=== PATIENT | male | born 1945 | race American Indian/Alaskan Native ===

== ENCOUNTER 2020-04-12 04:10 | Inpatient (IN) | payer MEDICARE ==
--- NOTE | 2020-04-12 04:17 | Emergency Department Report ---
<GENOVEVA AGUILERA - Last Filed: 04/12/20 05:37> ED Shortness of Breath HPI - General Stated Complaint: NICKIE Time Seen by Provider: 04/12/20 04:13 Source: patient, EMS Mode of arrival: Stretcher Limitations: Physical Limitation - History of Present Illness Initial Comments: Chief complaint: Trouble breathing HPI: This is an elderly 75-year-old male with history of hypertension diabetes who presents with shortness of breath. called EMS due to severe work of breathing. First responders discovered severe hypoxia 76% on room air. No previous history of lung disease or tobacco use. Patient has productive cough. Patient gives limited history due to work of breathing. MD Complaint: shortness of breath, cough -: Gradual, days(s) (Several days worse today) Severity: severe Consistency: constant Improves With: nothing Context: recent URI, other (Productive cough) - Related Data Allergies Allergy/AdvReac Type Severity Reaction Status Date / Time No Known Allergies Allergy Verified 04/12/20 04:28 ED Review of Systems Comment: Unobtainable due to pts medical conditions (Limited to severe respiratory distress) ED Past Medical Hx - Past Medical History Previous Medical History?: Yes Hx Hypertension: Yes Hx Diabetes: Yes - Social History Smoking Status: Never Smoker ED Physical Exam - General General appearance: lethargic, other (Severe work of breathing, respiratory rate 45 bpm) - Head Head exam: Present: atraumatic, normocephalic - Eye Eye exam: Present: normal appearance - ENT ENT exam: Present: mucous membranes moist - Neck Neck exam: Present: normal inspection - Respiratory Respiratory exam: Present: respiratory distress, decreased breath sounds. Absent: wheezes, rales, rhonchi, stridor - Cardiovascular Cardiovascular Exam: Present: regular rate, normal rhythm, normal heart sounds. Absent: systolic murmur, diastolic murmur, rubs, gallop - GI/Abdominal GI/Abdominal exam: Present: soft, normal bowel sounds. Absent: distended, tenderness, guarding, rebound - Rectal Rectal exam: Present: deferred - Extremities Exam Extremities exam: Present: pedal edema - Back Exam Back exam: Present: normal inspection - Neurological Exam Neurological exam: Present: oriented X3, other (Lethargic) - Psychiatric Psychiatric exam: Present: flat affect - Skin Skin exam: Present: warm, dry, intact, normal color. Absent: rash ED Medical Decision Making - Radiology Data Radiology results: report reviewed CHEST 1 VIEW INDICATION / CLINICAL INFORMATION: hypoxia cough respiratory distress. COMPARISON: None available. FINDINGS: SUPPORT DEVICES: None. HEART / MEDIASTINUM: No significant abnormality. LUNGS / PLEURA: Diffuse bilateral nodular interstitial disease is noted. Additionally there is focal area of consolidation in the mid lung regions bilaterally. This has more of a masslike appearance in the right midlung. Very small right pleural effusion. No pneumothorax. ADDITIONAL FINDINGS: No significant additional findings. IMPRESSION: 1. Abnormal chest radiograph. 2. Nodular interstitial disease is noted bilaterally. This could possibly be miliary in appearance raising concern for the possibility of tuberculosis. 3. Masslike areas of consolidation bilaterally. I would favor pneumonia, however, underlying lung neoplasm is not excluded, especially on the right. Close radiographic follow-up is recommended - Medical Decision Making Acute respiratory failure hypoxia: Patient presents with fever cough severe work of breathing requiring noninvasive positive pressure ventilation. I reviewed chest radiograph. Patient does have findings of multifocal pneumonia. Radiologist suggested possible neoplasm. Postobstructive pneumonia is a consideration. However considering current pandemic must consider community-acquired pneumonia as well as COVID-19 infection. Patient received IV antibiotics in the emergency department Critical Care Time: Yes Critical care time in (mins) excluding proc time.: 40 Critical care attestation.: 40 minutes of critical care time excluding procedures were used in the care of the patient. I came immediately to the bedside upon patient's arrival. I obtained history from EMS at the bedside. I discussed treatment plan with the nursing team members and respiratory therapist. I reviewed electronic record. I was concerned for imminent airway compromise. Patient required multiple interventions and reassessments. ED Disposition Clinical Impression: Acute respiratory failure with hypoxia, Community acquired pneumonia, Suspected COVID-19 virus infection, Renal insufficiency Disposition: OP ADMIT IP TO THIS HOSP Condition: Stable Instructions: Bacterial Pneumonia (ED) <CHARLETTE JONES - Last Filed: 04/12/20 07:27> ED Review of Systems ROS: Stated complaint: NICKIE Other details as noted in HPI ED Course Vital Signs 04/12/20 04/12/20 04:17 04:21 Temperature 100.1 F H Pulse Rate 113 H 110 H Respiratory 42 H 48 H Rate Blood Pressure 135/74 Blood Pressure 155/78 [Left] O2 Sat by Pulse 100 95 Oximetry ED Medical Decision Making - Lab Data Result diagrams: 04/12/20 04:51 04/12/20 04:51 Lab Results 04/12/20 04/12/20 04/12/20 Range/Units 04:21 04:51 04:51 WBC 5.1 (4.5-11.0) K/mm3 RBC 4.24 (3.65-5.03) M/mm3 Hgb 13.1 (11.8-15.2) gm/dl Hct 39.3 (35.5-45.6) % MCV 93 (84-94) fl MCH 31 (28-32) pg MCHC 33 (32-34) % RDW 14.1 (13.2-15.2) % Plt Count 110 L (140-440) K/mm3 Add Manual Diff Complete Total Counted 100 Seg Neutrophils % Litigation Manager Seg Neuts % (Manual) 93.0 H (40.0-70.0) % Band Neutrophils % 1.0 % Lymphocytes % (Manual) 3.0 L (13.4-35.0) % Reactive Lymphs % (Man) 0 % Monocytes % (Manual) 1.0 (0.0-7.3) % Eosinophils % (Manual) 2.0 (0.0-4.3) % Basophils % (Manual) 0 (0.0-1.8) % Metamyelocytes % 0 % Myelocytes % 0 % Promyelocytes % 0 % Blast Cells % 0 % Nucleated RBC % Not Reportable Seg Neutrophils # Man 4.7 (1.8-7.7) K/mm3 Band Neutrophils # 0.1 K/mm3 Lymphocytes # (Manual) 0.2 L (1.2-5.4) K/mm3 Abs React Lymphs (Man) 0.0 K/mm3 Monocytes # (Manual) 0.1 (0.0-0.8) K/mm3 Eosinophils # (Manual) 0.1 (0.0-0.4) K/mm3 Basophils # (Manual) 0.0 (0.0-0.1) K/mm3 Metamyelocytes # 0.0 K/mm3 Myelocytes # 0.0 K/mm3 Promyelocytes # 0.0 K/mm3 Blast Cells # 0.0 K/mm3 WBC Morphology Not Reportable Hypersegmented Neuts Not Reportable Hyposegmented Neuts Not Reportable Hypogranular Neuts Not Reportable Smudge Cells Not Reportable Toxic Granulation Not Reportable Toxic Vacuolation Not Reportable Dohle Bodies Not Reportable Pelger-Huet Anomaly Not Reportable Matthew Rods Not Reportable Platelet Estimate Consistent w auto Clumped Platelets Not Reportable Plt Clumps, EDTA Not Reportable Large Platelets Not Reportable Giant Platelets Not Reportable Platelet Satelliting Not Reportable Plt Morphology Comment Not Reportable RBC Morphology Not Reportable Dimorphic RBCs Not Reportable Polychromasia Not Reportable Hypochromasia Not Reportable Poikilocytosis Not Reportable Anisocytosis 1+ Microcytosis Not Reportable Macrocytosis Not Reportable Spherocytes Not Reportable Pappenheimer Bodies Not Reportable Sickle Cells Not Reportable Target Cells Not Reportable Tear Drop Cells Not Reportable Ovalocytes Not Reportable Helmet Cells Not Reportable [place] Bodies Not Reportable [place] Rings Not Reportable [place] Cells Not Reportable Bite Cells Not Reportable Crenated Cell Not Reportable Elliptocytes Not Reportable Acanthocytes (Spur) Not Reportable Rouleaux Not Reportable Hemoglobin C Crystals Not Reportable Schistocytes Not Reportable Malaria parasites Not Reportable Dandre Bodies Not Reportable Hem Pathologist Commnt No D-Dimer (0-234) ng/mlDDU ABG pH 7.441 (7.350-7.450) pH Units ABG pCO2 26.2 mm Hg ABG pO2 135.7 H (80.0-90.0) mm Hg ABG HCO3 15.4 L (20.0-26.0) mmol/L ABG O2 Saturation 98.7 (95.0-99.0) % ABG Base Excess -5.1 L (-2.0-3.0) mmol/L ABG Hemoglobin 13.3 L (14.0-18.0) gm/dl ABG Carboxyhemoglobin 1.2 (0.0-5.0) % ABG Methemoglobin 0.6 (0.0-1.5) % Oxyhemoglobin 96.9 (95.0-99.0) % FiO2 30.0 % Sodium 139 (137-145) mmol/L Potassium 4.1 (3.6-5.0) mmol/L Chloride 104.0 (98-107) mmol/L Carbon Dioxide 22 (22-30) mmol/L Anion Gap 17 mmol/L BUN 48 H (9-20) mg/dL Creatinine 3.2 H (0.8-1.3) mg/dL Estimated GFR 23 ml/min BUN/Creatinine Ratio 15 % Glucose 139 H (75-100) mg/dL Lactic Acid (0.7-2.0) mmol/L Calcium 9.5 (8.4-10.2) mg/dL Ferritin (30.0-300.0) ng/mL Total Bilirubin 0.60 (0.1-1.2) mg/dL AST 69 H (5-40) units/L ALT 51 (7-56) units/L Alkaline Phosphatase 155 H (35-129) units/L Lactate Dehydrogenase (91-180) units/L Troponin T (0.00-0.029) ng/mL C-Reactive Protein (0.00-1.30) mg/dL NT-Pro-B Natriuret Pep (0-900) pg/mL Total Protein 7.1 (6.3-8.2) g/dL Albumin 3.7 L (3.9-5) g/dL Albumin/Globulin Ratio 1.1 % 04/12/20 04/12/20 04/12/20 Range/Units 04:51 04:51 04:51 WBC (4.5-11.0) K/mm3 RBC (3.65-5.03) M/mm3 Hgb (11.8-15.2) gm/dl Hct (35.5-45.6) % MCV (84-94) fl MCH (28-32) pg MCHC (32-34) % RDW (13.2-15.2) % Plt Count (140-440) K/mm3 Add Manual Diff Total Counted Seg Neutrophils % Seg Neuts % (Manual) (40.0-70.0) % Band Neutrophils % % Lymphocytes % (Manual) (13.4-35.0) % Reactive Lymphs % (Man) % Monocytes % (Manual) (0.0-7.3) % Eosinophils % (Manual) (0.0-4.3) % Basophils % (Manual) (0.0-1.8) % Metamyelocytes % % Myelocytes % % Promyelocytes % % Blast Cells % % Nucleated RBC % Seg Neutrophils # Man (1.8-7.7) K/mm3 Band Neutrophils # K/mm3 Lymphocytes # (Manual) (1.2-5.4) K/mm3 Abs React Lymphs (Man) K/mm3 Monocytes # (Manual) (0.0-0.8) K/mm3 Eosinophils # (Manual) (0.0-0.4) K/mm3 Basophils # (Manual) (0.0-0.1) K/mm3 Metamyelocytes # K/mm3 Myelocytes # K/mm3 Promyelocytes # K/mm3 Blast Cells # K/mm3 WBC Morphology Hypersegmented Neuts Hyposegmented Neuts Hypogranular Neuts Smudge Cells Toxic Granulation Toxic Vacuolation Dohle Bodies Pelger-Huet Anomaly Matthew Rods Platelet Estimate Clumped Platelets Plt Clumps, EDTA Large Platelets Giant Platelets Platelet Satelliting Plt Morphology Comment RBC Morphology Dimorphic RBCs Polychromasia Hypochromasia Poikilocytosis Anisocytosis Microcytosis Macrocytosis Spherocytes Pappenheimer Bodies Sickle Cells Target Cells Tear Drop Cells Ovalocytes Helmet Cells [place] Bodies [place] Rings [place] Cells Bite Cells Crenated Cell Elliptocytes Acanthocytes (Spur) Rouleaux Hemoglobin C Crystals Schistocytes Malaria parasites Dandre Bodies Hem Pathologist Commnt D-Dimer > 63600 H (0-234) ng/mlDDU ABG pH (7.350-7.450) pH Units ABG pCO2 mm Hg ABG pO2 (80.0-90.0) mm Hg ABG HCO3 (20.0-26.0) mmol/L ABG O2 Saturation (95.0-99.0) % ABG Base Excess (-2.0-3.0) mmol/L ABG Hemoglobin (14.0-18.0) gm/dl ABG Carboxyhemoglobin (0.0-5.0) % ABG Methemoglobin (0.0-1.5) % Oxyhemoglobin (95.0-99.0) % FiO2 % Sodium (137-145) mmol/L Potassium (3.6-5.0) mmol/L Chloride (98-107) mmol/L Carbon Dioxide (22-30) mmol/L Anion Gap mmol/L BUN (9-20) mg/dL Creatinine (0.8-1.3) mg/dL Estimated GFR ml/min BUN/Creatinine Ratio % Glucose 137 H (75-100) mg/dL Lactic Acid 3.80 H* (0.7-2.0) mmol/L Calcium (8.4-10.2) mg/dL Ferritin (30.0-300.0) ng/mL Total Bilirubin (0.1-1.2) mg/dL AST (5-40) units/L ALT (7-56) units/L Alkaline Phosphatase (35-129) units/L Lactate Dehydrogenase 398 H (91-180) units/L Troponin T 0.012 (0.00-0.029) ng/mL C-Reactive Protein 6.30 H (0.00-1.30) mg/dL NT-Pro-B Natriuret Pep 2170 H (0-900) pg/mL Total Protein (6.3-8.2) g/dL Albumin (3.9-5) g/dL Albumin/Globulin Ratio % 04/12/20 Range/Units 04:51 WBC (4.5-11.0) K/mm3 RBC (3.65-5.03) M/mm3 Hgb (11.8-15.2) gm/dl Hct (35.5-45.6) % MCV (84-94) fl MCH (28-32) pg MCHC (32-34) % RDW (13.2-15.2) % Plt Count (140-440) K/mm3 Add Manual Diff Total Counted Seg Neutrophils % Seg Neuts % (Manual) (40.0-70.0) % Band Neutrophils % % Lymphocytes % (Manual) (13.4-35.0) % Reactive Lymphs % (Man) % Monocytes % (Manual) (0.0-7.3) % Eosinophils % (Manual) (0.0-4.3) % Basophils % (Manual) (0.0-1.8) % Metamyelocytes % % Myelocytes % % Promyelocytes % % Blast Cells % % Nucleated RBC % Seg Neutrophils # Man (1.8-7.7) K/mm3 Band Neutrophils # K/mm3 Lymphocytes # (Manual) (1.2-5.4) K/mm3 Abs React Lymphs (Man) K/mm3 Monocytes # (Manual) (0.0-0.8) K/mm3 Eosinophils # (Manual) (0.0-0.4) K/mm3 Basophils # (Manual) (0.0-0.1) K/mm3 Metamyelocytes # K/mm3 Myelocytes # K/mm3 Promyelocytes # K/mm3 Blast Cells # K/mm3 WBC Morphology Hypersegmented Neuts Hyposegmented Neuts Hypogranular Neuts Smudge Cells Toxic Granulation Toxic Vacuolation Dohle Bodies Pelger-Huet Anomaly Matthew Rods Platelet Estimate Clumped Platelets Plt Clumps, EDTA Large Platelets Giant Platelets Platelet Satelliting Plt Morphology Comment RBC Morphology Dimorphic RBCs Polychromasia Hypochromasia Poikilocytosis Anisocytosis Microcytosis Macrocytosis Spherocytes Pappenheimer Bodies Sickle Cells Target Cells Tear Drop Cells Ovalocytes Helmet Cells Lilly-[place] Bodies [place] Rings [place] Cells Bite Cells Crenated Cell Elliptocytes Acanthocytes (Spur) Rouleaux Hemoglobin C Crystals Schistocytes Malaria parasites Dandre Bodies Hem Pathologist Commnt D-Dimer (0-234) ng/mlDDU ABG pH (7.350-7.450) pH Units ABG pCO2 mm Hg ABG pO2 (80.0-90.0) mm Hg ABG HCO3 (20.0-26.0) mmol/L ABG O2 Saturation (95.0-99.0) % ABG Base Excess (-2.0-3.0) mmol/L ABG Hemoglobin (14.0-18.0) gm/dl ABG Carboxyhemoglobin (0.0-5.0) % ABG Methemoglobin (0.0-1.5) % Oxyhemoglobin (95.0-99.0) % FiO2 % Sodium (137-145) mmol/L Potassium (3.6-5.0) mmol/L Chloride (98-107) mmol/L Carbon Dioxide (22-30) mmol/L Anion Gap mmol/L BUN (9-20) mg/dL Creatinine (0.8-1.3) mg/dL Estimated GFR ml/min BUN/Creatinine Ratio % Glucose (75-100) mg/dL Lactic Acid (0.7-2.0) mmol/L Calcium (8.4-10.2) mg/dL Ferritin 1523.0 H (30.0-300.0) ng/mL Total Bilirubin (0.1-1.2) mg/dL AST (5-40) units/L ALT (7-56) units/L Alkaline Phosphatase (35-129) units/L Lactate Dehydrogenase (91-180) units/L Troponin T (0.00-0.029) ng/mL C-Reactive Protein (0.00-1.30) mg/dL NT-Pro-B Natriuret Pep (0-900) pg/mL Total Protein (6.3-8.2) g/dL Albumin (3.9-5) g/dL Albumin/Globulin Ratio % - Medical Decision Making Case discussed with hospitalist for admission. Critical care attestation.: If time is entered above; I have spent that time in minutes in the direct care of this critically ill patient, excluding procedure time. ED Disposition Is pt being admited?: Yes Time of Disposition: 07:27 (Dr. Sidhu/hospitalist)
[2020-04-12] MEDS: cefTRIAXone/NS 2 GM/100 ML 2 GM/100 ML BAG IV SCH ×2 (04:28→11:40)
--- NOTE | 2020-04-12 04:54 | XRay Report ---
CHEST 1 VIEW INDICATION / CLINICAL INFORMATION: hypoxia cough respiratory distress. COMPARISON: None available. FINDINGS: SUPPORT DEVICES: None. HEART / MEDIASTINUM: No significant abnormality. LUNGS / PLEURA: Diffuse bilateral nodular interstitial disease is noted. Additionally there is focal area of consolidation in the mid lung regions bilaterally. This has more of a masslike appearance in the right midlung. Very small right pleural effusion. No pneumothorax. ADDITIONAL FINDINGS: No significant additional findings. IMPRESSION: 1. Abnormal chest radiograph. 2. Nodular interstitial disease is noted bilaterally. This could possibly be miliary in appearance ra ising concern for the possibility of tuberculosis. 3. Masslike areas of consolidation bilaterally. I would favor pneumonia, however, underlying lung kiana plasm is not excluded, especially on the right. Close radiographic follow-up is recommended.. Signer Name: Kathryn Talavera MD Signed: 04/12/2020 4:50 AM Workstation Name: [id number]
[2020-04-12 05:20] LABS: ABG PCO2 26.2 mm Hg; ABG PH 7.441 pH Units (7.350-7.450)
[2020-04-12 05:21] LABS: ABG Base Excess -5.1 mmol/L (-2.0-3.0); ABG Oxygen Saturation 98.7 % (95.0-99.0); ABG PO2 135.7 mm Hg (80.0-90.0)
[2020-04-12 05:22] LABS: ABG HCO3 15.4 mmol/L (20.0-26.0)
[2020-04-12 05:23] LABS: ABG Methemoglobin 0.6 % (0.0-1.5)
[2020-04-12] MEDS ORDERED: SUCCINYLCHOLINE CHLORIDE 200 MG/10 ML INJ MDV ONE (05:45)
[2020-04-12] MEDS ORDERED: ETOMIDATE 20 MG/10 ML INJ IV ONE (05:45)
[2020-04-12 06:00] LABS: Hematocrit 39.3 % (35.5-45.6); Hemoglobin 13.1 gm/dl (11.8-15.2); Mean Corpuscular HGB Conc 33 % (32-34); Mean Corpuscular Volume 93 fl (84-94); Red Blood Count 4.24 M/mm3 (3.65-5.03); Red Cell Distribution Width 14.1 % (13.2-15.2)
[2020-04-12 06:03] LABS: Platelet Count 110 K/mm3 (140-440)
[2020-04-12 06:04] LABS: C-Reactive Protein 6.3 mg/dL (0.00-1.30)
[2020-04-12 06:05] LABS: Albumin 3.7 g/dL (3.9-5); Calcium 9.5 mg/dL (8.4-10.2)
[2020-04-12] MEDS: AZITHROMYCIN 500 MG in SODIUM CHLORIDE 0.9% 250ML 250 ML IV SCH (06:28)
[2020-04-12 07:20] LABS: Anisocytosis 1+; Band Neutrophils # (Manual) 0.1 K/mm3; Basophils % (Manual) 0 % (0.0-1.8); Platelet Estimate Consistent w Auto; Total Cells Counted 100
--- NOTE | 2020-04-12 08:00 | History and Physical Report ---
History of Present Illness Date of examination: 04/12/20 Date of admission: April 12, 2020 Chief complaint: sob History of present illness: Patient 75-year-old with a history of hypertension diabetes presents with an acute episode of shortness of breath. Patient called EMT was found to be hypoxic on presentation and was transferred to the ED. Upon ER admission patient was found to be hypoxic as well was placed on BiPAP. Patient stabilized on BiPAP. Work-up in the ED found diffuse bilateral nodular densities. Focal areas of consolidation in the mid lung very difficult to get much history secondary to increased work of breathing. Past History Past Medical History: diabetes, hypertension. denies: acute [place], atrial fib, arrhythmia, anemia, arthritis, CAD, cancer, COPD, dialysis, DVT, ESRD, GERD, heart failure, hepatitis, HIV/AIDS, hyperthyroidism, hyperlipidemia, hypothyroidism, liver disease, PVD, renal failure, stroke, sarcoidosis Past Surgical History: No surgical history Social history: , lives with family, full code. denies: smoking, alcohol abuse, prescription drug abuse, IV drug use Family history: no significant family history Medications and Allergies Allergies Allergy/AdvReac Type Severity Reaction Status Date / Time No Known Allergies Allergy Verified 04/12/20 04:28 Home Medications Medication Instructions Recorded Confirmed Last Taken Type AtorvaSTATin [Lipitor] 20 mg PO QHS 04/12/20 04/12/[address] [Voltjessy Dr] 75 mg PO BID 04/12/20 04/12/20 Unknown History Insulin Aspart Prot/Aspart(Nf) 10 units SUB-Q BID 04/12/20 04/12/20 Unknown History [NovoLOG Mix 70/30 VIAL] Losartan/Hydrochlorothiazide 100 mg PO QDAY 04/12/20 04/12/20 Unknown History [Losartan-Hctz 100-25 mg Tab] Metoprolol [Lopressor] 25 mg PO BID 04/12/20 04/12/20 Unknown History Pioglitazone [Actos] 15 mg PO QDAY 04/12/20 04/12/20 Unknown History amLODIPine [Norvasc] 5 mg PO DAILY 04/12/20 04/12/20 Unknown History Active Meds: Active Medications Alprazolam (Xanax) 0.125 mg PO Q8H PRN PRN Reason: Anxiety Famotidine (Pepcid) 20 mg PO BID JOSIANE Ceftriaxone Sodium (Rocephin/Ns 2 Gm/100 Ml) 2 gm in 100 mls @ 200 mls/hr IV Q24HR JOSIANE; Protocol Last Admin: 04/12/20 04:28 Dose: 200 mls/hr Documented by: Azithromycin 500 mg/ Sodium (Chloride) 250 mls @ 250 mls/hr IV Q24HR JOSIANE; Protocol Last Admin: 04/12/20 06:28 Dose: 250 mls/hr Documented by: Review of Systems Constitutional: fever, chills, sweats, fatigue, weakness, no weight loss, no weight gain, no night sweats, no anorexia, no malaise, no lethargy, no chronic headaches, no poor appetite, no daytime sleepiness, no chronic pain Ears, nose, mouth and throat: no nasal congestion, no nasal discharge, no bleeding gums, no dental pain, no dysphagia, no hoarseness, no sore throat, no post-nasal drip, no headache, no pain front of neck Cardiovascular: shortness of breath, dyspnea on exertion, no chest pain, no orthopnea, no palpitations, no rapid/irregular heart beat, no edema, no syncope, no lightheadedness, no paroxysmal nocturnal dyspnea, no claudication, no phlebitis, no high blood pressure Respiratory: cough, cough with sputum, shortness of breath, dyspnea on exertion, congestion, no excessive sputum, no hemoptysis, no wheezing, no pleurisy, no pain, no pain on inspiration, no sleep apnea, no home oxygen Gastrointestinal: no abdominal pain, no vomiting, no diarrhea, no constipation, no melena, no hematochezia, no early satiety Musculoskeletal: no neck pain, no shooting arm pain, no low back pain, no morning stiffness, no muscle weakness, no myalgias, no atrophy, no fractures, no loss of height, no prior amputations, no arthritis Neurological: no transient paralysis, no paralysis, no parathesias, no numbness, no tingling, no migraines, no aphasia, no change in mentation, no memory loss, no double vision, no hearing difficulties, no paralysis Endocrine: no cold intolerance, no flushing, no proptosis, no high blood sugars, no low blood sugars Hematologic/Lymphatic: no easy bruising Exam - Constitutional Vitals: Temp Pulse Resp BP Pulse Ox 100.1 F H 86 29 H 93/47 100 04/12/20 04:21 04/12/20 07:46 04/12/20 07:46 04/12/20 07:46 04/12/20 07:46 General appearance: Present: no acute distress, well-nourished - EENT Eyes: Present: PERRL ENT: hearing intact, clear oral mucosa - Neck Neck: Present: supple, normal ROM - Respiratory Respiratory effort: normal Respiratory: bilateral: diminished - Cardiovascular Heart Sounds: Present: S1 & S2. Absent: rub, click - Extremities Extremities: pulses symmetrical, No edema Peripheral Pulses: within normal limits - Abdominal General gastrointestinal: Present: soft, non-tender, non-distended, normal bowel sounds Male genitourinary: Present: normal - Integumentary Integumentary: Present: clear, warm, dry - Musculoskeletal Musculoskeletal: gait normal, strength equal bilaterally - Psychiatric Psychiatric: appropriate mood/affect, intact judgment & insight - Neurologic Neurologic: CNII-XII intact, moves all extremities HEART Score - HEART Score Troponin: Troponin T 0.012 ng/mL (0.00-0.029) 04/12/20 04:51 Results - Labs CBC & Chem 7: 04/12/20 04:51 04/13/20 13:51 Labs: Laboratory Last Values WBC 5.1 K/mm3 (4.5-11.0) 04/12/20 04:51 RBC 4.24 M/mm3 (3.65-5.03) 04/12/20 04:51 Hgb 13.1 gm/dl (11.8-15.2) 04/12/20 04:51 Hct 39.3 % (35.5-45.6) 04/12/20 04:51 MCV 93 fl (84-94) 04/12/20 04:51 MCH 31 pg (28-32) 04/12/20 04:51 MCHC 33 % (32-34) 04/12/20 04:51 RDW 14.1 % (13.2-15.2) 04/12/20 04:51 Plt Count 110 K/mm3 (140-440) L 04/12/20 04:51 Add Manual Diff Complete 04/12/20 04:51 Total Counted 100 04/12/20 04:51 Seg Neutrophils % Patient Financial Services Coordinator 04/12/20 04:51 Seg Neuts % (Manual) 93.0 % (40.0-70.0) H 04/12/20 04:51 Band Neutrophils % 1.0 % 04/12/20 04:51 Lymphocytes % (Manual) 3.0 % (13.4-35.0) L 04/12/20 04:51 Reactive Lymphs % (Man) 0 % 04/12/20 04:51 Monocytes % (Manual) 1.0 % (0.0-7.3) 04/12/20 04:51 Eosinophils % (Manual) 2.0 % (0.0-4.3) 04/12/20 04:51 Basophils % (Manual) 0 % (0.0-1.8) 04/12/20 04:51 Metamyelocytes % 0 % 04/12/20 04:51 Myelocytes % 0 % 04/12/20 04:51 Promyelocytes % 0 % 04/12/20 04:51 Blast Cells % 0 % 04/12/20 04:51 Nucleated RBC % Not Reportable 04/12/20 04:51 Seg Neutrophils # Man 4.7 K/mm3 (1.8-7.7) 04/12/20 04:51 Band Neutrophils # 0.1 K/mm3 04/12/20 04:51 Lymphocytes # (Manual) 0.2 K/mm3 (1.2-5.4) L 04/12/20 04:51 Abs React Lymphs (Man) 0.0 K/mm3 04/12/20 04:51 Monocytes # (Manual) 0.1 K/mm3 (0.0-0.8) 04/12/20 04:51 Eosinophils # (Manual) 0.1 K/mm3 (0.0-0.4) 04/12/20 04:51 Basophils # (Manual) 0.0 K/mm3 (0.0-0.1) 04/12/20 04:51 Metamyelocytes # 0.0 K/mm3 04/12/20 04:51 Myelocytes # 0.0 K/mm3 04/12/20 04:51 Promyelocytes # 0.0 K/mm3 04/12/20 04:51 Blast Cells # 0.0 K/mm3 04/12/20 04:51 WBC Morphology Not Reportable 04/12/20 04:51 Hypersegmented Neuts Not Reportable 04/12/20 04:51 Hyposegmented Neuts Not Reportable 04/12/20 04:51 Hypogranular Neuts Not Reportable 04/12/20 04:51 Smudge Cells Not Reportable 04/12/20 04:51 Toxic Granulation Not Reportable 04/12/20 04:51 Toxic Vacuolation Not Reportable 04/12/20 04:51 Dohle Bodies Not Reportable 04/12/20 04:51 Pelger-Huet Anomaly Not Reportable 04/12/20 04:51 Matthew Rods Not Reportable 04/12/20 04:51 Platelet Estimate Consistent w auto 04/12/20 04:51 Clumped Platelets Not Reportable 04/12/20 04:51 Plt Clumps, EDTA Not Reportable 04/12/20 04:51 Large Platelets Not Reportable 04/12/20 04:51 Giant Platelets Not Reportable 04/12/20 04:51 Platelet Satelliting Not Reportable 04/12/20 04:51 Plt Morphology Comment Not Reportable 04/12/20 04:51 RBC Morphology Not Reportable 04/12/20 04:51 Dimorphic RBCs Not Reportable 04/12/20 04:51 Polychromasia Not Reportable 04/12/20 04:51 Hypochromasia Not Reportable 04/12/20 04:51 Poikilocytosis Not Reportable 04/12/20 04:51 Anisocytosis 1+ 04/12/20 04:51 Microcytosis Not Reportable 04/12/20 04:51 Macrocytosis Not Reportable 04/12/20 04:51 Spherocytes Not Reportable 04/12/20 04:51 Pappenheimer Bodies Not Reportable 04/12/20 04:51 Sickle Cells Not Reportable 04/12/20 04:51 Target Cells Not Reportable 04/12/20 04:51 Tear Drop Cells Not Reportable 04/12/20 04:51 Ovalocytes Not Reportable 04/12/20 04:51 Helmet Cells Not Reportable 04/12/20 04:51 Lilly-Hasty Bodies Not Reportable 04/12/20 04:51 Sweet Briar Rings Not Reportable 04/12/20 04:51 Shelton Cells Not Reportable 04/12/20 04:51 Bite Cells Not Reportable 04/12/20 04:51 Crenated Cell Not Reportable 04/12/20 04:51 Elliptocytes Not Reportable 04/12/20 04:51 Acanthocytes (Spur) Not Reportable 04/12/20 04:51 Rouleaux Not Reportable 04/12/20 04:51 Hemoglobin C Crystals Not Reportable 04/12/20 04:51 Schistocytes Not Reportable 04/12/20 04:51 Malaria parasites Not Reportable 04/12/20 04:51 Dandre Bodies Not Reportable 04/12/20 04:51 Hem Pathologist Commnt No 04/12/20 04:51 D-Dimer > 55117 ng/mlDDU (0-234) H 04/12/20 04:51 ABG pH 7.441 pH Units (7.350-7.450) 04/12/20 04:21 ABG pCO2 26.2 mm Hg 04/12/20 04:21 ABG pO2 135.7 mm Hg (80.0-90.0) H 04/12/20 04:21 ABG HCO3 15.4 mmol/L (20.0-26.0) L 04/12/20 04:21 ABG O2 Saturation 98.7 % (95.0-99.0) 04/12/20 04:21 ABG Base Excess -5.1 mmol/L (-2.0-3.0) L 04/12/20 04:21 ABG Hemoglobin 13.3 gm/dl (14.0-18.0) L 04/12/20 04:21 ABG Carboxyhemoglobin 1.2 % (0.0-5.0) 04/12/20 04:21 ABG Methemoglobin 0.6 % (0.0-1.5) 04/12/20 04:21 Oxyhemoglobin 96.9 % (95.0-99.0) 04/12/20 04:21 FiO2 30.0 % 04/12/20 04:21 Sodium 139 mmol/L (137-145) 04/12/20 04:51 Potassium 4.1 mmol/L (3.6-5.0) 04/12/20 04:51 Chloride 104.0 mmol/L (98-107) 04/12/20 04:51 Carbon Dioxide 22 mmol/L (22-30) 04/12/20 04:51 Anion Gap 17 mmol/L 04/12/20 04:51 BUN 48 mg/dL (9-20) H 04/12/20 04:51 Creatinine 3.2 mg/dL (0.8-1.3) H 04/12/20 04:51 Estimated GFR 23 ml/min 04/12/20 04:51 BUN/Creatinine Ratio 15 % 04/12/20 04:51 Glucose 137 mg/dL (75-100) H 04/12/20 04:51 Glucose 139 mg/dL (75-100) H 04/12/20 04:51 Lactic Acid 3.80 mmol/L (0.7-2.0) H* 04/12/20 04:51 Calcium 9.5 mg/dL (8.4-10.2) 04/12/20 04:51 Ferritin 1523.0 ng/mL (30.0-300.0) H 04/12/20 04:51 Total Bilirubin 0.60 mg/dL (0.1-1.2) 04/12/20 04:51 AST 69 units/L (5-40) H 04/12/20 04:51 ALT 51 units/L (7-56) 04/12/20 04:51 Alkaline Phosphatase 155 units/L (35-129) H 04/12/20 04:51 Lactate Dehydrogenase 398 units/L (91-180) H 04/12/20 04:51 Troponin T 0.012 ng/mL (0.00-0.029) 04/12/20 04:51 C-Reactive Protein 6.30 mg/dL (0.00-1.30) H 04/12/20 04:51 NT-Pro-B Natriuret Pep 2170 pg/mL (0-900) H 04/12/20 04:51 Total Protein 7.1 g/dL (6.3-8.2) 04/12/20 04:51 Albumin 3.7 g/dL (3.9-5) L 04/12/20 04:51 Albumin/Globulin Ratio 1.1 % 04/12/20 04:51 Microbiology: Microbiology 04/12/20 05:28 Peripheral/Venous Blood Culture - Preliminary Culture in Progress 04/12/20 04:51 Peripheral/Venous Blood Culture - Preliminary Culture in Progress - Imaging and Cardiology Chest x-ray: report reviewed, image reviewed Haas/IV: IV Catheter Type [Right Hand] Peripheral IV Assessment and Plan Advance Directives: Yes VTE prophylaxis?: Chemical Plan of care discussed with patient/family: Yes - Patient Problems (1) Acute respiratory failure with hypoxia Current Visit: Yes Status: Acute Plan to address problem: Patient with acute respiratory failure. Given increased inflammatory markers as well as the acuity of presentation patient is highly suspicious of COVID-19 pneumonia. Admit respiratory precautions. Continue BiPAP. Pulmonology evaluation secondary to lung mass. Exact etiology of lung mass unknown. Patient unable to answer any further questions about this right now. Will need to assess further from family. (2) Community acquired pneumonia Current Visit: Yes Status: Acute Plan to address problem: Community-acquired pneumonia versus COVID-19 pneumonia. Will treat empirically with Rocephin and azithromycin. (3) Renal insufficiency Current Visit: Yes Status: Acute Plan to address problem: Patient with what appears to be chronic renal insufficiency. He cannot tell me at this time we will follow-up with family. (4) Suspected COVID-19 virus infection Current Visit: Yes Status: Acute Plan to address problem: If patient is positive we will start dexamethasone. Unlikely able to get remdesivir secondary to renal function.
[2020-04-12] MEDS ORDERED: FAMOTIDINE 20 MG TAB PO SCH (10:00)
--- NOTE | 2020-04-12 11:07 | Consultation ---
History of Present Illness - Reason for Consult Consult date: 04/12/20 pneumonia, ?TB, ?COVID Requesting physician: CHARLETTE JONES - History of Present Illness The patient is a 75-year-old male with diabetes, hypertension who presented to the emergency room with complaints of shortness of breath. Patient's called EMS, patient was noted to be hypoxic. Upon evaluation in the ER, noted to have low-grade fever of 100.1. Labs showed normal CBC except mild thrombocy topenia, D-dimer significantly elevated at >10K, creatinine 3.2, lactic acid 3.8, AST 69, LDH 398, CRP 6.3, procalcitonin 82.3, proBNP 2170, ferritin 1523. Patient is on BiPAP. Covid test is pending. Review of Systems: reviewed in the chart, unable to obtain directly due to PPE preservation and minimize risk of transmission Past History Past Medical History: diabetes, hypertension. denies: acute [place], atrial fib, arrhythmia, anemia, arthritis, CAD, cancer, COPD, dialysis, DVT, ESRD, GERD, heart failure, hepatitis, HIV/AIDS, hyperthyroidism, hyperlipidemia, hypothyroidism, liver disease, PVD, renal failure, stroke, sarcoidosis Past Surgical History: No surgical history Social history: , lives with family, full code. denies: smoking, alcohol abuse, prescription drug abuse, IV drug use Family history: no significant family history Medications and Allergies Allergies Allergy/AdvReac Type Severity Reaction Status Date / Time No Known Allergies Allergy Verified 04/12/20 04:28 Active Meds: Active Medications Alprazolam (Xanax) 0.125 mg PO Q8H PRN PRN Reason: Anxiety Famotidine (Pepcid) 20 mg PO DAILY JOSIANE Ceftriaxone Sodium (Rocephin/Ns 2 Gm/100 Ml) 2 gm in 100 mls @ 200 mls/hr IV Q24HR JOSIANE; Protocol Last Admin: 04/12/20 04:28 Dose: 200 mls/hr Documented by: Azithromycin 500 mg/ Sodium (Chloride) 250 mls @ 250 mls/hr IV Q24HR JOSIANE; Protocol Last Admin: 04/12/20 06:28 Dose: 250 mls/hr Documented by: Physical Examination - Physical Exam Narrative exam: Physical Exam (reviewed in chart due to PPE conservation and minimize risk of transmission) Constitutional: limited due to PPE conservation strategy Head, Ears, Nose: limited due to PPE conservation strategy Eyes: limited due to PPE conservation strategy Neck: limited due to PPE conservation strategy Oral: limited due to PPE conservation strategy Cardiovascular: limited due to PPE conservation strategy Respiratory: limited due to PPE conservation strategy GI: limited due to PPE conservation strategy Musculoskeletal: limited due to PPE conservation strategy Skin: limited due to PPE conservation strategy Hem/Lymphatic: limited due to PPE conservation strategy Psych: limited due to PPE conservation strategy Neurological: limited due to PPE conservation strategy - Constitutional Vitals: Vital Signs Temp Pulse Resp BP Pulse Ox 100.1 F H 86 29 H 93/47 100 04/12/20 04:21 04/12/20 07:46 04/12/20 07:46 04/12/20 07:46 04/12/20 07:46 Temperature -Last 24 Hours Temperature 100.1 F Results - Labs CBC & Chem 7: 04/12/20 04:51 04/12/20 04:51 Labs: Abnormal lab results 04/12/20 04/12/20 04/12/20 Range/Units 04:21 04:51 04:51 Plt Count 110 L (140-440) K/mm3 Seg Neuts % (Manual) 93.0 H (40.0-70.0) % Lymphocytes % (Manual) 3.0 L (13.4-35.0) % Lymphocytes # (Manual) 0.2 L (1.2-5.4) K/mm3 D-Dimer (0-234) ng/mlDDU ABG pO2 135.7 H (80.0-90.0) mm Hg ABG HCO3 15.4 L (20.0-26.0) mmol/L ABG Base Excess -5.1 L (-2.0-3.0) mmol/L ABG Hemoglobin 13.3 L (14.0-18.0) gm/dl BUN 48 H (9-20) mg/dL Creatinine 3.2 H (0.8-1.3) mg/dL Glucose 139 H (75-100) mg/dL Lactic Acid (0.7-2.0) mmol/L Ferritin (30.0-300.0) ng/mL AST 69 H (5-40) units/L Alkaline Phosphatase 155 H (35-129) units/L Lactate Dehydrogenase (91-180) units/L C-Reactive Protein (0.00-1.30) mg/dL NT-Pro-B Natriuret Pep (0-900) pg/mL Albumin 3.7 L (3.9-5) g/dL 04/12/20 04/12/20 04/12/20 Range/Units 04:51 04:51 04:51 Plt Count (140-440) K/mm3 Seg Neuts % (Manual) (40.0-70.0) % Lymphocytes % (Manual) (13.4-35.0) % Lymphocytes # (Manual) (1.2-5.4) K/mm3 D-Dimer > 38487 H (0-234) ng/mlDDU ABG pO2 (80.0-90.0) mm Hg ABG HCO3 (20.0-26.0) mmol/L ABG Base Excess (-2.0-3.0) mmol/L ABG Hemoglobin (14.0-18.0) gm/dl BUN (9-20) mg/dL Creatinine (0.8-1.3) mg/dL Glucose 137 H (75-100) mg/dL Lactic Acid 3.80 H* (0.7-2.0) mmol/L Ferritin (30.0-300.0) ng/mL AST (5-40) units/L Alkaline Phosphatase (35-129) units/L Lactate Dehydrogenase 398 H (91-180) units/L C-Reactive Protein 6.30 H (0.00-1.30) mg/dL NT-Pro-B Natriuret Pep 2170 H (0-900) pg/mL Albumin (3.9-5) g/dL 04/12/20 04/12/20 Range/Units 04:51 10:20 Plt Count (140-440) K/mm3 Seg Neuts % (Manual) (40.0-70.0) % Lymphocytes % (Manual) (13.4-35.0) % Lymphocytes # (Manual) (1.2-5.4) K/mm3 D-Dimer (0-234) ng/mlDDU ABG pO2 (80.0-90.0) mm Hg ABG HCO3 (20.0-26.0) mmol/L ABG Base Excess (-2.0-3.0) mmol/L ABG Hemoglobin (14.0-18.0) gm/dl BUN (9-20) mg/dL Creatinine (0.8-1.3) mg/dL Glucose (75-100) mg/dL Lactic Acid 3.50 H* (0.7-2.0) mmol/L Ferritin 1523.0 H (30.0-300.0) ng/mL AST (5-40) units/L Alkaline Phosphatase (35-129) units/L Lactate Dehydrogenase (91-180) units/L C-Reactive Protein (0.00-1.30) mg/dL NT-Pro-B Natriuret Pep (0-900) pg/mL Albumin (3.9-5) g/dL - Imaging and Cardiology Chest x-ray: report reviewed, image reviewed (Chest x-ray showed diffuse bilateral nodular interstitial disease along with a masslike consolidation in the right midlung.) Assessment and Plan Cultures: Coronavirus PCR: Pending 04/12/2020 blood culture: In process A/P: 75-year-old male with diabetes, hypertension admitted with: #Sepsis, secondary to bilateral pneumonia: Follow-up COVID-19 PCR. Procalcitonin is high. Cover for bacterial pneumonia. Labs showed normal CBC except mild thrombocytopenia, D-dimer significantly elevated at >10K, creatinine 3.2, lactic acid 3.8, AST 69, LDH 398, CRP 6.3, procalcitonin 82.3, proBNP 2170, ferritin 1523. #Acute hypoxic respiratory failure: On BiPAP #Acute renal failure: Renally dose antibiotics. 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 Recs: -Follow-up COVID-19 PCR, if positive, start IV/PO Dexamethasone 6 mg daily x 10 days -D-dimer is extremely high, consider VQ scan when feasible -Continue empiric ceftriaxone and azithromycin -Consider CT chest to evaluate R lung mass like lesion -Chart doesn't list the phone number of his , will need to get additional history from her regarding TB epidemiologic risk and duration of symptoms. Continue on isolation for now Chong Stack MD, FACP [facility] ([facility] O: [phone] F: [phone]
[2020-04-12] MEDS ORDERED: cefTRIAXone/NS 2 GM/100 ML 2 GM/100 ML BAG IV ONE (11:13)
[2020-04-12] MEDS ORDERED: FAMOTIDINE 20 MG TAB ONE (11:13)
[2020-04-12] MEDS: FAMOTIDINE 20 MG TAB PO SCH (11:39)
[2020-04-13] MEDS: ALPRAZolam 0.25 MG TAB PO PRN ×2 (04:15→21:58)
--- NOTE | 2020-04-13 09:56 | Consultation ---
History of Present Illness Consult date: 04/13/20 Requesting physician: ESTEE ANTONIO Reason for consult: dyspnea, hypoxemia History of present illness: 75 y/o male, never admitted here before presents with several days of shortness of breath. Found to have a room air sat of 76%. Placed on oxygen and numbers improved, however was started on bipap, presumptively because of increased work of breathing. Brought in via EMS as called secondary to increase work of breathing. Per chart, patient could not provide any history. Past History Past Medical History: diabetes, hypertension. denies: acute LA, atrial fib, arrhythmia, anemia, arthritis, CAD, cancer, COPD, dialysis, DVT, ESRD, GERD, heart failure, hepatitis, HIV/AIDS, hyperthyroidism, hyperlipidemia, hypothyroidism, liver disease, PVD, renal failure, stroke, sarcoidosis Past Surgical History: No surgical history Social history: , lives with family, full code. denies: smoking, alcohol abuse, prescription drug abuse, IV drug use Family history: no significant family history Medications and Allergies Allergies Allergy/AdvReac Type Severity Reaction Status Date / Time No Known Allergies Allergy Verified 04/12/20 04:28 Home Medications Medication Instructions Recorded Confirmed Last Taken Type AtorvaSTATin [Lipitor] 20 mg PO QHS 04/12/20 04/12/[address] [Aki Hernández] 75 mg PO BID 04/12/20 04/12/20 Unknown History Insulin Aspart Prot/Aspart(Nf) 10 units SUB-Q BID 04/12/20 04/12/20 Unknown History [NovoLOG Mix 70/30 VIAL] Losartan/Hydrochlorothiazide 100 mg PO QDAY 04/12/20 04/12/20 Unknown History [Losartan-Hctz 100-25 mg Tab] Metoprolol [Lopressor] 25 mg PO BID 04/12/20 04/12/20 Unknown History Pioglitazone [Actos] 15 mg PO QDAY 04/12/20 04/12/20 Unknown History amLODIPine [Norvasc] 5 mg PO DAILY 04/12/20 04/12/20 Unknown History Active Meds: Active Medications Alprazolam (Xanax) 0.125 mg PO Q8H PRN PRN Reason: Anxiety Last Admin: 04/13/20 04:15 Dose: 0.125 mg Documented by: Dexamethasone (Decadron) 6 mg IV Q24H JOSIANE Famotidine (Pepcid) 20 mg PO DAILY [facility] Last Admin: 04/12/20 11:39 Dose: 20 mg Documented by: Ceftriaxone Sodium (Rocephin/Ns 2 Gm/100 Ml) 2 gm in 100 mls @ 200 mls/hr IV Q24HR JOSIANE; Protocol Last Admin: 04/12/20 11:40 Dose: 200 mls/hr Documented by: Azithromycin 500 mg/ Sodium (Chloride) 250 mls @ 250 mls/hr IV Q24HR JOSIANE; Protocol Last Admin: 04/12/20 06:28 Dose: 250 mls/hr Documented by: Physical Examination Vital signs: Vital Signs Pulse Resp Pulse Ox 116 H 45 H 95 04/12/20 04:02 04/12/20 04:02 04/12/20 04:02 Patient not examined in person to preserve PPE during the global pandemic of CO VID 19 Results - Laboratory Findings CBC and BMP: 04/12/20 04:51 04/12/20 04:51 ABG ABG pH 7.441 pH Units (7.350-7.450) 04/12/20 04:21 ABG pCO2 26.2 mm Hg 04/12/20 04:21 ABG pO2 135.7 mm Hg (80.0-90.0) H 04/12/20 04:21 ABG O2 Saturation 98.7 % (95.0-99.0) 04/12/20 04:21 PT/INR, D-dimer D-Dimer > 00694 ng/mlDDU (0-234) H 04/12/20 04:51 Abnormal lab findings: Abnormal Labs 04/12/20 04/12/20 04/12/20 04:21 04:51 04:51 Plt Count 110 L Seg Neuts % (Manual) 93.0 H Lymphocytes % (Manual) 3.0 L Lymphocytes # (Manual) 0.2 L D-Dimer ABG pO2 135.7 H ABG HCO3 15.4 L ABG Base Excess -5.1 L ABG Hemoglobin 13.3 L BUN 48 H Creatinine 3.2 H Glucose 139 H Lactic Acid Ferritin AST 69 H Alkaline Phosphatase 155 H Lactate Dehydrogenase C-Reactive Protein NT-Pro-B Natriuret Pep Albumin 3.7 L Coronavirus (PCR) 04/12/20 04/12/20 04/12/20 04:51 04:51 04:51 Plt Count Seg Neuts % (Manual) Lymphocytes % (Manual) Lymphocytes # (Manual) D-Dimer > 96201 H ABG pO2 ABG HCO3 ABG Base Excess ABG Hemoglobin BUN Creatinine Glucose 137 H Lactic Acid 3.80 H* Ferritin AST Alkaline Phosphatase Lactate Dehydrogenase 398 H C-Reactive Protein 6.30 H NT-Pro-B Natriuret Pep 2170 H Albumin Coronavirus (PCR) 04/12/20 04/12/20 04/12/20 04:51 10:20 Unknown Plt Count Seg Neuts % (Manual) Lymphocytes % (Manual) Lymphocytes # (Manual) D-Dimer ABG pO2 ABG HCO3 ABG Base Excess ABG Hemoglobin BUN Creatinine Glucose Lactic Acid 3.50 H* Ferritin 1523.0 H AST Alkaline Phosphatase Lactate Dehydrogenase C-Reactive Protein NT-Pro-B Natriuret Pep Albumin Coronavirus (PCR) Positive A - Diagnostic Findings Chest x-ray: image reviewed (bilateral alveolar airspace disease with right sided area of mass likely lesion vs consolidation) Assessment and Plan 75 y/o male with acute respiratory failure, renal failure with lactic acidosis found to be COVID positive. 1. Started dexamethasone 6mg IV 2. asked RT to try patient on ventimask and he is tolerating this well. Will continue to wean. ABG was adequate on 30% FiO2 but I presume that was done on bipap 3. Doubt he is a candidate for Remdesivir given renal failure. ID is following 4. Really needs echo but likely will not get given COVID 19 status 5. NO objection to CT of chest, if able to calm down and tolerate lower level of oxygen, will order 6. No next of kin information, need to talk to to find out about renal function and other medical history 7. Suggest urine lytes, and renal ultrasound 8. Will discuss with ID and primary, but likely needs anticoagulation, full dose. Would consider eliquis BID 9. Needs inflammatory markers every 48 hours Guarded, guarded prognosis with renal failure and COVID.
[2020-04-13] MEDS: cefTRIAXone/NS 2 GM/100 ML 2 GM/100 ML BAG IV SCH (10:03)
[2020-04-13] MEDS: FAMOTIDINE 20 MG TAB PO SCH (10:03)
[2020-04-13] MEDS: AZITHROMYCIN 500 MG in SODIUM CHLORIDE 0.9% 250ML 250 ML IV SCH (10:03)
[2020-04-13] MEDS ORDERED: DEXTROSE 50% IN WATER (25GM) 50 ML SYRINGE IV PRN (10:05)
[2020-04-13] MEDS: dexAMETHasone 4 MG/ML VIAL IV SCH (10:08)
[2020-04-13] MEDS: APIXABAN 5 MG TAB PO SCH ×2 (10:17→21:58)
[2020-04-13] MEDS ORDERED: HALOPERIDOL LACTATE 5 MG/1 ML INJ IV PRN (10:42)
[2020-04-13] MEDS: INSULIN LISPRO 100 UNIT/ML VIAL 3 mL SUB-Q SCH ×3 (11:35→22:05)
[2020-04-13] MEDS ORDERED: NORepinephrine/NS 4 MG-250 ML 0 MG/0 ML BAG IV ONE (13:42)
--- NOTE | 2020-04-13 15:40 | Progress Note ---
Assessment and Plan - Patient Problems (1) Acute respiratory failure with hypoxia Current Visit: Yes Status: Acute Plan to address problem: Patient with acute respiratory failure. Most likely secondary to COVID-19 pneumonia. Patient came back Covid positive. Patient also has underlying lung mass. Somewhat suspicious for TB. Obtain pulmonology consult ID consult. Patient start steroids. Not a candidate for remdesivir secondary to renal failure. (2) Community acquired pneumonia Current Visit: Yes Status: Acute Plan to address problem: Community-acquired pneumonia versus COVID-19 pneumonia. Will treat empirically with Rocephin and azithromycin. (3) Renal insufficiency Current Visit: Yes Status: Acute (4) Suspected COVID-19 virus infection Current Visit: Yes Status: Acute Plan to address problem: Severe sepsis from COVID-19 pneumonia. Patient requiring requiring nonrebreath er for oxygenation. Prognosis poor. (5) Acute kidney injury Current Visit: Yes Status: Acute (6) Acute kidney injury (ROZ) with acute tubular necrosis (ATN) Current Visit: Yes Status: Acute Plan to address problem: Acute kidney injury possibly secondary to COVID-19 versus acute on chronic kidney disease and vasomotor nephropathy. Will obtain renal consult. Called for further history on previous renal function. Subjective Date of service: 04/13/20 Principal diagnosis: Sepsis present on admission Interval history: 75-year-old presented with acute respiratory failure. Patient was found to have severe sepsis secondary to Covid pneumonia. Patient hospital course also complicated by acute respiratory failure and underlying mass of unknown etiology. Patient continues to have increased work of breathing requiring BiPAP. Patient able to speak much better today. Objective - Constitutional Vitals: Vital Signs - 12hr 04/13/20 04/13/20 04/13/20 04:00 04:30 05:00 Temperature 96.9 F L Pulse Rate 94 H Pulse Rate [ From Monitor] Respiratory 26 H 24 Rate Blood Pressure 126/68 102/61 O2 Sat by Pulse 98 100 98 Oximetry 04/13/20 04/13/20 04/13/20 06:00 07:00 08:00 Temperature Pulse Rate 95 H 92 H 103 H Pulse Rate [ 100 H From Monitor] Respiratory 12 33 H 30 H Rate Blood Pressure 102/61 114/55 106/59 O2 Sat by Pulse 100 98 Oximetry 04/13/20 04/13/20 04/13/20 09:00 09:42 09:45 Temperature Pulse Rate 101 H 90 Pulse Rate [ From Monitor] Respiratory 21 25 H Rate Blood Pressure 118/73 118/73 O2 Sat by Pulse 99 99 98 Oximetry 04/13/20 04/13/20 04/13/20 10:00 11:00 12:00 Temperature Pulse Rate 99 H 99 H 96 H Pulse Rate [ 99 H From Monitor] Respiratory 14 15 11 L Rate Blood Pressure 126/75 126/75 122/75 O2 Sat by Pulse 99 100 99 Oximetry 04/13/20 04/13/20 04/13/20 13:00 14:00 15:00 Temperature Pulse Rate 107 H 100 H 98 H Pulse Rate [ From Monitor] Respiratory 21 29 H 19 Rate Blood Pressure 122/75 122/75 122/75 O2 Sat by Pulse 79 L 94 Oximetry General appearance: Present: no acute distress, well-nourished - EENT Eyes: PERRL, EOM intact ENT: hearing intact, clear oral mucosa Ears: bilateral: normal - Neck Neck: supple, normal ROM - Respiratory Respiratory effort: other (Somewhat labored secondary to BiPAP. Patient especially becomes labored when he attempts to talk otherwise improved since yesterday) Respiratory: bilateral: CTA, diminished (Decreased breath sounds.) - Breasts Breasts: normal - Cardiovascular Rhythm: regular Heart Sounds: Present: S1 & S2. Absent: gallop, rub Extremities: pulses intact, No edema, normal color, Full ROM - Gastrointestinal General gastrointestinal: Present: soft, non-tender, non-distended, normal bowel sounds - Genitourinary Male genitourinary: normal - Integumentary Integumentary: clear, warm, dry - Musculoskeletal Musculoskeletal: 1, strength equal bilaterally - Neurologic Neurologic: moves all extremities - Psychiatric Psychiatric: memory intact, appropriate mood/affect, intact judgment & insight - Labs CBC & Chem 7: 04/12/20 04:51 04/13/20 13:51 Labs: Abnormal lab results 04/13/20 Range/Units 13:51 Sodium 135 L (137-145) mmol/L Potassium 5.6 H D (3.6-5.0) mmol/L Carbon Dioxide 17 L (22-30) mmol/L BUN 76 H (9-20) mg/dL Creatinine 6.1 H D (0.8-1.3) mg/dL Glucose 150 H (75-100) mg/dL Phosphorus 5.90 H (2.5-4.5) mg/dL HEART Score - HEART Score Troponin: Troponin T 0.012 ng/mL (0.00-0.029) 04/12/20 04:51
[2020-04-13] MEDS ORDERED: INSULIN REGULAR, HUMAN 100 UNIT/ML 3ML VIAL IV ONE (18:17)
[2020-04-13] MEDS ORDERED: SODIUM POLYSTYRENE 15 GM/60 ML ORAL LIQD PO ONE (18:17)
[2020-04-13] MEDS ORDERED: DEXTROSE 50% IN WATER (25GM) 50 ML SYRINGE IV ONE (18:17)
[2020-04-14] MEDS: INSULIN LISPRO 100 UNIT/ML VIAL 3 mL SUB-Q SCH ×4 (07:54→21:55)
[2020-04-14] MEDS ORDERED: SODIUM CHLORIDE 0.9% 500 ML 500 ML IV SCH (08:46)
[2020-04-14] MEDS ORDERED: SODIUM CHLORIDE 0.9% 1000 ML 1,000 ML IV SCH (08:50)
--- NOTE | 2020-04-14 08:56 | Progress Note ---
Assessment and Plan - Patient Problems (1) Acute respiratory failure with hypoxia Current Visit: Yes Status: Acute Plan to address problem: Patient with acute respiratory failure. Most likely secondary to COVID-19 pneumonia. Patient came back Covid positive. Patient also has underlying lung mass. Somewhat suspicious for TB. Obtain pulmonology consult ID consult. Patient start steroids. Not a candidate for remdesivir secondary to renal failure. Patient renal function continues to progress. Still requiring high dose O2. (2) Community acquired pneumonia Current Visit: Yes Status: Acute Plan to address problem: Covid pneumonia. (3) Renal insufficiency Current Visit: Yes Status: Acute Plan to address problem: Patient now has acute renal failure. Has continued to progress over the last day or so. We will see if responds to IV fluids. Could be secondary to Covid 19 as well as acute on chronic kidney disease. Renal consult is been obtained. Will correct potassium. Bilateral renal ultrasound urine electrolytes. (4) Suspected COVID-19 virus infection Current Visit: Yes Status: Acute Plan to address problem: Severe sepsis from COVID-19 pneumonia. Patient requiring requiring nonrebreather for oxygenation. Prognosis poor. D-dimer greater than 10,000. Patient has been placed on empiric Eliquis. (5) Acute kidney injury Current Visit: Yes Status: Acute (6) Acute kidney injury (ROZ) with acute tubular necrosis (ATN) Current Visit: Yes Status: Acute Plan to address problem: Acute kidney injury possibly secondary to COVID-19 infection underlying acute on chronic kidney disease. May require hemodialysis now. Await any further recommendations from nephrology. Rule out obstructive uropathy. I did speak with she denied any history of renal failure or prostate issues at this time. Subjective Date of service: 04/14/20 Principal diagnosis: Sepsis present on admission Interval history: 75-year-old presented with acute respiratory failure. Patient was found to have severe sepsis secondary to Covid pneumonia. Patient hospital course also complicated by acute respiratory failure and underlying mass of unknown etiology. Patient continues to have increased work of breathing requiring BiPAP. Hospital course complicated this morning by worsening renal function. 03/14/2020 This morning patient developed worsening renal function. Has progressed since admission. May require ultrafiltration. Started on aggressive IV volume hydration today. Will order bilateral renal ultrasound. Also hyperkalemia treated with Kayexalate. Objective - Constitutional Vitals: Vital Signs - 12hr 04/13/20 04/13/20 04/13/20 20:54 20:57 21:00 Temperature Pulse Rate 91 H 70 77 Pulse Rate [ From Monitor] Respiratory 27 H 21 20 Rate Blood Pressure 130/76 130/76 130/76 O2 Sat by Pulse 100 99 99 Oximetry 04/13/20 04/13/20 04/14/20 22:00 23:00 00:00 Temperature 96.6 F L Pulse Rate 92 H 78 93 H Pulse Rate [ From Monitor] Respiratory 27 H 22 24 Rate Blood Pressure 120/71 117/69 128/76 O2 Sat by Pulse 100 100 100 Oximetry 04/14/20 04/14/20 04/14/20 00:43 01:00 02:00 Temperature Pulse Rate 89 80 69 Pulse Rate [ From Monitor] Respiratory 23 23 Rate Blood Pressure 108/68 101/63 O2 Sat by Pulse 100 99 Oximetry 04/14/20 04/14/20 04/14/20 03:00 04:00 05:00 Temperature 96.9 F L Pulse Rate 73 72 75 Pulse Rate [ 74 From Monitor] Respiratory 25 H 24 22 Rate Blood Pressure 121/67 106/63 107/64 O2 Sat by Pulse 100 100 100 Oximetry 04/14/20 04/14/20 04/14/20 05:37 06:00 08:14 Temperature Pulse Rate 74 77 Pulse Rate [ From Monitor] Respiratory 25 H Rate Blood Pressure 113/69 O2 Sat by Pulse 100 99 Oximetry General appearance: Present: no acute distress, well-nourished - EENT Eyes: PERRL, EOM intact ENT: hearing intact, clear oral mucosa Ears: bilateral: normal - Neck Neck: supple, normal ROM - Respiratory Respiratory effort: normal Respiratory: bilateral: diminished - Breasts Breasts: normal - Cardiovascular Rhythm: regular Heart Sounds: Present: S1 & S2. Absent: gallop, rub Extremities: pulses intact, No edema, normal color, Full ROM - Gastrointestinal General gastrointestinal: Present: soft, non-tender, non-distended, normal bowel sounds - Genitourinary Male genitourinary: normal - Integumentary Integumentary: clear, warm, dry - Musculoskeletal Musculoskeletal: 1, strength equal bilaterally - Neurologic Neurologic: moves all extremities - Psychiatric Psychiatric: memory intact, appropriate mood/affect, intact judgment & insight - Labs CBC & Chem 7: 04/12/20 04:51 04/14/20 07:44 Labs: Abnormal lab results 04/13/20 04/13/20 04/13/20 Range/Units 07:38 11:35 13:51 Sodium 135 L (137-145) mmol/L Potassium 5.6 H D (3.6-5.0) mmol/L Carbon Dioxide 17 L (22-30) mmol/L BUN 76 H (9-20) mg/dL Creatinine 6.1 H D (0.8-1.3) mg/dL Glucose 150 H (75-100) mg/dL POC Glucose 160 H 133 H (70-105) mg/dL Phosphorus 5.90 H (2.5-4.5) mg/dL 04/13/20 04/13/20 04/14/20 Range/Units 16:57 22:13 07:44 Sodium 134 L (137-145) mmol/L Potassium 5.7 H (3.6-5.0) mmol/L Carbon Dioxide 18 L (22-30) mmol/L BUN 93 H (9-20) mg/dL Creatinine 7.5 H (0.8-1.3) mg/dL Glucose 116 H (75-100) mg/dL POC Glucose 142 H 165 H (70-105) mg/dL Phosphorus (2.5-4.5) mg/dL 04/14/20 Range/Units 08:08 Sodium (137-145) mmol/L Potassium (3.6-5.0) mmol/L Carbon Dioxide (22-30) mmol/L BUN (9-20) mg/dL Creatinine (0.8-1.3) mg/dL Glucose (75-100) mg/dL POC Glucose 123 H (70-105) mg/dL Phosphorus (2.5-4.5) mg/dL HEART Score - HEART Score Troponin: Troponin T 0.012 ng/mL (0.00-0.029) 04/12/20 04:51
--- NOTE | 2020-04-14 09:20 | Consultation ---
History of Present Illness - Reason for Consult Consult date: 04/14/20 acute renal failure, hyperkalemia - History of Present Illness The patient 75 YO male with history significant for Hypertension and DM type 2 who presented to [facility] ED 04/13 with an acute episode of shortness of breath. Patient is a very poor historian. His called EMT was found to be hypoxic on presentation and was transferred to the ED. Upon arrival to ED patient was found to be hypoxic and placed on BiPAP. Patient was subsequently transitioned to NC O2. CXR showed diffuse bilateral nodular densities, Focal areas of consolidation in the mid lung. He tested positive for COVID. Patient was admitted with COVID pneumonia, hypoxic resp failure and ROZ. Labs significant for Creat 7.5, BUN 93, K 5.7 and Sodium 134. Nephrology was consulted for further evaluation. Past History Past Medical History: diabetes, hypertension. denies: acute VT, atrial fib, arrhythmia, anemia, arthritis, CAD, cancer, COPD, dialysis, DVT, ESRD, GERD, heart failure, hepatitis, HIV/AIDS, hyperthyroidism, hyperlipidemia, hypothyroidism, liver disease, PVD, renal failure, stroke, sarcoidosis Past Surgical History: No surgical history Social history: , lives with family, full code. denies: smoking, alcohol abuse, prescription drug abuse, IV drug use Family history: no significant family history Medications and Allergies Allergies Allergy/AdvReac Type Severity Reaction Status Date / Time No Known Allergies Allergy Verified 04/12/20 04:28 Home Medications Medication Instructions Recorded Confirmed Last Taken Type AtorvaSTATin [Lipitor] 20 mg PO QHS 04/12/20 04/12/20 Unknown History Diclofenac [Aki Hernández] 75 mg PO BID 04/12/20 04/12/20 Unknown History Insulin Aspart Prot/Aspart(Nf) 10 units SUB-Q BID 04/12/20 04/12/20 Unknown History [NovoLOG Mix 70/30 VIAL] Losartan/Hydrochlorothiazide 100 mg PO QDAY 04/12/20 04/12/20 Unknown History [Losartan-Hctz 100-25 mg Tab] Metoprolol [Lopressor] 25 mg PO BID 04/12/20 04/12/20 Unknown History Pioglitazone [Actos] 15 mg PO QDAY 04/12/20 04/12/20 Unknown History amLODIPine [Norvasc] 5 mg PO DAILY 04/12/20 04/12/20 Unknown History Cholecalciferol (Vitamin D3) 5,000 unit PO QDAY 04/13/20 04/13/20 Unknown History [Vitamin D3 5,000 UNIT] Metoprolol [Lopressor] 25 mg PO BID 04/13/20 04/13/20 Unknown History glipiZIDE [Glucotrol] 10 mg PO QDAY 04/13/20 04/13/20 Unknown History traMADoL [Ultram] 50 mg PO Q6HR PRN 04/13/20 04/13/20 Unknown History Active Meds: Active Medications Alprazolam (Xanax) 0.125 mg PO Q8H PRN PRN Reason: Anxiety Last Admin: 04/13/20 21:58 Dose: 0.125 mg Documented by: Apixaban (Eliquis) 5 mg PO Q12HR JOSIANE; Protocol Last Admin: 04/13/20 21:58 Dose: 5 mg Documented by: Dexamethasone (Decadron) 6 mg IV Q24H JOSINAE Stop: 04/22/20 10:01 Last Admin: 04/13/20 10:08 Dose: 6 mg Documented by: Dextrose (D50w (25gm) Syringe) 50 ml IV Q30MIN PRN; Protocol PRN Reason: Hypoglycemia Famotidine (Pepcid) 20 mg PO DAILY JOSIANE Last Admin: 04/13/20 10:03 Dose: 20 mg Documented by: Haloperidol Lactate (Haldol) 5 mg IV Q6H PRN PRN Reason: Agitation Ceftriaxone Sodium (Rocephin/Ns 2 Gm/100 Ml) 2 gm in 100 mls @ 200 mls/hr IV Q24HR JOSIANE; Protocol Last Admin: 04/13/20 10:03 Dose: 200 mls/hr Documented by: Azithromycin 500 mg/ Sodium (Chloride) 250 mls @ 250 mls/hr IV Q24HR JOSIANE; Protocol Last Admin: 04/13/20 10:03 Dose: 250 mls/hr Documented by: Sodium Chloride (Nacl 0.9% 1000 Ml) 1,000 mls @ 999 mls/hr IV BOLUS JOSIANE Stop: 04/14/20 11:00 Sodium Chloride (Nacl 0.9% 1000 Ml) 1,000 mls @ 100 mls/hr IV DIRECT JOSIANE Insulin Human Lispro (Humalog) 0 unit SUB-Q ACHS JOSIANE; Protocol Last Admin: 04/14/20 07:54 Dose: Not Given Documented by: Sodium Polystyrene Sulfonate (Kionex) 30 gm PO ONCE ONE Stop: 04/14/20 10:01 Review of Systems Constitutional: no weight loss, no weight gain, no fever, no chills, no anorexia, no weakness Cardiovascular: lightheadedness, shortness of breath, dyspnea on exertion, high blood pressure, no chest pain, no palpitations, no rapid/irregular heart beat, no edema, no syncope Respiratory: shortness of breath, dyspnea on exertion, no cough, no hemoptysis Gastrointestinal: no abdominal pain, no nausea, no vomiting, no diarrhea Integumentary: no rash Exam - Vital Signs Vital signs: Vital Signs Pulse Resp Pulse Ox 116 H 45 H 95 04/12/20 04:02 04/12/20 04:02 04/12/20 04:02 Results - Lab Results 04/12/20 04:51 04/14/20 07:44 Most recent lab results ABG pH 7.441 pH Units (7.350-7.450) 04/12/20 04:21 ABG pCO2 26.2 mm Hg 04/12/20 04:21 ABG pO2 135.7 mm Hg (80.0-90.0) H 04/12/20 04:21 ABG HCO3 15.4 mmol/L (20.0-26.0) L 04/12/20 04:21 ABG O2 Saturation 98.7 % (95.0-99.0) 04/12/20 04:21 Calcium 9.0 mg/dL (8.4-10.2) 04/14/20 07:44 Phosphorus 5.90 mg/dL (2.5-4.5) H 04/13/20 13:51 Magnesium 1.90 mg/dL (1.7-2.3) 04/13/20 13:51 Assessment and Plan 1. Acute kidney injury: Acute kidney injury in the setting of COVID infection and vasomotor insult. Urine studies and Renal US ordered. Has cruz catheter. Monitor renal function and UOP. Renal prognosis is guarded. Avoid nephrotoxic agents. Meds dosage based on GFR. 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 Patient require hemodialysis due to worsening renal function and associated hyperkalemia and metabolic acidosis. D/w patient and his daughter (04/14) about the indications, benefits, risks and alternatives involved in hemodialysis. Both voiced understanding and gave verbal consent. Unabel to reach his . Vascular consulted for dialysis catheter placement. Hemodialysis: 04/14. 2. FEN: Hyperkalemia, meds ordered, HD today, monitor. Metabolic acidosis, HD today, monitor. Monitor lytes. 3. Acute hypoxic resp failure: Likely secondary to COVID-19 infection. Currently NC O2. Followed by Pulmonary. 4. Severe COVID-19 pneumonia. Followed by ID. 5. DM type 2: Accuchecks. 6. H/o hypertension: Monitor BP. 7. Acute metabolic encephalopathy. Subjective: Patient was seen and examined at the bedside. General Appearance: General appearance: well-developed, appears stated age, no distress, obese, on NC O2 HEENT: ATNC Neck: Trachea midline Respiratory: ctab Cardiology: S1S2, regular, no murmur Gastrointestinal: normoactive bowel sounds, no tenderness, not distended Integumentary: no obvious rash Neurologic: alert, non-focalslight confusion Ext: no edema noted : Cruz catheter
[2020-04-14] MEDS: dexAMETHasone 4 MG/ML VIAL IV SCH (09:33)
[2020-04-14] MEDS: cefTRIAXone/NS 2 GM/100 ML 2 GM/100 ML BAG IV SCH (09:34)
[2020-04-14] MEDS: APIXABAN 5 MG TAB PO SCH ×2 (09:34→21:55)
[2020-04-14] MEDS: AZITHROMYCIN 500 MG in SODIUM CHLORIDE 0.9% 250ML 250 ML IV SCH (09:34)
[2020-04-14] MEDS ORDERED: INSULIN REGULAR, HUMAN 100 UNIT/ML 3ML VIAL IV SCH (10:00)
[2020-04-14] MEDS ORDERED: DEXTROSE 50% IN WATER (25GM) 50 ML SYRINGE IV SCH (10:00)
[2020-04-14] MEDS ORDERED: SODIUM POLYSTYRENE 15 GM/60 ML ORAL LIQD PO ONE (10:00)
[2020-04-14] MEDS: SODIUM CHLORIDE 0.9% 1000 ML 1,000 ML IV SCH ×2 (10:15→20:00)
[2020-04-14] MEDS ORDERED: SODIUM CHLORIDE 0.9% 100 ML IV PRN (10:38)
[2020-04-14] MEDS: FAMOTIDINE 20 MG TAB PO SCH (10:47)
--- NOTE | 2020-04-14 12:38 | Progress Note ---
Assessment and Plan 75 y/o male with acute respiratory failure, renal failure with lactic acidosis found to be COVID positive. 1. Started dexamethasone 6mg IV, continue for a total of 10 days. 2. Wean FiO2 for sats >88% 3. Doubt he is a candidate for Remdesivir given renal failure. ID is following 4. Really needs echo but likely will not get given COVID 19 status 5. NO objection to CT of chest, if able to calm down and tolerate lower level of oxygen, will order. This can be done now that he is more stable. 6. No next of kin information, need to talk to to find out about renal function and other medical history 7. Follow up any new renal recs other than HD. 8. Agree with anticoagulation 9. Needs inflammatory markers every 48 hours Guarded, guarded prognosis with renal failure and COVID. Subjective Date of service: 04/14/20 Principal diagnosis: Sepsis present on admission Interval history: Currently on HFNC. Good sats. No distress. Renal consulted and planning for HD now. Vascular placing line. Objective Vital Signs - 12hr 04/14/20 04/14/20 04/14/20 00:43 01:00 02:00 Temperature Pulse Rate 89 80 69 Pulse Rate [ From Monitor] Respiratory 23 23 Rate Blood Pressure 108/68 101/63 O2 Sat by Pulse 100 99 Oximetry 04/14/20 04/14/20 04/14/20 03:00 04:00 05:00 Temperature 96.9 F L Pulse Rate 73 72 75 Pulse Rate [ 74 From Monitor] Respiratory 25 H 24 22 Rate Blood Pressure 121/67 106/63 107/64 O2 Sat by Pulse 100 100 100 Oximetry 04/14/20 04/14/20 04/14/20 05:37 06:00 07:00 Temperature Pulse Rate 74 77 71 Pulse Rate [ From Monitor] Respiratory 25 H 21 Rate Blood Pressure 113/69 118/68 O2 Sat by Pulse 100 100 Oximetry 04/14/20 04/14/20 04/14/20 08:00 08:14 09:01 Temperature 98.9 F Pulse Rate 83 88 Pulse Rate [ 83 From Monitor] Respiratory 22 19 Rate Blood Pressure 114/66 113/64 O2 Sat by Pulse 100 99 100 Oximetry 04/14/20 04/14/20 04/14/20 10:00 11:00 12:00 Temperature Pulse Rate 87 88 84 Pulse Rate [ 76 From Monitor] Respiratory 25 H 23 18 Rate Blood Pressure 116/71 127/71 121/73 O2 Sat by Pulse 100 96 100 Oximetry CBC and BMP: 04/12/20 04:51 04/14/20 07:44 ABG, PT/INR, D-dimer: ABG ABG pH 7.441 pH Units (7.350-7.450) 04/12/20 04:21 ABG pCO2 26.2 mm Hg 04/12/20 04:21 ABG pO2 135.7 mm Hg (80.0-90.0) H 04/12/20 04:21 ABG O2 Saturation 98.7 % (95.0-99.0) 04/12/20 04:21 PT/INR, D-dimer D-Dimer > 77560 ng/mlDDU (0-234) H 04/12/20 04:51 Abnormal lab findings: Abnormal Labs 04/12/20 04/12/20 04/12/20 04:21 04:51 04:51 Plt Count 110 L Seg Neuts % (Manual) 93.0 H Lymphocytes % (Manual) 3.0 L Lymphocytes # (Manual) 0.2 L D-Dimer ABG pO2 135.7 H ABG HCO3 15.4 L ABG Base Excess -5.1 L ABG Hemoglobin 13.3 L Sodium Potassium Carbon Dioxide BUN 48 H Creatinine 3.2 H Glucose 139 H POC Glucose Lactic Acid Phosphorus Ferritin AST 69 H Alkaline Phosphatase 155 H Lactate Dehydrogenase C-Reactive Protein NT-Pro-B Natriuret Pep Albumin 3.7 L Coronavirus (PCR) 04/12/20 04/12/20 04/12/20 04:51 04:51 04:51 Plt Count Seg Neuts % (Manual) Lymphocytes % (Manual) Lymphocytes # (Manual) D-Dimer > 11809 H ABG pO2 ABG HCO3 ABG Base Excess ABG Hemoglobin Sodium Potassium Carbon Dioxide BUN Creatinine Glucose 137 H POC Glucose Lactic Acid 3.80 H* Phosphorus Ferritin AST Alkaline Phosphatase Lactate Dehydrogenase 398 H C-Reactive Protein 6.30 H NT-Pro-B Natriuret Pep 2170 H Albumin Coronavirus (PCR) 04/12/20 04/12/20 04/12/20 04:51 10:20 Unknown Plt Count Seg Neuts % (Manual) Lymphocytes % (Manual) Lymphocytes # (Manual) D-Dimer ABG pO2 ABG HCO3 ABG Base Excess ABG Hemoglobin Sodium Potassium Carbon Dioxide BUN Creatinine Glucose POC Glucose Lactic Acid 3.50 H* Phosphorus Ferritin 1523.0 H AST Alkaline Phosphatase Lactate Dehydrogenase C-Reactive Protein NT-Pro-B Natriuret Pep Albumin Coronavirus (PCR) Positive A 04/13/20 04/13/20 04/13/20 07:38 11:35 13:51 Plt Count Seg Neuts % (Manual) Lymphocytes % (Manual) Lymphocytes # (Manual) D-Dimer ABG pO2 ABG HCO3 ABG Base Excess ABG Hemoglobin Sodium 135 L Potassium 5.6 H D Carbon Dioxide 17 L BUN 76 H Creatinine 6.1 H D Glucose 150 H POC Glucose 160 H 133 H Lactic Acid Phosphorus 5.90 H Ferritin AST Alkaline Phosphatase Lactate Dehydrogenase C-Reactive Protein NT-Pro-B Natriuret Pep Albumin Coronavirus (PCR) 04/13/20 04/13/20 04/14/20 16:57 22:13 07:44 Plt Count Seg Neuts % (Manual) Lymphocytes % (Manual) Lymphocytes # (Manual) D-Dimer ABG pO2 ABG HCO3 ABG Base Excess ABG Hemoglobin Sodium 134 L Potassium 5.7 H Carbon Dioxide 18 L BUN 93 H Creatinine 7.5 H Glucose 116 H POC Glucose 142 H 165 H Lactic Acid Phosphorus Ferritin AST Alkaline Phosphatase Lactate Dehydrogenase C-Reactive Protein NT-Pro-B Natriuret Pep Albumin Coronavirus (PCR) 04/14/20 08:08 Plt Count Seg Neuts % (Manual) Lymphocytes % (Manual) Lymphocytes # (Manual) D-Dimer ABG pO2 ABG HCO3 ABG Base Excess ABG Hemoglobin Sodium Potassium Carbon Dioxide BUN Creatinine Glucose POC Glucose 123 H Lactic Acid Phosphorus Ferritin AST Alkaline Phosphatase Lactate Dehydrogenase C-Reactive Protein NT-Pro-B Natriuret Pep Albumin Coronavirus (PCR)
--- NOTE | 2020-04-14 13:21 | Operative Report ---
Operative Report Operative Report: EXAM: 1. Ultrasound-guided puncture of the right internal jugular vein 2. Placement of a right internal jugular vein nontunneled noncuffed hemodialysis catheter. DATE: 04/14/2020 INDICATION: Acute renal failure requiring hemodialysis access. MEDICATIONS: Local anesthetic (1% lidocaine). DEVICES: Triple lumen nontunneled noncuffed hemodialysis catheter, 15 cm LIBRARY CONSULTANT: MEG CASTAÑEDA MD CONTRAST: None PROCEDURE: The risks, benefits, and alternatives were discussed and informed consent was obtained. The patient's right internal jugular vein was assessed with ultrasound at bedside and determined to be patent prior to procedure. The patient was prepped and draped in a sterile fashion. The puncture site was anesthetized. Under sonographic guidance, the right internal jugular vein was punctured with a 18-gauge micropuncture needle and a 0.035 inch wire was advanced through the needle. Over the 0.035 inch wire, dilatation was performed. The catheter was advanced over the wire. 2-0 silk suture was used to secure the catheter. The central lumen of the catheter was charged with saline. The peripheral lumens of the catheter were charged with heparin 1000 units/mL of space. Biopatch and tegaderm were applied. Sterile dressing applied. Chest x ray was ordered and the patient tolerated the procedure without immediate post procedual complication. FINDINGS: 1. Ultrasound documented patency of the right internal jugular vein. The vessel was accessed under direct ultrasound guidance. 2. On the post procedural chest x ray, the catheter tip is appropriately placed in the cavoatrial junction. No pneumothorax. IMPRESSION: 1. Successful ultrasound guided bedside placement of a right internal jugular vein nontunneled noncuffed triple lumen hemodialysis catheter.
--- NOTE | 2020-04-14 13:21 | Post Operative Note ---
Date of procedure: 04/14/20 Pre-op diagnosis: ARF Post-op diagnosis: same Findings: Patient was soiled with stool, but coherent, alert and cooperative. Was able to place a jugular line due to his improved respiratory status and ability to cooperate. Procedure: R IJ trialysis placement Anesthesia: local Surgeon: MEG CASTAÑEDA Estimated blood loss: minimal Condition: stable Disposition: no change
--- NOTE | 2020-04-14 14:28 | Progress Note ---
Assessment and Plan Cultures: Coronavirus PCR: Positive 04/12/2020 blood culture: Enterobacter 2 out of 4 bottles A/P: 75-year-old male with diabetes, hypertension admitted with: #Sepsis, secondary to bilateral pneumonia: Likely secondary to COVID-19 infection and Enterobacter bacteremia. #Enterobacter bacteremia: Unclear source. Urinalysis not available. #COVID-19 infection. D-dimer significantly elevated at >10K, ferritin elevated. #Acute hypoxic respiratory failure: Was on BiPAP, now on 2 L nasal cannula #Acute renal failure: Renally dose antibiotics. Worsening. 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 r Recs: -Obtain urinalysis and urine culture -Stop ceftriaxone and azithromycin -Start cefepime IV renally adjusted to cover Enterobacter bacteremia- tipically AmpC inducer. -Continue IV/PO Dexamethasone 6 mg daily x 10 days -D-dimer is extremely high, consider VQ scan when feasible -Consider CT chest to evaluate R lung mass like lesion -Obtain QuantiFERON TB Gold Radha Alejandre MD [facility] ([facility]) Office [phone] Subjective Date of service: 04/14/20 Principal diagnosis: Sepsis present on admission Interval history: Patient remains afebrile, currently on 2 L nasal cannula Objective - Exam Narrative Exam: Physical Exam: reviewed ED and hospitalist notes, limited due to conservation of PPE and decrease risk of transmission. General appearance: limited due to conservation of PPE Eyes: limited due to conservation of PPE HENT: Atraumatic; limited due to conservation of PPE Lungs: limited due to conservation of PPE CV: limited due to conservation of PPE Abdomen: limited due to conservation of PPE Extremities: limited due to conservation of PPE Skin: limited due to conservation of PPE Psych: limited due to conservation of PPE Neuro: limited due to conservation of PPE - Constitutional Vitals: Vital Signs Temp Pulse Resp BP Pulse Ox 98.9 F 76 19 121/73 100 04/14/20 08:00 04/14/20 12:00 04/14/20 12:00 04/14/20 12:00 04/14/20 12:00 Temperature -Last 24 Hours Temperature 98.9 F Temperature 96.9 F Temperature 96.6 F Temperature 96.6 F - Labs CBC & Chem 7: 04/12/20 04:51 04/14/20 07:44 Labs: Abnormal lab results 04/13/20 04/13/20 04/13/20 Range/Units 07:38 11:35 13:51 Sodium 135 L (137-145) mmol/L Potassium 5.6 H D (3.6-5.0) mmol/L Carbon Dioxide 17 L (22-30) mmol/L BUN 76 H (9-20) mg/dL Creatinine 6.1 H D (0.8-1.3) mg/dL Glucose 150 H (75-100) mg/dL POC Glucose 160 H 133 H (70-105) mg/dL Phosphorus 5.90 H (2.5-4.5) mg/dL 04/13/20 04/13/20 04/14/20 Range/Units 16:57 22:13 07:44 Sodium 134 L (137-145) mmol/L Potassium 5.7 H (3.6-5.0) mmol/L Carbon Dioxide 18 L (22-30) mmol/L BUN 93 H (9-20) mg/dL Creatinine 7.5 H (0.8-1.3) mg/dL Glucose 116 H (75-100) mg/dL POC Glucose 142 H 165 H (70-105) mg/dL Phosphorus (2.5-4.5) mg/dL 04/14/20 04/14/20 Range/Units 08:08 13:51 Sodium (137-145) mmol/L Potassium (3.6-5.0) mmol/L Carbon Dioxide (22-30) mmol/L BUN (9-20) mg/dL Creatinine (0.8-1.3) mg/dL Glucose (75-100) mg/dL POC Glucose 123 H 174 H (70-105) mg/dL Phosphorus (2.5-4.5) mg/dL
--- NOTE | 2020-04-14 14:52 | XRay Report ---
CHEST 1 VIEW 04/14/2020 2:11 PM INDICATION / CLINICAL INFORMATION: line placement. COMPARISON: 04/12/2020. FINDINGS: SUPPORT DEVICES: Right IJ dialysis catheter has its tip over the distal superior vena cava. No pneumo thorax. HEART / MEDIASTINUM: Stable cardiomegaly. LUNGS / PLEURA: Persistent opacity greatest right mid zone with overall mild improvement. No signific ant pleural fluid. ADDITIONAL FINDINGS: No significant additional findings. IMPRESSION: 1. Satisfactory dialysis catheter placement. 2. Mild improvement in the appearance of the chest. Signer Name: Cirilo Mancini MD Signed: 04/14/2020 2:47 PM Workstation Name: [id number]
[2020-04-14] MEDS: dilTIAZem 60 MG TAB PO SCH (17:32)
[2020-04-14 17:35] LABS: Hepatitis B Surface Antigen Non-Reactive (Negative); Hepatitis C Virus Antibody Non-Reactive (NonReactive)
[2020-04-14] MEDS: CEFEPIME/NS 1 GM/100 ML 1 GM/100 ML BAG IV SCH (18:47)
[2020-04-14] MEDS ORDERED: WATER IV SCH (19:00)
[2020-04-14] MEDS ORDERED: DEXTROSE 5% IV SCH (19:00)
[2020-04-14] MEDS ORDERED: DILTIAZEM IV SCH (19:00)
--- NOTE | 2020-04-14 19:04 | Event Note ---
Date: 04/14/20 The high probability of a clinically significant, sudden or life threatening deterioration of the [] system(s) required my full and direct attention, intervention and personal management. The aggregate critical care time was [] minutes. This time is in addition to time spent performing reported procedures but includes the following: [x] Data Review and interpretation [x] Patient assessment and monitoring of vital signs [x]x Documentation [x] Medication orders and management Attempts to set patient up for hemodialysis failed secondary to tachycardia with heart rate 140s and 150s. Will start patient on Cardizem bolus and then Cardizem drip to see if we can get the heart rate down so patient can tolerate dialysis. Will attempt to start at low dose so patient will not become hypotensive during dialysis. Hopefully his blood pressure tolerates. Overall prognosis remains poor.
[2020-04-14] MEDS ORDERED: dilTIAZem 25 MG/5 ML INJ IV ONE (20:00)
[2020-04-14 21:27] LABS: Bacteria,Urine 2+ /HPF (Negative); Bilirubin,Urine NEG (Negative); Blood,Urine LG (Negative); Color,Urine Red (Yellow); Mucus,Urine FEW /HPF; Urobilinogen,Urine < 2.0 mg/dL (<2.0)
[2020-04-14 21:28] LABS: Protein,Urine >500 mg/dL (Negative); RBC,Urine > 182.0 /HPF (0.0-6.0); WBC,Urine > 182.0 /HPF (0.0-6.0)
[2020-04-15] MEDS: SODIUM CHLORIDE 0.9% 1000 ML 1,000 ML IV SCH ×2 (05:11→17:42)
[2020-04-15] MEDS: dilTIAZem 60 MG TAB PO SCH ×3 (05:14→22:02)
[2020-04-15 05:58] LABS: Calcium 7.9 mg/dL (8.4-10.2)
[2020-04-15] MEDS: INSULIN LISPRO 100 UNIT/ML VIAL 3 mL SUB-Q SCH ×4 (08:51→22:05)
--- NOTE | 2020-04-15 09:31 | Progress Note ---
Assessment and Plan 1. Acute kidney injury: Acute kidney injury in the setting of COVID infection and vasomotor insult. Urine studies and Renal US ordered. Has cruz catheter. Monitor renal function. Low UOP. Renal prognosis is guarded. Avoid nephrotoxic agents. Meds dosage based on GFR. 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 Patient required hemodialysis due to worsening renal function and associated hyperkalemia and metabolic acidosis. D/w patient and his daughter (04/14) about the indications, benefits, risks and alternatives involved in hemodialysis. Both voiced understanding and gave verbal consent. Hemodialysis: 04/14. 2. FEN: Hyperkalemia, improved with HD, monitor. Metabolic acidosis, monitor. Monitor lytes. 3. Acute hypoxic resp failure: Likely secondary to COVID-19 infection. Currently NC O2. Followed by Pulmonary. 4. Severe COVID-19 pneumonia. Followed by ID. 5. DM type 2: Accuchecks. 6. H/o hypertension: Monitor BP. 7. Acute metabolic encephalopathy. Subjective: Patient was seen and examined at the bedside. General Appearance: General appearance: well-developed, appears stated age, no distress, obese, on NC O2 HEENT: ATNC Neck: Trachea midline Respiratory: ctab Cardiology: S1S2, regular, no murmur Gastrointestinal: normoactive bowel sounds, no tenderness, not distended Integumentary: no obvious rash Neurologic: alert, non-focal, slight confusion Ext: no edema noted : Cruz catheter Hemodialysis access: R IJ temp catheter Subjective Date of service: 04/15/20 Principal diagnosis: Sepsis present on admission Objective - Vital Signs Vital signs: Vital Signs - 12hr 04/14/20 04/14/20 04/14/20 21:32 22:00 23:00 Temperature Pulse Rate 85 77 Pulse Rate [ From Monitor] Respiratory 15 19 Rate Blood Pressure 121/84 112/68 O2 Sat by Pulse 100 100 98 Oximetry 04/15/20 04/15/20 04/15/20 00:00 00:01 00:07 Temperature 98.3 F Pulse Rate 82 72 73 Pulse Rate [ 82 From Monitor] Respiratory 18 16 18 Rate Blood Pressure 115/76 115/76 O2 Sat by Pulse 100 100 100 Oximetry 04/15/20 04/15/20 04/15/20 01:01 02:00 03:00 Temperature Pulse Rate 81 75 68 Pulse Rate [ From Monitor] Respiratory 18 18 18 Rate Blood Pressure 123/74 121/69 112/63 O2 Sat by Pulse 100 100 99 Oximetry 04/15/20 04/15/20 04/15/20 04:00 05:01 05:14 Temperature 98.3 F Pulse Rate 67 82 66 Pulse Rate [ 66 From Monitor] Respiratory 19 21 Rate Blood Pressure 105/66 154/126 126/66 O2 Sat by Pulse 100 100 Oximetry 04/15/20 04/15/20 04/15/20 05:46 06:01 09:11 Temperature Pulse Rate 96 H 72 Pulse Rate [ From Monitor] Respiratory 21 Rate Blood Pressure 127/88 105/70 O2 Sat by Pulse 100 98 Oximetry - Lab 04/12/20 04:51 04/15/20 05:04 Most recent lab results ABG pH 7.441 pH Units (7.350-7.450) 04/12/20 04:21 ABG pCO2 26.2 mm Hg 04/12/20 04:21 ABG pO2 135.7 mm Hg (80.0-90.0) H 04/12/20 04:21 ABG HCO3 15.4 mmol/L (20.0-26.0) L 04/12/20 04:21 ABG O2 Saturation 98.7 % (95.0-99.0) 04/12/20 04:21 Calcium 7.9 mg/dL (8.4-10.2) L 04/15/20 05:04 Phosphorus 5.90 mg/dL (2.5-4.5) H 04/13/20 13:51 Magnesium 1.90 mg/dL (1.7-2.3) 04/13/20 13:51 Medications & Allergies - Medications Allergies/Adverse Reactions: Allergies No Known Allergies Allergy (Verified 04/12/20 04:28) Home Medications: Home Medications Medication Instructions Recorded Confirmed Last Taken Type AtorvaSTATin [Lipitor] 20 mg PO QHS 04/12/20 04/12/20 Unknown History Diclofenac [Aki Hernández] 75 mg PO BID 04/12/20 04/12/20 Unknown History Insulin Aspart Prot/Aspart(Nf) 10 units SUB-Q BID 04/12/20 04/12/20 Unknown History [NovoLOG Mix 70/30 VIAL] Losartan/Hydrochlorothiazide 100 mg PO QDAY 04/12/20 04/12/20 Unknown History [Losartan-Hctz 100-25 mg Tab] Metoprolol [Lopressor] 25 mg PO BID 04/12/20 04/12/20 Unknown History Pioglitazone [Actos] 15 mg PO QDAY 04/12/20 04/12/20 Unknown History amLODIPine [Norvasc] 5 mg PO DAILY 04/12/20 04/12/20 Unknown History Cholecalciferol (Vitamin D3) 5,000 unit PO QDAY 04/13/20 04/13/20 Unknown History [Vitamin D3 5,000 UNIT] Metoprolol [Lopressor] 25 mg PO BID 04/13/20 04/13/20 Unknown History glipiZIDE [Glucotrol] 10 mg PO QDAY 04/13/20 04/13/20 Unknown History traMADoL [Ultram] 50 mg PO Q6HR PRN 04/13/20 04/13/20 Unknown History Active Medications: Generic Name Dose Route Start Last Admin Trade Name Freq PRN Reason Stop Dose Admin Alprazolam 0.125 mg 04/12/20 07:53 04/13/20 21:58 Xanax PO 0.125 mg Q8H PRN Administration Anxiety Apixaban 5 mg 04/13/20 11:00 04/14/20 21:55 Eliquis PO 5 mg Q12HR JOSIANE Administration Protocol Dexamethasone 6 mg 04/13/20 10:00 04/14/20 09:33 Decadron IV 04/22/20 10:01 6 mg Q24H JOSIANE Administration Dextrose 50 ml 04/13/20 10:05 D50w (25gm) Syringe IV Q30MIN PRN Hypoglycemia Protocol Diltiazem HCl 120 mg 04/14/20 18:00 04/15/20 05:14 Cardizem PO Not Given Q8HR JOSIANE Famotidine 20 mg 04/12/20 10:00 04/14/20 10:47 Pepcid PO 20 mg DAILY JOSIANE Administration Haloperidol Lactate 5 mg 04/13/20 10:42 Haldol IV Q6H PRN Agitation Sodium Chloride 1,000 mls @ 100 mls/hr 04/14/20 09:00 04/15/20 05:11 Nacl 0.9% 1000 Ml IV 100 mls/hr DIRECT JOSIANE Administration Sodium Chloride 100 mls @ 999 mls/hr 04/14/20 10:38 Nacl 0.9% IV SILVIA PRN Hypotension Cefepime HCl 1 gm in 100 mls @ 200 mls/hr 04/14/20 18:00 04/14/20 18:47 Cefepime/Ns 1 Gm/100 Ml IV 200 mls/hr Q24H JOSIANE Administration Protocol Insulin Human Lispro 0 unit 04/13/20 11:30 04/15/20 08:51 Humalog SUB-Q Not Given ACHS JOSIANE Protocol
[2020-04-15] MEDS: dexAMETHasone 4 MG/ML VIAL IV SCH (10:00)
[2020-04-15] MEDS: FAMOTIDINE 20 MG TAB PO SCH (10:00)
[2020-04-15] MEDS: APIXABAN 5 MG TAB PO SCH ×2 (10:00→22:01)
--- NOTE | 2020-04-15 11:20 | Progress Note ---
Assessment and Plan - Patient Problems (1) Acute respiratory failure with hypoxia Current Visit: Yes Status: Acute Plan to address problem: Patient with acute respiratory failure. Most likely secondary to COVID-19 pneumonia. Patient came back Covid positive. Patient also has underlying lung mass. Somewhat suspicious for TB. Obtain pulmonology consult ID consult. Patient start steroids. Not a candidate for remdesivir secondary to renal failure. Patient doing much better today. Satting at 100% on 3 L oxygen nasal cannula. Continue present management. Given the acuity of patient's decompensation from yesterday will observe in the ICU for 1 more day. (2) Community acquired pneumonia Current Visit: Yes Status: Acute Plan to address problem: Patient with masslike areas of consolidation. Currently need to consider lung mass as potential etiology however now we are treating for community-acquired pneumonia. Patient also was Covid positive. Continue cefepime for now. Follow blood culture data and additional microbiology. Blood cultures positive for Enterobacter Aerogenes. Infectious disease has already been consulted patient being ruled out for tuberculosis as well. (3) Renal insufficiency Current Visit: Yes Status: Acute Plan to address problem: Acute kidney disease most likely secondary to COVID-19 infection. Patient did make some urine today. Potassium is normal however patient renal function still remains elevated. Renal prognosis guarded. Follow recommendations per nephrology. Hopefully kidneys can return to functional level. (4) Suspected COVID-19 virus infection Current Visit: Yes Status: Acute Plan to address problem: Severe sepsis from COVID-19 pneumonia. Patient requiring requiring nonrebreather for oxygenation. Prognosis poor. D-dimer greater than 10,000. Patient has been placed on empiric Eliquis. (5) Acute kidney injury Current Visit: Yes Status: Acute (6) Acute kidney injury (ROZ) with acute tubular necrosis (ATN) Current Visit: Yes Status: Acute Plan to address problem: Acute kidney injury possibly secondary to COVID-19 infection underlying acute on chronic kidney disease. May require hemodialysis now. Await any further recomm endations from nephrology. Rule out obstructive uropathy. I did speak with she denied any history of renal failure or prostate issues at this time. (7) UTI (urinary tract infection) Current Visit: Yes Status: Acute Plan to address problem: Continue cefepime for now. (8) Diabetes 1.5, managed as type 1 Current Visit: Yes Status: Acute Plan to address problem: ssi only now Subjective Date of service: 04/15/20 Principal diagnosis: Sepsis present on admission Interval history: 75-year-old presented with acute respiratory failure. Patient was found to have severe sepsis secondary to Covid pneumonia. Patient hospital course also complicated by acute respiratory failure and underlying mass of unknown obed ology. Patient continues to have increased work of breathing requiring BiPAP. Hospital course complicated this morning by worsening renal function. 03/14/2020 This morning patient developed worsening renal function. Has progressed since admission. May require ultrafiltration. Started on aggressive IV volume hydration today. Will order bilateral renal ultrasound. Also hyperkalemia treated with Kayexalate. Patient also had tachycardia with heart rate going as high as 147. Gave Cardizem bolus yesterday. March 15, 2020. Patient doing much better this morning. Heart rate is come down from 147 now into the 80s. Unsure of exact etiology could have been uremia with electrolyte abnormality versus dehydration and hypoxemia. Patient now nasal cannula and is off Ventimask. Patient is satting at 100% on 2 L of O2. Started patient on Cardizem 90 mg 1 tab p.o. 3 times daily heart rate well controlled in the 80s. Clinically patient feels much better as well. Patient did urinate a little bit today as well. Objective - Constitutional Vitals: Vital Signs - 12hr 04/15/20 04/15/20 04/15/20 00:00 00:01 00:07 Temperature 98.3 F Pulse Rate 82 72 73 Pulse Rate [ 82 From Monitor] Respiratory 18 16 18 Rate Blood Pressure 115/76 115/76 O2 Sat by Pulse 100 100 100 Oximetry 04/15/20 04/15/20 04/15/20 01:01 02:00 03:00 Temperature Pulse Rate 81 75 68 Pulse Rate [ From Monitor] Respiratory 18 18 18 Rate Blood Pressure 123/74 121/69 112/63 O2 Sat by Pulse 100 100 99 Oximetry 04/15/20 04/15/20 04/15/20 04:00 05:01 05:14 Temperature 98.3 F Pulse Rate 67 82 66 Pulse Rate [ 66 From Monitor] Respiratory 19 21 Rate Blood Pressure 105/66 154/126 126/66 O2 Sat by Pulse 100 100 Oximetry 04/15/20 04/15/20 04/15/20 05:46 06:01 07:00 Temperature Pulse Rate 96 H 72 68 Pulse Rate [ From Monitor] Respiratory 21 21 Rate Blood Pressure 127/88 105/70 122/72 O2 Sat by Pulse 100 100 Oximetry 04/15/20 04/15/20 04/15/20 08:00 08:01 09:00 Temperature 98.0 F Pulse Rate 74 79 Pulse Rate [ From Monitor] Respiratory 14 21 Rate Blood Pressure 117/72 120/75 O2 Sat by Pulse 100 100 Oximetry 04/15/20 04/15/20 09:11 10:00 Temperature Pulse Rate 75 Pulse Rate [ From Monitor] Respiratory 21 Rate Blood Pressure 123/71 O2 Sat by Pulse 98 92 Oximetry General appearance: Present: no acute distress, well-nourished - EENT Eyes: PERRL, EOM intact ENT: hearing intact, clear oral mucosa Ears: bilateral: normal - Neck Neck: supple, normal ROM - Respiratory Respiratory effort: normal Respiratory: bilateral: CTA - Breasts Breasts: normal - Cardiovascular Rhythm: regular Heart Sounds: Present: S1 & S2. Absent: gallop, rub Extremities: pulses intact, No edema, normal color, Full ROM - Gastrointestinal General gastrointestinal: Present: soft, non-tender, non-distended, normal bowel sounds - Genitourinary Male genitourinary: normal - Integumentary Integumentary: clear, warm, dry - Musculoskeletal Musculoskeletal: 1, strength equal bilaterally - Neurologic Neurologic: moves all extremities - Psychiatric Psychiatric: memory intact, appropriate mood/affect, intact judgment & insight - Labs CBC & Chem 7: 04/12/20 04:51 04/15/20 05:04 Labs: Abnormal lab results 04/14/20 04/14/20 04/14/20 Range/Units 13:51 17:20 21:00 Carbon Dioxide (22-30) mmol/L BUN (9-20) mg/dL Creatinine (0.8-1.3) mg/dL Glucose (75-100) mg/dL POC Glucose 174 H 169 H (70-105) mg/dL Calcium (8.4-10.2) mg/dL Urine WBC (Auto) > 182.0 H (0.0-6.0) /HPF 04/14/20 04/15/20 04/15/20 Range/Units 22:00 05:04 08:30 Carbon Dioxide 20 L (22-30) mmol/L BUN 77 H (9-20) mg/dL Creatinine 6.9 H (0.8-1.3) mg/dL Glucose 161 H (75-100) mg/dL POC Glucose 182 H 149 H (70-105) mg/dL Calcium 7.9 L (8.4-10.2) mg/dL Urine WBC (Auto) (0.0-6.0) /HPF HEART Score - HEART Score Troponin: Troponin T 0.012 ng/mL (0.00-0.029) 04/12/20 04:51
--- NOTE | 2020-04-15 12:19 | Progress Note ---
Assessment and Plan 75 y/o male with acute respiratory failure, renal failure with lactic acidosis found to be COVID positive. 1. Started dexamethasone 6mg IV, continue for a total of 10 days. 2. Wean FiO2 for sats >88% 3. Doubt he is a candidate for Remdesivir given renal failure. ID is following 4. Really needs echo but likely will not get given COVID 19 status 5. Now that he is requiring HD and had this episode of tachycardia with desats, suggest checking CTA to rule out pulmonary embolism. 6. No next of kin information, need to talk to to find out about renal function and other medical history, still not available 7. Follow up any new renal recs other than HD. 8. Agree with anticoagulation 9. Needs inflammatory markers every 48 hours Guarded, guarded prognosis with renal failure and COVID. Subjective Date of service: 04/15/20 Principal diagnosis: Sepsis present on admission Interval history: No acute events. Per IMS note, did not get HD, per renal did. Per nursing notes, HD stopped at about 30min in secondary to elevated HR. Started on Cardizem and was placed on bipap. Has since been weaned off bipap back to HFNC. Good sats. Rate is controlled and BP is good. Objective Vital Signs - 12hr 04/15/20 04/15/20 04/15/20 01:01 02:00 03:00 Temperature Pulse Rate 81 75 68 Pulse Rate [ From Monitor] Respiratory 18 18 18 Rate Blood Pressure 123/74 121/69 112/63 O2 Sat by Pulse 100 100 99 Oximetry 04/15/20 04/15/20 04/15/20 04:00 05:01 05:14 Temperature 98.3 F Pulse Rate 67 82 66 Pulse Rate [ 66 From Monitor] Respiratory 19 21 Rate Blood Pressure 105/66 154/126 126/66 O2 Sat by Pulse 100 100 Oximetry 04/15/20 04/15/20 04/15/20 05:46 06:01 07:00 Temperature Pulse Rate 96 H 72 68 Pulse Rate [ From Monitor] Respiratory 21 21 Rate Blood Pressure 127/88 105/70 122/72 O2 Sat by Pulse 100 100 Oximetry 04/15/20 04/15/20 04/15/20 08:00 08:01 09:00 Temperature 98.0 F Pulse Rate 74 79 Pulse Rate [ From Monitor] Respiratory 14 21 Rate Blood Pressure 117/72 120/75 O2 Sat by Pulse 100 100 Oximetry 04/15/20 04/15/20 04/15/20 09:11 10:00 11:01 Temperature Pulse Rate 75 87 Pulse Rate [ From Monitor] Respiratory 21 19 Rate Blood Pressure 123/71 139/95 O2 Sat by Pulse 98 92 100 Oximetry CBC and BMP: 04/12/20 04:51 04/15/20 05:04 ABG, PT/INR, D-dimer: ABG ABG pH 7.441 pH Units (7.350-7.450) 04/12/20 04:21 ABG pCO2 26.2 mm Hg 04/12/20 04:21 ABG pO2 135.7 mm Hg (80.0-90.0) H 04/12/20 04:21 ABG O2 Saturation 98.7 % (95.0-99.0) 04/12/20 04:21 PT/INR, D-dimer D-Dimer > 01116 ng/mlDDU (0-234) H 04/12/20 04:51 Abnormal lab findings: Abnormal Labs 04/12/20 04/12/20 04/12/20 04:21 04:51 04:51 Plt Count 110 L Seg Neuts % (Manual) 93.0 H Lymphocytes % (Manual) 3.0 L Lymphocytes # (Manual) 0.2 L D-Dimer ABG pO2 135.7 H ABG HCO3 15.4 L ABG Base Excess -5.1 L ABG Hemoglobin 13.3 L Sodium Potassium Carbon Dioxide BUN 48 H Creatinine 3.2 H Glucose 139 H POC Glucose Lactic Acid Calcium Phosphorus Ferritin AST 69 H Alkaline Phosphatase 155 H Lactate Dehydrogenase C-Reactive Protein NT-Pro-B Natriuret Pep Albumin 3.7 L Urine WBC (Auto) Coronavirus (PCR) 04/12/20 04/12/20 04/12/20 04:51 04:51 04:51 Plt Count Seg Neuts % (Manual) Lymphocytes % (Manual) Lymphocytes # (Manual) D-Dimer > 92176 H ABG pO2 ABG HCO3 ABG Base Excess ABG Hemoglobin Sodium Potassium Carbon Dioxide BUN Creatinine Glucose 137 H POC Glucose Lactic Acid 3.80 H* Calcium Phosphorus Ferritin AST Alkaline Phosphatase Lactate Dehydrogenase 398 H C-Reactive Protein 6.30 H NT-Pro-B Natriuret Pep 2170 H Albumin Urine WBC (Auto) Coronavirus (PCR) 04/12/20 04/12/20 04/12/20 04:51 10:20 Unknown Plt Count Seg Neuts % (Manual) Lymphocytes % (Manual) Lymphocytes # (Manual) D-Dimer ABG pO2 ABG HCO3 ABG Base Excess ABG Hemoglobin Sodium Potassium Carbon Dioxide BUN Creatinine Glucose POC Glucose Lactic Acid 3.50 H* Calcium Phosphorus Ferritin 1523.0 H AST Alkaline Phosphatase Lactate Dehydrogenase C-Reactive Protein NT-Pro-B Natriuret Pep Albumin Urine WBC (Auto) Coronavirus (PCR) Positive A 04/13/20 04/13/20 04/13/20 07:38 11:35 13:51 Plt Count Seg Neuts % (Manual) Lymphocytes % (Manual) Lymphocytes # (Manual) D-Dimer ABG pO2 ABG HCO3 ABG Base Excess ABG Hemoglobin Sodium 135 L Potassium 5.6 H D Carbon Dioxide 17 L BUN 76 H Creatinine 6.1 H D Glucose 150 H POC Glucose 160 H 133 H Lactic Acid Calcium Phosphorus 5.90 H Ferritin AST Alkaline Phosphatase Lactate Dehydrogenase C-Reactive Protein NT-Pro-B Natriuret Pep Albumin Urine WBC (Auto) Coronavirus (PCR) 04/13/20 04/13/20 04/14/20 16:57 22:13 07:44 Plt Count Seg Neuts % (Manual) Lymphocytes % (Manual) Lymphocytes # (Manual) D-Dimer ABG pO2 ABG HCO3 ABG Base Excess ABG Hemoglobin Sodium 134 L Potassium 5.7 H Carbon Dioxide 18 L BUN 93 H Creatinine 7.5 H Glucose 116 H POC Glucose 142 H 165 H Lactic Acid Calcium Phosphorus Ferritin AST Alkaline Phosphatase Lactate Dehydrogenase C-Reactive Protein NT-Pro-B Natriuret Pep Albumin Urine WBC (Auto) Coronavirus (PCR) 04/14/20 04/14/20 04/14/20 08:08 13:51 17:20 Plt Count Seg Neuts % (Manual) Lymphocytes % (Manual) Lymphocytes # (Manual) D-Dimer ABG pO2 ABG HCO3 ABG Base Excess ABG Hemoglobin Sodium Potassium Carbon Dioxide BUN Creatinine Glucose POC Glucose 123 H 174 H 169 H Lactic Acid Calcium Phosphorus Ferritin AST Alkaline Phosphatase Lactate Dehydrogenase C-Reactive Protein NT-Pro-B Natriuret Pep Albumin Urine WBC (Auto) Coronavirus (PCR) 04/14/20 04/14/20 04/15/20 21:00 22:00 05:04 Plt Count Seg Neuts % (Manual) Lymphocytes % (Manual) Lymphocytes # (Manual) D-Dimer ABG pO2 ABG HCO3 ABG Base Excess ABG Hemoglobin Sodium Potassium Carbon Dioxide 20 L BUN 77 H Creatinine 6.9 H Glucose 161 H POC Glucose 182 H Lactic Acid Calcium 7.9 L Phosphorus Ferritin AST Alkaline Phosphatase Lactate Dehydrogenase C-Reactive Protein NT-Pro-B Natriuret Pep Albumin Urine WBC (Auto) > 182.0 H Coronavirus (PCR) 04/15/20 04/15/20 08:30 12:12 Plt Count Seg Neuts % (Manual) Lymphocytes % (Manual) Lymphocytes # (Manual) D-Dimer ABG pO2 ABG HCO3 ABG Base Excess ABG Hemoglobin Sodium Potassium Carbon Dioxide BUN Creatinine Glucose POC Glucose 149 H 257 H Lactic Acid Calcium Phosphorus Ferritin AST Alkaline Phosphatase Lactate Dehydrogenase C-Reactive Protein NT-Pro-B Natriuret Pep Albumin Urine WBC (Auto) Coronavirus (PCR)
--- NOTE | 2020-04-15 14:44 | Progress Note ---
Assessment and Plan Cultures: Coronavirus PCR: Positive 04/12/2020 blood culture: Enterobacter 2 out of 4 bottles A/P: 75-year-old male with diabetes, hypertension admitted with: #Sepsis, secondary to bilateral pneumonia: Likely secondary to COVID-19 infection and Enterobacter bacteremia. #Enterobacter bacteremia: Unclear source ?UTI. Urinalysis consistent with UTI. #COVID-19 infection. D-dimer significantly elevated at >10K, ferritin elevated. #Acute hypoxic respiratory failure: Was on BiPAP, now on 2 L nasal cannula #Acute renal failure: Renally dose antibiotics. Worsening. 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 r Recs: -D-dimer is extremely high, consider VQ scan/chest CTA -Follow-up urine culture -Continue cefepime IV renally adjusted to cover Enterobacter bacteremia- typically AmpC inducer. -Continue IV/PO Dexamethasone 6 mg daily x 10 days -Obtain QuantiFERON TB Gold Radha Alejandre MD [facility] ([facility]) Office [phone] Subjective Date of service: 04/15/20 Principal diagnosis: Sepsis present on admission Interval history: Patient feels better, no fever, alert, on nasal cannula oxygen Objective - Exam Narrative Exam: Physical Exam: reviewed ED and hospitalist notes, limited due to conservation of PPE and decrease risk of transmission. General appearance: limited due to conservation of PPE Eyes: limited due to conservation of PPE HENT: Atraumatic; limited due to conservation of PPE Lungs: limited due to conservation of PPE CV: limited due to conservation of PPE Abdomen: limited due to conservation of PPE Extremities: limited due to conservation of PPE Skin: limited due to conservation of PPE Psych: limited due to conservation of PPE Neuro: limited due to conservation of PPE - Constitutional Vitals: Vital Signs Temp Pulse Resp BP Pulse Ox 98.2 F 87 19 139/95 100 04/15/20 12:00 04/15/20 11:01 04/15/20 11:01 04/15/20 11:01 04/15/20 11:01 Temperature -Last 24 Hours Temperature 98.2 F Temperature 98.0 F Temperature 98.3 F Temperature 98.3 F Temperature 98 F Temperature 97.7 F Temperature 97.9 F Temperature 97.9 F - Labs CBC & Chem 7: 04/12/20 04:51 04/15/20 05:04 Labs: Abnormal lab results 04/12/20 04/14/20 04/14/20 Range/Units 04:51 17:20 21:00 Plt Count 110 L (140-440) K/mm3 Seg Neuts % (Manual) 93.0 H (40.0-70.0) % Lymphocytes % (Manual) 3.0 L (13.4-35.0) % Lymphocytes # (Manual) 0.2 L (1.2-5.4) K/mm3 Carbon Dioxide (22-30) mmol/L BUN (9-20) mg/dL Creatinine (0.8-1.3) mg/dL Glucose (75-100) mg/dL POC Glucose 169 H (70-105) mg/dL Calcium (8.4-10.2) mg/dL Urine WBC (Auto) > 182.0 H (0.0-6.0) /HPF 04/14/20 04/15/20 04/15/20 Range/Units 22:00 05:04 08:30 Plt Count (140-440) K/mm3 Seg Neuts % (Manual) (40.0-70.0) % Lymphocytes % (Manual) (13.4-35.0) % Lymphocytes # (Manual) (1.2-5.4) K/mm3 Carbon Dioxide 20 L (22-30) mmol/L BUN 77 H (9-20) mg/dL Creatinine 6.9 H (0.8-1.3) mg/dL Glucose 161 H (75-100) mg/dL POC Glucose 182 H 149 H (70-105) mg/dL Calcium 7.9 L (8.4-10.2) mg/dL Urine WBC (Auto) (0.0-6.0) /HPF 04/15/20 Range/Units 12:12 Plt Count (140-440) K/mm3 Seg Neuts % (Manual) (40.0-70.0) % Lymphocytes % (Manual) (13.4-35.0) % Lymphocytes # (Manual) (1.2-5.4) K/mm3 Carbon Dioxide (22-30) mmol/L BUN (9-20) mg/dL Creatinine (0.8-1.3) mg/dL Glucose (75-100) mg/dL POC Glucose 257 H (70-105) mg/dL Calcium (8.4-10.2) mg/dL Urine WBC (Auto) (0.0-6.0) /HPF
[2020-04-15] MEDS: CEFEPIME/NS 1 GM/100 ML 1 GM/100 ML BAG IV SCH (17:13)
[2020-04-16 02:13] LABS: Creatinine,Urine 103.8 mg/dL (0.1-20.0)
[2020-04-16 02:24] LABS: Protein/Creatinine Ratio,Urine 2.01
[2020-04-16] MEDS: SODIUM CHLORIDE 0.9% 1000 ML 1,000 ML IV SCH ×2 (04:03→22:04)
[2020-04-16] MEDS: dilTIAZem 60 MG TAB PO SCH ×3 (07:07→21:58)
--- NOTE | 2020-04-16 08:13 | Progress Note ---
Assessment and Plan 75 y/o male with acute respiratory failure, renal failure with lactic acidosis found to be COVID positive. 1. Started dexamethasone 6mg IV, continue for a total of 10 days. 2. Wean FiO2 for sats >88%. 3. Doubt he is a candidate for Remdesivir given renal failure. ID is following 4. Really needs echo but likely will not get given COVID 19 status 5. Now that he is requiring HD and had this episode of tachycardia with desats, suggest checking CTA to rule out pulmonary embolism. ID agrees with me as well. Will need to time it so that he can have HD afterwards. Given that his CXR is already abnormal, would not obtain V/Q scan 6. No next of kin information, need to talk to to find out about renal function and other medical history, still not available 7. Follow up any new renal recs other than HD. 8. Agree with anticoagulation 9. Needs inflammatory markers every 48 hours Guarded, guarded prognosis with renal failure and COVID. Subjective Date of service: 04/16/20 Principal diagnosis: Sepsis present on admission Interval history: No acute events. Reviewed notes from yesterday. Objective Vital Signs - 12hr 04/15/20 04/15/20 04/15/20 21:00 21:08 22:01 Temperature Pulse Rate 64 63 Pulse Rate [ From Monitor] Respiratory 16 12 Rate Blood Pressure 124/73 127/69 O2 Sat by Pulse 100 100 100 Oximetry 04/15/20 04/15/20 04/15/20 22:02 23:01 23:43 Temperature Pulse Rate 65 64 63 Pulse Rate [ From Monitor] Respiratory 18 18 Rate Blood Pressure 127/69 117/66 111/70 O2 Sat by Pulse 100 100 Oximetry 04/15/20 04/16/20 04/16/20 23:57 00:00 00:01 Temperature 98.3 F Pulse Rate 63 66 Pulse Rate [ 67 From Monitor] Respiratory 14 9 L Rate Blood Pressure 118/67 O2 Sat by Pulse 100 100 Oximetry 04/16/20 04/16/20 04/16/20 01:00 02:00 03:00 Temperature Pulse Rate 61 60 58 L Pulse Rate [ From Monitor] Respiratory 16 13 19 Rate Blood Pressure 101/54 93/47 102/48 O2 Sat by Pulse 100 100 100 Oximetry 04/16/20 04/16/20 04/16/20 04:00 05:00 06:00 Temperature 98.7 F Pulse Rate 57 L 54 L 55 L Pulse Rate [ 57 L From Monitor] Respiratory 17 17 18 Rate Blood Pressure 111/60 109/52 93/40 O2 Sat by Pulse 100 100 100 Oximetry CBC and BMP: 04/12/20 04:51 04/15/20 05:04 ABG, PT/INR, D-dimer: ABG ABG pH 7.441 pH Units (7.350-7.450) 04/12/20 04:21 ABG pCO2 26.2 mm Hg 04/12/20 04:21 ABG pO2 135.7 mm Hg (80.0-90.0) H 04/12/20 04:21 ABG O2 Saturation 98.7 % (95.0-99.0) 04/12/20 04:21 PT/INR, D-dimer D-Dimer > 15879 ng/mlDDU (0-234) H 04/12/20 04:51 Abnormal lab findings: Abnormal Labs 04/12/20 04/12/20 04/12/20 04:21 04:51 04:51 Plt Count 110 L Seg Neuts % (Manual) 93.0 H Lymphocytes % (Manual) 3.0 L Lymphocytes # (Manual) 0.2 L D-Dimer ABG pO2 135.7 H ABG HCO3 15.4 L ABG Base Excess -5.1 L ABG Hemoglobin 13.3 L Sodium Potassium Carbon Dioxide BUN 48 H Creatinine 3.2 H Glucose 139 H POC Glucose Lactic Acid Calcium Phosphorus Ferritin AST 69 H Alkaline Phosphatase 155 H Lactate Dehydrogenase C-Reactive Protein NT-Pro-B Natriuret Pep Albumin 3.7 L Urine WBC (Auto) Urine Creatinine Urine Total Protein Coronavirus (PCR) 04/12/20 04/12/20 04/12/20 04:51 04:51 04:51 Plt Count Seg Neuts % (Manual) Lymphocytes % (Manual) Lymphocytes # (Manual) D-Dimer > 41950 H ABG pO2 ABG HCO3 ABG Base Excess ABG Hemoglobin Sodium Potassium Carbon Dioxide BUN Creatinine Glucose 137 H POC Glucose Lactic Acid 3.80 H* Calcium Phosphorus Ferritin AST Alkaline Phosphatase Lactate Dehydrogenase 398 H C-Reactive Protein 6.30 H NT-Pro-B Natriuret Pep 2170 H Albumin Urine WBC (Auto) Urine Creatinine Urine Total Protein Coronavirus (PCR) 11/12/2304/12/20 04/12/20 04:51 10:20 Unknown Plt Count Seg Neuts % (Manual) Lymphocytes % (Manual) Lymphocytes # (Manual) D-Dimer ABG pO2 ABG HCO3 ABG Base Excess ABG Hemoglobin Sodium Potassium Carbon Dioxide BUN Creatinine Glucose POC Glucose Lactic Acid 3.50 H* Calcium Phosphorus Ferritin 1523.0 H AST Alkaline Phosphatase Lactate Dehydrogenase C-Reactive Protein NT-Pro-B Natriuret Pep Albumin Urine WBC (Auto) Urine Creatinine Urine Total Protein Coronavirus (PCR) Positive A 04/13/20 04/13/20 04/13/20 07:38 11:35 13:51 Plt Count Seg Neuts % (Manual) Lymphocytes % (Manual) Lymphocytes # (Manual) D-Dimer ABG pO2 ABG HCO3 ABG Base Excess ABG Hemoglobin Sodium 135 L Potassium 5.6 H D Carbon Dioxide 17 L BUN 76 H Creatinine 6.1 H D Glucose 150 H POC Glucose 160 H 133 H Lactic Acid Calcium Phosphorus 5.90 H Ferritin AST Alkaline Phosphatase Lactate Dehydrogenase C-Reactive Protein NT-Pro-B Natriuret Pep Albumin Urine WBC (Auto) Urine Creatinine Urine Total Protein Coronavirus (PCR) 04/13/20 04/13/20 04/14/20 16:57 22:13 07:44 Plt Count Seg Neuts % (Manual) Lymphocytes % (Manual) Lymphocytes # (Manual) D-Dimer ABG pO2 ABG HCO3 ABG Base Excess ABG Hemoglobin Sodium 134 L Potassium 5.7 H Carbon Dioxide 18 L BUN 93 H Creatinine 7.5 H Glucose 116 H POC Glucose 142 H 165 H Lactic Acid Calcium Phosphorus Ferritin AST Alkaline Phosphatase Lactate Dehydrogenase C-Reactive Protein NT-Pro-B Natriuret Pep Albumin Urine WBC (Auto) Urine Creatinine Urine Total Protein Coronavirus (PCR) 04/14/20 04/14/20 04/14/20 08:08 13:51 17:20 Plt Count Seg Neuts % (Manual) Lymphocytes % (Manual) Lymphocytes # (Manual) D-Dimer ABG pO2 ABG HCO3 ABG Base Excess ABG Hemoglobin Sodium Potassium Carbon Dioxide BUN Creatinine Glucose POC Glucose 123 H 174 H 169 H Lactic Acid Calcium Phosphorus Ferritin AST Alkaline Phosphatase Lactate Dehydrogenase C-Reactive Protein NT-Pro-B Natriuret Pep Albumin Urine WBC (Auto) Urine Creatinine Urine Total Protein Coronavirus (PCR) 04/14/20 04/14/20 04/15/20 21:00 22:00 05:04 Plt Count Seg Neuts % (Manual) Lymphocytes % (Manual) Lymphocytes # (Manual) D-Dimer ABG pO2 ABG HCO3 ABG Base Excess ABG Hemoglobin Sodium Potassium Carbon Dioxide 20 L BUN 77 H Creatinine 6.9 H Glucose 161 H POC Glucose 182 H Lactic Acid Calcium 7.9 L Phosphorus Ferritin AST Alkaline Phosphatase Lactate Dehydrogenase C-Reactive Protein NT-Pro-B Natriuret Pep Albumin Urine WBC (Auto) > 182.0 H Urine Creatinine Urine Total Protein Coronavirus (PCR) 04/15/20 04/15/20 04/15/20 08:30 12:12 15:28 Plt Count Seg Neuts % (Manual) Lymphocytes % (Manual) Lymphocytes # (Manual) D-Dimer ABG pO2 ABG HCO3 ABG Base Excess ABG Hemoglobin Sodium Potassium Carbon Dioxide BUN Creatinine Glucose POC Glucose 149 H 257 H 353 H Lactic Acid Calcium Phosphorus Ferritin AST Alkaline Phosphatase Lactate Dehydrogenase C-Reactive Protein NT-Pro-B Natriuret Pep Albumin Urine WBC (Auto) Urine Creatinine Urine Total Protein Coronavirus (PCR) 04/15/20 04/16/20 22:00 01:35 Plt Count Seg Neuts % (Manual) Lymphocytes % (Manual) Lymphocytes # (Manual) D-Dimer ABG pO2 ABG HCO3 ABG Base Excess ABG Hemoglobin Sodium Potassium Carbon Dioxide BUN Creatinine Glucose POC Glucose 157 H Lactic Acid Calcium Phosphorus Ferritin AST Alkaline Phosphatase Lactate Dehydrogenase C-Reactive Protein NT-Pro-B Natriuret Pep Albumin Urine WBC (Auto) Urine Creatinine 103.8 H Urine Total Protein 209 H Coronavirus (PCR)
[2020-04-16] MEDS: INSULIN LISPRO 100 UNIT/ML VIAL 3 mL SUB-Q SCH ×4 (09:06→21:59)
--- NOTE | 2020-04-16 09:11 | Progress Note ---
Assessment and Plan Cultures: Coronavirus PCR: Positive 04/12/2020 blood culture: Enterobacter 2 out of 4 bottles A/P: 75-year-old male with diabetes, hypertension admitted with: #Sepsis, secondary to bilateral pneumonia: Likely secondary to COVID-19 infection and Enterobacter bacteremia. #Enterobacter bacteremia: Unclear source ?UTI. Urinalysis consistent with UTI. #COVID-19 infection. D-dimer significantly elevated at >10K, ferritin elevated. #Acute hypoxic respiratory failure: Was on BiPAP, now on 2 L nasal cannula #Acute renal failure: Renally dose antibiotics. Worsening. Started on hemodialysis. 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 r Recs: -D-dimer is extremely high, consider VQ scan/chest CTA -Follow-up urine culture -Continue cefepime IV renally adjusted to cover Enterobacter bacteremia- typically AmpC inducer. -Continue IV/PO Dexamethasone 6 mg daily x 10 days -No candidate for remdesivir due to renal failure -Obtain markers today and SARS-CoV-2 IgG -Repeat blood cultures -Obtain QuantiFERON TB Gold Radha Alejandre MD [facility] ([facility]) Office [phone] Subjective Date of service: 04/16/20 Principal diagnosis: Sepsis present on admission Interval history: Remains on high flow nasal cannula, feels better, no complaints Objective - Exam Narrative Exam: Physical Exam: reviewed ED and hospitalist notes, limited due to conservation of PPE and decrease risk of transmission. General appearance: limited due to conservation of PPE Eyes: limited due to conservation of PPE HENT: Atraumatic; limited due to conservation of PPE Lungs: limited due to conservation of PPE CV: limited due to conservation of PPE Abdomen: limited due to conservation of PPE Extremities: limited due to conservation of PPE Skin: limited due to conservation of PPE Psych: limited due to conservation of PPE Neuro: limited due to conservation of PPE - Constitutional Vitals: Vital Signs Temp Pulse Resp BP Pulse Ox 98.2 F 62 17 134/72 100 04/16/20 08:00 04/16/20 09:01 04/16/20 09:01 04/16/20 09:01 04/16/20 09:01 Temperature -Last 24 Hours Temperature 98.2 F Temperature 98.7 F Temperature 98.3 F Temperature 98.8 F Temperature 98.3 F Temperature 98.2 F - Labs CBC & Chem 7: 04/12/20 04:51 04/15/20 05:04 Labs: Abnormal lab results 04/12/20 04/15/20 04/15/20 Range/Units 04:51 12:12 15:28 Plt Count 110 L (140-440) K/mm3 Seg Neuts % (Manual) 93.0 H (40.0-70.0) % Lymphocytes % (Manual) 3.0 L (13.4-35.0) % Lymphocytes # (Manual) 0.2 L (1.2-5.4) K/mm3 POC Glucose 257 H 353 H (70-105) mg/dL Urine Creatinine (0.1-20.0) mg/dL Urine Total Protein (5-11.8) mg/dL 04/15/20 04/16/20 04/16/20 Range/Units 22:00 01:35 08:47 Plt Count (140-440) K/mm3 Seg Neuts % (Manual) (40.0-70.0) % Lymphocytes % (Manual) (13.4-35.0) % Lymphocytes # (Manual) (1.2-5.4) K/mm3 POC Glucose 157 H 111 H (70-105) mg/dL Urine Creatinine 103.8 H (0.1-20.0) mg/dL Urine Total Protein 209 H (5-11.8) mg/dL
[2020-04-16] MEDS: APIXABAN 5 MG TAB PO SCH ×2 (09:38→21:58)
[2020-04-16] MEDS: FAMOTIDINE 20 MG TAB PO SCH (09:38)
[2020-04-16] MEDS: dexAMETHasone 4 MG/ML VIAL IV SCH (09:39)
--- NOTE | 2020-04-16 12:23 | Progress Note ---
Assessment and Plan 1. Acute kidney injury: Acute kidney injury in the setting of COVID infection and vasomotor insult. Renal US ordered. JENY, ANCA, GMB Ab, Complements and SPEP ordered. Has cruz catheter. Monitor renal function. Low UOP. Renal prognosis is guarded. Avoid nephrotoxic agents. Meds dosage based on GFR. Monitor for [employer] needs. Patient required hemodialysis due to worsening renal function and associated hyperkalemia and metabolic acidosis. D/w patient and his daughter (04/14) about the indications, benefits, risks and alternatives involved in hemodialysis. Both voiced understanding and gave verbal consent. Hemodialysis: 04/14, 04/16. 2. FEN: Hyperkalemia, improved with HD, monitor. Metabolic acidosis, monitor. Monitor lytes. 3. Acute hypoxic resp failure: Likely secondary to COVID-19 infection. Currently NC O2. Followed by Pulmonary. 4. Severe COVID-19 pneumonia. Followed by ID. 5. DM type 2: Accuchecks. 6. H/o hypertension: Monitor BP. 7. Acute metabolic encephalopathy. Subjective: Patient was seen and examined at the bedside. Doing ok. General Appearance: General appearance: well-developed, appears stated age, no distress, obese, on NC O2 HEENT: ATNC Neck: Trachea midline Respiratory: ctab Cardiology: S1S2, regular, no murmur Gastrointestinal: normoactive bowel sounds, no tenderness, not distended Integumentary: no obvious rash Neurologic: alert, non-focal, slight confusion Ext: no edema noted : Cruz catheter Hemodialysis access: R IJ temp catheter Subjective Date of service: 04/16/20 Principal diagnosis: Sepsis present on admission Objective - Vital Signs Vital signs: Vital Signs - 12hr 04/16/20 04/16/20 04/16/20 01:00 02:00 03:00 Temperature Pulse Rate 61 60 58 L Pulse Rate [ From Monitor] Respiratory 16 13 19 Rate Blood Pressure 101/54 93/47 102/48 O2 Sat by Pulse 100 100 100 Oximetry O2 Sat by Pulse Oximetry [ Anterior Bilateral Throughout] 04/16/20 04/16/20 04/16/20 04:00 05:00 06:00 Temperature 98.7 F Pulse Rate 57 L 54 L 55 L Pulse Rate [ 57 L From Monitor] Respiratory 17 17 18 Rate Blood Pressure 111/60 109/52 93/40 O2 Sat by Pulse 100 100 100 Oximetry O2 Sat by Pulse Oximetry [ Anterior Bilateral Throughout] 04/16/20 04/16/20 04/16/20 07:00 08:00 08:01 Temperature 98.2 F Pulse Rate 55 L 76 66 Pulse Rate [ 76 From Monitor] Respiratory 17 16 17 Rate Blood Pressure 109/62 125/65 O2 Sat by Pulse 100 100 99 Oximetry O2 Sat by Pulse Oximetry [ Anterior Bilateral Throughout] 04/16/20 04/16/20 04/16/20 09:01 10:00 11:01 Temperature Pulse Rate 62 61 66 Pulse Rate [ From Monitor] Respiratory 17 23 20 Rate Blood Pressure 134/72 129/71 125/73 O2 Sat by Pulse 100 100 Oximetry O2 Sat by Pulse Oximetry [ Anterior Bilateral Throughout] 04/16/20 04/16/20 04/16/20 11:45 12:00 12:15 Temperature 98.1 F Pulse Rate 58 L 58 L 59 L Pulse Rate [ From Monitor] Respiratory 17 Rate Blood Pressure 124/78 124/78 133/72 O2 Sat by Pulse Oximetry O2 Sat by Pulse 100 Oximetry [ Anterior Bilateral Throughout] - Lab 04/12/20 04:51 04/16/20 14:57 Most recent lab results ABG pH 7.441 pH Units (7.350-7.450) 04/12/20 04:21 ABG pCO2 26.2 mm Hg 04/12/20 04:21 ABG pO2 135.7 mm Hg (80.0-90.0) H 04/12/20 04:21 ABG HCO3 15.4 mmol/L (20.0-26.0) L 04/12/20 04:21 ABG O2 Saturation 98.7 % (95.0-99.0) 04/12/20 04:21 Calcium 7.9 mg/dL (8.4-10.2) L 04/15/20 05:04 Phosphorus 5.90 mg/dL (2.5-4.5) H 04/13/20 13:51 Magnesium 1.90 mg/dL (1.7-2.3) 04/13/20 13:51 Urine Creatinine 103.8 mg/dL (0.1-20.0) H 04/16/20 01:35 Urine Sodium 66 mmol/L 04/16/20 01:35 Urine Total Protein 209 mg/dL (5-11.8) H 04/16/20 01:35 Medications & Allergies - Medications Allergies/Adverse Reactions: Allergies No Known Allergies Allergy (Verified 04/12/20 04:28) Home Medications: Home Medications Medication Instructions Recorded Confirmed Last Taken Type AtorvaSTATin [Lipitor] 20 mg PO QHS 04/12/20 04/12/[address] [Aki Hernández] 75 mg PO BID 04/12/20 04/12/20 Unknown History Insulin Aspart Prot/Aspart(Nf) 10 units SUB-Q BID 04/12/20 04/12/20 Unknown History [NovoLOG Mix 70/30 VIAL] Losartan/Hydrochlorothiazide 100 mg PO QDAY 04/12/20 04/12/20 Unknown History [Losartan-Hctz 100-25 mg Tab] Metoprolol [Lopressor] 25 mg PO BID 04/12/20 04/12/20 Unknown History Pioglitazone [Actos] 15 mg PO QDAY 04/12/20 04/12/20 Unknown History amLODIPine [Norvasc] 5 mg PO DAILY 04/12/20 04/12/20 Unknown History Cholecalciferol (Vitamin D3) 5,000 unit PO QDAY 04/13/20 04/13/20 Unknown History [Vitamin D3 5,000 UNIT] Metoprolol [Lopressor] 25 mg PO BID 04/13/20 04/13/20 Unknown History glipiZIDE [Glucotrol] 10 mg PO QDAY 04/13/20 04/13/20 Unknown History traMADoL [Ultram] 50 mg PO Q6HR PRN 04/13/20 04/13/20 Unknown History Active Medications: Generic Name Dose Route Start Last Admin Trade Name Freq PRN Reason Stop Dose Admin Alprazolam 0.125 mg 04/12/20 07:53 04/13/20 21:58 Xanax PO 0.125 mg Q8H PRN Administration Anxiety Apixaban 5 mg 04/13/20 11:00 04/16/20 09:38 Eliquis PO 5 mg Q12HR JOSIANE Administration Protocol Dexamethasone 6 mg 04/13/20 10:00 04/16/20 09:39 Decadron IV 04/22/20 10:01 6 mg Q24H JOSIANE Administration Dextrose 50 ml 04/13/20 10:05 D50w (25gm) Syringe IV Q30MIN PRN Hypoglycemia Protocol Diltiazem HCl 120 mg 04/14/20 18:00 04/16/20 07:07 Cardizem PO Not Given Q8HR JOSIANE Famotidine 20 mg 04/12/20 10:00 04/16/20 09:38 Pepcid PO 20 mg DAILY JOSIANE Administration Haloperidol Lactate 5 mg 04/13/20 10:42 Haldol IV Q6H PRN Agitation Sodium Chloride 1,000 mls @ 100 mls/hr 04/14/20 09:00 04/16/20 04:03 Nacl 0.9% 1000 Ml IV 100 mls/hr DIRECT JOSIANE Administration Sodium Chloride 100 mls @ 999 mls/hr 04/14/20 10:38 Nacl 0.9% IV SILVIA PRN Hypotension Cefepime HCl 1 gm in 100 mls @ 200 mls/hr 04/14/20 18:00 04/15/20 17:13 Cefepime/Ns 1 Gm/100 Ml IV 200 mls/hr Q24H JOSIANE Administration Protocol Insulin Human Lispro 0 unit 04/13/20 11:30 04/16/20 09:06 Humalog SUB-Q Not Given ACHS JOSIANE Protocol
[2020-04-16 15:37] LABS: Calcium 7.7 mg/dL (8.4-10.2)
[2020-04-16 15:38] LABS: C-Reactive Protein 6.6 mg/dL (0.00-1.30)
--- NOTE | 2020-04-16 15:55 | Progress Note ---
Assessment and Plan (1) Acute respiratory failure with hypoxia Current Visit: Yes Status: Acute Plan to address problem: Patient with acute respiratory failure. Most likely secondary to COVID-19 pneumonia. Patient came back Covid positive. Patient also has underlying lung mass. Somewhat suspicious for TB. Obtain pulmonology consult ID consult. Patient start steroids. Not a candidate for remdesivir secondary to renal failure. Patient doing much better today. Satting at 100% on 3 L oxygen nasal cannula. Continue present management. Given the acuity of patient's decompensation from yesterday will observe in the ICU for 1 more day. (2) Community acquired pneumonia Current Visit: Yes Status: Acute Plan to address problem: Patient with masslike areas of consolidation. Currently need to consider lung mass as potential etiology however now we are treating for community-acquired pneumonia. Patient also was Covid positive. Continue cefepime for now. Follow blood culture data and additional microbiology. Blood cultures positive for Enterobacter Aerogenes. Infectious disease has already been consulted patient being ruled out for tuberculosis as well. (3) Renal insufficiency Current Visit: Yes Status: Acute Plan to address problem: Acute kidney disease most likely secondary to COVID-19 infection. Patient did make some urine today. Potassium is normal however patient renal function still remains elevated. Renal prognosis guarded. Follow recommendations per nephrology. Hopefully kidneys can return to functional level. (4) Suspected COVID-19 virus infection Current Visit: Yes Status: Acute Plan to address problem: Severe sepsis from COVID-19 pneumonia. Patient requiring requiring nonrebreather for oxygenation. Prognosis poor. D-dimer greater than 10,000. Patient has been placed on empiric Eliquis. (5) Acute kidney injury Current Visit: Yes Status: Acute (6) Acute kidney injury (ROZ) with acute tubular necrosis (ATN) Current Visit: Yes Status: Acute Plan to address problem: Acute kidney injury possibly secondary to COVID-19 infection underlying acute on chronic kidney disease. May require hemodialysis now. Await any further recommendations from nephrology. Rule out obstructive uropathy. I did speak with she denied any history of renal failure or prostate issues at this time. (7) UTI (urinary tract infection) Current Visit: Yes Status: Acute Plan to address problem: Continue cefepime for now. Subjective Date of service: 04/16/20 Principal diagnosis: Sepsis present on admission Interval history: 75-year-old presented with acute respiratory failure. Patient was found to have severe sepsis secondary to Covid pneumonia. Patient hospital course also complicated by acute respiratory failure and underlying mass of unknown etiology. Patient continues to have increased work of breathing requiring BiPAP. Hospital course complicated this morning by worsening renal function. 04/14/20 This morning patient developed worsening renal function. Has progressed since admission. May require ultrafiltration. Started on aggressive IV volume hydration today. Will order bilateral renal ultrasound. Also hyperkalemia treated with Kayexalate. Patient also had tachycardia with heart rate going as high as 147. Gave Cardizem bolus yesterday. 2019. Patient doing much better this morning. Heart rate is come down from 147 now into the 80s. Unsure of exact etiology could have been uremia with electrolyte abnormality versus dehydration and hypoxemia. Patient now nasal cannula and is off Ventimask. Patient is satting at 100% on 2 L of O2. Started patient on Cardizem 90 mg 1 tab p.o. 3 times daily heart rate well controlled in the 80s. Clinically patient feels much better as well. Patient did urinate a little bit today as well. 04/16/20 Objective - Constitutional Vitals: Vital Signs - 12hr 04/16/20 04/16/20 04/16/20 04:00 05:00 06:00 Temperature 98.7 F Pulse Rate 57 L 54 L 55 L Pulse Rate [ 57 L From Monitor] Respiratory 17 17 18 Rate Blood Pressure 111/60 109/52 93/40 O2 Sat by Pulse 100 100 100 Oximetry O2 Sat by Pulse Oximetry [ Anterior Bilateral Throughout] 04/16/20 04/16/20 04/16/20 07:00 08:00 08:01 Temperature 98.2 F Pulse Rate 55 L 76 66 Pulse Rate [ 76 From Monitor] Respiratory 17 16 17 Rate Blood Pressure 109/62 125/65 O2 Sat by Pulse 100 100 99 Oximetry O2 Sat by Pulse Oximetry [ Anterior Bilateral Throughout] 04/16/20 04/16/20 04/16/20 09:01 10:00 11:01 Temperature Pulse Rate 62 61 66 Pulse Rate [ From Monitor] Respiratory 17 23 20 Rate Blood Pressure 134/72 129/71 125/73 O2 Sat by Pulse 100 100 Oximetry O2 Sat by Pulse Oximetry [ Anterior Bilateral Throughout] 04/16/20 04/16/20 04/16/20 11:45 12:00 12:15 Temperature 98.1 F 98.4 F Pulse Rate 58 L 58 L 59 L Pulse Rate [ From Monitor] Respiratory 17 Rate Blood Pressure 124/78 124/78 133/72 O2 Sat by Pulse Oximetry O2 Sat by Pulse 100 Oximetry [ Anterior Bilateral Throughout] 04/16/20 04/16/20 04/16/20 12:30 12:45 13:00 Temperature Pulse Rate 65 63 53 L Pulse Rate [ From Monitor] Respiratory Rate Blood Pressure 132/73 140/72 133/81 O2 Sat by Pulse Oximetry O2 Sat by Pulse Oximetry [ Anterior Bilateral Throughout] 04/16/20 04/16/20 04/16/20 13:15 13:30 13:45 Temperature Pulse Rate 53 L 53 L 57 L Pulse Rate [ From Monitor] Respiratory Rate Blood Pressure 125/77 125/74 142/76 O2 Sat by Pulse Oximetry O2 Sat by Pulse Oximetry [ Anterior Bilateral Throughout] 04/16/20 04/16/20 04/16/20 14:00 14:15 14:30 Temperature Pulse Rate 57 L 55 L 58 L Pulse Rate [ From Monitor] Respiratory Rate Blood Pressure 143/67 129/72 120/77 O2 Sat by Pulse Oximetry O2 Sat by Pulse Oximetry [ Anterior Bilateral Throughout] 04/16/20 04/16/20 04/16/20 14:41 14:45 15:00 Temperature Pulse Rate 55 L 60 53 L Pulse Rate [ From Monitor] Respiratory Rate Blood Pressure 143/77 138/77 O2 Sat by Pulse Oximetry O2 Sat by Pulse Oximetry [ Anterior Bilateral Throughout] 04/16/20 15:11 Temperature 98.1 F Pulse Rate 58 L Pulse Rate [ From Monitor] Respiratory 19 Rate Blood Pressure 138/77 O2 Sat by Pulse Oximetry O2 Sat by Pulse 100 Oximetry [ Anterior Bilateral Throughout] General appearance: Present: no acute distress, well-nourished - EENT Eyes: PERRL, EOM intact ENT: hearing intact, clear oral mucosa Ears: bilateral: normal - Neck Neck: supple, normal ROM - Respiratory Respiratory effort: normal Respiratory: bilateral: CTA - Breasts Breasts: normal - Cardiovascular Rhythm: regular Heart Sounds: Present: S1 & S2. Absent: gallop, rub Extremities: pulses intact, No edema, normal color, Full ROM - Gastrointestinal General gastrointestinal: Present: soft, non-tender, non-distended, normal bowel sounds - Genitourinary Male genitourinary: normal - Integumentary Integumentary: clear, warm, dry - Musculoskeletal Musculoskeletal: 1, strength equal bilaterally - Neurologic Neurologic: moves all extremities - Psychiatric Psychiatric: memory intact, appropriate mood/affect, intact judgment & insight - Labs CBC & Chem 7: 04/12/20 04:51 04/16/20 14:57 Labs: Abnormal lab results 04/15/20 04/16/20 04/16/20 Range/Units 22:00 01:35 08:47 D-Dimer (0-234) ng/mlDDU Potassium (3.6-5.0) mmol/L BUN (9-20) mg/dL Creatinine (0.8-1.3) mg/dL Glucose (75-100) mg/dL POC Glucose 157 H 111 H (70-105) mg/dL Calcium (8.4-10.2) mg/dL Lactate Dehydrogenase (91-180) units/L C-Reactive Protein (0.00-1.30) mg/dL Urine Creatinine 103.8 H (0.1-20.0) mg/dL Urine Total Protein 209 H (5-11.8) mg/dL 04/16/20 04/16/20 04/16/20 Range/Units 11:43 14:57 14:57 D-Dimer 1573.49 H (0-234) ng/mlDDU Potassium 3.1 L D (3.6-5.0) mmol/L BUN 47 H (9-20) mg/dL Creatinine 4.2 H (0.8-1.3) mg/dL Glucose 167 H (75-100) mg/dL POC Glucose 170 H (70-105) mg/dL Calcium 7.7 L (8.4-10.2) mg/dL Lactate Dehydrogenase (91-180) units/L C-Reactive Protein (0.00-1.30) mg/dL Urine Creatinine (0.1-20.0) mg/dL Urine Total Protein (5-11.8) mg/dL 04/16/20 Range/Units 14:57 D-Dimer (0-234) ng/mlDDU Potassium (3.6-5.0) mmol/L BUN (9-20) mg/dL Creatinine (0.8-1.3) mg/dL Glucose (75-100) mg/dL POC Glucose (70-105) mg/dL Calcium (8.4-10.2) mg/dL Lactate Dehydrogenase 328 H (91-180) units/L C-Reactive Protein 6.60 H (0.00-1.30) mg/dL Urine Creatinine (0.1-20.0) mg/dL Urine Total Protein (5-11.8) mg/dL HEART Score - HEART Score Troponin: Troponin T 0.012 ng/mL (0.00-0.029) 04/12/20 04:51
[2020-04-16] MEDS: CEFEPIME/NS 1 GM/100 ML 1 GM/100 ML BAG IV SCH (17:40)
[2020-04-16] MEDS: ALPRAZolam 0.25 MG TAB PO PRN (22:02)
[2020-04-17] MEDS: dilTIAZem 60 MG TAB PO SCH (05:23)
--- NOTE | 2020-04-17 06:55 | Progress Note ---
Assessment and Plan Cultures: Coronavirus PCR: Positive 04/12/2020 blood culture: Enterobacter 2 out of 4 bottles 04/14/2020 urine culture no growth A/P: 75-year-old male with diabetes, hypertension admitted with: #Sepsis, secondary to bilateral pneumonia: Likely secondary to COVID-19 infection and Enterobacter bacteremia. #Enterobacter bacteremia: Unclear source ?UTI. Urinalysis consistent with UTI. Urine culture no growth, obtained 2 days after antibiotics. #COVID-19 infection. D-dimer significantly elevated at >10K, ferritin elevated. Repeat D-dimer and ferritin improving. #Acute hypoxic respiratory failure: Remains on high flow nasal cannula today. #Acute renal failure: Renally dose antibiotics. Worsening. Started on hemodialysis. 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 Recs: -Continue cefepime IV renally adjusted to cover Enterobacter bacteremia- typically AmpC inducer. day 4 of 10 -Continue IV/PO Dexamethasone 6 mg daily x 10 days -No candidate for remdesivir due to renal failure -Obtain markers today and SARS-CoV-2 IgG -Follow-up repeat blood cultures -Obtain QuantiFERON TB Gold Radha Alejandre MD [facility] ([facility]) Office [phone] Subjective Date of service: 04/17/20 Principal diagnosis: Sepsis present on admission Interval history: Remains on high flow nasal cannula, no fever. Objective - Exam Narrative Exam: Physical Exam: reviewed ED and hospitalist notes, limited due to conservation of PPE and decrease risk of transmission. General appearance: limited due to conservation of PPE Eyes: limited due to conservation of PPE HENT: Atraumatic; limited due to conservation of PPE Lungs: limited due to conservation of PPE CV: limited due to conservation of PPE Abdomen: limited due to conservation of PPE Extremities: limited due to conservation of PPE Skin: limited due to conservation of PPE Psych: limited due to conservation of PPE Neuro: limited due to conservation of PPE - Constitutional Vitals: Vital Signs Temp Pulse Resp BP Pulse Ox 98.0 F 49 L 15 107/62 100 04/17/20 04:00 04/17/20 06:01 04/17/20 06:01 04/17/20 06:01 04/17/20 06:01 Temperature -Last 24 Hours Temperature 98.0 F Temperature 97.9 F Temperature 97.7 F Temperature 97.9 F Temperature 98.1 F Temperature 98.4 F Temperature 98.1 F Temperature 98.2 F - Labs CBC & Chem 7: 04/12/20 04:51 04/16/20 14:57 Labs: Abnormal lab results 04/16/20 04/16/20 04/16/20 Range/Units 08:47 11:43 14:57 D-Dimer (0-234) ng/mlDDU Potassium 3.1 L D (3.6-5.0) mmol/L BUN 47 H (9-20) mg/dL Creatinine 4.2 H (0.8-1.3) mg/dL Glucose 167 H (75-100) mg/dL POC Glucose 111 H 170 H (70-105) mg/dL Calcium 7.7 L (8.4-10.2) mg/dL Ferritin (30.0-300.0) ng/mL Lactate Dehydrogenase (91-180) units/L C-Reactive Protein (0.00-1.30) mg/dL 04/16/20 04/16/20 04/16/20 Range/Units 14:57 14:57 14:57 D-Dimer 1573.49 H (0-234) ng/mlDDU Potassium (3.6-5.0) mmol/L BUN (9-20) mg/dL Creatinine (0.8-1.3) mg/dL Glucose (75-100) mg/dL POC Glucose (70-105) mg/dL Calcium (8.4-10.2) mg/dL Ferritin 1137.0 H (30.0-300.0) ng/mL Lactate Dehydrogenase 328 H (91-180) units/L C-Reactive Protein 6.60 H (0.00-1.30) mg/dL 04/16/20 04/16/20 Range/Units 17:21 22:04 D-Dimer (0-234) ng/mlDDU Potassium (3.6-5.0) mmol/L BUN (9-20) mg/dL Creatinine (0.8-1.3) mg/dL Glucose (75-100) mg/dL POC Glucose 172 H 232 H (70-105) mg/dL Calcium (8.4-10.2) mg/dL Ferritin (30.0-300.0) ng/mL Lactate Dehydrogenase (91-180) units/L C-Reactive Protein (0.00-1.30) mg/dL
[2020-04-17] MEDS: INSULIN LISPRO 100 UNIT/ML VIAL 3 mL SUB-Q SCH ×4 (08:11→22:58)
[2020-04-17] MEDS: SODIUM CHLORIDE 0.9% 1000 ML 1,000 ML IV SCH (08:13)
[2020-04-17 08:42] LABS: Hematocrit 31.6 % (35.5-45.6); Hemoglobin 10.3 gm/dl (11.8-15.2); Mean Corpuscular HGB Conc 33 % (32-34); Mean Corpuscular Volume 92 fl (84-94); Red Blood Count 3.44 M/mm3 (3.65-5.03); Red Cell Distribution Width 14.4 % (13.2-15.2)
[2020-04-17 08:45] LABS: Platelet Count 59 K/mm3 (140-440)
[2020-04-17] MEDS: dexAMETHasone 4 MG/ML VIAL IV SCH (09:10)
[2020-04-17] MEDS: FAMOTIDINE 20 MG TAB PO SCH (09:11)
[2020-04-17] MEDS: APIXABAN 5 MG TAB PO SCH ×2 (09:11→21:22)
--- NOTE | 2020-04-17 09:39 | Progress Note ---
Assessment and Plan Assessment and plan: Sepsis. Etiology secondary to bilateral pneumonia: Likely secondary to COVID-19 infection and Enterobacter bacteremia. Continue cefepime per ID recommendation. Follow-up repeat blood cultures. Enterobacter bacteremia: Unclear source ?UTI. Urinalysis consistent with UTI. Urine culture no growth, obtained 2 days after antibiotics. COVID-19 infection. D-dimer significantly elevated at >10K, ferritin elevated. Repeat D-dimer and ferritin improving. Continue IV/p.o. dexamethasone 6 mg daily for total of 10 days. Patient not a candidate for remdesivir due to renal failure. Acute hypoxic respiratory failure: Remains on high flow nasal cannula today (high flow nasal cannula 6 L). Acute renal failure: Renally dose antibiotics. Worsening. Started on hemodialysis per nephrology. Elevated LFTs: Continue to monitor. 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 History Interval history: No new issues overnight Hospitalist Physical - Constitutional Vitals: Temp Pulse Resp BP Pulse Ox 98.4 F 49 L 15 107/62 100 04/17/20 08:00 04/17/20 06:01 04/17/20 06:01 04/17/20 06:01 04/17/20 06:01 General appearance: Present: no acute distress, well-nourished - EENT Eyes: Present: PERRL, EOM intact ENT: hearing intact, clear oral mucosa, dentition normal - Neck Neck: Present: supple, normal ROM - Respiratory Respiratory effort: normal Respiratory: bilateral: CTA - Cardiovascular Rhythm: regular Heart Sounds: Present: S1 & S2. Absent: gallop, rub - Extremities Extremities: no ischemia, No edema, Full ROM - Abdominal General gastrointestinal: soft, non-tender, non-distended, normal bowel sounds - Integumentary Integumentary: Present: clear, warm, dry - Neurologic Neurologic: CNII-XII intact, moves all extremities HEART Score - HEART Score Troponin: Troponin T 0.012 ng/mL (0.00-0.029) 04/12/20 04:51 Results - Labs CBC & Chem 7: 04/17/20 08:14 04/17/20 08:14 Labs: Laboratory Last Values WBC 24.1 K/mm3 (4.5-11.0) H 04/17/20 08:14 RBC 3.44 M/mm3 (3.65-5.03) L 04/17/20 08:14 Hgb 10.3 gm/dl (11.8-15.2) L 04/17/20 08:14 Hct 31.6 % (35.5-45.6) L 04/17/20 08:14 MCV 92 fl (84-94) 04/17/20 08:14 MCH 30 pg (28-32) 04/17/20 08:14 MCHC 33 % (32-34) 04/17/20 08:14 RDW 14.4 % (13.2-15.2) 04/17/20 08:14 Plt Count 59 K/mm3 (140-440) L 04/17/20 08:14 Add Manual Diff Complete 04/12/20 04:51 Total Counted 100 04/12/20 04:51 Seg Neutrophils % [employer] 04/17/20 08:14 Seg Neuts % (Manual) 93.0 % (40.0-70.0) H 04/12/20 04:51 Band Neutrophils % 1.0 % 04/12/20 04:51 Lymphocytes % (Manual) 3.0 % (13.4-35.0) L 04/12/20 04:51 Reactive Lymphs % (Man) 0 % 04/12/20 04:51 Monocytes % (Manual) 1.0 % (0.0-7.3) 04/12/20 04:51 Eosinophils % (Manual) 2.0 % (0.0-4.3) 04/12/20 04:51 Basophils % (Manual) 0 % (0.0-1.8) 04/12/20 04:51 Metamyelocytes % 0 % 04/12/20 04:51 Myelocytes % 0 % 04/12/20 04:51 Promyelocytes % 0 % 04/12/20 04:51 Blast Cells % 0 % 04/12/20 04:51 Nucleated RBC % Not Reportable 04/12/20 04:51 Seg Neutrophils # Man 4.7 K/mm3 (1.8-7.7) 04/12/20 04:51 Band Neutrophils # 0.1 K/mm3 04/12/20 04:51 Lymphocytes # (Manual) 0.2 K/mm3 (1.2-5.4) L 04/12/20 04:51 Abs React Lymphs (Man) 0.0 K/mm3 04/12/20 04:51 Monocytes # (Manual) 0.1 K/mm3 (0.0-0.8) 04/12/20 04:51 Eosinophils # (Manual) 0.1 K/mm3 (0.0-0.4) 04/12/20 04:51 Basophils # (Manual) 0.0 K/mm3 (0.0-0.1) 04/12/20 04:51 Metamyelocytes # 0.0 K/mm3 04/12/20 04:51 Myelocytes # 0.0 K/mm3 04/12/20 04:51 Promyelocytes # 0.0 K/mm3 04/12/20 04:51 Blast Cells # 0.0 K/mm3 04/12/20 04:51 WBC Morphology Not Reportable 04/12/20 04:51 Hypersegmented Neuts Not Reportable 04/12/20 04:51 Hyposegmented Neuts Not Reportable 04/12/20 04:51 Hypogranular Neuts Not Reportable 04/12/20 04:51 Smudge Cells Not Reportable 04/12/20 04:51 Toxic Granulation Not Reportable 04/12/20 04:51 Toxic Vacuolation Not Reportable 04/12/20 04:51 Dohle Bodies Not Reportable 04/12/20 04:51 Pelger-Huet Anomaly Not Reportable 04/12/20 04:51 Matthew Rods Not Reportable 04/12/20 04:51 Platelet Estimate Consistent w auto 04/12/20 04:51 Clumped Platelets Not Reportable 04/12/20 04:51 Plt Clumps, EDTA Not Reportable 04/12/20 04:51 Large Platelets Not Reportable 04/12/20 04:51 Giant Platelets Not Reportable 04/12/20 04:51 Platelet Satelliting Not Reportable 04/12/20 04:51 Plt Morphology Comment Not Reportable 04/12/20 04:51 RBC Morphology Not Reportable 04/12/20 04:51 Dimorphic RBCs Not Reportable 04/12/20 04:51 Polychromasia Not Reportable 04/12/20 04:51 Hypochromasia Not Reportable 04/12/20 04:51 Poikilocytosis Not Reportable 04/12/20 04:51 Anisocytosis 1+ 04/12/20 04:51 Microcytosis Not Reportable 04/12/20 04:51 Macrocytosis Not Reportable 04/12/20 04:51 Spherocytes Not Reportable 04/12/20 04:51 Pappenheimer Bodies Not Reportable 04/12/20 04:51 Sickle Cells Not Reportable 04/12/20 04:51 Target Cells Not Reportable 04/12/20 04:51 Tear Drop Cells Not Reportable 04/12/20 04:51 Ovalocytes Not Reportable 04/12/20 04:51 Helmet Cells Not Reportable 04/12/20 04:51 [place] Bodies Not Reportable 04/12/20 04:51 [place] Rings Not Reportable 04/12/20 04:51 [place] Cells Not Reportable 04/12/20 04:51 Bite Cells Not Reportable 04/12/20 04:51 Crenated Cell Not Reportable 04/12/20 04:51 Elliptocytes Not Reportable 04/12/20 04:51 Acanthocytes (Spur) Not Reportable 04/12/20 04:51 Rouleaux Not Reportable 04/12/20 04:51 Hemoglobin C Crystals Not Reportable 04/12/20 04:51 Schistocytes Not Reportable 04/12/20 04:51 Malaria parasites Not Reportable 04/12/20 04:51 Dandre Bodies Not Reportable 04/12/20 04:51 Hem Pathologist Commnt No 04/12/20 04:51 D-Dimer 1573.49 ng/mlDDU (0-234) H 04/16/20 14:57 ABG pH 7.441 pH Units (7.350-7.450) 04/12/20 04:21 ABG pCO2 26.2 mm Hg 04/12/20 04:21 ABG pO2 135.7 mm Hg (80.0-90.0) H 04/12/20 04:21 ABG HCO3 15.4 mmol/L (20.0-26.0) L 04/12/20 04:21 ABG O2 Saturation 98.7 % (95.0-99.0) 04/12/20 04:21 ABG Base Excess -5.1 mmol/L (-2.0-3.0) L 04/12/20 04:21 ABG Hemoglobin 13.3 gm/dl (14.0-18.0) L 04/12/20 04:21 ABG Carboxyhemoglobin 1.2 % (0.0-5.0) 04/12/20 04:21 ABG Methemoglobin 0.6 % (0.0-1.5) 04/12/20 04:21 Oxyhemoglobin 96.9 % (95.0-99.0) 04/12/20 04:21 FiO2 30.0 % 04/12/20 04:21 Sodium 138 mmol/L (137-145) 04/17/20 08:14 Potassium 3.7 mmol/L (3.6-5.0) 04/17/20 08:14 Chloride 101.1 mmol/L (98-107) 04/17/20 08:14 Carbon Dioxide 20 mmol/L (22-30) L 04/17/20 08:14 Anion Gap 21 mmol/L 04/17/20 08:14 BUN 69 mg/dL (9-20) H 04/17/20 08:14 Creatinine 6.7 mg/dL (0.8-1.3) H D 04/17/20 08:14 Estimated GFR 10 ml/min 04/17/20 08:14 BUN/Creatinine Ratio 10 % 04/17/20 08:14 Glucose 157 mg/dL (75-100) H 04/17/20 08:14 POC Glucose 232 mg/dL (70-105) H 04/16/20 22:04 Lactic Acid 3.50 mmol/L (0.7-2.0) H* 04/12/20 10:20 Calcium 7.0 mg/dL (8.4-10.2) L 04/17/20 08:14 Phosphorus 3.00 mg/dL (2.5-4.5) 04/16/20 14:57 Magnesium 1.90 mg/dL (1.7-2.3) 04/13/20 13:51 Ferritin 1137.0 ng/mL (30.0-300.0) H 04/16/20 14:57 Total Bilirubin 0.60 mg/dL (0.1-1.2) 04/12/20 04:51 AST 69 units/L (5-40) H 04/12/20 04:51 ALT 51 units/L (7-56) 04/12/20 04:51 Alkaline Phosphatase 155 units/L (35-129) H 04/12/20 04:51 Lactate Dehydrogenase 328 units/L (91-180) H 04/16/20 14:57 Troponin T 0.012 ng/mL (0.00-0.029) 04/12/20 04:51 C-Reactive Protein 6.60 mg/dL (0.00-1.30) H 04/16/20 14:57 NT-Pro-B Natriuret Pep 2170 pg/mL (0-900) H 04/12/20 04:51 Total Protein 7.1 g/dL (6.3-8.2) 04/12/20 04:51 Albumin 3.7 g/dL (3.9-5) L 04/12/20 04:51 Albumin/Globulin Ratio 1.1 % 04/12/20 04:51 Procalcitonin 82.32 ng/mL (<0.15) 04/12/20 04:51 Urine Color Red (Yellow) 04/14/20 21:00 Urine Turbidity Turbid (Clear) 04/14/20 21:00 Urine pH 6.0 (5.0-7.0) 04/14/20 21:00 Ur Specific [place] 1.013 (1.003-1.030) 04/14/20 21:00 Urine Protein >500 mg/dL (Negative) 04/14/20 21:00 Urine Glucose (UA) 50 mg/dL (Negative) 04/14/20 21:00 Urine Ketones Neg mg/dL (Negative) 04/14/20 21:00 Urine Blood Lg (Negative) 04/14/20 21:00 Urine Nitrite Neg (Negative) 04/14/20 21:00 Urine Bilirubin Neg (Negative) 04/14/20 21:00 Urine Urobilinogen < 2.0 mg/dL (<2.0) 04/14/20 21:00 Ur Leukocyte Esterase Lg (Negative) 04/14/20 21:00 Urine WBC (Auto) > 182.0 /HPF (0.0-6.0) H 04/14/20 21:00 Urine RBC (Auto) > 182.0 /HPF (0.0-6.0) 04/14/20 21:00 U Epithel Cells (Auto) 3.0 /HPF (0-13.0) 04/14/20 21:00 Urine Bacteria (Auto) 2+ /HPF (Negative) 04/14/20 21:00 Urine WBC Clumps 3+ /HPF 04/14/20 21:00 Urine Mucus Few /HPF 04/14/20 21:00 Urine Yeast (Budding) 2+ /HPF 04/14/20 21:00 Urine Eosinophils None seen (None Seen) 04/15/20 01:35 Urine Creatinine 103.8 mg/dL (0.1-20.0) H 04/16/20 01:35 Protein/Creatinin Ratio 2.01 04/16/20 01:35 Urine Sodium 66 mmol/L 04/16/20 01:35 Urine Total Protein 209 mg/dL (5-11.8) H 04/16/20 01:35 Coronavirus (PCR) Positive (Negative) A 04/12/20 Unknown Hepatitis A IgM Ab Non-reactive (NonReactive) 04/14/20 16:50 Hep Bs Antigen Non-reactive (Negative) 04/14/20 16:50 Hep B Core IgM Ab Non-reactive (NonReactive) 04/14/20 16:50 Hepatitis C Antibody Non-reactive (NonReactive) 04/14/20 16:50 SARS-CoV-2 IgG Ab Nonreactive (NonReactive) 04/16/20 14:57 Microbiology: Microbiology 04/16/20 14:57 Peripheral/Venous Blood Culture - Preliminary Culture in Progress 04/16/20 14:57 Peripheral/Venous Blood Culture - Preliminary Culture in Progress 04/12/20 04:51 Peripheral/Venous Blood Culture - Final Enterobacter Aerogenes Enterobacter Aerogenes#2 04/14/20 21:00 Urine,Clean Catch Urine Culture - Preliminary NO GROWTH AFTER 24 HOURS Haas/IV: Voiding Method Urinal IV Catheter Type [Right VAS Cath Subclavian] IV Catheter Type [Right Peripheral IV Forearm] IV Catheter Type [Right Hand] Peripheral IV Active Medications - Current Medications Current Medications: Generic Name Dose Route Start Last Admin Trade Name Freq PRN Reason Stop Dose Admin Alprazolam 0.125 mg 04/12/20 07:53 04/16/20 22:02 Xanax PO 0.125 mg Q8H PRN Administration Anxiety Apixaban 5 mg 04/13/20 11:00 04/17/20 09:11 Eliquis PO 5 mg Q12HR JOSIANE Administration Protocol Dexamethasone 6 mg 04/13/20 10:00 04/17/20 09:10 Decadron IV 04/22/20 10:01 6 mg Q24H JOSIANE Administration Dextrose 50 ml 04/13/20 10:05 D50w (25gm) Syringe IV Q30MIN PRN Hypoglycemia Protocol Diltiazem HCl 120 mg 04/14/20 18:00 04/17/20 05:23 Cardizem PO Not Given Q8HR JOSIANE Famotidine 20 mg 04/12/20 10:00 04/17/20 09:11 Pepcid PO 20 mg DAILY JOSIANE Administration Haloperidol Lactate 5 mg 04/13/20 10:42 Haldol IV Q6H PRN Agitation Sodium Chloride 1,000 mls @ 100 mls/hr 04/14/20 09:00 04/17/20 08:13 Nacl 0.9% 1000 Ml IV 100 mls/hr DIRECT JOSIANE Administration Sodium Chloride 100 mls @ 999 mls/hr 04/14/20 10:38 Nacl 0.9% IV SILVIA PRN Hypotension Cefepime HCl 1 gm in 100 mls @ 200 mls/hr 04/14/20 18:00 04/16/20 17:40 Cefepime/Ns 1 Gm/100 Ml IV 04/23/20 18:29 200 mls/hr Q24H JOSIANE Administration Protocol Insulin Human Lispro 0 unit 04/13/20 11:30 04/17/20 08:11 Humalog SUB-Q 1 unit ACHS JOSIANE Administration Protocol
--- NOTE | 2020-04-17 10:41 | Progress Note ---
Assessment and Plan 75 y/o male with acute respiratory failure, renal failure with lactic acidosis found to be COVID positive. 1. Started dexamethasone 6mg IV, continue for a total of 10 days. 2. Wean FiO2 for sats >88%. 3. Continue to follow ID recs. 4. Really needs echo but likely will not get given COVID 19 status 5. No further episodes of tachycardia with HD that has been documented. HR is actually very low. Will half current dose of Cardizem and change frequency to q6 6. No next of kin information, need to talk to to find out about renal function and other medical history, still not available 7. Follow up any new renal recs other than HD. 8. Agree with anticoagulation 9. Needs inflammatory markers every 48 hours 10. Heme-thrombocytopenia and leukocytosis. No fever. could be leukomoid reaction from steroids. Will need to monitor daily. Guarded, guarded prognosis with renal failure and COVID. Subjective Date of service: 04/17/20 Principal diagnosis: Sepsis present on admission Interval history: No acute events. Now on 6 liter salter. Objective Vital Signs - 12hr 04/16/20 04/17/20 04/17/20 23:01 00:00 00:01 Temperature 97.9 F Pulse Rate 57 L 55 L Pulse Rate [ Apical] Pulse Rate [ From Monitor] Respiratory 19 18 Rate Blood Pressure 116/63 126/61 O2 Sat by Pulse 100 100 Oximetry 04/17/20 04/17/20 04/17/20 00:06 01:01 02:01 Temperature Pulse Rate 60 64 56 L Pulse Rate [ Apical] Pulse Rate [ From Monitor] Respiratory 16 16 Rate Blood Pressure 129/69 104/59 O2 Sat by Pulse 100 100 Oximetry 04/17/20 04/17/20 04/17/20 03:01 04:00 04:37 Temperature 98.0 F Pulse Rate 50 L 47 L 48 L Pulse Rate [ 48 L Apical] Pulse Rate [ From Monitor] Respiratory 17 17 Rate Blood Pressure 125/68 114/65 O2 Sat by Pulse 100 100 Oximetry 04/17/20 04/17/20 04/17/20 05:01 05:23 06:01 Temperature Pulse Rate 51 L 48 L 49 L Pulse Rate [ Apical] Pulse Rate [ From Monitor] Respiratory 16 15 Rate Blood Pressure 107/52 123/63 107/62 O2 Sat by Pulse 100 100 Oximetry 04/17/20 04/17/20 04/17/20 07:00 08:00 08:01 Temperature 98.4 F Pulse Rate 48 L 55 L 47 L Pulse Rate [ Apical] Pulse Rate [ 55 L From Monitor] Respiratory 7 L 15 17 Rate Blood Pressure 127/64 122/61 O2 Sat by Pulse 100 100 80 L Oximetry 04/17/20 04/17/20 09:01 10:01 Temperature Pulse Rate 60 Pulse Rate [ Apical] Pulse Rate [ From Monitor] Respiratory 13 Rate Blood Pressure 122/61 152/74 O2 Sat by Pulse 99 100 Oximetry CBC and BMP: 04/17/20 08:14 04/17/20 08:14 ABG, PT/INR, D-dimer: ABG ABG pH 7.441 pH Units (7.350-7.450) 04/12/20 04:21 ABG pCO2 26.2 mm Hg 04/12/20 04:21 ABG pO2 135.7 mm Hg (80.0-90.0) H 04/12/20 04:21 ABG O2 Saturation 98.7 % (95.0-99.0) 04/12/20 04:21 PT/INR, D-dimer D-Dimer 1573.49 ng/mlDDU (0-234) H 04/16/20 14:57 Abnormal lab findings: Abnormal Labs 04/12/20 04/12/20 04/12/20 04:21 04:51 04:51 WBC RBC Hgb Hct Plt Count 110 L Seg Neuts % (Manual) 93.0 H Lymphocytes % (Manual) 3.0 L Lymphocytes # (Manual) 0.2 L D-Dimer ABG pO2 135.7 H ABG HCO3 15.4 L ABG Base Excess -5.1 L ABG Hemoglobin 13.3 L Sodium Potassium Carbon Dioxide BUN 48 H Creatinine 3.2 H Glucose 139 H POC Glucose Lactic Acid Calcium Phosphorus Ferritin AST 69 H Alkaline Phosphatase 155 H Lactate Dehydrogenase C-Reactive Protein NT-Pro-B Natriuret Pep Albumin 3.7 L Urine WBC (Auto) Urine Creatinine Urine Total Protein Coronavirus (PCR) 04/12/20 04/12/20 04/12/20 04:51 04:51 04:51 WBC RBC Hgb Hct Plt Count Seg Neuts % (Manual) Lymphocytes % (Manual) Lymphocytes # (Manual) D-Dimer > 30281 H ABG pO2 ABG HCO3 ABG Base Excess ABG Hemoglobin Sodium Potassium Carbon Dioxide BUN Creatinine Glucose 137 H POC Glucose Lactic Acid 3.80 H* Calcium Phosphorus Ferritin AST Alkaline Phosphatase Lactate Dehydrogenase 398 H C-Reactive Protein 6.30 H NT-Pro-B Natriuret Pep 2170 H Albumin Urine WBC (Auto) Urine Creatinine Urine Total Protein Coronavirus (PCR) 04/12/20 04/12/20 04/12/20 04:51 10:20 Unknown WBC RBC Hgb Hct Plt Count Seg Neuts % (Manual) Lymphocytes % (Manual) Lymphocytes # (Manual) D-Dimer ABG pO2 ABG HCO3 ABG Base Excess ABG Hemoglobin Sodium Potassium Carbon Dioxide BUN Creatinine Glucose POC Glucose Lactic Acid 3.50 H* Calcium Phosphorus Ferritin 1523.0 H AST Alkaline Phosphatase Lactate Dehydrogenase C-Reactive Protein NT-Pro-B Natriuret Pep Albumin Urine WBC (Auto) Urine Creatinine Urine Total Protein Coronavirus (PCR) Positive A 04/13/20 04/13/20 04/13/20 07:38 11:35 13:51 WBC RBC Hgb Hct Plt Count Seg Neuts % (Manual) Lymphocytes % (Manual) Lymphocytes # (Manual) D-Dimer ABG pO2 ABG HCO3 ABG Base Excess ABG Hemoglobin Sodium 135 L Potassium 5.6 H D Carbon Dioxide 17 L BUN 76 H Creatinine 6.1 H D Glucose 150 H POC Glucose 160 H 133 H Lactic Acid Calcium Phosphorus 5.90 H Ferritin AST Alkaline Phosphatase Lactate Dehydrogenase C-Reactive Protein NT-Pro-B Natriuret Pep Albumin Urine WBC (Auto) Urine Creatinine Urine Total Protein Coronavirus (PCR) 04/13/20 04/13/20 04/14/20 16:57 22:13 07:44 WBC RBC Hgb Hct Plt Count Seg Neuts % (Manual) Lymphocytes % (Manual) Lymphocytes # (Manual) D-Dimer ABG pO2 ABG HCO3 ABG Base Excess ABG Hemoglobin Sodium 134 L Potassium 5.7 H Carbon Dioxide 18 L BUN 93 H Creatinine 7.5 H Glucose 116 H POC Glucose 142 H 165 H Lactic Acid Calcium Phosphorus Ferritin AST Alkaline Phosphatase Lactate Dehydrogenase C-Reactive Protein NT-Pro-B Natriuret Pep Albumin Urine WBC (Auto) Urine Creatinine Urine Total Protein Coronavirus (PCR) 04/14/20 04/14/20 04/14/20 08:08 13:51 17:20 WBC RBC Hgb Hct Plt Count Seg Neuts % (Manual) Lymphocytes % (Manual) Lymphocytes # (Manual) D-Dimer ABG pO2 ABG HCO3 ABG Base Excess ABG Hemoglobin Sodium Potassium Carbon Dioxide BUN Creatinine Glucose POC Glucose 123 H 174 H 169 H Lactic Acid Calcium Phosphorus Ferritin AST Alkaline Phosphatase Lactate Dehydrogenase C-Reactive Protein NT-Pro-B Natriuret Pep Albumin Urine WBC (Auto) Urine Creatinine Urine Total Protein Coronavirus (PCR) 04/14/20 04/14/20 04/15/20 21:00 22:00 05:04 WBC RBC Hgb Hct Plt Count Seg Neuts % (Manual) Lymphocytes % (Manual) Lymphocytes # (Manual) D-Dimer ABG pO2 ABG HCO3 ABG Base Excess ABG Hemoglobin Sodium Potassium Carbon Dioxide 20 L BUN 77 H Creatinine 6.9 H Glucose 161 H POC Glucose 182 H Lactic Acid Calcium 7.9 L Phosphorus Ferritin AST Alkaline Phosphatase Lactate Dehydrogenase C-Reactive Protein NT-Pro-B Natriuret Pep Albumin Urine WBC (Auto) > 182.0 H Urine Creatinine Urine Total Protein Coronavirus (PCR) 04/15/20 04/15/20 04/15/20 08:30 12:12 15:28 WBC RBC Hgb Hct Plt Count Seg Neuts % (Manual) Lymphocytes % (Manual) Lymphocytes # (Manual) D-Dimer ABG pO2 ABG HCO3 ABG Base Excess ABG Hemoglobin Sodium Potassium Carbon Dioxide BUN Creatinine Glucose POC Glucose 149 H 257 H 353 H Lactic Acid Calcium Phosphorus Ferritin AST Alkaline Phosphatase Lactate Dehydrogenase C-Reactive Protein NT-Pro-B Natriuret Pep Albumin Urine WBC (Auto) Urine Creatinine Urine Total Protein Coronavirus (PCR) 04/15/20 04/16/20 04/16/20 22:00 01:35 08:47 WBC RBC Hgb Hct Plt Count Seg Neuts % (Manual) Lymphocytes % (Manual) Lymphocytes # (Manual) D-Dimer ABG pO2 ABG HCO3 ABG Base Excess ABG Hemoglobin Sodium Potassium Carbon Dioxide BUN Creatinine Glucose POC Glucose 157 H 111 H Lactic Acid Calcium Phosphorus Ferritin AST Alkaline Phosphatase Lactate Dehydrogenase C-Reactive Protein NT-Pro-B Natriuret Pep Albumin Urine WBC (Auto) Urine Creatinine 103.8 H Urine Total Protein 209 H Coronavirus (PCR) 04/16/20 04/16/20 04/16/20 11:43 14:57 14:57 WBC RBC Hgb Hct Plt Count Seg Neuts % (Manual) Lymphocytes % (Manual) Lymphocytes # (Manual) D-Dimer 1573.49 H ABG pO2 ABG HCO3 ABG Base Excess ABG Hemoglobin Sodium Potassium 3.1 L D Carbon Dioxide BUN 47 H Creatinine 4.2 H Glucose 167 H POC Glucose 170 H Lactic Acid Calcium 7.7 L Phosphorus Ferritin AST Alkaline Phosphatase Lactate Dehydrogenase C-Reactive Protein NT-Pro-B Natriuret Pep Albumin Urine WBC (Auto) Urine Creatinine Urine Total Protein Coronavirus (PCR) 04/16/20 04/16/20 04/16/20 14:57 14:57 17:21 WBC RBC Hgb Hct Plt Count Seg Neuts % (Manual) Lymphocytes % (Manual) Lymphocytes # (Manual) D-Dimer ABG pO2 ABG HCO3 ABG Base Excess ABG Hemoglobin Sodium Potassium Carbon Dioxide BUN Creatinine Glucose POC Glucose 172 H Lactic Acid Calcium Phosphorus Ferritin 1137.0 H AST Alkaline Phosphatase Lactate Dehydrogenase 328 H C-Reactive Protein 6.60 H NT-Pro-B Natriuret Pep Albumin Urine WBC (Auto) Urine Creatinine Urine Total Protein Coronavirus (PCR) 04/16/20 04/17/20 04/17/20 22:04 08:14 08:14 WBC 24.1 H RBC 3.44 L Hgb 10.3 L Hct 31.6 L Plt Count 59 L Seg Neuts % (Manual) Lymphocytes % (Manual) Lymphocytes # (Manual) D-Dimer ABG pO2 ABG HCO3 ABG Base Excess ABG Hemoglobin Sodium Potassium Carbon Dioxide 20 L BUN 69 H Creatinine 6.7 H D Glucose 157 H POC Glucose 232 H Lactic Acid Calcium 7.0 L Phosphorus Ferritin AST Alkaline Phosphatase Lactate Dehydrogenase C-Reactive Protein NT-Pro-B Natriuret Pep Albumin Urine WBC (Auto) Urine Creatinine Urine Total Protein Coronavirus (PCR)
[2020-04-17 10:54] LABS: Basophils % (Manual) 0 % (0.0-1.8); Eosinophils % (Manual) 0 % (0.0-4.3); Platelet Estimate Consistent w Auto; RBC Morphology Normal; Total Cells Counted 100
[2020-04-17] MEDS ORDERED: dilTIAZem 30 MG TAB PO SCH (12:00)
--- NOTE | 2020-04-17 14:23 | Progress Note ---
Assessment and Plan 1. Acute kidney injury: Acute kidney injury in the setting of COVID infection and vasomotor insult. Renal US ordered, called the critical systems technician to do the US. JENY, ANCA, GMB Ab, Complements and SPEP pending. Has rcuz catheter. Monitor renal function. UOP is low. Renal prognosis is guarded. Avoid nephrotoxic agents. Meds dosage based on GFR. Monitor for [employer] needs. Patient required hemodialysis due to worsening renal function and associated hyperkalemia and metabolic acidosis. D/w patient and his daughter (04/14) about the indications, benefits, risks and alternatives involved in hemodialysis. Both voiced understanding and gave verbal consent. Hemodialysis: 04/14, 04/16. 2. FEN: Hyperkalemia, improved with HD, monitor. Metabolic acidosis, monitor. Monitor lytes. 3. Acute hypoxic resp failure: Likely secondary to COVID-19 infection. Currently NC O2. Followed by Pulmonary. 4. Severe COVID-19 pneumonia. Followed by ID. 5. DM type 2: Accuchecks. 6. H/o hypertension: Monitor BP. 7. Acute metabolic encephalopathy. Subjective: Patient was seen and examined at the bedside. Doing ok. General Appearance: General appearance: well-developed, appears stated age, no distress, obese, on NC O2 HEENT: ATNC Neck: Trachea midline Respiratory: ctab Cardiology: S1S2, regular, no murmur Gastrointestinal: normoactive bowel sounds, no tenderness, not distended Integumentary: no obvious rash Neurologic: alert, non-focal, slight confusion Ext: no edema noted : Cruz catheter Hemodialysis access: R IJ temp catheter Subjective Date of service: 04/17/20 Principal diagnosis: Sepsis present on admission Objective - Vital Signs Vital signs: Vital Signs - 12hr 04/17/20 04/17/20 04/17/20 03:01 04:00 04:37 Temperature 98.0 F Pulse Rate 50 L 47 L 48 L Pulse Rate [ 48 L Apical] Pulse Rate [ From Monitor] Respiratory 17 17 Rate Blood Pressure 125/68 114/65 O2 Sat by Pulse 100 100 Oximetry 04/17/20 04/17/20 04/17/20 05:01 05:23 06:01 Temperature Pulse Rate 51 L 48 L 49 L Pulse Rate [ Apical] Pulse Rate [ From Monitor] Respiratory 16 15 Rate Blood Pressure 107/52 123/63 107/62 O2 Sat by Pulse 100 100 Oximetry 04/17/20 04/17/20 04/17/20 07:00 08:00 08:01 Temperature 98.4 F Pulse Rate 48 L 55 L 47 L Pulse Rate [ Apical] Pulse Rate [ 55 L From Monitor] Respiratory 7 L 15 17 Rate Blood Pressure 127/64 122/61 O2 Sat by Pulse 100 100 80 L Oximetry 04/17/20 04/17/20 04/17/20 09:01 10:01 11:01 Temperature Pulse Rate 60 49 L Pulse Rate [ Apical] Pulse Rate [ From Monitor] Respiratory 13 23 Rate Blood Pressure 122/61 152/74 117/76 O2 Sat by Pulse 99 100 100 Oximetry 04/17/20 04/17/20 04/17/20 12:00 12:21 13:01 Temperature 97.3 F L Pulse Rate 49 L 50 L 47 L Pulse Rate [ Apical] Pulse Rate [ 49 L From Monitor] Respiratory 17 21 Rate Blood Pressure 161/75 171/79 O2 Sat by Pulse 91 100 Oximetry 04/17/20 14:01 Temperature Pulse Rate 47 L Pulse Rate [ Apical] Pulse Rate [ From Monitor] Respiratory 19 Rate Blood Pressure O2 Sat by Pulse 100 Oximetry - Lab 04/17/20 08:14 04/17/20 08:14 Most recent lab results ABG pH 7.441 pH Units (7.350-7.450) 04/12/20 04:21 ABG pCO2 26.2 mm Hg 04/12/20 04:21 ABG pO2 135.7 mm Hg (80.0-90.0) H 04/12/20 04:21 ABG HCO3 15.4 mmol/L (20.0-26.0) L 04/12/20 04:21 ABG O2 Saturation 98.7 % (95.0-99.0) 04/12/20 04:21 Calcium 7.0 mg/dL (8.4-10.2) L 04/17/20 08:14 Phosphorus 3.00 mg/dL (2.5-4.5) 04/16/20 14:57 Magnesium 1.90 mg/dL (1.7-2.3) 04/13/20 13:51 Urine Creatinine 103.8 mg/dL (0.1-20.0) H 04/16/20 01:35 Urine Sodium 66 mmol/L 04/16/20 01:35 Urine Total Protein 209 mg/dL (5-11.8) H 04/16/20 01:35 Medications & Allergies - Medications Allergies/Adverse Reactions: Allergies No Known Allergies Allergy (Verified 04/12/20 04:28) Home Medications: Home Medications Medication Instructions Recorded Confirmed Last Taken Type AtorvaSTATin [Lipitor] 20 mg PO QHS 04/12/20 04/12/[address] [Aki Hernández] 75 mg PO BID 04/12/20 04/12/20 Unknown History Insulin Aspart Prot/Aspart(Nf) 10 units SUB-Q BID 04/12/20 04/12/20 Unknown History [NovoLOG Mix 70/30 VIAL] Losartan/Hydrochlorothiazide 100 mg PO QDAY 04/12/20 04/12/20 Unknown History [Losartan-Hctz 100-25 mg Tab] Metoprolol [Lopressor] 25 mg PO BID 04/12/20 04/12/20 Unknown History Pioglitazone [Actos] 15 mg PO QDAY 04/12/20 04/12/20 Unknown History amLODIPine [Norvasc] 5 mg PO DAILY 04/12/20 04/12/20 Unknown History Cholecalciferol (Vitamin D3) 5,000 unit PO QDAY 04/13/20 04/13/20 Unknown History [Vitamin D3 5,000 UNIT] Metoprolol [Lopressor] 25 mg PO BID 04/13/20 04/13/20 Unknown History glipiZIDE [Glucotrol] 10 mg PO QDAY 04/13/20 04/13/20 Unknown History traMADoL [Ultram] 50 mg PO Q6HR PRN 04/13/20 04/13/20 Unknown History Active Medications: Generic Name Dose Route Start Last Admin Trade Name Freq PRN Reason Stop Dose Admin Alprazolam 0.125 mg 04/12/20 07:53 04/16/20 22:02 Xanax PO 0.125 mg Q8H PRN Administration Anxiety Apixaban 5 mg 04/13/20 11:00 04/17/20 09:11 Eliquis PO 5 mg Q12HR JOSIANE Administration Protocol Dexamethasone 6 mg 04/13/20 10:00 04/17/20 09:10 Decadron IV 04/22/20 10:01 6 mg Q24H JOSIANE Administration Dextrose 50 ml 04/13/20 10:05 D50w (25gm) Syringe IV Q30MIN PRN Hypoglycemia Protocol Diltiazem HCl 30 mg 04/17/20 12:00 04/17/20 12:21 Cardizem PO Not Given Q6HR JOSIANE Famotidine 20 mg 04/12/20 10:00 04/17/20 09:11 Pepcid PO 20 mg DAILY JOSIANE Administration Haloperidol Lactate 5 mg 04/13/20 10:42 Haldol IV Q6H PRN Agitation Sodium Chloride 100 mls @ 999 mls/hr 04/14/20 10:38 Nacl 0.9% IV SILVIA PRN Hypotension Cefepime HCl 1 gm in 100 mls @ 200 mls/hr 04/14/20 18:00 04/16/20 17:40 Cefepime/Ns 1 Gm/100 Ml IV 04/23/20 18:29 200 mls/hr Q24H JOSIANE Administration Protocol Insulin Human Lispro 0 unit 04/13/20 11:30 04/17/20 12:20 Humalog SUB-Q 1 unit ACHS JOSIANE Administration Protocol
[2020-04-17] MEDS: amLODIPine 10 MG TAB PO SCH (16:20)
[2020-04-17] MEDS: CEFEPIME/NS 1 GM/100 ML 1 GM/100 ML BAG IV SCH (18:43)
[2020-04-17 19:09] LABS: Hemoglobin 11.9 gm/dl (11.8-15.2); Mean Corpuscular HGB Conc 33 % (32-34); Mean Corpuscular Volume 93 fl (84-94); Red Blood Count 3.88 M/mm3 (3.65-5.03); Red Cell Distribution Width 14.5 % (13.2-15.2)
[2020-04-17 19:30] LABS: Platelet Count 74 K/mm3 (140-440)
[2020-04-18 06:25] LABS: Hematocrit 34.2 % (35.5-45.6); Hemoglobin 11.5 gm/dl (11.8-15.2); Mean Corpuscular HGB Conc 34 % (32-34); Mean Corpuscular Volume 90 fl (84-94); Red Blood Count 3.79 M/mm3 (3.65-5.03); Red Cell Distribution Width 14.3 % (13.2-15.2)
[2020-04-18 06:27] LABS: Platelet Count 83 K/mm3 (140-440)
[2020-04-18 06:40] LABS: Calcium 7.6 mg/dL (8.4-10.2)
[2020-04-18 07:12] LABS: Basophils % (Manual) 0 % (0.0-1.8); Eosinophils % (Manual) 0 % (0.0-4.3); Platelet Estimate Consistent w Auto; Total Cells Counted 100
[2020-04-18] MEDS: INSULIN LISPRO 100 UNIT/ML VIAL 3 mL SUB-Q SCH ×4 (07:30→22:00)
[2020-04-18] MEDS ORDERED: SODIUM CHLORIDE 0.9% 100 ML IV PRN (08:00)
[2020-04-18] MEDS: dexAMETHasone 4 MG/ML VIAL IV SCH (09:02)
[2020-04-18] MEDS: FAMOTIDINE 20 MG TAB PO SCH (09:02)
[2020-04-18] MEDS: amLODIPine 10 MG TAB PO SCH (09:02)
[2020-04-18] MEDS: APIXABAN 5 MG TAB PO SCH ×2 (09:02→21:13)
--- NOTE | 2020-04-18 09:28 | Progress Note ---
Assessment and Plan Assessment and plan: Sepsis. Etiology secondary to bilateral pneumonia: Likely secondary to COVID-19 infection and Enterobacter bacteremia. Continue cefepime per ID recommendation. Follow-up repeat blood cultures. Enterobacter bacteremia: Unclear source ?UTI. Urinalysis consistent with UTI. Urine culture no growth, obtained 2 days after antibiotics. COVID-19 infection. D-dimer significantly elevated at >10K, ferritin elevated. Repeat D-dimer and ferritin improving. Continue IV/p.o. dexamethasone 6 mg daily for total of 10 days. Patient not a candidate for remdesivir due to renal failure. Acute hypoxic respiratory failure: Remains on high flow nasal cannula today (high flow nasal cannula 6 L). Acute renal failure: Renally dose antibiotics. Worsening. Started on hemodialysis per nephrology. Elevated LFTs: Continue to monitor. 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 04/18/2020. Follow-up renal ultrasound which has been ordered. JENY, ANCA, GMB Ab, Complements and SPEP pending. Hemodialysis initiated for acute kidney injury on 04/14/2020. Continue anticoagulation and follow-up inflammatory markers. Leukocytosis likely secondary to steroids. Patient's prognosis remains guarded given the renal failure and COVID-19 infection History Interval history: No new issues overnight Hospitalist Physical - Constitutional Vitals: Temp Pulse Resp BP Pulse Ox 98.5 F 61 20 115/55 98 04/18/20 04:59 04/18/20 04:59 04/18/20 06:15 04/18/20 04:59 04/18/20 06:15 General appearance: Present: no acute distress, well-nourished - EENT Eyes: Present: PERRL, EOM intact ENT: hearing intact, clear oral mucosa, dentition normal - Neck Neck: Present: supple, normal ROM - Respiratory Respiratory effort: normal Respiratory: bilateral: CTA - Cardiovascular Rhythm: regular Heart Sounds: Present: S1 & S2. Absent: gallop, rub - Extremities Extremities: no ischemia, No edema, Full ROM - Abdominal General gastrointestinal: soft, non-tender, non-distended, normal bowel sounds - Integumentary Integumentary: Present: clear, warm, dry - Neurologic Neurologic: CNII-XII intact, moves all extremities HEART Score - HEART Score Troponin: Troponin T 0.012 ng/mL (0.00-0.029) 04/12/20 04:51 Results - Labs CBC & Chem 7: 04/18/20 05:56 04/18/20 05:56 Labs: Laboratory Last Values WBC 18.5 K/mm3 (4.5-11.0) H 04/18/20 05:56 RBC 3.79 M/mm3 (3.65-5.03) 04/18/20 05:56 Hgb 11.5 gm/dl (11.8-15.2) L 04/18/20 05:56 Hct 34.2 % (35.5-45.6) L 04/18/20 05:56 MCV 90 fl (84-94) 04/18/20 05:56 MCH 30 pg (28-32) 04/18/20 05:56 MCHC 34 % (32-34) 04/18/20 05:56 RDW 14.3 % (13.2-15.2) 04/18/20 05:56 Plt Count 83 K/mm3 (140-440) L 04/18/20 05:56 Add Manual Diff Complete 04/18/20 05:56 Total Counted 100 04/18/20 05:56 Seg Neutrophils % [employer] 04/18/20 05:56 Seg Neuts % (Manual) 93.0 % (40.0-70.0) H 04/18/20 05:56 Band Neutrophils % 0 % 04/18/20 05:56 Lymphocytes % (Manual) 4.0 % (13.4-35.0) L 04/18/20 05:56 Reactive Lymphs % (Man) 0 % 04/18/20 05:56 Monocytes % (Manual) 3.0 % (0.0-7.3) 04/18/20 05:56 Eosinophils % (Manual) 0 % (0.0-4.3) 04/18/20 05:56 Basophils % (Manual) 0 % (0.0-1.8) 04/18/20 05:56 Metamyelocytes % 0 % 04/18/20 05:56 Myelocytes % 0 % 04/18/20 05:56 Promyelocytes % 0 % 04/18/20 05:56 Blast Cells % 0 % 04/18/20 05:56 Nucleated RBC % Not Reportable 04/18/20 05:56 Seg Neutrophils # Man 17.2 K/mm3 (1.8-7.7) H 04/18/20 05:56 Band Neutrophils # 0.0 K/mm3 04/18/20 05:56 Lymphocytes # (Manual) 0.7 K/mm3 (1.2-5.4) L 04/18/20 05:56 Abs React Lymphs (Man) 0.0 K/mm3 04/18/20 05:56 Monocytes # (Manual) 0.6 K/mm3 (0.0-0.8) 04/18/20 05:56 Eosinophils # (Manual) 0.0 K/mm3 (0.0-0.4) 04/18/20 05:56 Basophils # (Manual) 0.0 K/mm3 (0.0-0.1) 04/18/20 05:56 Metamyelocytes # 0.0 K/mm3 04/18/20 05:56 Myelocytes # 0.0 K/mm3 04/18/20 05:56 Promyelocytes # 0.0 K/mm3 04/18/20 05:56 Blast Cells # 0.0 K/mm3 04/18/20 05:56 WBC Morphology Not Reportable 04/18/20 05:56 Hypersegmented Neuts Not Reportable 04/18/20 05:56 Hyposegmented Neuts Not Reportable 04/18/20 05:56 Hypogranular Neuts Not Reportable 04/18/20 05:56 Smudge Cells Not Reportable 04/18/20 05:56 Toxic Granulation Not Reportable 04/18/20 05:56 Toxic Vacuolation Not Reportable 04/18/20 05:56 Dohle Bodies Not Reportable 04/18/20 05:56 Pelger-Huet Anomaly Not Reportable 04/18/20 05:56 Matthew Rods Not Reportable 04/18/20 05:56 Platelet Estimate Consistent w auto 04/18/20 05:56 Clumped Platelets Not Reportable 04/18/20 05:56 Plt Clumps, EDTA Not Reportable 04/18/20 05:56 Large Platelets Not Reportable 04/18/20 05:56 Giant Platelets Not Reportable 04/18/20 05:56 Platelet Satelliting Not Reportable 04/18/20 05:56 Plt Morphology Comment Not Reportable 04/18/20 05:56 RBC Morphology Not Reportable 04/18/20 05:56 Dimorphic RBCs Not Reportable 04/18/20 05:56 Polychromasia Not Reportable 04/18/20 05:56 Hypochromasia Not Reportable 04/18/20 05:56 Poikilocytosis Not Reportable 04/18/20 05:56 Anisocytosis Not Reportable 04/18/20 05:56 Microcytosis Not Reportable 04/18/20 05:56 Macrocytosis Not Reportable 04/18/20 05:56 Spherocytes Not Reportable 04/18/20 05:56 Pappenheimer Bodies Not Reportable 04/18/20 05:56 Sickle Cells Not Reportable 04/18/20 05:56 Target Cells Not Reportable 04/18/20 05:56 Tear Drop Cells Not Reportable 04/18/20 05:56 Ovalocytes Not Reportable 04/18/20 05:56 Helmet Cells Not Reportable 04/18/20 05:56 Lilly-[place] Bodies Not Reportable 04/18/20 05:56 [place] Rings Not Reportable 04/18/20 05:56 [place] Cells Not Reportable 04/18/20 05:56 Bite Cells Not Reportable 04/18/20 05:56 Crenated Cell Not Reportable 04/18/20 05:56 Elliptocytes Not Reportable 04/18/20 05:56 Acanthocytes (Spur) Not Reportable 04/18/20 05:56 Rouleaux Not Reportable 04/18/20 05:56 Hemoglobin C Crystals Not Reportable 04/18/20 05:56 Schistocytes Not Reportable 04/18/20 05:56 Malaria parasites Not Reportable 04/18/20 05:56 Dandre Bodies Not Reportable 04/18/20 05:56 Hem Pathologist Commnt No 04/18/20 05:56 D-Dimer 1573.49 ng/mlDDU (0-234) H 04/16/20 14:57 ABG pH 7.441 pH Units (7.350-7.450) 04/12/20 04:21 ABG pCO2 26.2 mm Hg 04/12/20 04:21 ABG pO2 135.7 mm Hg (80.0-90.0) H 04/12/20 04:21 ABG HCO3 15.4 mmol/L (20.0-26.0) L 04/12/20 04:21 ABG O2 Saturation 98.7 % (95.0-99.0) 04/12/20 04:21 ABG Base Excess -5.1 mmol/L (-2.0-3.0) L 04/12/20 04:21 ABG Hemoglobin 13.3 gm/dl (14.0-18.0) L 04/12/20 04:21 ABG Carboxyhemoglobin 1.2 % (0.0-5.0) 04/12/20 04:21 ABG Methemoglobin 0.6 % (0.0-1.5) 04/12/20 04:21 Oxyhemoglobin 96.9 % (95.0-99.0) 04/12/20 04:21 FiO2 30.0 % 04/12/20 04:21 Sodium 137 mmol/L (137-145) 04/18/20 05:56 Potassium 3.8 mmol/L (3.6-5.0) 04/18/20 05:56 Chloride 99.1 mmol/L (98-107) 04/18/20 05:56 Carbon Dioxide 20 mmol/L (22-30) L 04/18/20 05:56 Anion Gap 22 mmol/L 04/18/20 05:56 BUN 102 mg/dL (9-20) H 04/18/20 05:56 Creatinine 8.2 mg/dL (0.8-1.3) H 04/18/20 05:56 Estimated GFR 8 ml/min 04/18/20 05:56 BUN/Creatinine Ratio 12 % 04/18/20 05:56 Glucose 177 mg/dL (75-100) H 04/18/20 05:56 POC Glucose 153 mg/dL (70-105) H 04/18/20 08:19 Lactic Acid 3.50 mmol/L (0.7-2.0) H* 04/12/20 10:20 Calcium 7.6 mg/dL (8.4-10.2) L 04/18/20 05:56 Phosphorus 3.00 mg/dL (2.5-4.5) 04/16/20 14:57 Magnesium 1.90 mg/dL (1.7-2.3) 04/13/20 13:51 Ferritin 1137.0 ng/mL (30.0-300.0) H 04/16/20 14:57 Total Bilirubin 0.60 mg/dL (0.1-1.2) 04/12/20 04:51 AST 69 units/L (5-40) H 04/12/20 04:51 ALT 51 units/L (7-56) 04/12/20 04:51 Alkaline Phosphatase 155 units/L (35-129) H 04/12/20 04:51 Lactate Dehydrogenase 328 units/L (91-180) H 04/16/20 14:57 Troponin T 0.012 ng/mL (0.00-0.029) 04/12/20 04:51 C-Reactive Protein 6.60 mg/dL (0.00-1.30) H 04/16/20 14:57 NT-Pro-B Natriuret Pep 2170 pg/mL (0-900) H 04/12/20 04:51 Total Protein 7.1 g/dL (6.3-8.2) 04/12/20 04:51 Albumin 3.7 g/dL (3.9-5) L 04/12/20 04:51 Albumin/Globulin Ratio 1.1 % 04/12/20 04:51 Procalcitonin 82.32 ng/mL (<0.15) 04/12/20 04:51 Urine Color Red (Yellow) 04/14/20 21:00 Urine Turbidity Turbid (Clear) 04/14/20 21:00 Urine pH 6.0 (5.0-7.0) 04/14/20 21:00 Ur Specific [place] 1.013 (1.003-1.030) 04/14/20 21:00 Urine Protein >500 mg/dL (Negative) 04/14/20 21:00 Urine Glucose (UA) 50 mg/dL (Negative) 04/14/20 21:00 Urine Ketones Neg mg/dL (Negative) 04/14/20 21:00 Urine Blood Lg (Negative) 04/14/20 21:00 Urine Nitrite Neg (Negative) 04/14/20 21:00 Urine Bilirubin Neg (Negative) 04/14/20 21:00 Urine Urobilinogen < 2.0 mg/dL (<2.0) 04/14/20 21:00 Ur Leukocyte Esterase Lg (Negative) 04/14/20 21:00 Urine WBC (Auto) > 182.0 /HPF (0.0-6.0) H 04/14/20 21:00 Urine RBC (Auto) > 182.0 /HPF (0.0-6.0) 04/14/20 21:00 U Epithel Cells (Auto) 3.0 /HPF (0-13.0) 04/14/20 21:00 Urine Bacteria (Auto) 2+ /HPF (Negative) 04/14/20 21:00 Urine WBC Clumps 3+ /HPF 04/14/20 21:00 Urine Mucus Few /HPF 04/14/20 21:00 Urine Yeast (Budding) 2+ /HPF 04/14/20 21:00 Urine Eosinophils None seen (None Seen) 04/15/20 01:35 Urine Creatinine 103.8 mg/dL (0.1-20.0) H 04/16/20 01:35 Protein/Creatinin Ratio 2.01 04/16/20 01:35 Urine Sodium 66 mmol/L 04/16/20 01:35 Urine Total Protein 209 mg/dL (5-11.8) H 04/16/20 01:35 Coronavirus (PCR) Positive (Negative) A 04/12/20 Unknown Hepatitis A IgM Ab Non-reactive (NonReactive) 04/14/20 16:50 Hep Bs Antigen Non-reactive (Negative) 04/14/20 16:50 Hep B Core IgM Ab Non-reactive (NonReactive) 04/14/20 16:50 Hepatitis C Antibody Non-reactive (NonReactive) 04/14/20 16:50 SARS-CoV-2 IgG Ab Nonreactive (NonReactive) 04/16/20 14:57 Microbiology: Microbiology 04/16/20 14:57 Peripheral/Venous Blood Culture - Preliminary NO GROWTH AFTER 24 HOURS 04/16/20 14:57 Peripheral/Venous Blood Culture - Preliminary NO GROWTH AFTER 24 HOURS Haas/IV: Voiding Method Indwelling Catheter IV Catheter Type [Right VAS Cath Subclavian] IV Catheter Type [Right Peripheral IV Forearm] IV Catheter Type [Right Hand] Peripheral IV Active Medications - Current Medications Current Medications: Generic Name Dose Route Start Last Admin Trade Name Freq PRN Reason Stop Dose Admin Alprazolam 0.125 mg 04/12/20 07:53 04/16/20 22:02 Xanax PO 0.125 mg Q8H PRN Administration Anxiety Amlodipine Besylate 10 mg 04/17/20 15:00 04/18/20 09:02 Amlodipine PO 10 mg QDAY JOSIANE Administration Apixaban 5 mg 04/13/20 11:00 04/18/20 09:02 Eliquis PO 5 mg Q12HR JOSIANE Administration Protocol Dexamethasone 6 mg 04/13/20 10:00 04/18/20 09:02 Decadron IV 04/22/20 10:01 6 mg Q24H JOSIANE Administration Dextrose 50 ml 04/13/20 10:05 D50w (25gm) Syringe IV Q30MIN PRN Hypoglycemia Protocol Famotidine 20 mg 04/12/20 10:00 04/18/20 09:02 Pepcid PO 20 mg DAILY JOSIANE Administration Haloperidol Lactate 5 mg 04/13/20 10:42 Haldol IV Q6H PRN Agitation Cefepime HCl 1 gm in 100 mls @ 200 mls/hr 04/14/20 18:00 04/17/20 18:43 Cefepime/Ns 1 Gm/100 Ml IV 04/23/20 18:29 200 mls/hr Q24H JOSIANE Administration Protocol Sodium Chloride 100 mls @ 999 mls/hr 04/18/20 08:00 Nacl 0.9% IV SILVIA PRN Hypotension Insulin Human Lispro 0 unit 04/13/20 11:30 04/18/20 07:30 Humalog SUB-Q Not Given ACHS JOSIANE Protocol
--- NOTE | 2020-04-18 11:15 | Progress Note ---
Assessment and Plan Cultures: Coronavirus PCR: Positive 04/12/2020 blood culture: Enterobacter 2 out of 4 bottles 04/14/2020 urine culture no growth 04/16/2020 blood culture no growth A/P: 75-year-old male with diabetes, hypertension admitted with: #Sepsis, secondary to bilateral pneumonia: Likely secondary to COVID-19 infection and Enterobacter bacteremia. #Enterobacter bacteremia: Unclear source ?UTI. Urinalysis consistent with UTI. Urine culture no growth, obtained 2 days after antibiotics. #COVID-19 infection. D-dimer significantly elevated at >10K, ferritin elevated. Repeat D-dimer and ferritin improving. #Acute hypoxic respiratory failure: Improving now on 2 L nasal cannula. #Acute renal failure: Renally dose antibiotics. Worsening. Started on hemodia lysis. 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 Recs: -Continue cefepime IV renally adjusted to cover Enterobacter bacteremia- typically AmpC inducer. day 5 of 10 -Continue IV/PO Dexamethasone 6 mg daily x 10 days -No candidate for remdesivir due to renal failure -SARS-CoV-2 IgG negative, patient may benefit from COVID-19 convalescent plasma however no clinically indicated at this time -Follow-up QuantiFERON TB Gold -Okay to discharge home if exercise pulse oximeter - O2 sats after 6 minutes walk test inside room, are normal -Anticipate to discharge home on Levaquin 500 g p.o. q. other day total 10 days until 04/23/2020 will follow Radha Alejandre MD [facility] ([facility]) Office [phone] Subjective Date of service: 04/18/20 Principal diagnosis: Sepsis present on admission Interval history: Patient is now on 2 L nasal cannula, no fever no acute events overnight Objective - Exam Narrative Exam: Physical Exam: reviewed ED and hospitalist notes, limited due to conservation of PPE and decrease risk of transmission. General appearance: limited due to conservation of PPE Eyes: limited due to conservation of PPE HENT: Atraumatic; limited due to conservation of PPE Lungs: limited due to conservation of PPE CV: limited due to conservation of PPE Abdomen: limited due to conservation of PPE Extremities: limited due to conservation of PPE Skin: limited due to conservation of PPE Psych: limited due to conservation of PPE Neuro: limited due to conservation of PPE - Constitutional Vitals: Vital Signs Temp Pulse Resp BP Pulse Ox 98.3 F 62 20 131/61 98 04/18/20 10:56 04/18/20 10:56 04/18/20 10:56 04/18/20 10:56 04/18/20 10:56 Temperature -Last 24 Hours Temperature 98.3 F Temperature 98.5 F Temperature 98.6 F Temperature 97.5 F Temperature 98.9 F Temperature 97.3 F - Labs CBC & Chem 7: 04/18/20 05:56 04/18/20 05:56 Labs: Abnormal lab results 04/17/20 04/17/20 04/17/20 Range/Units 07:53 12:31 17:59 WBC 22.1 H (4.5-11.0) K/mm3 Hgb (11.8-15.2) gm/dl Hct (35.5-45.6) % Plt Count 74 L (140-440) K/mm3 Seg Neuts % (Manual) (40.0-70.0) % Lymphocytes % (Manual) (13.4-35.0) % Seg Neutrophils # Man (1.8-7.7) K/mm3 Lymphocytes # (Manual) (1.2-5.4) K/mm3 Carbon Dioxide (22-30) mmol/L BUN (9-20) mg/dL Creatinine (0.8-1.3) mg/dL Glucose (75-100) mg/dL POC Glucose 169 H 183 H (70-105) mg/dL Calcium (8.4-10.2) mg/dL 04/17/20 04/17/20 04/18/20 Range/Units 18:23 22:37 05:56 WBC 18.5 H (4.5-11.0) K/mm3 Hgb 11.5 L (11.8-15.2) gm/dl Hct 34.2 L (35.5-45.6) % Plt Count 83 L (140-440) K/mm3 Seg Neuts % (Manual) 93.0 H (40.0-70.0) % Lymphocytes % (Manual) 4.0 L (13.4-35.0) % Seg Neutrophils # Man 17.2 H (1.8-7.7) K/mm3 Lymphocytes # (Manual) 0.7 L (1.2-5.4) K/mm3 Carbon Dioxide (22-30) mmol/L BUN (9-20) mg/dL Creatinine (0.8-1.3) mg/dL Glucose (75-100) mg/dL POC Glucose 145 H 185 H (70-105) mg/dL Calcium (8.4-10.2) mg/dL 04/18/20 04/18/20 Range/Units 05:56 08:19 WBC (4.5-11.0) K/mm3 Hgb (11.8-15.2) gm/dl Hct (35.5-45.6) % Plt Count (140-440) K/mm3 Seg Neuts % (Manual) (40.0-70.0) % Lymphocytes % (Manual) (13.4-35.0) % Seg Neutrophils # Man (1.8-7.7) K/mm3 Lymphocytes # (Manual) (1.2-5.4) K/mm3 Carbon Dioxide 20 L (22-30) mmol/L BUN 102 H (9-20) mg/dL Creatinine 8.2 H (0.8-1.3) mg/dL Glucose 177 H (75-100) mg/dL POC Glucose 153 H (70-105) mg/dL Calcium 7.6 L (8.4-10.2) mg/dL
--- NOTE | 2020-04-18 11:31 | Progress Note ---
Assessment and Plan 1. Acute kidney injury: Acute kidney injury in the setting of COVID infection and vasomotor insult. Renal US ordered, I called the geological technical officer 04/17 to do the US. JENY, ANCA, GBM Ab, Complements and SPEP pending. Has cruz catheter. Monitor renal function. UOP is low. Renal prognosis is guarded. Avoid nephrotoxic agents. Meds dosage based on GFR. 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 Patient required hemodialysis due to worsening renal function and associated hyperkalemia and metabolic acidosis. D/w patient and his daughter (04/14) about the indications, benefits, risks and alternatives involved in hemodialysis. Both voiced understanding and gave verbal consent. Hemodialysis: 04/14, 04/16, 04/18. 2. FEN: Hyperkalemia, improved with HD, monitor. Metabolic acidosis, monitor. Monitor lytes. 3. Acute hypoxic resp failure: Likely secondary to COVID-19 infection. Supplemental O2. Followed by Pulmonary. 4. Severe COVID-19 pneumonia. Followed by ID. 5. Sepsis: Likely secondary to COVID-19 infection and Enterobacter bacteremia. 6. Enterobacter bacteremia: Unclear source ?UTI. Urinalysis consistent with UTI. Followed by ID. 7. DM type 2: Accuchecks. 8. H/o hypertension: Monitor BP. 9. Acute metabolic encephalopathy. Subjective: Patient was seen and examined at the bedside. Doing ok. General Appearance: General appearance: well-developed, appears stated age, no distress, obese, on NC O2 HEENT: ATNC Neck: Trachea midline Respiratory: ctab Cardiology: S1S2, regular, no murmur Gastrointestinal: normoactive bowel sounds, no tenderness, not distended Integumentary: no obvious rash Neurologic: alert, non-focal, slight confusion Ext: no edema noted : Cruz catheter Hemodialysis access: R IJ temp catheter Subjective Date of service: 04/18/20 Principal diagnosis: Sepsis present on admission Objective - Vital Signs Vital signs: Vital Signs - 12hr 04/18/20 04/18/20 04/18/20 04:59 06:15 10:56 Temperature 98.5 F 98.3 F Pulse Rate 61 62 Respiratory 18 20 20 Rate Blood Pressure 115/55 131/61 O2 Sat by Pulse 91 98 98 Oximetry - Lab 04/18/20 05:56 04/18/20 05:56 Most recent lab results ABG pH 7.441 pH Units (7.350-7.450) 04/12/20 04:21 ABG pCO2 26.2 mm Hg 04/12/20 04:21 ABG pO2 135.7 mm Hg (80.0-90.0) H 04/12/20 04:21 ABG HCO3 15.4 mmol/L (20.0-26.0) L 04/12/20 04:21 ABG O2 Saturation 98.7 % (95.0-99.0) 04/12/20 04:21 Calcium 7.6 mg/dL (8.4-10.2) L 04/18/20 05:56 Phosphorus 3.00 mg/dL (2.5-4.5) 04/16/20 14:57 Magnesium 1.90 mg/dL (1.7-2.3) 04/13/20 13:51 Urine Creatinine 103.8 mg/dL (0.1-20.0) H 04/16/20 01:35 Urine Sodium 66 mmol/L 04/16/20 01:35 Urine Total Protein 209 mg/dL (5-11.8) H 04/16/20 01:35 Medications & Allergies - Medications Allergies/Adverse Reactions: Allergies No Known Allergies Allergy (Verified 04/12/20 04:28) Home Medications: Home Medications Medication Instructions Recorded Confirmed Last Taken Type AtorvaSTATin [Lipitor] 20 mg PO QHS 04/12/20 04/12/20 Unknown History Diclofenac [Aki Hernández] 75 mg PO BID 04/12/20 04/12/20 Unknown History Insulin Aspart Prot/Aspart(Nf) 10 units SUB-Q BID 04/12/20 04/12/20 Unknown History [NovoLOG Mix 70/30 VIAL] Losartan/Hydrochlorothiazide 100 mg PO QDAY 04/12/20 04/12/20 Unknown History [Losartan-Hctz 100-25 mg Tab] Metoprolol [Lopressor] 25 mg PO BID 04/12/20 04/12/20 Unknown History Pioglitazone [Actos] 15 mg PO QDAY 04/12/20 04/12/20 Unknown History amLODIPine [Norvasc] 5 mg PO DAILY 04/12/20 04/12/20 Unknown History Cholecalciferol (Vitamin D3) 5,000 unit PO QDAY 04/13/20 04/13/20 Unknown History [Vitamin D3 5,000 UNIT] Metoprolol [Lopressor] 25 mg PO BID 04/13/20 04/13/20 Unknown History glipiZIDE [Glucotrol] 10 mg PO QDAY 04/13/20 04/13/20 Unknown History traMADoL [Ultram] 50 mg PO Q6HR PRN 04/13/20 04/13/20 Unknown History Active Medications: Generic Name Dose Route Start Last Admin Trade Name Freq PRN Reason Stop Dose Admin Alprazolam 0.125 mg 04/12/20 07:53 04/16/20 22:02 Xanax PO 0.125 mg Q8H PRN Administration Anxiety Amlodipine Besylate 10 mg 04/17/20 15:00 04/18/20 09:02 Amlodipine PO 10 mg QDAY JOSIANE Administration Apixaban 5 mg 04/13/20 11:00 04/18/20 09:02 Eliquis PO 5 mg Q12HR JOSIANE Administration Protocol Dexamethasone 6 mg 04/13/20 10:00 04/18/20 09:02 Decadron IV 04/22/20 10:01 6 mg Q24H JOSIANE Administration Dextrose 50 ml 04/13/20 10:05 D50w (25gm) Syringe IV Q30MIN PRN Hypoglycemia Protocol Famotidine 20 mg 04/12/20 10:00 04/18/20 09:02 Pepcid PO 20 mg DAILY JOSIANE Administration Haloperidol Lactate 5 mg 04/13/20 10:42 Haldol IV Q6H PRN Agitation Cefepime HCl 1 gm in 100 mls @ 200 mls/hr 04/14/20 18:00 04/17/20 18:43 Cefepime/Ns 1 Gm/100 Ml IV 04/23/20 18:29 200 mls/hr Q24H JOSIANE Administration Protocol Sodium Chloride 100 mls @ 999 mls/hr 04/18/20 08:00 Nacl 0.9% IV SILVIA PRN Hypotension Insulin Human Lispro 0 unit 04/13/20 11:30 04/18/20 07:30 Humalog SUB-Q Not Given ACHS JOSIANE Protocol
--- NOTE | 2020-04-18 13:37 | Progress Note ---
Assessment and Plan 75 y/o male with acute respiratory failure, renal failure with lactic acidosis found to be COVID positive. 1. Started dexamethasone 6mg IV, continue for a total of 10 days. 2. Wean FiO2 for sats >88%. Now down to 2 liters. 3. Continue to follow ID recs. 4. Really needs echo but likely will not get given COVID 19 status 5. Dilt has now been discontinued. 6. No next of kin information, need to talk to to find out about renal function and other medical history, still not available 7. Follow up any new renal recs other than HD. 8. Agree with anticoagulation 9. Needs inflammatory markers every 48 hours 10. Heme-thrombocytopenia and leukocytosis. No fever. could be leukomoid reaction from steroids. Will need to monitor daily. Repeat labs on yesterday were better. Suggest checking over the weekend. Guarded, guarded prognosis with renal failure and COVID. Subjective Date of service: 04/18/20 Principal diagnosis: Sepsis present on admission Interval history: No acute events. Successful transfer out of unit. Now down to 2 liters nC Objective Vital Signs - 12hr 04/18/20 04/18/20 04/18/20 04:59 06:15 10:56 Temperature 98.5 F 98.3 F Pulse Rate 61 62 Respiratory 18 20 20 Rate Blood Pressure 115/55 131/61 O2 Sat by Pulse 91 98 98 Oximetry CBC and BMP: 04/18/20 05:56 04/18/20 05:56 ABG, PT/INR, D-dimer: ABG ABG pH 7.441 pH Units (7.350-7.450) 04/12/20 04:21 ABG pCO2 26.2 mm Hg 04/12/20 04:21 ABG pO2 135.7 mm Hg (80.0-90.0) H 04/12/20 04:21 ABG O2 Saturation 98.7 % (95.0-99.0) 04/12/20 04:21 PT/INR, D-dimer D-Dimer 1573.49 ng/mlDDU (0-234) H 04/16/20 14:57 Abnormal lab findings: Abnormal Labs 04/12/20 04/12/20 04/12/20 04:21 04:51 04:51 WBC RBC Hgb Hct Plt Count 110 L Seg Neuts % (Manual) 93.0 H Lymphocytes % (Manual) 3.0 L Seg Neutrophils # Man Lymphocytes # (Manual) 0.2 L D-Dimer ABG pO2 135.7 H ABG HCO3 15.4 L ABG Base Excess -5.1 L ABG Hemoglobin 13.3 L Sodium Potassium Carbon Dioxide BUN 48 H Creatinine 3.2 H Glucose 139 H POC Glucose Lactic Acid Calcium Phosphorus Ferritin AST 69 H Alkaline Phosphatase 155 H Lactate Dehydrogenase C-Reactive Protein NT-Pro-B Natriuret Pep Albumin 3.7 L Urine WBC (Auto) Urine Creatinine Urine Total Protein Coronavirus (PCR) 04/12/20 04/12/20 04/12/20 04:51 04:51 04:51 WBC RBC Hgb Hct Plt Count Seg Neuts % (Manual) Lymphocytes % (Manual) Seg Neutrophils # Man Lymphocytes # (Manual) D-Dimer > 18423 H ABG pO2 ABG HCO3 ABG Base Excess ABG Hemoglobin Sodium Potassium Carbon Dioxide BUN Creatinine Glucose 137 H POC Glucose Lactic Acid 3.80 H* Calcium Phosphorus Ferritin AST Alkaline Phosphatase Lactate Dehydrogenase 398 H C-Reactive Protein 6.30 H NT-Pro-B Natriuret Pep 2170 H Albumin Urine WBC (Auto) Urine Creatinine Urine Total Protein Coronavirus (PCR) 04/12/20 04/12/20 04/12/20 04:51 10:20 Unknown WBC RBC Hgb Hct Plt Count Seg Neuts % (Manual) Lymphocytes % (Manual) Seg Neutrophils # Man Lymphocytes # (Manual) D-Dimer ABG pO2 ABG HCO3 ABG Base Excess ABG Hemoglobin Sodium Potassium Carbon Dioxide BUN Creatinine Glucose POC Glucose Lactic Acid 3.50 H* Calcium Phosphorus Ferritin 1523.0 H AST Alkaline Phosphatase Lactate Dehydrogenase C-Reactive Protein NT-Pro-B Natriuret Pep Albumin Urine WBC (Auto) Urine Creatinine Urine Total Protein Coronavirus (PCR) Positive A 04/13/20 04/13/20 04/13/20 07:38 11:35 13:51 WBC RBC Hgb Hct Plt Count Seg Neuts % (Manual) Lymphocytes % (Manual) Seg Neutrophils # Man Lymphocytes # (Manual) D-Dimer ABG pO2 ABG HCO3 ABG Base Excess ABG Hemoglobin Sodium 135 L Potassium 5.6 H D Carbon Dioxide 17 L BUN 76 H Creatinine 6.1 H D Glucose 150 H POC Glucose 160 H 133 H Lactic Acid Calcium Phosphorus 5.90 H Ferritin AST Alkaline Phosphatase Lactate Dehydrogenase C-Reactive Protein NT-Pro-B Natriuret Pep Albumin Urine WBC (Auto) Urine Creatinine Urine Total Protein Coronavirus (PCR) 04/13/20 04/13/20 04/14/20 16:57 22:13 07:44 WBC RBC Hgb Hct Plt Count Seg Neuts % (Manual) Lymphocytes % (Manual) Seg Neutrophils # Man Lymphocytes # (Manual) D-Dimer ABG pO2 ABG HCO3 ABG Base Excess ABG Hemoglobin Sodium 134 L Potassium 5.7 H Carbon Dioxide 18 L BUN 93 H Creatinine 7.5 H Glucose 116 H POC Glucose 142 H 165 H Lactic Acid Calcium Phosphorus Ferritin AST Alkaline Phosphatase Lactate Dehydrogenase C-Reactive Protein NT-Pro-B Natriuret Pep Albumin Urine WBC (Auto) Urine Creatinine Urine Total Protein Coronavirus (PCR) 04/14/20 04/14/20 04/14/20 08:08 13:51 17:20 WBC RBC Hgb Hct Plt Count Seg Neuts % (Manual) Lymphocytes % (Manual) Seg Neutrophils # Man Lymphocytes # (Manual) D-Dimer ABG pO2 ABG HCO3 ABG Base Excess ABG Hemoglobin Sodium Potassium Carbon Dioxide BUN Creatinine Glucose POC Glucose 123 H 174 H 169 H Lactic Acid Calcium Phosphorus Ferritin AST Alkaline Phosphatase Lactate Dehydrogenase C-Reactive Protein NT-Pro-B Natriuret Pep Albumin Urine WBC (Auto) Urine Creatinine Urine Total Protein Coronavirus (PCR) 04/14/20 04/14/20 04/15/20 21:00 22:00 05:04 WBC RBC Hgb Hct Plt Count Seg Neuts % (Manual) Lymphocytes % (Manual) Seg Neutrophils # Man Lymphocytes # (Manual) D-Dimer ABG pO2 ABG HCO3 ABG Base Excess ABG Hemoglobin Sodium Potassium Carbon Dioxide 20 L BUN 77 H Creatinine 6.9 H Glucose 161 H POC Glucose 182 H Lactic Acid Calcium 7.9 L Phosphorus Ferritin AST Alkaline Phosphatase Lactate Dehydrogenase C-Reactive Protein NT-Pro-B Natriuret Pep Albumin Urine WBC (Auto) > 182.0 H Urine Creatinine Urine Total Protein Coronavirus (PCR) 04/15/20 04/15/20 04/15/20 08:30 12:12 15:28 WBC RBC Hgb Hct Plt Count Seg Neuts % (Manual) Lymphocytes % (Manual) Seg Neutrophils # Man Lymphocytes # (Manual) D-Dimer ABG pO2 ABG HCO3 ABG Base Excess ABG Hemoglobin Sodium Potassium Carbon Dioxide BUN Creatinine Glucose POC Glucose 149 H 257 H 353 H Lactic Acid Calcium Phosphorus Ferritin AST Alkaline Phosphatase Lactate Dehydrogenase C-Reactive Protein NT-Pro-B Natriuret Pep Albumin Urine WBC (Auto) Urine Creatinine Urine Total Protein Coronavirus (PCR) 04/15/20 04/16/20 04/16/20 22:00 01:35 08:47 WBC RBC Hgb Hct Plt Count Seg Neuts % (Manual) Lymphocytes % (Manual) Seg Neutrophils # Man Lymphocytes # (Manual) D-Dimer ABG pO2 ABG HCO3 ABG Base Excess ABG Hemoglobin Sodium Potassium Carbon Dioxide BUN Creatinine Glucose POC Glucose 157 H 111 H Lactic Acid Calcium Phosphorus Ferritin AST Alkaline Phosphatase Lactate Dehydrogenase C-Reactive Protein NT-Pro-B Natriuret Pep Albumin Urine WBC (Auto) Urine Creatinine 103.8 H Urine Total Protein 209 H Coronavirus (PCR) 04/16/20 04/16/20 04/16/20 11:43 14:57 14:57 WBC RBC Hgb Hct Plt Count Seg Neuts % (Manual) Lymphocytes % (Manual) Seg Neutrophils # Man Lymphocytes # (Manual) D-Dimer 1573.49 H ABG pO2 ABG HCO3 ABG Base Excess ABG Hemoglobin Sodium Potassium 3.1 L D Carbon Dioxide BUN 47 H Creatinine 4.2 H Glucose 167 H POC Glucose 170 H Lactic Acid Calcium 7.7 L Phosphorus Ferritin AST Alkaline Phosphatase Lactate Dehydrogenase C-Reactive Protein NT-Pro-B Natriuret Pep Albumin Urine WBC (Auto) Urine Creatinine Urine Total Protein Coronavirus (PCR) 04/16/20 04/16/20 04/16/20 14:57 14:57 17:21 WBC RBC Hgb Hct Plt Count Seg Neuts % (Manual) Lymphocytes % (Manual) Seg Neutrophils # Man Lymphocytes # (Manual) D-Dimer ABG pO2 ABG HCO3 ABG Base Excess ABG Hemoglobin Sodium Potassium Carbon Dioxide BUN Creatinine Glucose POC Glucose 172 H Lactic Acid Calcium Phosphorus Ferritin 1137.0 H AST Alkaline Phosphatase Lactate Dehydrogenase 328 H C-Reactive Protein 6.60 H NT-Pro-B Natriuret Pep Albumin Urine WBC (Auto) Urine Creatinine Urine Total Protein Coronavirus (PCR) 04/16/20 04/17/20 04/17/20 22:04 07:53 08:14 WBC RBC Hgb Hct Plt Count Seg Neuts % (Manual) Lymphocytes % (Manual) Seg Neutrophils # Man Lymphocytes # (Manual) D-Dimer ABG pO2 ABG HCO3 ABG Base Excess ABG Hemoglobin Sodium Potassium Carbon Dioxide 20 L BUN 69 H Creatinine 6.7 H D Glucose 157 H POC Glucose 232 H 169 H Lactic Acid Calcium 7.0 L Phosphorus Ferritin AST Alkaline Phosphatase Lactate Dehydrogenase C-Reactive Protein NT-Pro-B Natriuret Pep Albumin Urine WBC (Auto) Urine Creatinine Urine Total Protein Coronavirus (PCR) 04/17/20 04/17/20 04/17/20 08:14 12:31 17:59 WBC 24.1 H 22.1 H RBC 3.44 L Hgb 10.3 L Hct 31.6 L Plt Count 59 L 74 L Seg Neuts % (Manual) 96.0 H Lymphocytes % (Manual) 2.0 L Seg Neutrophils # Man 23.1 H Lymphocytes # (Manual) 0.5 L D-Dimer ABG pO2 ABG HCO3 ABG Base Excess ABG Hemoglobin Sodium Potassium Carbon Dioxide BUN Creatinine Glucose POC Glucose 183 H Lactic Acid Calcium Phosphorus Ferritin AST Alkaline Phosphatase Lactate Dehydrogenase C-Reactive Protein NT-Pro-B Natriuret Pep Albumin Urine WBC (Auto) Urine Creatinine Urine Total Protein Coronavirus (PCR) 04/17/20 04/17/20 04/18/20 18:23 22:37 05:56 WBC 18.5 H RBC Hgb 11.5 L Hct 34.2 L Plt Count 83 L Seg Neuts % (Manual) 93.0 H Lymphocytes % (Manual) 4.0 L Seg Neutrophils # Man 17.2 H Lymphocytes # (Manual) 0.7 L D-Dimer ABG pO2 ABG HCO3 ABG Base Excess ABG Hemoglobin Sodium Potassium Carbon Dioxide BUN Creatinine Glucose POC Glucose 145 H 185 H Lactic Acid Calcium Phosphorus Ferritin AST Alkaline Phosphatase Lactate Dehydrogenase C-Reactive Protein NT-Pro-B Natriuret Pep Albumin Urine WBC (Auto) Urine Creatinine Urine Total Protein Coronavirus (PCR) 04/18/20 04/18/20 04/18/20 05:56 08:19 13:10 WBC RBC Hgb Hct Plt Count Seg Neuts % (Manual) Lymphocytes % (Manual) Seg Neutrophils # Man Lymphocytes # (Manual) D-Dimer ABG pO2 ABG HCO3 ABG Base Excess ABG Hemoglobin Sodium Potassium Carbon Dioxide 20 L BUN 102 H Creatinine 8.2 H Glucose 177 H POC Glucose 153 H 186 H Lactic Acid Calcium 7.6 L Phosphorus Ferritin AST Alkaline Phosphatase Lactate Dehydrogenase C-Reactive Protein NT-Pro-B Natriuret Pep Albumin Urine WBC (Auto) Urine Creatinine Urine Total Protein Coronavirus (PCR)
[2020-04-18] MEDS: CEFEPIME/NS 1 GM/100 ML 1 GM/100 ML BAG IV SCH (18:16)
[2020-04-19] MEDS: INSULIN LISPRO 100 UNIT/ML VIAL 3 mL SUB-Q SCH ×4 (10:06→22:54)
[2020-04-19] MEDS: APIXABAN 5 MG TAB PO SCH ×2 (10:06→22:53)
[2020-04-19] MEDS: FAMOTIDINE 20 MG TAB PO SCH (10:07)
[2020-04-19] MEDS: dexAMETHasone 4 MG/ML VIAL IV SCH (10:08)
[2020-04-19] MEDS: amLODIPine 10 MG TAB PO SCH (10:16)
--- NOTE | 2020-04-19 10:41 | Progress Note ---
Assessment and Plan Assessment and plan: Sepsis. Etiology secondary to bilateral pneumonia: Likely secondary to COVID-19 infection and Enterobacter bacteremia. Continue cefepime per ID recommendation. Follow-up repeat blood cultures. Enterobacter bacteremia: Unclear source ?UTI. Urinalysis consistent with UTI. Urine culture no growth, obtained 2 days after antibiotics. COVID-19 infection. D-dimer significantly elevated at >10K, ferritin elevated. Repeat D-dimer and ferritin improving. Continue IV/p.o. dexamethasone 6 mg daily for total of 10 days. Patient not a candidate for remdesivir due to renal failure. Acute hypoxic respiratory failure: Remains on high flow nasal cannula today (high flow nasal cannula 6 L). Acute renal failure: Renally dose antibiotics. Worsening. Started on hemodialysis per nephrology. Elevated LFTs: Continue to monitor. 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 04/18/2020. Follow-up renal ultrasound which has been ordered. JENY, ANCA, GMB Ab, Complements and SPEP pending. Hemodialysis initiated for acute kidney injury on 04/14/2020. Continue anticoagulation and follow-up inflammatory markers. Leukocytosis likely secondary to steroids. Patient's prognosis remains guarded given the renal failure and COVID-19 infection 04/19/2020. Continue dexamethasone (7/10 dose). Continue Eliquis for an ticoagulation. Continue IV antibiotics of cefepime and trend inflammatory markers. Follow-up JENY, ANCA, C3, C4, anti-GBM and SPEP per nephrology. Await renal ultrasound and consider echocardiogram. History Interval history: No new issues overnight Hospitalist Physical - Constitutional Vitals: Temp Pulse Resp BP Pulse Ox 98.1 F 58 L 18 121/58 97 04/19/20 04:36 04/19/20 10:16 04/19/20 04:36 04/19/20 10:16 04/19/20 04:36 General appearance: Present: no acute distress, well-nourished - EENT Eyes: Present: PERRL, EOM intact ENT: hearing intact, clear oral mucosa, dentition normal - Neck Neck: Present: supple, normal ROM - Respiratory Respiratory effort: normal Respiratory: bilateral: CTA - Cardiovascular Rhythm: regular Heart Sounds: Present: S1 & S2. Absent: gallop, rub - Extremities Extremities: no ischemia, No edema, Full ROM - Abdominal General gastrointestinal: soft, non-tender, non-distended, normal bowel sounds - Integumentary Integumentary: Present: clear, warm, dry - Neurologic Neurologic: CNII-XII intact, moves all extremities HEART Score - HEART Score Troponin: Troponin T 0.012 ng/mL (0.00-0.029) 04/12/20 04:51 Results - Labs CBC & Chem 7: 04/18/20 05:56 04/18/20 05:56 Labs: Laboratory Last Values WBC 18.5 K/mm3 (4.5-11.0) H 04/18/20 05:56 RBC 3.79 M/mm3 (3.65-5.03) 04/18/20 05:56 Hgb 11.5 gm/dl (11.8-15.2) L 04/18/20 05:56 Hct 34.2 % (35.5-45.6) L 04/18/20 05:56 MCV 90 fl (84-94) 04/18/20 05:56 MCH 30 pg (28-32) 04/18/20 05:56 MCHC 34 % (32-34) 04/18/20 05:56 RDW 14.3 % (13.2-15.2) 04/18/20 05:56 Plt Count 83 K/mm3 (140-440) L 04/18/20 05:56 Add Manual Diff Complete 04/18/20 05:56 Total Counted 100 04/18/20 05:56 Seg Neutrophils % Human Services Supervisor 04/18/20 05:56 Seg Neuts % (Manual) 93.0 % (40.0-70.0) H 04/18/20 05:56 Band Neutrophils % 0 % 04/18/20 05:56 Lymphocytes % (Manual) 4.0 % (13.4-35.0) L 04/18/20 05:56 Reactive Lymphs % (Man) 0 % 04/18/20 05:56 Monocytes % (Manual) 3.0 % (0.0-7.3) 04/18/20 05:56 Eosinophils % (Manual) 0 % (0.0-4.3) 04/18/20 05:56 Basophils % (Manual) 0 % (0.0-1.8) 04/18/20 05:56 Metamyelocytes % 0 % 04/18/20 05:56 Myelocytes % 0 % 04/18/20 05:56 Promyelocytes % 0 % 04/18/20 05:56 Blast Cells % 0 % 04/18/20 05:56 Nucleated RBC % Not Reportable 04/18/20 05:56 Seg Neutrophils # Man 17.2 K/mm3 (1.8-7.7) H 04/18/20 05:56 Band Neutrophils # 0.0 K/mm3 04/18/20 05:56 Lymphocytes # (Manual) 0.7 K/mm3 (1.2-5.4) L 04/18/20 05:56 Abs React Lymphs (Man) 0.0 K/mm3 04/18/20 05:56 Monocytes # (Manual) 0.6 K/mm3 (0.0-0.8) 04/18/20 05:56 Eosinophils # (Manual) 0.0 K/mm3 (0.0-0.4) 04/18/20 05:56 Basophils # (Manual) 0.0 K/mm3 (0.0-0.1) 04/18/20 05:56 Metamyelocytes # 0.0 K/mm3 04/18/20 05:56 Myelocytes # 0.0 K/mm3 04/18/20 05:56 Promyelocytes # 0.0 K/mm3 04/18/20 05:56 Blast Cells # 0.0 K/mm3 04/18/20 05:56 WBC Morphology Not Reportable 04/18/20 05:56 Hypersegmented Neuts Not Reportable 04/18/20 05:56 Hyposegmented Neuts Not Reportable 04/18/20 05:56 Hypogranular Neuts Not Reportable 04/18/20 05:56 Smudge Cells Not Reportable 04/18/20 05:56 Toxic Granulation Not Reportable 04/18/20 05:56 Toxic Vacuolation Not Reportable 04/18/20 05:56 Dohle Bodies Not Reportable 04/18/20 05:56 Pelger-Huet Anomaly Not Reportable 04/18/20 05:56 Matthew Rods Not Reportable 04/18/20 05:56 Platelet Estimate Consistent w auto 04/18/20 05:56 Clumped Platelets Not Reportable 04/18/20 05:56 Plt Clumps, EDTA Not Reportable 04/18/20 05:56 Large Platelets Not Reportable 04/18/20 05:56 Giant Platelets Not Reportable 04/18/20 05:56 Platelet Satelliting Not Reportable 04/18/20 05:56 Plt Morphology Comment Not Reportable 04/18/20 05:56 RBC Morphology Not Reportable 04/18/20 05:56 Dimorphic RBCs Not Reportable 04/18/20 05:56 Polychromasia Not Reportable 04/18/20 05:56 Hypochromasia Not Reportable 04/18/20 05:56 Poikilocytosis Not Reportable 04/18/20 05:56 Anisocytosis Not Reportable 04/18/20 05:56 Microcytosis Not Reportable 04/18/20 05:56 Macrocytosis Not Reportable 04/18/20 05:56 Spherocytes Not Reportable 04/18/20 05:56 Pappenheimer Bodies Not Reportable 04/18/20 05:56 Sickle Cells Not Reportable 04/18/20 05:56 Target Cells Not Reportable 04/18/20 05:56 Tear Drop Cells Not Reportable 04/18/20 05:56 Ovalocytes Not Reportable 04/18/20 05:56 Helmet Cells Not Reportable 04/18/20 05:56 Lilly-Cordele Bodies Not Reportable 04/18/20 05:56 [place] Rings Not Reportable 04/18/20 05:56 Nam Cells Not Reportable 04/18/20 05:56 Bite Cells Not Reportable 04/18/20 05:56 Crenated Cell Not Reportable 04/18/20 05:56 Elliptocytes Not Reportable 04/18/20 05:56 Acanthocytes (Spur) Not Reportable 04/18/20 05:56 Rouleaux Not Reportable 04/18/20 05:56 Hemoglobin C Crystals Not Reportable 04/18/20 05:56 Schistocytes Not Reportable 04/18/20 05:56 Malaria parasites Not Reportable 04/18/20 05:56 Dandre Bodies Not Reportable 04/18/20 05:56 Hem Pathologist Commnt No 04/18/20 05:56 D-Dimer 1573.49 ng/mlDDU (0-234) H 04/16/20 14:57 ABG pH 7.441 pH Units (7.350-7.450) 04/12/20 04:21 ABG pCO2 26.2 mm Hg 04/12/20 04:21 ABG pO2 135.7 mm Hg (80.0-90.0) H 04/12/20 04:21 ABG HCO3 15.4 mmol/L (20.0-26.0) L 04/12/20 04:21 ABG O2 Saturation 98.7 % (95.0-99.0) 04/12/20 04:21 ABG Base Excess -5.1 mmol/L (-2.0-3.0) L 04/12/20 04:21 ABG Hemoglobin 13.3 gm/dl (14.0-18.0) L 04/12/20 04:21 ABG Carboxyhemoglobin 1.2 % (0.0-5.0) 04/12/20 04:21 ABG Methemoglobin 0.6 % (0.0-1.5) 04/12/20 04:21 Oxyhemoglobin 96.9 % (95.0-99.0) 04/12/20 04:21 FiO2 30.0 % 04/12/20 04:21 Sodium 137 mmol/L (137-145) 04/18/20 05:56 Potassium 3.8 mmol/L (3.6-5.0) 04/18/20 05:56 Chloride 99.1 mmol/L (98-107) 04/18/20 05:56 Carbon Dioxide 20 mmol/L (22-30) L 04/18/20 05:56 Anion Gap 22 mmol/L 04/18/20 05:56 BUN 102 mg/dL (9-20) H 04/18/20 05:56 Creatinine 8.2 mg/dL (0.8-1.3) H 04/18/20 05:56 Estimated GFR 8 ml/min 04/18/20 05:56 BUN/Creatinine Ratio 12 % 04/18/20 05:56 Glucose 177 mg/dL (75-100) H 04/18/20 05:56 POC Glucose 183 mg/dL (70-105) H 04/19/20 08:13 Lactic Acid 3.50 mmol/L (0.7-2.0) H* 04/12/20 10:20 Calcium 7.6 mg/dL (8.4-10.2) L 04/18/20 05:56 Phosphorus 3.00 mg/dL (2.5-4.5) 04/16/20 14:57 Magnesium 1.90 mg/dL (1.7-2.3) 04/13/20 13:51 Ferritin 1137.0 ng/mL (30.0-300.0) H 04/16/20 14:57 Total Bilirubin 0.60 mg/dL (0.1-1.2) 04/12/20 04:51 AST 69 units/L (5-40) H 04/12/20 04:51 ALT 51 units/L (7-56) 04/12/20 04:51 Alkaline Phosphatase 155 units/L (35-129) H 04/12/20 04:51 Lactate Dehydrogenase 328 units/L (91-180) H 04/16/20 14:57 Troponin T 0.012 ng/mL (0.00-0.029) 04/12/20 04:51 C-Reactive Protein 6.60 mg/dL (0.00-1.30) H 04/16/20 14:57 NT-Pro-B Natriuret Pep 2170 pg/mL (0-900) H 04/12/20 04:51 Total Protein 7.1 g/dL (6.3-8.2) 04/12/20 04:51 Albumin 3.7 g/dL (3.9-5) L 04/12/20 04:51 Albumin/Globulin Ratio 1.1 % 04/12/20 04:51 Procalcitonin 82.32 ng/mL (<0.15) 04/12/20 04:51 Urine Color Red (Yellow) 04/14/20 21:00 Urine Turbidity Turbid (Clear) 04/14/20 21:00 Urine pH 6.0 (5.0-7.0) 04/14/20 21:00 Ur Specific Roberts 1.013 (1.003-1.030) 04/14/20 21:00 Urine Protein >500 mg/dL (Negative) 04/14/20 21:00 Urine Glucose (UA) 50 mg/dL (Negative) 04/14/20 21:00 Urine Ketones Neg mg/dL (Negative) 04/14/20 21:00 Urine Blood Lg (Negative) 04/14/20 21:00 Urine Nitrite Neg (Negative) 04/14/20 21:00 Urine Bilirubin Neg (Negative) 04/14/20 21:00 Urine Urobilinogen < 2.0 mg/dL (<2.0) 04/14/20 21:00 Ur Leukocyte Esterase Lg (Negative) 04/14/20 21:00 Urine WBC (Auto) > 182.0 /HPF (0.0-6.0) H 04/14/20 21:00 Urine RBC (Auto) > 182.0 /HPF (0.0-6.0) 04/14/20 21:00 U Epithel Cells (Auto) 3.0 /HPF (0-13.0) 04/14/20 21:00 Urine Bacteria (Auto) 2+ /HPF (Negative) 04/14/20 21:00 Urine WBC Clumps 3+ /HPF 04/14/20 21:00 Urine Mucus Few /HPF 04/14/20 21:00 Urine Yeast (Budding) 2+ /HPF 04/14/20 21:00 Urine Eosinophils None seen (None Seen) 04/15/20 01:35 Urine Creatinine 103.8 mg/dL (0.1-20.0) H 04/16/20 01:35 Protein/Creatinin Ratio 2.01 04/16/20 01:35 Urine Sodium 66 mmol/L 04/16/20 01:35 Urine Total Protein 209 mg/dL (5-11.8) H 04/16/20 01:35 Coronavirus (PCR) Positive (Negative) A 04/12/20 Unknown Hepatitis A IgM Ab Non-reactive (NonReactive) 04/14/20 16:50 Hep Bs Antigen Non-reactive (Negative) 04/14/20 16:50 Hep B Core IgM Ab Non-reactive (NonReactive) 04/14/20 16:50 Hepatitis C Antibody Non-reactive (NonReactive) 04/14/20 16:50 SARS-CoV-2 IgG Ab Nonreactive (NonReactive) 04/16/20 14:57 Microbiology: Microbiology 04/16/20 14:57 Peripheral/Venous Blood Culture - Preliminary NO GROWTH AFTER 48 HOURS 04/16/20 14:57 Peripheral/Venous Blood Culture - Preliminary NO GROWTH AFTER 48 HOURS 04/12/20 04:51 Peripheral/Venous Blood Culture - Final Enterobacter Aerogenes Enterobacter Aerogenes#2 04/14/20 21:00 Urine,Clean Catch Urine Culture - Final NO GROWTH AFTER 48 HOURS Haas/IV: Voiding Method Indwelling Catheter IV Catheter Type [Right VAS Cath Subclavian] IV Catheter Type [Right Peripheral IV Forearm] IV Catheter Type [Right Hand] Peripheral IV Active Medications - Current Medications Current Medications: Generic Name Dose Route Start Last Admin Trade Name Freq PRN Reason Stop Dose Admin Alprazolam 0.125 mg 04/12/20 07:53 04/16/20 22:02 Xanax PO 0.125 mg Q8H PRN Administration Anxiety Amlodipine Besylate 10 mg 04/17/20 15:00 04/19/20 10:16 Amlodipine PO Not Given QDAY JOSIANE Apixaban 5 mg 04/13/20 11:00 04/19/20 10:06 Eliquis PO 5 mg Q12HR JOSIANE Administration Protocol Dexamethasone 6 mg 04/13/20 10:00 04/19/20 10:08 Decadron IV 04/22/20 10:01 6 mg Q24H JOSIANE Administration Dextrose 50 ml 04/13/20 10:05 D50w (25gm) Syringe IV Q30MIN PRN Hypoglycemia Protocol Famotidine 20 mg 04/12/20 10:00 04/19/20 10:07 Pepcid PO 20 mg DAILY JOSIANE Administration Haloperidol Lactate 5 mg 04/13/20 10:42 Haldol IV Q6H PRN Agitation Cefepime HCl 1 gm in 100 mls @ 200 mls/hr 04/14/20 18:00 04/18/20 18:16 Cefepime/Ns 1 Gm/100 Ml IV 04/23/20 18:29 200 mls/hr Q24H JOSIANE Administration Protocol Sodium Chloride 100 mls @ 999 mls/hr 04/18/20 08:00 Nacl 0.9% IV SILVIA PRN Hypotension Insulin Human Lispro 0 unit 04/13/20 11:30 04/19/20 10:06 Humalog SUB-Q 1 unit ACHS JOSIANE Administration Protocol
--- NOTE | 2020-04-19 11:10 | Progress Note ---
Assessment and Plan 1. Acute kidney injury: Acute kidney injury in the setting of COVID infection and vasomotor insult. Renal US ordered, I called the health care technician 04/17 to do the US. JENY, ANCA, GBM Ab, Complements and SPEP pending. Monitor renal function. UOP is low. Renal prognosis is guarded. Avoid nephrotoxic agents. Meds dosage based on GFR. 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 Patient required hemodialysis due to worsening renal function and associated hyperkalemia and metabolic acidosis. D/w patient and his daughter (04/14) about the indications, benefits, risks and alternatives involved in hemodialysis. Both voiced understanding and gave urbano bal consent. Hemodialysis: 04/14, 04/16, 04/18. 2. FEN: Hyperkalemia, improved with HD, monitor. Metabolic acidosis, monitor. Monitor lytes. 3. Acute hypoxic resp failure: Likely secondary to COVID-19 infection. Currently on NC O2. Followed by Pulmonary. 4. Severe COVID-19 pneumonia. Followed by ID. 5. Sepsis: Likely secondary to COVID-19 infection and Enterobacter bacteremia. 6. Enterobacter bacteremia: Unclear source ?UTI. Urinalysis consistent with UTI. Followed by ID. 7. DM type 2: Accuchecks. 8. H/o hypertension: Monitor BP. 9. Acute metabolic encephalopathy. Subjective: Patient was seen and examined at the bedside. Doing ok. General Appearance: General appearance: well-developed, appears stated age, no distress, on NC O2 HEENT: ATNC Neck: Trachea midline Respiratory: ctab Cardiology: S1S2, regular, no murmur Gastrointestinal: normoactive bowel sounds, no tenderness, not distended Integumentary: no obvious rash Neurologic: alert, non-focal, slight confusion Ext: no edema noted Hemodialysis access: R IJ temp catheter Subjective Date of service: 04/19/20 Principal diagnosis: Sepsis present on admission Objective - Vital Signs Vital signs: Vital Signs - 12hr 04/19/20 04/19/20 04:36 10:16 Temperature 98.1 F Pulse Rate 58 L 58 L Respiratory 18 Rate Blood Pressure 121/58 121/58 O2 Sat by Pulse 97 Oximetry - Lab 04/18/20 05:56 04/19/20 15:36 Most recent lab results ABG pH 7.441 pH Units (7.350-7.450) 04/12/20 04:21 ABG pCO2 26.2 mm Hg 04/12/20 04:21 ABG pO2 135.7 mm Hg (80.0-90.0) H 04/12/20 04:21 ABG HCO3 15.4 mmol/L (20.0-26.0) L 04/12/20 04:21 ABG O2 Saturation 98.7 % (95.0-99.0) 04/12/20 04:21 Calcium 7.6 mg/dL (8.4-10.2) L 04/18/20 05:56 Phosphorus 3.00 mg/dL (2.5-4.5) 04/16/20 14:57 Magnesium 1.90 mg/dL (1.7-2.3) 04/13/20 13:51 Urine Creatinine 103.8 mg/dL (0.1-20.0) H 04/16/20 01:35 Urine Sodium 66 mmol/L 04/16/20 01:35 Urine Total Protein 209 mg/dL (5-11.8) H 04/16/20 01:35 Medications & Allergies - Medications Allergies/Adverse Reactions: Allergies No Known Allergies Allergy (Verified 04/12/20 04:28) Home Medications: Home Medications Medication Instructions Recorded Confirmed Last Taken Type AtorvaSTATin [Lipitor] 20 mg PO QHS 04/12/20 04/12/20 Unknown History Diclofenac [Aki Hernández] 75 mg PO BID 04/12/20 04/12/20 Unknown History Insulin Aspart Prot/Aspart(Nf) 10 units SUB-Q BID 04/12/20 04/12/20 Unknown History [NovoLOG Mix 70/30 VIAL] Losartan/Hydrochlorothiazide 100 mg PO QDAY 04/12/20 04/12/20 Unknown History [Losartan-Hctz 100-25 mg Tab] Metoprolol [Lopressor] 25 mg PO BID 04/12/20 04/12/20 Unknown History Pioglitazone [Actos] 15 mg PO QDAY 04/12/20 04/12/20 Unknown History amLODIPine [Norvasc] 5 mg PO DAILY 04/12/20 04/12/20 Unknown History Cholecalciferol (Vitamin D3) 5,000 unit PO QDAY 04/13/20 04/13/20 Unknown History [Vitamin D3 5,000 UNIT] Metoprolol [Lopressor] 25 mg PO BID 04/13/20 04/13/20 Unknown History glipiZIDE [Glucotrol] 10 mg PO QDAY 04/13/20 04/13/20 Unknown History traMADoL [Ultram] 50 mg PO Q6HR PRN 04/13/20 04/13/20 Unknown History Active Medications: Generic Name Dose Route Start Last Admin Trade Name Freq PRN Reason Stop Dose Admin Alprazolam 0.125 mg 04/12/20 07:53 04/16/20 22:02 Xanax PO 0.125 mg Q8H PRN Administration Anxiety Amlodipine Besylate 10 mg 04/17/20 15:00 04/19/20 10:16 Amlodipine PO Not Given QDAY JOSIANE Apixaban 5 mg 04/13/20 11:00 04/19/20 10:06 Eliquis PO 5 mg Q12HR JOSIANE Administration Protocol Dexamethasone 6 mg 04/13/20 10:00 04/19/20 10:08 Decadron IV 04/22/20 10:01 6 mg Q24H JOSIANE Administration Dextrose 50 ml 04/13/20 10:05 D50w (25gm) Syringe IV Q30MIN PRN Hypoglycemia Protocol Famotidine 20 mg 04/12/20 10:00 04/19/20 10:07 Pepcid PO 20 mg DAILY JOSIANE Administration Haloperidol Lactate 5 mg 04/13/20 10:42 Haldol IV Q6H PRN Agitation Cefepime HCl 1 gm in 100 mls @ 200 mls/hr 04/14/20 18:00 04/18/20 18:16 Cefepime/Ns 1 Gm/100 Ml IV 04/23/20 18:29 200 mls/hr Q24H JOSIANE Administration Protocol Sodium Chloride 100 mls @ 999 mls/hr 04/18/20 08:00 Nacl 0.9% IV SILVIA PRN Hypotension Insulin Human Lispro 0 unit 04/13/20 11:30 04/19/20 10:06 Humalog SUB-Q 1 unit ACHS JOSIANE Administration Protocol
--- NOTE | 2020-04-19 13:49 | Progress Note ---
Assessment and Plan 75 y/o male with acute respiratory failure, renal failure with lactic acidosis found to be COVID positive. 1. Steroids to continue for a total of 10 days. 2. Wean FiO2 for sats >88%. Now down to 2 liters. 3. Continue to follow ID recs. 4. Really needs echo but likely will not get given COVID 19 status 5. Dilt has now been discontinued. 6. Hope to discharge soon 7. Follow up any new renal recs other than HD. 8. Agree with anticoagulation Subjective Date of service: 04/19/20 Principal diagnosis: Sepsis present on admission Interval history: Patient overall feeling better. Give some history suggesting he had some rectal bleeding but is not very clear. Objective Vital Signs - 12hr 04/19/20 04/19/20 04/19/20 04:36 10:16 12:04 Temperature 98.1 F 98.0 F Pulse Rate 58 L 58 L 60 Respiratory 18 17 Rate Blood Pressure 121/58 121/58 150/76 O2 Sat by Pulse 97 99 Oximetry Constitutional: no acute distress, alert ENT: oropharynx moist Ascultation: Bilateral: rhonchi Cardiovascular: regular rate and rhythm CBC and BMP: 04/18/20 05:56 04/18/20 05:56 ABG, PT/INR, D-dimer: ABG ABG pH 7.441 pH Units (7.350-7.450) 04/12/20 04:21 ABG pCO2 26.2 mm Hg 04/12/20 04:21 ABG pO2 135.7 mm Hg (80.0-90.0) H 04/12/20 04:21 ABG O2 Saturation 98.7 % (95.0-99.0) 04/12/20 04:21 PT/INR, D-dimer D-Dimer 1573.49 ng/mlDDU (0-234) H 04/16/20 14:57 Abnormal lab findings: Abnormal Labs 04/12/20 04/12/20 04/12/20 04:21 04:51 04:51 WBC RBC Hgb Hct Plt Count 110 L Seg Neuts % (Manual) 93.0 H Lymphocytes % (Manual) 3.0 L Seg Neutrophils # Man Lymphocytes # (Manual) 0.2 L D-Dimer ABG pO2 135.7 H ABG HCO3 15.4 L ABG Base Excess -5.1 L ABG Hemoglobin 13.3 L Sodium Potassium Carbon Dioxide BUN 48 H Creatinine 3.2 H Glucose 139 H POC Glucose Lactic Acid Calcium Phosphorus Ferritin AST 69 H Alkaline Phosphatase 155 H Lactate Dehydrogenase C-Reactive Protein NT-Pro-B Natriuret Pep Albumin 3.7 L Urine WBC (Auto) Urine Creatinine Urine Total Protein Coronavirus (PCR) 04/12/20 04/12/20 04/12/20 04:51 04:51 04:51 WBC RBC Hgb Hct Plt Count Seg Neuts % (Manual) Lymphocytes % (Manual) Seg Neutrophils # Man Lymphocytes # (Manual) D-Dimer > 99124 H ABG pO2 ABG HCO3 ABG Base Excess ABG Hemoglobin Sodium Potassium Carbon Dioxide BUN Creatinine Glucose 137 H POC Glucose Lactic Acid 3.80 H* Calcium Phosphorus Ferritin AST Alkaline Phosphatase Lactate Dehydrogenase 398 H C-Reactive Protein 6.30 H NT-Pro-B Natriuret Pep 2170 H Albumin Urine WBC (Auto) Urine Creatinine Urine Total Protein Coronavirus (PCR) 04/12/20 04/12/20 04/12/20 04:51 10:20 Unknown WBC RBC Hgb Hct Plt Count Seg Neuts % (Manual) Lymphocytes % (Manual) Seg Neutrophils # Man Lymphocytes # (Manual) D-Dimer ABG pO2 ABG HCO3 ABG Base Excess ABG Hemoglobin Sodium Potassium Carbon Dioxide BUN Creatinine Glucose POC Glucose Lactic Acid 3.50 H* Calcium Phosphorus Ferritin 1523.0 H AST Alkaline Phosphatase Lactate Dehydrogenase C-Reactive Protein NT-Pro-B Natriuret Pep Albumin Urine WBC (Auto) Urine Creatinine Urine Total Protein Coronavirus (PCR) Positive A 04/13/20 04/13/20 04/13/20 07:38 11:35 13:51 WBC RBC Hgb Hct Plt Count Seg Neuts % (Manual) Lymphocytes % (Manual) Seg Neutrophils # Man Lymphocytes # (Manual) D-Dimer ABG pO2 ABG HCO3 ABG Base Excess ABG Hemoglobin Sodium 135 L Potassium 5.6 H D Carbon Dioxide 17 L BUN 76 H Creatinine 6.1 H D Glucose 150 H POC Glucose 160 H 133 H Lactic Acid Calcium Phosphorus 5.90 H Ferritin AST Alkaline Phosphatase Lactate Dehydrogenase C-Reactive Protein NT-Pro-B Natriuret Pep Albumin Urine WBC (Auto) Urine Creatinine Urine Total Protein Coronavirus (PCR) 04/13/20 04/13/20 04/14/20 16:57 22:13 07:44 WBC RBC Hgb Hct Plt Count Seg Neuts % (Manual) Lymphocytes % (Manual) Seg Neutrophils # Man Lymphocytes # (Manual) D-Dimer ABG pO2 ABG HCO3 ABG Base Excess ABG Hemoglobin Sodium 134 L Potassium 5.7 H Carbon Dioxide 18 L BUN 93 H Creatinine 7.5 H Glucose 116 H POC Glucose 142 H 165 H Lactic Acid Calcium Phosphorus Ferritin AST Alkaline Phosphatase Lactate Dehydrogenase C-Reactive Protein NT-Pro-B Natriuret Pep Albumin Urine WBC (Auto) Urine Creatinine Urine Total Protein Coronavirus (PCR) 04/14/20 04/14/20 04/14/20 08:08 13:51 17:20 WBC RBC Hgb Hct Plt Count Seg Neuts % (Manual) Lymphocytes % (Manual) Seg Neutrophils # Man Lymphocytes # (Manual) D-Dimer ABG pO2 ABG HCO3 ABG Base Excess ABG Hemoglobin Sodium Potassium Carbon Dioxide BUN Creatinine Glucose POC Glucose 123 H 174 H 169 H Lactic Acid Calcium Phosphorus Ferritin AST Alkaline Phosphatase Lactate Dehydrogenase C-Reactive Protein NT-Pro-B Natriuret Pep Albumin Urine WBC (Auto) Urine Creatinine Urine Total Protein Coronavirus (PCR) 04/14/20 04/14/20 04/15/20 21:00 22:00 05:04 WBC RBC Hgb Hct Plt Count Seg Neuts % (Manual) Lymphocytes % (Manual) Seg Neutrophils # Man Lymphocytes # (Manual) D-Dimer ABG pO2 ABG HCO3 ABG Base Excess ABG Hemoglobin Sodium Potassium Carbon Dioxide 20 L BUN 77 H Creatinine 6.9 H Glucose 161 H POC Glucose 182 H Lactic Acid Calcium 7.9 L Phosphorus Ferritin AST Alkaline Phosphatase Lactate Dehydrogenase C-Reactive Protein NT-Pro-B Natriuret Pep Albumin Urine WBC (Auto) > 182.0 H Urine Creatinine Urine Total Protein Coronavirus (PCR) 04/15/20 04/15/20 04/15/20 08:30 12:12 15:28 WBC RBC Hgb Hct Plt Count Seg Neuts % (Manual) Lymphocytes % (Manual) Seg Neutrophils # Man Lymphocytes # (Manual) D-Dimer ABG pO2 ABG HCO3 ABG Base Excess ABG Hemoglobin Sodium Potassium Carbon Dioxide BUN Creatinine Glucose POC Glucose 149 H 257 H 353 H Lactic Acid Calcium Phosphorus Ferritin AST Alkaline Phosphatase Lactate Dehydrogenase C-Reactive Protein NT-Pro-B Natriuret Pep Albumin Urine WBC (Auto) Urine Creatinine Urine Total Protein Coronavirus (PCR) 04/15/20 04/16/2020 22:00 01:35 08:47 WBC RBC Hgb Hct Plt Count Seg Neuts % (Manual) Lymphocytes % (Manual) Seg Neutrophils # Man Lymphocytes # (Manual) D-Dimer ABG pO2 ABG HCO3 ABG Base Excess ABG Hemoglobin Sodium Potassium Carbon Dioxide BUN Creatinine Glucose POC Glucose 157 H 111 H Lactic Acid Calcium Phosphorus Ferritin AST Alkaline Phosphatase Lactate Dehydrogenase C-Reactive Protein NT-Pro-B Natriuret Pep Albumin Urine WBC (Auto) Urine Creatinine 103.8 H Urine Total Protein 209 H Coronavirus (PCR) 04/16/20 04/16/20 04/16/20 11:43 14:57 14:57 WBC RBC Hgb Hct Plt Count Seg Neuts % (Manual) Lymphocytes % (Manual) Seg Neutrophils # Man Lymphocytes # (Manual) D-Dimer 1573.49 H ABG pO2 ABG HCO3 ABG Base Excess ABG Hemoglobin Sodium Potassium 3.1 L D Carbon Dioxide BUN 47 H Creatinine 4.2 H Glucose 167 H POC Glucose 170 H Lactic Acid Calcium 7.7 L Phosphorus Ferritin AST Alkaline Phosphatase Lactate Dehydrogenase C-Reactive Protein NT-Pro-B Natriuret Pep Albumin Urine WBC (Auto) Urine Creatinine Urine Total Protein Coronavirus (PCR) 04/16/20 04/16/20 04/16/20 14:57 14:57 17:21 WBC RBC Hgb Hct Plt Count Seg Neuts % (Manual) Lymphocytes % (Manual) Seg Neutrophils # Man Lymphocytes # (Manual) D-Dimer ABG pO2 ABG HCO3 ABG Base Excess ABG Hemoglobin Sodium Potassium Carbon Dioxide BUN Creatinine Glucose POC Glucose 172 H Lactic Acid Calcium Phosphorus Ferritin 1137.0 H AST Alkaline Phosphatase Lactate Dehydrogenase 328 H C-Reactive Protein 6.60 H NT-Pro-B Natriuret Pep Albumin Urine WBC (Auto) Urine Creatinine Urine Total Protein Coronavirus (PCR) 04/16/20 04/17/20 04/17/20 22:04 07:53 08:14 WBC RBC Hgb Hct Plt Count Seg Neuts % (Manual) Lymphocytes % (Manual) Seg Neutrophils # Man Lymphocytes # (Manual) D-Dimer ABG pO2 ABG HCO3 ABG Base Excess ABG Hemoglobin Sodium Potassium Carbon Dioxide 20 L BUN 69 H Creatinine 6.7 H D Glucose 157 H POC Glucose 232 H 169 H Lactic Acid Calcium 7.0 L Phosphorus Ferritin AST Alkaline Phosphatase Lactate Dehydrogenase C-Reactive Protein NT-Pro-B Natriuret Pep Albumin Urine WBC (Auto) Urine Creatinine Urine Total Protein Coronavirus (PCR) 04/17/20 04/17/20 04/17/20 08:14 12:31 17:59 WBC 24.1 H 22.1 H RBC 3.44 L Hgb 10.3 L Hct 31.6 L Plt Count 59 L 74 L Seg Neuts % (Manual) 96.0 H Lymphocytes % (Manual) 2.0 L Seg Neutrophils # Man 23.1 H Lymphocytes # (Manual) 0.5 L D-Dimer ABG pO2 ABG HCO3 ABG Base Excess ABG Hemoglobin Sodium Potassium Carbon Dioxide BUN Creatinine Glucose POC Glucose 183 H Lactic Acid Calcium Phosphorus Ferritin AST Alkaline Phosphatase Lactate Dehydrogenase C-Reactive Protein NT-Pro-B Natriuret Pep Albumin Urine WBC (Auto) Urine Creatinine Urine Total Protein Coronavirus (PCR) 04/17/20 04/17/20 04/18/20 18:23 22:37 05:56 WBC 18.5 H RBC Hgb 11.5 L Hct 34.2 L Plt Count 83 L Seg Neuts % (Manual) 93.0 H Lymphocytes % (Manual) 4.0 L Seg Neutrophils # Man 17.2 H Lymphocytes # (Manual) 0.7 L D-Dimer ABG pO2 ABG HCO3 ABG Base Excess ABG Hemoglobin Sodium Potassium Carbon Dioxide BUN Creatinine Glucose POC Glucose 145 H 185 H Lactic Acid Calcium Phosphorus Ferritin AST Alkaline Phosphatase Lactate Dehydrogenase C-Reactive Protein NT-Pro-B Natriuret Pep Albumin Urine WBC (Auto) Urine Creatinine Urine Total Protein Coronavirus (PCR) 04/18/20 04/18/20 04/18/20 05:56 08:19 13:10 WBC RBC Hgb Hct Plt Count Seg Neuts % (Manual) Lymphocytes % (Manual) Seg Neutrophils # Man Lymphocytes # (Manual) D-Dimer ABG pO2 ABG HCO3 ABG Base Excess ABG Hemoglobin Sodium Potassium Carbon Dioxide 20 L BUN 102 H Creatinine 8.2 H Glucose 177 H POC Glucose 153 H 186 H Lactic Acid Calcium 7.6 L Phosphorus Ferritin AST Alkaline Phosphatase Lactate Dehydrogenase C-Reactive Protein NT-Pro-B Natriuret Pep Albumin Urine WBC (Auto) Urine Creatinine Urine Total Protein Coronavirus (PCR) 04/18/20 04/18/20 04/19/20 17:16 23:10 08:13 WBC RBC Hgb Hct Plt Count Seg Neuts % (Manual) Lymphocytes % (Manual) Seg Neutrophils # Man Lymphocytes # (Manual) D-Dimer ABG pO2 ABG HCO3 ABG Base Excess ABG Hemoglobin Sodium Potassium Carbon Dioxide BUN Creatinine Glucose POC Glucose 189 H 330 H 183 H Lactic Acid Calcium Phosphorus Ferritin AST Alkaline Phosphatase Lactate Dehydrogenase C-Reactive Protein NT-Pro-B Natriuret Pep Albumin Urine WBC (Auto) Urine Creatinine Urine Total Protein Coronavirus (PCR) 04/19/20 12:19 WBC RBC Hgb Hct Plt Count Seg Neuts % (Manual) Lymphocytes % (Manual) Seg Neutrophils # Man Lymphocytes # (Manual) D-Dimer ABG pO2 ABG HCO3 ABG Base Excess ABG Hemoglobin Sodium Potassium Carbon Dioxide BUN Creatinine Glucose POC Glucose 148 H Lactic Acid Calcium Phosphorus Ferritin AST Alkaline Phosphatase Lactate Dehydrogenase C-Reactive Protein NT-Pro-B Natriuret Pep Albumin Urine WBC (Auto) Urine Creatinine Urine Total Protein Coronavirus (PCR)
[2020-04-19 16:10] LABS: C-Reactive Protein 3.4 mg/dL (0.00-1.30)
[2020-04-19] MEDS: CEFEPIME/NS 1 GM/100 ML 1 GM/100 ML BAG IV SCH (17:58)
[2020-04-20 08:53] LABS: Myeloperoxidase Antibody <1.0 AI (<1.0)
--- NOTE | 2020-04-20 08:54 | Progress Note ---
Assessment and Plan Assessment and plan: Sepsis. Etiology secondary to bilateral pneumonia: Likely secondary to COVID-19 infection and Enterobacter bacteremia. Continue cefepime per ID recommendation. Follow-up repeat blood cultures. Enterobacter bacteremia: Unclear source ?UTI. Urinalysis consistent with UTI. Urine culture no growth, obtained 2 days after antibiotics. COVID-19 infection. D-dimer significantly elevated at >10K, ferritin elevated. Repeat D-dimer and ferritin improving. Continue IV/p.o. dexamethasone 6 mg daily for total of 10 days. Patient not a candidate for remdesivir due to renal failure. Acute hypoxic respiratory failure: Remains on high flow nasal cannula today (high flow nasal cannula 6 L). Acute renal failure: Renally dose antibiotics. Worsening. Started on hemodialysis per nephrology. Elevated LFTs: Continue to monitor. 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 04/18/2020. Follow-up renal ultrasound which has been ordered. JENY, ANCA, GMB Ab, Complements and SPEP pending. Hemodialysis initiated for acute kidney injury on 04/14/2020. Continue anticoagulation and follow-up inflammatory markers. Leukocytosis likely secondary to steroids. Patient's prognosis remains guarded given the renal failure and COVID-19 infection 04/19/2020. Continue dexamethasone (7/10 dose). Continue Eliquis for anticoagulation. Continue IV antibiotics of cefepime and trend inflammatory markers. Follow-up JENY, ANCA, C3, C4, anti-GBM and SPEP per nephrology. Await renal ultrasound and consider echocardiogram. 04/20/2020. Continue dexamethasone (8/10 dose). Continue Eliquis for anticoagulation. Continue IV antibiotics of cefepime and trend inflammatory markers. Follow-up JENY, ANCA, C3, C4, anti-GBM and SPEP per nephrology. Await renal ultrasound and consider echocardiogram. Patient currently with 2 L of oxygen satting 99%. Check exercise pulse oximetry. Patient not a candidate for remdesivir given renal failure. History Interval history: No new issues overnight Hospitalist Physical - Constitutional Vitals: Temp Pulse Resp BP Pulse Ox 98.2 F 57 L 16 144/73 93 04/20/20 05:58 04/20/20 05:58 04/20/20 05:58 04/20/20 05:58 04/20/20 05:58 General appearance: Present: no acute distress, well-nourished - EENT Eyes: Present: PERRL, EOM intact ENT: hearing intact, clear oral mucosa, dentition normal - Neck Neck: Present: supple, normal ROM - Respiratory Respiratory effort: normal Respiratory: bilateral: CTA - Cardiovascular Rhythm: regular Heart Sounds: Present: S1 & S2. Absent: gallop, rub - Extremities Extremities: no ischemia, No edema, Full ROM - Abdominal General gastrointestinal: soft, non-tender, non-distended, normal bowel sounds - Integumentary Integumentary: Present: clear, warm, dry - Neurologic Neurologic: CNII-XII intact, moves all extremities HEART Score - HEART Score Troponin: Troponin T 0.012 ng/mL (0.00-0.029) 04/12/20 04:51 Results - Labs CBC & Chem 7: 04/18/20 05:56 04/19/20 15:36 Labs: Laboratory Last Values WBC 18.5 K/mm3 (4.5-11.0) H 04/18/20 05:56 RBC 3.79 M/mm3 (3.65-5.03) 04/18/20 05:56 Hgb 11.5 gm/dl (11.8-15.2) L 04/18/20 05:56 Hct 34.2 % (35.5-45.6) L 04/18/20 05:56 MCV 90 fl (84-94) 04/18/20 05:56 MCH 30 pg (28-32) 04/18/20 05:56 MCHC 34 % (32-34) 04/18/20 05:56 RDW 14.3 % (13.2-15.2) 04/18/20 05:56 Plt Count 83 K/mm3 (140-440) L 04/18/20 05:56 Add Manual Diff Complete 04/18/20 05:56 Total Counted 100 04/18/20 05:56 Seg Neutrophils % Tutor 04/18/20 05:56 Seg Neuts % (Manual) 93.0 % (40.0-70.0) H 04/18/20 05:56 Band Neutrophils % 0 % 04/18/20 05:56 Lymphocytes % (Manual) 4.0 % (13.4-35.0) L 04/18/20 05:56 Reactive Lymphs % (Man) 0 % 04/18/20 05:56 Monocytes % (Manual) 3.0 % (0.0-7.3) 04/18/20 05:56 Eosinophils % (Manual) 0 % (0.0-4.3) 04/18/20 05:56 Basophils % (Manual) 0 % (0.0-1.8) 04/18/20 05:56 Metamyelocytes % 0 % 04/18/20 05:56 Myelocytes % 0 % 04/18/20 05:56 Promyelocytes % 0 % 04/18/20 05:56 Blast Cells % 0 % 04/18/20 05:56 Nucleated RBC % Not Reportable 04/18/20 05:56 Seg Neutrophils # Man 17.2 K/mm3 (1.8-7.7) H 04/18/20 05:56 Band Neutrophils # 0.0 K/mm3 04/18/20 05:56 Lymphocytes # (Manual) 0.7 K/mm3 (1.2-5.4) L 04/18/20 05:56 Abs React Lymphs (Man) 0.0 K/mm3 04/18/20 05:56 Monocytes # (Manual) 0.6 K/mm3 (0.0-0.8) 04/18/20 05:56 Eosinophils # (Manual) 0.0 K/mm3 (0.0-0.4) 04/18/20 05:56 Basophils # (Manual) 0.0 K/mm3 (0.0-0.1) 04/18/20 05:56 Metamyelocytes # 0.0 K/mm3 04/18/20 05:56 Myelocytes # 0.0 K/mm3 04/18/20 05:56 Promyelocytes # 0.0 K/mm3 04/18/20 05:56 Blast Cells # 0.0 K/mm3 04/18/20 05:56 WBC Morphology Not Reportable 04/18/20 05:56 Hypersegmented Neuts Not Reportable 04/18/20 05:56 Hyposegmented Neuts Not Reportable 04/18/20 05:56 Hypogranular Neuts Not Reportable 04/18/20 05:56 Smudge Cells Not Reportable 04/18/20 05:56 Toxic Granulation Not Reportable 04/18/20 05:56 Toxic Vacuolation Not Reportable 04/18/20 05:56 Dohle Bodies Not Reportable 04/18/20 05:56 Pelger-Huet Anomaly Not Reportable 04/18/20 05:56 Matthew Rods Not Reportable 04/18/20 05:56 Platelet Estimate Consistent w auto 04/18/20 05:56 Clumped Platelets Not Reportable 04/18/20 05:56 Plt Clumps, EDTA Not Reportable 04/18/20 05:56 Large Platelets Not Reportable 04/18/20 05:56 Giant Platelets Not Reportable 04/18/20 05:56 Platelet Satelliting Not Reportable 04/18/20 05:56 Plt Morphology Comment Not Reportable 04/18/20 05:56 RBC Morphology Not Reportable 04/18/20 05:56 Dimorphic RBCs Not Reportable 04/18/20 05:56 Polychromasia Not Reportable 04/18/20 05:56 Hypochromasia Not Reportable 04/18/20 05:56 Poikilocytosis Not Reportable 04/18/20 05:56 Anisocytosis Not Reportable 04/18/20 05:56 Microcytosis Not Reportable 04/18/20 05:56 Macrocytosis Not Reportable 04/18/20 05:56 Spherocytes Not Reportable 04/18/20 05:56 Pappenheimer Bodies Not Reportable 04/18/20 05:56 Sickle Cells Not Reportable 04/18/20 05:56 Target Cells Not Reportable 04/18/20 05:56 Tear Drop Cells Not Reportable 04/18/20 05:56 Ovalocytes Not Reportable 04/18/20 05:56 Helmet Cells Not Reportable 04/18/20 05:56 [place] Bodies Not Reportable 04/18/20 05:56 [place] Rings Not Reportable 04/18/20 05:56 Nam Cells Not Reportable 04/18/20 05:56 Bite Cells Not Reportable 04/18/20 05:56 Crenated Cell Not Reportable 04/18/20 05:56 Elliptocytes Not Reportable 04/18/20 05:56 Acanthocytes (Spur) Not Reportable 04/18/20 05:56 Rouleaux Not Reportable 04/18/20 05:56 Hemoglobin C Crystals Not Reportable 04/18/20 05:56 Schistocytes Not Reportable 04/18/20 05:56 Malaria parasites Not Reportable 04/18/20 05:56 Dandre Bodies Not Reportable 04/18/20 05:56 Hem Pathologist Commnt No 04/18/20 05:56 D-Dimer 4117.34 ng/mlDDU (0-234) H 04/19/20 15:36 ABG pH 7.441 pH Units (7.350-7.450) 04/12/20 04:21 ABG pCO2 26.2 mm Hg 04/12/20 04:21 ABG pO2 135.7 mm Hg (80.0-90.0) H 04/12/20 04:21 ABG HCO3 15.4 mmol/L (20.0-26.0) L 04/12/20 04:21 ABG O2 Saturation 98.7 % (95.0-99.0) 04/12/20 04:21 ABG Base Excess -5.1 mmol/L (-2.0-3.0) L 04/12/20 04:21 ABG Hemoglobin 13.3 gm/dl (14.0-18.0) L 04/12/20 04:21 ABG Carboxyhemoglobin 1.2 % (0.0-5.0) 04/12/20 04:21 ABG Methemoglobin 0.6 % (0.0-1.5) 04/12/20 04:21 Oxyhemoglobin 96.9 % (95.0-99.0) 04/12/20 04:21 FiO2 30.0 % 04/12/20 04:21 Sodium 137 mmol/L (137-145) 04/18/20 05:56 Potassium 3.8 mmol/L (3.6-5.0) 04/18/20 05:56 Chloride 99.1 mmol/L (98-107) 04/18/20 05:56 Carbon Dioxide 20 mmol/L (22-30) L 04/18/20 05:56 Anion Gap 22 mmol/L 04/18/20 05:56 BUN 102 mg/dL (9-20) H 04/18/20 05:56 Creatinine 8.2 mg/dL (0.8-1.3) H 04/18/20 05:56 Estimated GFR 8 ml/min 04/18/20 05:56 BUN/Creatinine Ratio 12 % 04/18/20 05:56 Glucose 164 mg/dL (75-100) H 04/19/20 15:36 POC Glucose 153 mg/dL (70-105) H 04/19/20 22:26 Lactic Acid 3.50 mmol/L (0.7-2.0) H* 04/12/20 10:20 Calcium 7.6 mg/dL (8.4-10.2) L 04/18/20 05:56 Phosphorus 3.00 mg/dL (2.5-4.5) 04/16/20 14:57 Magnesium 1.90 mg/dL (1.7-2.3) 04/13/20 13:51 Ferritin 1697.0 ng/mL (30.0-300.0) H 04/19/20 15:36 Total Bilirubin 0.60 mg/dL (0.1-1.2) 04/12/20 04:51 AST 69 units/L (5-40) H 04/12/20 04:51 ALT 51 units/L (7-56) 04/12/20 04:51 Alkaline Phosphatase 155 units/L (35-129) H 04/12/20 04:51 Lactate Dehydrogenase 336 units/L (91-180) H 04/19/20 15:36 Troponin T 0.012 ng/mL (0.00-0.029) 04/12/20 04:51 C-Reactive Protein 3.40 mg/dL (0.00-1.30) H 04/19/20 15:36 NT-Pro-B Natriuret Pep 2170 pg/mL (0-900) H 04/12/20 04:51 Total Protein 7.1 g/dL (6.3-8.2) 04/12/20 04:51 Albumin 3.7 g/dL (3.9-5) L 04/12/20 04:51 Albumin/Globulin Ratio 1.1 % 04/12/20 04:51 Procalcitonin 82.32 ng/mL (<0.15) 04/12/20 04:51 Urine Color Red (Yellow) 04/14/20 21:00 Urine Turbidity Turbid (Clear) 04/14/20 21:00 Urine pH 6.0 (5.0-7.0) 04/14/20 21:00 Ur Specific [place] 1.013 (1.003-1.030) 04/14/20 21:00 Urine Protein >500 mg/dL (Negative) 04/14/20 21:00 Urine Glucose (UA) 50 mg/dL (Negative) 04/14/20 21:00 Urine Ketones Neg mg/dL (Negative) 04/14/20 21:00 Urine Blood Lg (Negative) 04/14/20 21:00 Urine Nitrite Neg (Negative) 04/14/20 21:00 Urine Bilirubin Neg (Negative) 04/14/20 21:00 Urine Urobilinogen < 2.0 mg/dL (<2.0) 04/14/20 21:00 Ur Leukocyte Esterase Lg (Negative) 04/14/20 21:00 Urine WBC (Auto) > 182.0 /HPF (0.0-6.0) H 04/14/20 21:00 Urine RBC (Auto) > 182.0 /HPF (0.0-6.0) 04/14/20 21:00 U Epithel Cells (Auto) 3.0 /HPF (0-13.0) 04/14/20 21:00 Urine Bacteria (Auto) 2+ /HPF (Negative) 04/14/20 21:00 Urine WBC Clumps 3+ /HPF 04/14/20 21:00 Urine Mucus Few /HPF 04/14/20 21:00 Urine Yeast (Budding) 2+ /HPF 04/14/20 21:00 Urine Eosinophils None seen (None Seen) 04/15/20 01:35 Urine Creatinine 103.8 mg/dL (0.1-20.0) H 04/16/20 01:35 Protein/Creatinin Ratio 2.01 04/16/20 01:35 Urine Sodium 66 mmol/L 04/16/20 01:35 Urine Total Protein 209 mg/dL (5-11.8) H 04/16/20 01:35 Coronavirus (PCR) Positive (Negative) A 04/12/20 Unknown Hepatitis A IgM Ab Non-reactive (NonReactive) 04/14/20 16:50 Hep Bs Antigen Non-reactive (Negative) 04/14/20 16:50 Hep B Core IgM Ab Non-reactive (NonReactive) 04/14/20 16:50 Hepatitis C Antibody Non-reactive (NonReactive) 04/14/20 16:50 SARS-CoV-2 IgG Ab Nonreactive (NonReactive) 04/16/20 14:57 Microbiology: Microbiology 04/16/20 14:57 Peripheral/Venous Blood Culture - Preliminary NO GROWTH AFTER 72 HOURS 04/16/20 14:57 Peripheral/Venous Blood Culture - Preliminary NO GROWTH AFTER 72 HOURS Ha[facility]/IV: Voiding Method Toilet IV Catheter Type [Right VAS Cath Subclavian] IV Catheter Type [Right Peripheral IV Forearm] IV Catheter Type [Right Hand] Peripheral IV Active Medications - Current Medications Current Medications: Generic Name Dose Route Start Last Admin Trade Name Freq PRN Reason Stop Dose Admin Alprazolam 0.125 mg 04/12/20 07:53 04/16/20 22:02 Xanax PO 0.125 mg Q8H PRN Administration Anxiety Amlodipine Besylate 10 mg 04/17/20 15:00 04/19/20 10:16 Amlodipine PO Not Given QDAY JOSIANE Apixaban 5 mg 04/13/20 11:00 04/19/20 22:53 Eliquis PO 5 mg Q12HR JOSIANE Administration Protocol Dexamethasone 6 mg 04/13/20 10:00 04/19/20 10:08 Decadron IV 04/22/20 10:01 6 mg Q24H JOSIANE Administration Dextrose 50 ml 04/13/20 10:05 D50w (25gm) Syringe IV Q30MIN PRN Hypoglycemia Protocol Famotidine 20 mg 04/12/20 10:00 04/19/20 10:07 Pepcid PO 20 mg DAILY JOSIANE Administration Haloperidol Lactate 5 mg 04/13/20 10:42 Haldol IV Q6H PRN Agitation Cefepime HCl 1 gm in 100 mls @ 200 mls/hr 04/14/20 18:00 04/19/20 17:58 Cefepime/Ns 1 Gm/100 Ml IV 04/23/20 18:29 200 mls/hr Q24H JOSIANE Administration Protocol Sodium Chloride 100 mls @ 999 mls/hr 04/18/20 08:00 Nacl 0.9% IV SILVIA PRN Hypotension Insulin Human Lispro 0 unit 04/13/20 11:30 04/19/20 22:54 Humalog SUB-Q 1 unit ACHS JOSIANE Administration Protocol
[2020-04-20 09:21] LABS: Calcium 8.3 mg/dL (8.4-10.2)
[2020-04-20] MEDS: INSULIN LISPRO 100 UNIT/ML VIAL 3 mL SUB-Q SCH ×4 (09:36→22:29)
[2020-04-20] MEDS ORDERED: POTASSIUM CHLORIDE ER 20 MEQ TAB PO ONE ×2 (11:30→15:00)
--- NOTE | 2020-04-20 12:00 | Progress Note ---
Assessment and Plan 75 y/o male with acute respiratory failure, renal failure with lactic acidosis found to be COVID positive. Enterobacter bacteremia source unknown possible UTI. Currently on antibiotics 1. Steroids to continue for a total of 10 days. 2. Wean FiO2 for sats >88%. Now down to 2 liters. 3. Continue to follow ID recs. 4. Really needs echo but likely will not get given COVID 19 status 5. Continue antibiotics 6. Hope to discharge soon 7. Follow up any new renal recs other than HD. 8. Agree with anticoagulation Subjective Date of service: 04/20/20 Principal diagnosis: Sepsis present on admission Interval history: No new complaints Objective - Exam Narrative Exam: Physical Exam: reviewed ED and hospitalist notes, limited due to conservation of PPE and decrease risk of transmission. General appearance: limited due to conservation of PPE Eyes: limited due to conservation of PPE HENT: Atraumatic; limited due to conservation of PPE Lungs: limited due to conservation of PPE CV: limited due to conservation of PPE Abdomen: limited due to conservation of PPE Extremities: limited due to conservation of PPE Skin: limited due to conservation of PPE Psych: limited due to conservation of PPE Neuro: limited due to conservation of PPE Vital Signs - 12hr 04/20/20 04/20/20 04/20/20 00:00 00:17 00:22 Temperature 97.9 F Pulse Rate 55 L 69 Respiratory 16 Rate Blood Pressure 149/75 O2 Sat by Pulse 99 91 Oximetry 04/20/20 04/20/20 04:00 05:58 Temperature 98.2 F Pulse Rate 69 57 L Respiratory 16 Rate Blood Pressure 144/73 O2 Sat by Pulse 93 Oximetry Constitutional: no acute distress, alert ENT: oropharynx moist Ascultation: Bilateral: rhonchi Cardiovascular: regular rate and rhythm CBC and BMP: 04/18/20 05:56 04/20/20 08:03 ABG, PT/INR, D-dimer: ABG ABG pH 7.441 pH Units (7.350-7.450) 04/12/20 04:21 ABG pCO2 26.2 mm Hg 04/12/20 04:21 ABG pO2 135.7 mm Hg (80.0-90.0) H 04/12/20 04:21 ABG O2 Saturation 98.7 % (95.0-99.0) 04/12/20 04:21 PT/INR, D-dimer D-Dimer 4117.34 ng/mlDDU (0-234) H 04/19/20 15:36 Abnormal lab findings: Abnormal Labs 04/12/20 04/12/20 04/12/20 04:21 04:51 04:51 WBC RBC Hgb Hct Plt Count 110 L Seg Neuts % (Manual) 93.0 H Lymphocytes % (Manual) 3.0 L Seg Neutrophils # Man Lymphocytes # (Manual) 0.2 L D-Dimer ABG pO2 135.7 H ABG HCO3 15.4 L ABG Base Excess -5.1 L ABG Hemoglobin 13.3 L Sodium Potassium Carbon Dioxide BUN 48 H Creatinine 3.2 H Glucose 139 H POC Glucose Lactic Acid Calcium Phosphorus Ferritin AST 69 H Alkaline Phosphatase 155 H Lactate Dehydrogenase C-Reactive Protein NT-Pro-B Natriuret Pep Albumin 3.7 L Urine WBC (Auto) Urine Creatinine Urine Total Protein Coronavirus (PCR) 04/12/20 04/12/20 04/12/20 04:51 04:51 04:51 WBC RBC Hgb Hct Plt Count Seg Neuts % (Manual) Lymphocytes % (Manual) Seg Neutrophils # Man Lymphocytes # (Manual) D-Dimer > 12967 H ABG pO2 ABG HCO3 ABG Base Excess ABG Hemoglobin Sodium Potassium Carbon Dioxide BUN Creatinine Glucose 137 H POC Glucose Lactic Acid 3.80 H* Calcium Phosphorus Ferritin AST Alkaline Phosphatase Lactate Dehydrogenase 398 H C-Reactive Protein 6.30 H NT-Pro-B Natriuret Pep 2170 H Albumin Urine WBC (Auto) Urine Creatinine Urine Total Protein Coronavirus (PCR) 04/12/20 04/12/20 04/12/20 04:51 10:20 Unknown WBC RBC Hgb Hct Plt Count Seg Neuts % (Manual) Lymphocytes % (Manual) Seg Neutrophils # Man Lymphocytes # (Manual) D-Dimer ABG pO2 ABG HCO3 ABG Base Excess ABG Hemoglobin Sodium Potassium Carbon Dioxide BUN Creatinine Glucose POC Glucose Lactic Acid 3.50 H* Calcium Phosphorus Ferritin 1523.0 H AST Alkaline Phosphatase Lactate Dehydrogenase C-Reactive Protein NT-Pro-B Natriuret Pep Albumin Urine WBC (Auto) Urine Creatinine Urine Total Protein Coronavirus (PCR) Positive A 04/13/20 04/13/20 04/13/20 07:38 11:35 13:51 WBC RBC Hgb Hct Plt Count Seg Neuts % (Manual) Lymphocytes % (Manual) Seg Neutrophils # Man Lymphocytes # (Manual) D-Dimer ABG pO2 ABG HCO3 ABG Base Excess ABG Hemoglobin Sodium 135 L Potassium 5.6 H D Carbon Dioxide 17 L BUN 76 H Creatinine 6.1 H D Glucose 150 H POC Glucose 160 H 133 H Lactic Acid Calcium Phosphorus 5.90 H Ferritin AST Alkaline Phosphatase Lactate Dehydrogenase C-Reactive Protein NT-Pro-B Natriuret Pep Albumin Urine WBC (Auto) Urine Creatinine Urine Total Protein Coronavirus (PCR) 04/13/20 04/13/20 04/14/20 16:57 22:13 07:44 WBC RBC Hgb Hct Plt Count Seg Neuts % (Manual) Lymphocytes % (Manual) Seg Neutrophils # Man Lymphocytes # (Manual) D-Dimer ABG pO2 ABG HCO3 ABG Base Excess ABG Hemoglobin Sodium 134 L Potassium 5.7 H Carbon Dioxide 18 L BUN 93 H Creatinine 7.5 H Glucose 116 H POC Glucose 142 H 165 H Lactic Acid Calcium Phosphorus Ferritin AST Alkaline Phosphatase Lactate Dehydrogenase C-Reactive Protein NT-Pro-B Natriuret Pep Albumin Urine WBC (Auto) Urine Creatinine Urine Total Protein Coronavirus (PCR) 04/14/20 04/14/20 04/14/20 08:08 13:51 17:20 WBC RBC Hgb Hct Plt Count Seg Neuts % (Manual) Lymphocytes % (Manual) Seg Neutrophils # Man Lymphocytes # (Manual) D-Dimer ABG pO2 ABG HCO3 ABG Base Excess ABG Hemoglobin Sodium Potassium Carbon Dioxide BUN Creatinine Glucose POC Glucose 123 H 174 H 169 H Lactic Acid Calcium Phosphorus Ferritin AST Alkaline Phosphatase Lactate Dehydrogenase C-Reactive Protein NT-Pro-B Natriuret Pep Albumin Urine WBC (Auto) Urine Creatinine Urine Total Protein Coronavirus (PCR) 04/14/20 04/14/20 04/15/20 21:00 22:00 05:04 WBC RBC Hgb Hct Plt Count Seg Neuts % (Manual) Lymphocytes % (Manual) Seg Neutrophils # Man Lymphocytes # (Manual) D-Dimer ABG pO2 ABG HCO3 ABG Base Excess ABG Hemoglobin Sodium Potassium Carbon Dioxide 20 L BUN 77 H Creatinine 6.9 H Glucose 161 H POC Glucose 182 H Lactic Acid Calcium 7.9 L Phosphorus Ferritin AST Alkaline Phosphatase Lactate Dehydrogenase C-Reactive Protein NT-Pro-B Natriuret Pep Albumin Urine WBC (Auto) > 182.0 H Urine Creatinine Urine Total Protein Coronavirus (PCR) 04/15/20 04/15/20 04/15/20 08:30 12:12 15:28 WBC RBC Hgb Hct Plt Count Seg Neuts % (Manual) Lymphocytes % (Manual) Seg Neutrophils # Man Lymphocytes # (Manual) D-Dimer ABG pO2 ABG HCO3 ABG Base Excess ABG Hemoglobin Sodium Potassium Carbon Dioxide BUN Creatinine Glucose POC Glucose 149 H 257 H 353 H Lactic Acid Calcium Phosphorus Ferritin AST Alkaline Phosphatase Lactate Dehydrogenase C-Reactive Protein NT-Pro-B Natriuret Pep Albumin Urine WBC (Auto) Urine Creatinine Urine Total Protein Coronavirus (PCR) 04/15/20 04/16/20 04/16/20 22:00 01:35 08:47 WBC RBC Hgb Hct Plt Count Seg Neuts % (Manual) Lymphocytes % (Manual) Seg Neutrophils # Man Lymphocytes # (Manual) D-Dimer ABG pO2 ABG HCO3 ABG Base Excess ABG Hemoglobin Sodium Potassium Carbon Dioxide BUN Creatinine Glucose POC Glucose 157 H 111 H Lactic Acid Calcium Phosphorus Ferritin AST Alkaline Phosphatase Lactate Dehydrogenase C-Reactive Protein NT-Pro-B Natriuret Pep Albumin Urine WBC (Auto) Urine Creatinine 103.8 H Urine Total Protein 209 H Coronavirus (PCR) 04/16/20 04/16/20 04/16/20 11:43 14:57 14:57 WBC RBC Hgb Hct Plt Count Seg Neuts % (Manual) Lymphocytes % (Manual) Seg Neutrophils # Man Lymphocytes # (Manual) D-Dimer 1573.49 H ABG pO2 ABG HCO3 ABG Base Excess ABG Hemoglobin Sodium Potassium 3.1 L D Carbon Dioxide BUN 47 H Creatinine 4.2 H Glucose 167 H POC Glucose 170 H Lactic Acid Calcium 7.7 L Phosphorus Ferritin AST Alkaline Phosphatase Lactate Dehydrogenase C-Reactive Protein NT-Pro-B Natriuret Pep Albumin Urine WBC (Auto) Urine Creatinine Urine Total Protein Coronavirus (PCR) 04/16/20 04/16/20 04/16/20 14:57 14:57 17:21 WBC RBC Hgb Hct Plt Count Seg Neuts % (Manual) Lymphocytes % (Manual) Seg Neutrophils # Man Lymphocytes # (Manual) D-Dimer ABG pO2 ABG HCO3 ABG Base Excess ABG Hemoglobin Sodium Potassium Carbon Dioxide BUN Creatinine Glucose POC Glucose 172 H Lactic Acid Calcium Phosphorus Ferritin 1137.0 H AST Alkaline Phosphatase Lactate Dehydrogenase 328 H C-Reactive Protein 6.60 H NT-Pro-B Natriuret Pep Albumin Urine WBC (Auto) Urine Creatinine Urine Total Protein Coronavirus (PCR) 04/16/20 04/17/20 04/17/20 22:04 07:53 08:14 WBC RBC Hgb Hct Plt Count Seg Neuts % (Manual) Lymphocytes % (Manual) Seg Neutrophils # Man Lymphocytes # (Manual) D-Dimer ABG pO2 ABG HCO3 ABG Base Excess ABG Hemoglobin Sodium Potassium Carbon Dioxide 20 L BUN 69 H Creatinine 6.7 H D Glucose 157 H POC Glucose 232 H 169 H Lactic Acid Calcium 7.0 L Phosphorus Ferritin AST Alkaline Phosphatase Lactate Dehydrogenase C-Reactive Protein NT-Pro-B Natriuret Pep Albumin Urine WBC (Auto) Urine Creatinine Urine Total Protein Coronavirus (PCR) 04/17/20 04/17/20 04/17/20 08:14 12:31 17:59 WBC 24.1 H 22.1 H RBC 3.44 L Hgb 10.3 L Hct 31.6 L Plt Count 59 L 74 L Seg Neuts % (Manual) 96.0 H Lymphocytes % (Manual) 2.0 L Seg Neutrophils # Man 23.1 H Lymphocytes # (Manual) 0.5 L D-Dimer ABG pO2 ABG HCO3 ABG Base Excess ABG Hemoglobin Sodium Potassium Carbon Dioxide BUN Creatinine Glucose POC Glucose 183 H Lactic Acid Calcium Phosphorus Ferritin AST Alkaline Phosphatase Lactate Dehydrogenase C-Reactive Protein NT-Pro-B Natriuret Pep Albumin Urine WBC (Auto) Urine Creatinine Urine Total Protein Coronavirus (PCR) 04/17/20 04/17/20 04/18/20 18:23 22:37 05:56 WBC 18.5 H RBC Hgb 11.5 L Hct 34.2 L Plt Count 83 L Seg Neuts % (Manual) 93.0 H Lymphocytes % (Manual) 4.0 L Seg Neutrophils # Man 17.2 H Lymphocytes # (Manual) 0.7 L D-Dimer ABG pO2 ABG HCO3 ABG Base Excess ABG Hemoglobin Sodium Potassium Carbon Dioxide BUN Creatinine Glucose POC Glucose 145 H 185 H Lactic Acid Calcium Phosphorus Ferritin AST Alkaline Phosphatase Lactate Dehydrogenase C-Reactive Protein NT-Pro-B Natriuret Pep Albumin Urine WBC (Auto) Urine Creatinine Urine Total Protein Coronavirus (PCR) 04/18/20 04/18/20 04/18/20 05:56 08:19 13:10 WBC RBC Hgb Hct Plt Count Seg Neuts % (Manual) Lymphocytes % (Manual) Seg Neutrophils # Man Lymphocytes # (Manual) D-Dimer ABG pO2 ABG HCO3 ABG Base Excess ABG Hemoglobin Sodium Potassium Carbon Dioxide 20 L BUN 102 H Creatinine 8.2 H Glucose 177 H POC Glucose 153 H 186 H Lactic Acid Calcium 7.6 L Phosphorus Ferritin AST Alkaline Phosphatase Lactate Dehydrogenase C-Reactive Protein NT-Pro-B Natriuret Pep Albumin Urine WBC (Auto) Urine Creatinine Urine Total Protein Coronavirus (PCR) 04/18/20 04/18/20 04/19/20 17:16 23:10 08:13 WBC RBC Hgb Hct Plt Count Seg Neuts % (Manual) Lymphocytes % (Manual) Seg Neutrophils # Man Lymphocytes # (Manual) D-Dimer ABG pO2 ABG HCO3 ABG Base Excess ABG Hemoglobin Sodium Potassium Carbon Dioxide BUN Creatinine Glucose POC Glucose 189 H 330 H 183 H Lactic Acid Calcium Phosphorus Ferritin AST Alkaline Phosphatase Lactate Dehydrogenase C-Reactive Protein NT-Pro-B Natriuret Pep Albumin Urine WBC (Auto) Urine Creatinine Urine Total Protein Coronavirus (PCR) 04/19/20 04/19/20 04/19/20 12:19 15:36 15:36 WBC RBC Hgb Hct Plt Count Seg Neuts % (Manual) Lymphocytes % (Manual) Seg Neutrophils # Man Lymphocytes # (Manual) D-Dimer 4117.34 H ABG pO2 ABG HCO3 ABG Base Excess ABG Hemoglobin Sodium Potassium Carbon Dioxide BUN Creatinine Glucose 164 H POC Glucose 148 H Lactic Acid Calcium Phosphorus Ferritin AST Alkaline Phosphatase Lactate Dehydrogenase 336 H C-Reactive Protein 3.40 H NT-Pro-B Natriuret Pep Albumin Urine WBC (Auto) Urine Creatinine Urine Total Protein Coronavirus (PCR) 04/19/20 04/19/20 04/19/20 15:36 16:02 22:26 WBC RBC Hgb Hct Plt Count Seg Neuts % (Manual) Lymphocytes % (Manual) Seg Neutrophils # Man Lymphocytes # (Manual) D-Dimer ABG pO2 ABG HCO3 ABG Base Excess ABG Hemoglobin Sodium Potassium Carbon Dioxide BUN Creatinine Glucose POC Glucose 158 H 153 H Lactic Acid Calcium Phosphorus Ferritin 1697.0 H AST Alkaline Phosphatase Lactate Dehydrogenase C-Reactive Protein NT-Pro-B Natriuret Pep Albumin Urine WBC (Auto) Urine Creatinine Urine Total Protein Coronavirus (PCR) 04/20/20 08:03 WBC RBC Hgb Hct Plt Count Seg Neuts % (Manual) Lymphocytes % (Manual) Seg Neutrophils # Man Lymphocytes # (Manual) D-Dimer ABG pO2 ABG HCO3 ABG Base Excess ABG Hemoglobin Sodium Potassium 3.4 L Carbon Dioxide BUN 69 H Creatinine 3.9 H D Glucose 105 H POC Glucose Lactic Acid Calcium 8.3 L Phosphorus Ferritin AST Alkaline Phosphatase Lactate Dehydrogenase C-Reactive Protein NT-Pro-B Natriuret Pep Albumin Urine WBC (Auto) Urine Creatinine Urine Total Protein Coronavirus (PCR)
--- NOTE | 2020-04-20 13:29 | Ultrasound Report ---
US renal BILAT INDICATION / CLINICAL INFORMATION: renal failure. COMPARISON: None available. FINDINGS: RIGHT KIDNEY: Size = 12.6 cm. - Echogenicity: Normal. - Cortical thickness: Normal. - Hydronephrosis: Moderate. - Cyst or mass: None. - Stones: None seen.. LEFT KIDNEY: Size = 9.7 cm. - Echogenicity: Normal. - Cortical thickness: Normal. - Hydronephrosis: Moderate. - Cyst or mass: None. - Stones: None seen.. URINARY BLADDER: No significant abnormality. FREE FLUID: None. ADDITIONAL FINDINGS: None. IMPRESSION 1. Moderate bilateral hydronephrosis. Signer Name: Pa Ghosh MD Signed: 04/20/2020 1:24 PM Workstation Name: [id number]
[2020-04-20] MEDS: dexAMETHasone 4 MG/ML VIAL IV SCH (13:50)
[2020-04-20] MEDS: APIXABAN 5 MG TAB PO SCH ×2 (13:51→22:21)
[2020-04-20] MEDS: FAMOTIDINE 20 MG TAB PO SCH (13:51)
[2020-04-20] MEDS: amLODIPine 10 MG TAB PO SCH (13:53)
--- NOTE | 2020-04-20 18:00 | Progress Note ---
Assessment and Plan 1. Acute kidney injury: Acute kidney injury in the setting of COVID infection and vasomotor insult. Renal US ordered, I called the battery technician 04/17 to do the US. JENY, ANCA, GBM Ab, Complements and SPEP pending. Monitor renal function. UOP is low. Renal prognosis is guarded. Avoid nephrotoxic agents. Meds dosage based on GFR. Monitor for [employer] needs. Patient required hemodialysis due to worsening renal function and associated hyperkalemia and metabolic acidosis. D/w patient and his daughter (04/14) about the indications, benefits, risks and alternatives involved in hemodialysis. Both voiced understanding and gave urbano bal consent. Hemodialysis: 04/14, 04/16, 04/18. 2. FEN: Hyperkalemia, improved with HD, monitor. Metabolic acidosis, monitor. Monitor lytes. 3. Acute hypoxic resp failure: Likely secondary to COVID-19 infection. Currently on NC O2. Followed by Pulmonary. 4. Severe COVID-19 pneumonia. Followed by ID. 5. Sepsis: Likely secondary to COVID-19 infection and Enterobacter bacteremia. 6. Enterobacter bacteremia: Unclear source ?UTI. Urinalysis consistent with UTI. Followed by ID. 7. DM type 2: Accuchecks. 8. H/o hypertension: Monitor BP. 9. Acute metabolic encephalopathy. Subjective: The patient was not examined today. However the examination findings from other providers noted. The current and previous medical records are reviewed in detail as are laboratory and imaging data reviewed when appropriate. Medications being given are also reviewed. In addition the case has been discussed with the attending hospitalist and the nurse when needed.Newrenalrecommendations as above. General Appearance: Subjective Date of service: 04/20/20 Principal diagnosis: Sepsis present on admission Objective - Vital Signs Vital signs: Vital Signs - 12hr 04/20/20 04/20/20 12:55 13:53 Temperature 98.5 F Pulse Rate 65 65 Respiratory 20 Rate Blood Pressure 141/73 141/73 O2 Sat by Pulse 94 Oximetry - Lab 04/18/20 05:56 04/20/20 08:03 Most recent lab results ABG pH 7.441 pH Units (7.350-7.450) 04/12/20 04:21 ABG pCO2 26.2 mm Hg 04/12/20 04:21 ABG pO2 135.7 mm Hg (80.0-90.0) H 04/12/20 04:21 ABG HCO3 15.4 mmol/L (20.0-26.0) L 04/12/20 04:21 ABG O2 Saturation 98.7 % (95.0-99.0) 04/12/20 04:21 Calcium 8.3 mg/dL (8.4-10.2) L 04/20/20 08:03 Phosphorus 3.00 mg/dL (2.5-4.5) 04/16/20 14:57 Magnesium 1.90 mg/dL (1.7-2.3) 04/13/20 13:51 Urine Creatinine 103.8 mg/dL (0.1-20.0) H 04/16/20 01:35 Urine Sodium 66 mmol/L 04/16/20 01:35 Urine Total Protein 209 mg/dL (5-11.8) H 04/16/20 01:35 Medications & Allergies - Medications Allergies/Adverse Reactions: Allergies No Known Allergies Allergy (Verified 04/12/20 04:28) Home Medications: Home Medications Medication Instructions Recorded Confirmed Last Taken Type AtorvaSTATin [Lipitor] 20 mg PO QHS 04/12/20 04/12/[address] [Aki Hernández] 75 mg PO BID 04/12/20 04/12/20 Unknown History Insulin Aspart Prot/Aspart(Nf) 10 units SUB-Q BID 04/12/20 04/12/20 Unknown History [NovoLOG Mix 70/30 VIAL] Losartan/Hydrochlorothiazide 100 mg PO QDAY 04/12/20 04/12/20 Unknown History [Losartan-Hctz 100-25 mg Tab] Metoprolol [Lopressor] 25 mg PO BID 04/12/20 04/12/20 Unknown History Pioglitazone [Actos] 15 mg PO QDAY 04/12/20 04/12/20 Unknown History amLODIPine [Norvasc] 5 mg PO DAILY 04/12/20 04/12/20 Unknown History Cholecalciferol (Vitamin D3) 5,000 unit PO QDAY 04/13/20 04/13/20 Unknown History [Vitamin D3 5,000 UNIT] Metoprolol [Lopressor] 25 mg PO BID 04/13/20 04/13/20 Unknown History glipiZIDE [Glucotrol] 10 mg PO QDAY 04/13/20 04/13/20 Unknown History traMADoL [Ultram] 50 mg PO Q6HR PRN 04/13/20 04/13/20 Unknown History Active Medications: Generic Name Dose Route Start Last Admin Trade Name Konrad PRN Reason Stop Dose Admin Alprazolam 0.125 mg 04/12/20 07:53 04/16/20 22:02 Xanax PO 0.125 mg Q8H PRN Administration Anxiety Amlodipine Besylate 10 mg 04/17/20 15:00 04/20/20 13:53 Amlodipine PO 10 mg QDAY JOSIANE Administration Apixaban 5 mg 04/13/20 11:00 04/20/20 13:51 Eliquis PO 5 mg Q12HR JOSIANE Administration Protocol Dexamethasone 6 mg 04/13/20 10:00 04/20/20 13:50 Decadron IV 04/22/20 10:01 6 mg Q24H JOSIANE Administration Dextrose 50 ml 04/13/20 10:05 D50w (25gm) Syringe IV Q30MIN PRN Hypoglycemia Protocol Famotidine 20 mg 04/12/20 10:00 04/20/20 13:51 Pepcid PO 20 mg DAILY JOSIANE Administration Haloperidol Lactate 5 mg 04/13/20 10:42 Haldol IV Q6H PRN Agitation Cefepime HCl 1 gm in 100 mls @ 200 mls/hr 04/14/20 18:00 04/19/20 17:58 Cefepime/Ns 1 Gm/100 Ml IV 04/23/20 18:29 200 mls/hr Q24H JOSIANE Administration Protocol Sodium Chloride 100 mls @ 999 mls/hr 04/18/20 08:00 Nacl 0.9% IV SILVIA PRN Hypotension Insulin Human Lispro 0 unit 04/13/20 11:30 04/20/20 14:07 Humalog SUB-Q Not Given ACHS JOSIANE Protocol
[2020-04-20] MEDS: CEFEPIME/NS 1 GM/100 ML 1 GM/100 ML BAG IV SCH (18:08)
[2020-04-20] MEDS: ALPRAZolam 0.25 MG TAB PO PRN (22:20)
[2020-04-21 08:22] LABS: Albumin 2.9 g/dL (3.8-4.8); Gamma Globulin 1.1 g/dL (0.8-1.7)
[2020-04-21] MEDS: INSULIN LISPRO 100 UNIT/ML VIAL 3 mL SUB-Q SCH ×3 (08:54→17:57)
[2020-04-21] MEDS ORDERED: SODIUM CHLORIDE 0.9% 100 ML IV PRN (09:00)
[2020-04-21] MEDS: amLODIPine 10 MG TAB PO SCH (10:00)
[2020-04-21] MEDS: APIXABAN 5 MG TAB PO SCH (10:00)
[2020-04-21] MEDS: FAMOTIDINE 20 MG TAB PO SCH (10:00)
[2020-04-21] MEDS: dexAMETHasone 4 MG/ML VIAL IV SCH (10:05)
--- NOTE | 2020-04-21 10:19 | Progress Note ---
Assessment and Plan Assessment and plan: Sepsis. Etiology secondary to bilateral pneumonia: Likely secondary to COVID-19 infection and Enterobacter bacteremia. Continue cefepime per ID recommendation. Follow-up repeat blood cultures. Enterobacter bacteremia: Unclear source ?UTI. Urinalysis consistent with UTI. Urine culture no growth, obtained 2 days after antibiotics. COVID-19 infection. D-dimer significantly elevated at >10K, ferritin elevated. Repeat D-dimer and ferritin improving. Continue IV/p.o. dexamethasone 6 mg daily for total of 10 days. Patient not a candidate for remdesivir due to renal failure. Acute hypoxic respiratory failure: Remains on high flow nasal cannula today (high flow nasal cannula 6 L). Acute renal failure: Renally dose antibiotics. Worsening. Started on hemodialysis per nephrology. Elevated LFTs: Continue to monitor. 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 04/18/2020. Follow-up renal ultrasound which has been ordered. JENY, ANCA, GMB Ab, Complements and SPEP pending. Hemodialysis initiated for acute kidney injury on 04/14/2020. Continue anticoagulation and follow-up inflammatory markers. Leukocytosis likely secondary to steroids. Patient's prognosis remains guarded given the renal failure and COVID-19 infection 04/19/2020. Continue dexamethasone (7/10 dose). Continue Eliquis for anticoagulation. Continue IV antibiotics of cefepime and trend inflammatory markers. Follow-up JENY, ANCA, C3, C4, anti-GBM and SPEP per nephrology. Await renal ultrasound and consider echocardiogram. 04/20/2020. Continue dexamethasone (8/10 dose). Continue Eliquis for anticoagulation. Continue IV antibiotics of cefepime and trend inflammatory markers. Follow-up JENY, ANCA, C3, C4, anti-GBM and SPEP per nephrology. Await renal ultrasound and consider echocardiogram. Patient currently with 2 L of oxygen satting 99%. Check exercise pulse oximetry. Patient not a candidate for remdesivir given renal failure. 04/21/2020. Continue dexamethasone (9/10 dose). Continue Eliquis for anticoagulation. Continue IV antibiotics of cefepime and trend inflammatory markers. Patient required hemodialysis that was initiated on 04/14 due to worsening renal function and associated hyperkalemia and metabolic acidosis. Follow-up JENY, ANCA, C3, C4, anti-GBM and SPEP per nephrology. Await renal ultrasound and consider echocardiogram. Await nephrology recommendations regarding continued hemodialysis. History Interval history: No new issues overnight Hospitalist Physical - Constitutional Vitals: Temp Pulse Resp BP Pulse Ox 98.1 F 56 L 17 148/66 95 04/21/20 06:07 04/21/20 10:00 04/21/20 06:07 04/21/20 10:00 04/21/20 06:07 General appearance: Present: no acute distress, well-nourished - EENT Eyes: Present: PERRL, EOM intact ENT: hearing intact, clear oral mucosa, dentition normal - Neck Neck: Present: supple, normal ROM - Respiratory Respiratory effort: normal Respiratory: bilateral: CTA - Cardiovascular Rhythm: regular Heart Sounds: Present: S1 & S2. Absent: gallop, rub - Extremities Extremities: no ischemia, No edema, Full ROM - Abdominal General gastrointestinal: soft, non-tender, non-distended, normal bowel sounds - Integumentary Integumentary: Present: clear, warm, dry - Neurologic Neurologic: CNII-XII intact, moves all extremities HEART Score - HEART Score Troponin: Troponin T 0.012 ng/mL (0.00-0.029) 04/12/20 04:51 Results - Labs CBC & Chem 7: 04/18/20 05:56 04/20/20 08:03 Labs: Laboratory Last Values WBC 18.5 K/mm3 (4.5-11.0) H 04/18/20 05:56 RBC 3.79 M/mm3 (3.65-5.03) 04/18/20 05:56 Hgb 11.5 gm/dl (11.8-15.2) L 04/18/20 05:56 Hct 34.2 % (35.5-45.6) L 04/18/20 05:56 MCV 90 fl (84-94) 04/18/20 05:56 MCH 30 pg (28-32) 04/18/20 05:56 MCHC 34 % (32-34) 04/18/20 05:56 RDW 14.3 % (13.2-15.2) 04/18/20 05:56 Plt Count 83 K/mm3 (140-440) L 04/18/20 05:56 Add Manual Diff Complete 04/18/20 05:56 Total Counted 100 04/18/20 05:56 Seg Neutrophils % Warping Machine Operator 04/18/20 05:56 Seg Neuts % (Manual) 93.0 % (40.0-70.0) H 04/18/20 05:56 Band Neutrophils % 0 % 04/18/20 05:56 Lymphocytes % (Manual) 4.0 % (13.4-35.0) L 04/18/20 05:56 Reactive Lymphs % (Man) 0 % 04/18/20 05:56 Monocytes % (Manual) 3.0 % (0.0-7.3) 04/18/20 05:56 Eosinophils % (Manual) 0 % (0.0-4.3) 04/18/20 05:56 Basophils % (Manual) 0 % (0.0-1.8) 04/18/20 05:56 Metamyelocytes % 0 % 04/18/20 05:56 Myelocytes % 0 % 04/18/20 05:56 Promyelocytes % 0 % 04/18/20 05:56 Blast Cells % 0 % 04/18/20 05:56 Nucleated RBC % Not Reportable 04/18/20 05:56 Seg Neutrophils # Man 17.2 K/mm3 (1.8-7.7) H 04/18/20 05:56 Band Neutrophils # 0.0 K/mm3 04/18/20 05:56 Lymphocytes # (Manual) 0.7 K/mm3 (1.2-5.4) L 04/18/20 05:56 Abs React Lymphs (Man) 0.0 K/mm3 04/18/20 05:56 Monocytes # (Manual) 0.6 K/mm3 (0.0-0.8) 04/18/20 05:56 Eosinophils # (Manual) 0.0 K/mm3 (0.0-0.4) 04/18/20 05:56 Basophils # (Manual) 0.0 K/mm3 (0.0-0.1) 04/18/20 05:56 Metamyelocytes # 0.0 K/mm3 04/18/20 05:56 Myelocytes # 0.0 K/mm3 04/18/20 05:56 Promyelocytes # 0.0 K/mm3 04/18/20 05:56 Blast Cells # 0.0 K/mm3 04/18/20 05:56 WBC Morphology Not Reportable 04/18/20 05:56 Hypersegmented Neuts Not Reportable 04/18/20 05:56 Hyposegmented Neuts Not Reportable 04/18/20 05:56 Hypogranular Neuts Not Reportable 04/18/20 05:56 Smudge Cells Not Reportable 04/18/20 05:56 Toxic Granulation Not Reportable 04/18/20 05:56 Toxic Vacuolation Not Reportable 04/18/20 05:56 Dohle Bodies Not Reportable 04/18/20 05:56 Pelger-Huet Anomaly Not Reportable 04/18/20 05:56 Matthew Rods Not Reportable 04/18/20 05:56 Platelet Estimate Consistent w auto 04/18/20 05:56 Clumped Platelets Not Reportable 04/18/20 05:56 Plt Clumps, EDTA Not Reportable 04/18/20 05:56 Large Platelets Not Reportable 04/18/20 05:56 Giant Platelets Not Reportable 04/18/20 05:56 Platelet Satelliting Not Reportable 04/18/20 05:56 Plt Morphology Comment Not Reportable 04/18/20 05:56 RBC Morphology Not Reportable 04/18/20 05:56 Dimorphic RBCs Not Reportable 04/18/20 05:56 Polychromasia Not Reportable 04/18/20 05:56 Hypochromasia Not Reportable 04/18/20 05:56 Poikilocytosis Not Reportable 04/18/20 05:56 Anisocytosis Not Reportable 04/18/20 05:56 Microcytosis Not Reportable 04/18/20 05:56 Macrocytosis Not Reportable 04/18/20 05:56 Spherocytes Not Reportable 04/18/20 05:56 Pappenheimer Bodies Not Reportable 04/18/20 05:56 Sickle Cells Not Reportable 04/18/20 05:56 Target Cells Not Reportable 04/18/20 05:56 Tear Drop Cells Not Reportable 04/18/20 05:56 Ovalocytes Not Reportable 04/18/20 05:56 Helmet Cells Not Reportable 04/18/20 05:56 Lilly-Mor[place] Bodies Not Reportable 04/18/20 05:56 [place] Rings Not Reportable 04/18/20 05:56 [place] Cells Not Reportable 04/18/20 05:56 Bite Cells Not Reportable 04/18/20 05:56 Crenated Cell Not Reportable 04/18/20 05:56 Elliptocytes Not Reportable 04/18/20 05:56 Acanthocytes (Spur) Not Reportable 04/18/20 05:56 Rouleaux Not Reportable 04/18/20 05:56 Hemoglobin C Crystals Not Reportable 04/18/20 05:56 Schistocytes Not Reportable 04/18/20 05:56 Malaria parasites Not Reportable 04/18/20 05:56 Dandre Bodies Not Reportable 04/18/20 05:56 Hem Pathologist Commnt No 04/18/20 05:56 D-Dimer 4117.34 ng/mlDDU (0-234) H 04/19/20 15:36 ABG pH 7.441 pH Units (7.350-7.450) 04/12/20 04:21 ABG pCO2 26.2 mm Hg 04/12/20 04:21 ABG pO2 135.7 mm Hg (80.0-90.0) H 04/12/20 04:21 ABG HCO3 15.4 mmol/L (20.0-26.0) L 04/12/20 04:21 ABG O2 Saturation 98.7 % (95.0-99.0) 04/12/20 04:21 ABG Base Excess -5.1 mmol/L (-2.0-3.0) L 04/12/20 04:21 ABG Hemoglobin 13.3 gm/dl (14.0-18.0) L 04/12/20 04:21 ABG Carboxyhemoglobin 1.2 % (0.0-5.0) 04/12/20 04:21 ABG Methemoglobin 0.6 % (0.0-1.5) 04/12/20 04:21 Oxyhemoglobin 96.9 % (95.0-99.0) 04/12/20 04:21 FiO2 30.0 % 04/12/20 04:21 Sodium 143 mmol/L (137-145) 04/20/20 08:03 Potassium 3.4 mmol/L (3.6-5.0) L 04/20/20 08:03 Chloride 104.8 mmol/L (98-107) 04/20/20 08:03 Carbon Dioxide 28 mmol/L (22-30) D 04/20/20 08:03 Anion Gap 14 mmol/L 04/20/20 08:03 BUN 69 mg/dL (9-20) H 04/20/20 08:03 Creatinine 3.9 mg/dL (0.8-1.3) H D 04/20/20 08:03 Estimated GFR 18 ml/min 04/20/20 08:03 BUN/Creatinine Ratio 18 % 04/20/20 08:03 Glucose 105 mg/dL (75-100) H 04/20/20 08:03 POC Glucose 169 mg/dL (70-105) H 04/21/20 08:11 Lactic Acid 3.50 mmol/L (0.7-2.0) H* 04/12/20 10:20 Calcium 8.3 mg/dL (8.4-10.2) L 04/20/20 08:03 Phosphorus 3.00 mg/dL (2.5-4.5) 04/16/20 14:57 Magnesium 1.90 mg/dL (1.7-2.3) 04/13/20 13:51 Ferritin 1697.0 ng/mL (30.0-300.0) H 04/19/20 15:36 Total Bilirubin 0.60 mg/dL (0.1-1.2) 04/12/20 04:51 AST 69 units/L (5-40) H 04/12/20 04:51 ALT 51 units/L (7-56) 04/12/20 04:51 Alkaline Phosphatase 155 units/L (35-129) H 04/12/20 04:51 Lactate Dehydrogenase 336 units/L (91-180) H 04/19/20 15:36 Troponin T 0.012 ng/mL (0.00-0.029) 04/12/20 04:51 C-Reactive Protein 3.40 mg/dL (0.00-1.30) H 04/19/20 15:36 NT-Pro-B Natriuret Pep 2170 pg/mL (0-900) H 04/12/20 04:51 Serum Total Protein 6.0 g/dL (6.1-8.1) L 04/16/20 14:57 Total Protein 7.1 g/dL (6.3-8.2) 04/12/20 04:51 Albumin 2.9 g/dL (3.8-4.8) L 04/16/20 14:57 Albumin/Globulin Ratio 1.1 % 04/12/20 04:51 Lakcl-8-Asgjmwnqt 0.4 g/dL (0.2-0.3) H 04/16/20 14:57 Wiqsm-7-Oelcpbdhh 1.0 g/dL (0.5-0.9) H 04/16/20 14:57 Beta Globulins 0.4 g/dL (0.2-0.5) 04/16/20 14:57 Gamma Globulins 1.1 g/dL (0.8-1.7) 04/16/20 14:57 Abnorm Protein Band 1 see below 04/16/20 14:57 PEP Interpretation see below H 04/16/20 14:57 Procalcitonin 82.32 ng/mL (<0.15) 04/12/20 04:51 Urine Color Red (Yellow) 04/14/20 21:00 Urine Turbidity Turbid (Clear) 04/14/20 21:00 Urine pH 6.0 (5.0-7.0) 04/14/20 21:00 Ur Specific Chancellor 1.013 (1.003-1.030) 04/14/20 21:00 Urine Protein >500 mg/dL (Negative) 04/14/20 21:00 Urine Glucose (UA) 50 mg/dL (Negative) 04/14/20 21:00 Urine Ketones Neg mg/dL (Negative) 04/14/20 21:00 Urine Blood Lg (Negative) 04/14/20 21:00 Urine Nitrite Neg (Negative) 04/14/20 21:00 Urine Bilirubin Neg (Negative) 04/14/20 21:00 Urine Urobilinogen < 2.0 mg/dL (<2.0) 04/14/20 21:00 Ur Leukocyte Esterase Lg (Negative) 04/14/20 21:00 Urine WBC (Auto) > 182.0 /HPF (0.0-6.0) H 04/14/20 21:00 Urine RBC (Auto) > 182.0 /HPF (0.0-6.0) 04/14/20 21:00 U Epithel Cells (Auto) 3.0 /HPF (0-13.0) 04/14/20 21:00 Urine Bacteria (Auto) 2+ /HPF (Negative) 04/14/20 21:00 Urine WBC Clumps 3+ /HPF 04/14/20 21:00 Urine Mucus Few /HPF 04/14/20 21:00 Urine Yeast (Budding) 2+ /HPF 04/14/20 21:00 Urine Eosinophils None seen (None Seen) 04/15/20 01:35 Urine Creatinine 103.8 mg/dL (0.1-20.0) H 04/16/20 01:35 Protein/Creatinin Ratio 2.01 04/16/20 01:35 Urine Sodium 66 mmol/L 04/16/20 01:35 Urine Total Protein 209 mg/dL (5-11.8) H 04/16/20 01:35 Proteinase 3 (PR3) Ab <1.0 AI (<1.0) 04/16/20 14:57 Myeloperoxidase Ab <1.0 AI (<1.0) 04/16/20 14:57 Coronavirus (PCR) Positive (Negative) A 04/12/20 Unknown Hepatitis A IgM Ab Non-reactive (NonReactive) 04/14/20 16:50 Hep Bs Antigen Non-reactive (Negative) 04/14/20 16:50 Hep B Core IgM Ab Non-reactive (NonReactive) 04/14/20 16:50 Hepatitis C Antibody Non-reactive (NonReactive) 04/14/20 16:50 SARS-CoV-2 IgG Ab Nonreactive (NonReactive) 04/16/20 14:57 Microbiology: Microbiology 04/16/20 14:57 Peripheral/Venous Blood Culture - Preliminary NO GROWTH AFTER 4 DAYS 04/16/20 14:57 Peripheral/Venous Blood Culture - Preliminary NO GROWTH AFTER 4 DAYS Haas/IV: Voiding Method Toilet IV Catheter Type [Right VAS Cath Subclavian] IV Catheter Type [Right Peripheral IV Forearm] IV Catheter Type [Right Hand] Peripheral IV Active Medications - Current Medications Current Medications: Generic Name Dose Route Start Last Admin Trade Name Freq PRN Reason Stop Dose Admin Alprazolam 0.125 mg 04/12/20 07:53 04/20/20 22:20 Xanax PO 0.125 mg Q8H PRN Administration Anxiety Amlodipine Besylate 10 mg 04/17/20 15:00 04/21/20 10:00 Amlodipine PO 10 mg QDAY JOSIANE Administration Apixaban 5 mg 04/13/20 11:00 04/21/20 10:00 Eliquis PO 5 mg Q12HR JOSIANE Administration Protocol Dexamethasone 6 mg 04/13/20 10:00 04/21/20 10:05 Decadron IV 04/22/20 10:01 6 mg Q24H JOSIANE Administration Dextrose 50 ml 04/13/20 10:05 D50w (25gm) Syringe IV Q30MIN PRN Hypoglycemia Protocol Famotidine 20 mg 04/12/20 10:00 04/21/20 10:00 Pepcid PO 20 mg DAILY JOSIANE Administration Haloperidol Lactate 5 mg 04/13/20 10:42 Haldol IV Q6H PRN Agitation Cefepime HCl 1 gm in 100 mls @ 200 mls/hr 04/14/20 18:00 04/20/20 18:08 Cefepime/Ns 1 Gm/100 Ml IV 04/23/20 18:29 200 mls/hr Q24H JOSIANE Administration Protocol Sodium Chloride 100 mls @ 999 mls/hr 04/21/20 09:00 Nacl 0.9% IV SILVIA PRN Hypotension Insulin Human Lispro 0 unit 04/13/20 11:30 04/21/20 08:54 Humalog SUB-Q 1 unit ACHS JOSIANE Administration Protocol
[2020-04-21 11:48] LABS: Calcium 8.8 mg/dL (8.4-10.2)
--- NOTE | 2020-04-21 12:05 | Progress Note ---
Assessment and Plan 75 y/o male with acute respiratory failure, renal failure with lactic acidosis found to be COVID positive. 1. Started dexamethasone 6mg IV, continue for a total of 10 days. 2. Wean FiO2 for sats >88%. Now down to 2 liters. Obtain walk test prior to discharge 3. Continue to follow ID recs. 4. Really needs echo but likely will not get given COVID 19 status 5. HD renal per renal 6. Agree with anticoagulation Guarded, guarded prognosis with renal failure and COVID. Subjective Date of service: 04/21/20 Principal diagnosis: Sepsis present on admission Interval history: No acute events. Remains on 2 liters NC Objective Vital Signs - 12hr 04/21/20 04/21/20 04/21/20 00:23 06:07 10:00 Temperature 98.4 F 98.1 F Pulse Rate 67 56 L 56 L Respiratory 16 17 Rate Blood Pressure 149/71 148/66 148/66 O2 Sat by Pulse 96 95 Oximetry Constitutional: no acute distress, alert ENT: oropharynx moist Ascultation: Bilateral: rhonchi Cardiovascular: regular rate and rhythm CBC and BMP: 04/18/20 05:56 04/21/20 10:59 ABG, PT/INR, D-dimer: ABG ABG pH 7.441 pH Units (7.350-7.450) 04/12/20 04:21 ABG pCO2 26.2 mm Hg 04/12/20 04:21 ABG pO2 135.7 mm Hg (80.0-90.0) H 04/12/20 04:21 ABG O2 Saturation 98.7 % (95.0-99.0) 04/12/20 04:21 PT/INR, D-dimer D-Dimer 4117.34 ng/mlDDU (0-234) H 04/19/20 15:36 Abnormal lab findings: Abnormal Labs 04/12/20 04/12/20 04/12/20 04:21 04:51 04:51 WBC RBC Hgb Hct Plt Count 110 L Seg Neuts % (Manual) 93.0 H Lymphocytes % (Manual) 3.0 L Seg Neutrophils # Man Lymphocytes # (Manual) 0.2 L D-Dimer ABG pO2 135.7 H ABG HCO3 15.4 L ABG Base Excess -5.1 L ABG Hemoglobin 13.3 L Sodium Potassium Carbon Dioxide BUN 48 H Creatinine 3.2 H Glucose 139 H POC Glucose Lactic Acid Calcium Phosphorus Ferritin AST 69 H Alkaline Phosphatase 155 H Lactate Dehydrogenase C-Reactive Protein NT-Pro-B Natriuret Pep Serum Total Protein Albumin 3.7 L Tzimc-3-Erjjufohk Niinr-2-Qdaooobjj PEP Interpretation Urine WBC (Auto) Urine Creatinine Urine Total Protein Coronavirus (PCR) 04/12/20 04/12/20 04/12/20 04:51 04:51 04:51 WBC RBC Hgb Hct Plt Count Seg Neuts % (Manual) Lymphocytes % (Manual) Seg Neutrophils # Man Lymphocytes # (Manual) D-Dimer > 75710 H ABG pO2 ABG HCO3 ABG Base Excess ABG Hemoglobin Sodium Potassium Carbon Dioxide BUN Creatinine Glucose 137 H POC Glucose Lactic Acid 3.80 H* Calcium Phosphorus Ferritin AST Alkaline Phosphatase Lactate Dehydrogenase 398 H C-Reactive Protein 6.30 H NT-Pro-B Natriuret Pep 2170 H Serum Total Protein Albumin Txdtm-6-Kckoxegfd Dxmml-1-Gejzsbpxg PEP Interpretation Urine WBC (Auto) Urine Creatinine Urine Total Protein Coronavirus (PCR) 04/12/20 04/12/20 04/12/20 04:51 10:20 Unknown WBC RBC Hgb Hct Plt Count Seg Neuts % (Manual) Lymphocytes % (Manual) Seg Neutrophils # Man Lymphocytes # (Manual) D-Dimer ABG pO2 ABG HCO3 ABG Base Excess ABG Hemoglobin Sodium Potassium Carbon Dioxide BUN Creatinine Glucose POC Glucose Lactic Acid 3.50 H* Calcium Phosphorus Ferritin 1523.0 H AST Alkaline Phosphatase Lactate Dehydrogenase C-Reactive Protein NT-Pro-B Natriuret Pep Serum Total Protein Albumin Bfjec-3-Tfvvawhkd Tfbuy-1-Igmdydxno PEP Interpretation Urine WBC (Auto) Urine Creatinine Urine Total Protein Coronavirus (PCR) Positive A 04/13/20 04/13/20 04/13/20 07:38 11:35 13:51 WBC RBC Hgb Hct Plt Count Seg Neuts % (Manual) Lymphocytes % (Manual) Seg Neutrophils # Man Lymphocytes # (Manual) D-Dimer ABG pO2 ABG HCO3 ABG Base Excess ABG Hemoglobin Sodium 135 L Potassium 5.6 H D Carbon Dioxide 17 L BUN 76 H Creatinine 6.1 H D Glucose 150 H POC Glucose 160 H 133 H Lactic Acid Calcium Phosphorus 5.90 H Ferritin AST Alkaline Phosphatase Lactate Dehydrogenase C-Reactive Protein NT-Pro-B Natriuret Pep Serum Total Protein Albumin Fhojj-1-Xnixcqugl Gpizz-8-Qgfaqekxn PEP Interpretation Urine WBC (Auto) Urine Creatinine Urine Total Protein Coronavirus (PCR) 04/13/20 04/13/20 04/14/20 16:57 22:13 07:44 WBC RBC Hgb Hct Plt Count Seg Neuts % (Manual) Lymphocytes % (Manual) Seg Neutrophils # Man Lymphocytes # (Manual) D-Dimer ABG pO2 ABG HCO3 ABG Base Excess ABG Hemoglobin Sodium 134 L Potassium 5.7 H Carbon Dioxide 18 L BUN 93 H Creatinine 7.5 H Glucose 116 H POC Glucose 142 H 165 H Lactic Acid Calcium Phosphorus Ferritin AST Alkaline Phosphatase Lactate Dehydrogenase C-Reactive Protein NT-Pro-B Natriuret Pep Serum Total Protein Albumin Mjcep-9-Zuqtflsxr Drifx-0-Cbfjwxhqs PEP Interpretation Urine WBC (Auto) Urine Creatinine Urine Total Protein Coronavirus (PCR) 04/14/20 04/14/20 04/14/20 08:08 13:51 17:20 WBC RBC Hgb Hct Plt Count Seg Neuts % (Manual) Lymphocytes % (Manual) Seg Neutrophils # Man Lymphocytes # (Manual) D-Dimer ABG pO2 ABG HCO3 ABG Base Excess ABG Hemoglobin Sodium Potassium Carbon Dioxide BUN Creatinine Glucose POC Glucose 123 H 174 H 169 H Lactic Acid Calcium Phosphorus Ferritin AST Alkaline Phosphatase Lactate Dehydrogenase C-Reactive Protein NT-Pro-B Natriuret Pep Serum Total Protein Albumin Royoe-7-Qjduzdzlw Anupv-4-Cnzlvhexp PEP Interpretation Urine WBC (Auto) Urine Creatinine Urine Total Protein Coronavirus (PCR) 04/14/20 04/14/20 04/15/20 21:00 22:00 05:04 WBC RBC Hgb Hct Plt Count Seg Neuts % (Manual) Lymphocytes % (Manual) Seg Neutrophils # Man Lymphocytes # (Manual) D-Dimer ABG pO2 ABG HCO3 ABG Base Excess ABG Hemoglobin Sodium Potassium Carbon Dioxide 20 L BUN 77 H Creatinine 6.9 H Glucose 161 H POC Glucose 182 H Lactic Acid Calcium 7.9 L Phosphorus Ferritin AST Alkaline Phosphatase Lactate Dehydrogenase C-Reactive Protein NT-Pro-B Natriuret Pep Serum Total Protein Albumin Aotxc-1-Zbqcoeuol Kgcof-1-Wzrnlzkti PEP Interpretation Urine WBC (Auto) > 182.0 H Urine Creatinine Urine Total Protein Coronavirus (PCR) 04/15/20 04/15/20 04/15/20 08:30 12:12 15:28 WBC RBC Hgb Hct Plt Count Seg Neuts % (Manual) Lymphocytes % (Manual) Seg Neutrophils # Man Lymphocytes # (Manual) D-Dimer ABG pO2 ABG HCO3 ABG Base Excess ABG Hemoglobin Sodium Potassium Carbon Dioxide BUN Creatinine Glucose POC Glucose 149 H 257 H 353 H Lactic Acid Calcium Phosphorus Ferritin AST Alkaline Phosphatase Lactate Dehydrogenase C-Reactive Protein NT-Pro-B Natriuret Pep Serum Total Protein Albumin Sxxdx-7-Pilycqhot Vkexg-8-Tahewsghp PEP Interpretation Urine WBC (Auto) Urine Creatinine Urine Total Protein Coronavirus (PCR) 04/15/20 04/16/20 04/16/20 22:00 01:35 08:47 WBC RBC Hgb Hct Plt Count Seg Neuts % (Manual) Lymphocytes % (Manual) Seg Neutrophils # Man Lymphocytes # (Manual) D-Dimer ABG pO2 ABG HCO3 ABG Base Excess ABG Hemoglobin Sodium Potassium Carbon Dioxide BUN Creatinine Glucose POC Glucose 157 H 111 H Lactic Acid Calcium Phosphorus Ferritin AST Alkaline Phosphatase Lactate Dehydrogenase C-Reactive Protein NT-Pro-B Natriuret Pep Serum Total Protein Albumin Vplva-6-Uxgiwbleq Rfgdw-2-Vgnlxnnsm PEP Interpretation Urine WBC (Auto) Urine Creatinine 103.8 H Urine Total Protein 209 H Coronavirus (PCR) 04/16/20 04/16/20 04/16/20 11:43 14:57 14:57 WBC RBC Hgb Hct Plt Count Seg Neuts % (Manual) Lymphocytes % (Manual) Seg Neutrophils # Man Lymphocytes # (Manual) D-Dimer ABG pO2 ABG HCO3 ABG Base Excess ABG Hemoglobin Sodium Potassium 3.1 L D Carbon Dioxide BUN 47 H Creatinine 4.2 H Glucose 167 H POC Glucose 170 H Lactic Acid Calcium 7.7 L Phosphorus Ferritin AST Alkaline Phosphatase Lactate Dehydrogenase C-Reactive Protein NT-Pro-B Natriuret Pep Serum Total Protein 6.0 L Albumin 2.9 L Ybvre-0-Qfxcspxpu 0.4 H Pgfrd-4-Btpzjyplt 1.0 H PEP Interpretation see below H Urine WBC (Auto) Urine Creatinine Urine Total Protein Coronavirus (PCR) 04/16/20 04/16/20 04/16/20 14:57 14:57 14:57 WBC RBC Hgb Hct Plt Count Seg Neuts % (Manual) Lymphocytes % (Manual) Seg Neutrophils # Man Lymphocytes # (Manual) D-Dimer 1573.49 H ABG pO2 ABG HCO3 ABG Base Excess ABG Hemoglobin Sodium Potassium Carbon Dioxide BUN Creatinine Glucose POC Glucose Lactic Acid Calcium Phosphorus Ferritin 1137.0 H AST Alkaline Phosphatase Lactate Dehydrogenase 328 H C-Reactive Protein 6.60 H NT-Pro-B Natriuret Pep Serum Total Protein Albumin Anyqa-5-Yldenwwan Zwtmv-8-Vqieynmbo PEP Interpretation Urine WBC (Auto) Urine Creatinine Urine Total Protein Coronavirus (PCR) 04/16/20 04/16/20 04/17/20 17:21 22:04 07:53 WBC RBC Hgb Hct Plt Count Seg Neuts % (Manual) Lymphocytes % (Manual) Seg Neutrophils # Man Lymphocytes # (Manual) D-Dimer ABG pO2 ABG HCO3 ABG Base Excess ABG Hemoglobin Sodium Potassium Carbon Dioxide BUN Creatinine Glucose POC Glucose 172 H 232 H 169 H Lactic Acid Calcium Phosphorus Ferritin AST Alkaline Phosphatase Lactate Dehydrogenase C-Reactive Protein NT-Pro-B Natriuret Pep Serum Total Protein Albumin Kdkem-5-Xltpsfckp Nlbhw-9-Cykhpymde PEP Interpretation Urine WBC (Auto) Urine Creatinine Urine Total Protein Coronavirus (PCR) 04/17/20 04/17/20 04/17/20 08:14 08:14 12:31 WBC 24.1 H RBC 3.44 L Hgb 10.3 L Hct 31.6 L Plt Count 59 L Seg Neuts % (Manual) 96.0 H Lymphocytes % (Manual) 2.0 L Seg Neutrophils # Man 23.1 H Lymphocytes # (Manual) 0.5 L D-Dimer ABG pO2 ABG HCO3 ABG Base Excess ABG Hemoglobin Sodium Potassium Carbon Dioxide 20 L BUN 69 H Creatinine 6.7 H D Glucose 157 H POC Glucose 183 H Lactic Acid Calcium 7.0 L Phosphorus Ferritin AST Alkaline Phosphatase Lactate Dehydrogenase C-Reactive Protein NT-Pro-B Natriuret Pep Serum Total Protein Albumin Bnhmg-8-Ydcipmexg Grcpg-9-Urtjqnohb PEP Interpretation Urine WBC (Auto) Urine Creatinine Urine Total Protein Coronavirus (PCR) 04/17/20 04/17/20 04/17/20 17:59 18:23 22:37 WBC 22.1 H RBC Hgb Hct Plt Count 74 L Seg Neuts % (Manual) Lymphocytes % (Manual) Seg Neutrophils # Man Lymphocytes # (Manual) D-Dimer ABG pO2 ABG HCO3 ABG Base Excess ABG Hemoglobin Sodium Potassium Carbon Dioxide BUN Creatinine Glucose POC Glucose 145 H 185 H Lactic Acid Calcium Phosphorus Ferritin AST Alkaline Phosphatase Lactate Dehydrogenase C-Reactive Protein NT-Pro-B Natriuret Pep Serum Total Protein Albumin Crdwe-8-Njojwxsmg Cfsyh-5-Yixdutckk PEP Interpretation Urine WBC (Auto) Urine Creatinine Urine Total Protein Coronavirus (PCR) 04/18/20 04/18/20 04/18/20 05:56 05:56 08:19 WBC 18.5 H RBC Hgb 11.5 L Hct 34.2 L Plt Count 83 L Seg Neuts % (Manual) 93.0 H Lymphocytes % (Manual) 4.0 L Seg Neutrophils # Man 17.2 H Lymphocytes # (Manual) 0.7 L D-Dimer ABG pO2 ABG HCO3 ABG Base Excess ABG Hemoglobin Sodium Potassium Carbon Dioxide 20 L BUN 102 H Creatinine 8.2 H Glucose 177 H POC Glucose 153 H Lactic Acid Calcium 7.6 L Phosphorus Ferritin AST Alkaline Phosphatase Lactate Dehydrogenase C-Reactive Protein NT-Pro-B Natriuret Pep Serum Total Protein Albumin Xycce-7-Bsoamiuyw Wwurc-0-Hpyqmrmdz PEP Interpretation Urine WBC (Auto) Urine Creatinine Urine Total Protein Coronavirus (PCR) 04/18/20 04/18/20 04/18/20 13:10 17:16 23:10 WBC RBC Hgb Hct Plt Count Seg Neuts % (Manual) Lymphocytes % (Manual) Seg Neutrophils # Man Lymphocytes # (Manual) D-Dimer ABG pO2 ABG HCO3 ABG Base Excess ABG Hemoglobin Sodium Potassium Carbon Dioxide BUN Creatinine Glucose POC Glucose 186 H 189 H 330 H Lactic Acid Calcium Phosphorus Ferritin AST Alkaline Phosphatase Lactate Dehydrogenase C-Reactive Protein NT-Pro-B Natriuret Pep Serum Total Protein Albumin Effwx-8-Gewrozuoe Odgyo-2-Yfcbpfqpr PEP Interpretation Urine WBC (Auto) Urine Creatinine Urine Total Protein Coronavirus (PCR) 04/19/20 04/19/20 04/19/20 08:13 12:19 15:36 WBC RBC Hgb Hct Plt Count Seg Neuts % (Manual) Lymphocytes % (Manual) Seg Neutrophils # Man Lymphocytes # (Manual) D-Dimer 4117.34 H ABG pO2 ABG HCO3 ABG Base Excess ABG Hemoglobin Sodium Potassium Carbon Dioxide BUN Creatinine Glucose POC Glucose 183 H 148 H Lactic Acid Calcium Phosphorus Ferritin AST Alkaline Phosphatase Lactate Dehydrogenase C-Reactive Protein NT-Pro-B Natriuret Pep Serum Total Protein Albumin Qadxs-8-Tnotwdfml Frovr-6-Pcjxfwyoy PEP Interpretation Urine WBC (Auto) Urine Creatinine Urine Total Protein Coronavirus (PCR) 04/19/20 04/19/20 04/19/20 15:36 15:36 16:02 WBC RBC Hgb Hct Plt Count Seg Neuts % (Manual) Lymphocytes % (Manual) Seg Neutrophils # Man Lymphocytes # (Manual) D-Dimer ABG pO2 ABG HCO3 ABG Base Excess ABG Hemoglobin Sodium Potassium Carbon Dioxide BUN Creatinine Glucose 164 H POC Glucose 158 H Lactic Acid Calcium Phosphorus Ferritin 1697.0 H AST Alkaline Phosphatase Lactate Dehydrogenase 336 H C-Reactive Protein 3.40 H NT-Pro-B Natriuret Pep Serum Total Protein Albumin Ttswa-8-Kxtbzucyt Sutwu-1-Nlytmcabg PEP Interpretation Urine WBC (Auto) Urine Creatinine Urine Total Protein Coronavirus (PCR) 04/19/20 04/20/20 04/20/20 22:26 08:03 16:25 WBC RBC Hgb Hct Plt Count Seg Neuts % (Manual) Lymphocytes % (Manual) Seg Neutrophils # Man Lymphocytes # (Manual) D-Dimer ABG pO2 ABG HCO3 ABG Base Excess ABG Hemoglobin Sodium Potassium 3.4 L Carbon Dioxide BUN 69 H Creatinine 3.9 H D Glucose 105 H POC Glucose 153 H 218 H Lactic Acid Calcium 8.3 L Phosphorus Ferritin AST Alkaline Phosphatase Lactate Dehydrogenase C-Reactive Protein NT-Pro-B Natriuret Pep Serum Total Protein Albumin Fvbmk-8-Wxskfubsv Ryedg-1-Xjauedmit PEP Interpretation Urine WBC (Auto) Urine Creatinine Urine Total Protein Coronavirus (PCR) 04/20/20 04/21/20 04/21/20 22:11 08:11 10:59 WBC RBC Hgb Hct Plt Count Seg Neuts % (Manual) Lymphocytes % (Manual) Seg Neutrophils # Man Lymphocytes # (Manual) D-Dimer ABG pO2 ABG HCO3 ABG Base Excess ABG Hemoglobin Sodium Potassium Carbon Dioxide BUN 50 H Creatinine 2.5 H Glucose 213 H POC Glucose 230 H 169 H Lactic Acid Calcium Phosphorus Ferritin AST Alkaline Phosphatase Lactate Dehydrogenase C-Reactive Protein NT-Pro-B Natriuret Pep Serum Total Protein Albumin Mjrvs-9-Vdwirpwfo Mpzmu-7-Sxudeokzb PEP Interpretation Urine WBC (Auto) Urine Creatinine Urine Total Protein Coronavirus (PCR)
--- NOTE | 2020-04-21 13:17 | Progress Note ---
Assessment and Plan 1. Acute kidney injury: Acute kidney injury in the setting of COVID infection, vasomotor insult and obstructive uropathy. Renal US, resulted today, showed moderate bilateral hydronephrosis. ANCA, Complements and SPEP are negative. JENY and GBM Ab pending. Monitor renal function. Creatinine level continue to improve. Renal prognosis is guarded. Avoid nephrotoxic agents. Meds dosage based on GFR. Monitor for [employer] needs. Patient required hemodialysis due to worsening renal function and associated hyperkalemia and metabolic acidosis. D/w patient and his daughter (04/14) about the indications, benefits, risks and alternatives involved in hemodialysis. Both voiced understanding and gave verbal consent. Hemodialysis: 04/14, 04/16, 04/18. Hold hemodialysis for now. 2. FEN: Hyperkalemia, improved with HD, monitor. Metabolic acidosis, improved, monitor. Monitor lytes. 3. Acute hypoxic resp failure: Likely secondary to COVID-19 infection. Currently on RA. Followed by Pulmonary. 4. Severe COVID-19 pneumonia. Followed by ID. 5. Sepsis: Likely secondary to COVID-19 infection and Enterobacter bacteremia. 6. Enterobacter bacteremia: Unclear source ?UTI. Urinalysis consistent with UTI. Followed by ID. 7. Bladder outlet obstruction: Haas ordered. 8. DM type 2: Accuchecks. 9. H/o hypertension: Monitor BP. Subjective: Patient was seen and examined at the bedside. Doing ok. Examination: General appearance: well-developed, appears stated age, no distress HEENT: ATNC Neck: Trachea midline Respiratory: ctab Cardiology: S1S2, regular, no murmur Gastrointestinal: normoactive bowel sounds, no tenderness, not distended Integumentary: no obvious rash Neurologic: alert, non-focal, slight confusion Ext: 1+ LE edema noted Hemodialysis access: R IJ temp catheter Subjective Date of service: 04/21/20 Principal diagnosis: Sepsis present on admission Objective - Vital Signs Vital signs: Vital Signs - 12hr 04/21/20 04/21/20 04/21/20 06:07 10:00 12:00 Temperature 98.1 F 98.5 F Pulse Rate 56 L 56 L 77 Respiratory 17 20 Rate Blood Pressure 148/66 148/66 Blood Pressure 152/66 [Left] O2 Sat by Pulse 95 Oximetry 04/21/20 12:24 Temperature 98.2 F Pulse Rate 57 L Respiratory 18 Rate Blood Pressure 131/74 Blood Pressure [Left] O2 Sat by Pulse 97 Oximetry - Lab 04/18/20 05:56 04/21/20 10:59 Most recent lab results ABG pH 7.441 pH Units (7.350-7.450) 04/12/20 04:21 ABG pCO2 26.2 mm Hg 04/12/20 04:21 ABG pO2 135.7 mm Hg (80.0-90.0) H 04/12/20 04:21 ABG HCO3 15.4 mmol/L (20.0-26.0) L 04/12/20 04:21 ABG O2 Saturation 98.7 % (95.0-99.0) 04/12/20 04:21 Calcium 8.8 mg/dL (8.4-10.2) 04/21/20 10:59 Phosphorus 3.00 mg/dL (2.5-4.5) 04/16/20 14:57 Magnesium 1.90 mg/dL (1.7-2.3) 04/13/20 13:51 Urine Creatinine 103.8 mg/dL (0.1-20.0) H 04/16/20 01:35 Urine Sodium 66 mmol/L 04/16/20 01:35 Urine Total Protein 209 mg/dL (5-11.8) H 04/16/20 01:35 Medications & Allergies - Medications Allergies/Adverse Reactions: Allergies No Known Allergies Allergy (Verified 04/12/20 04:28) Home Medications: Home Medications Medication Instructions Recorded Confirmed Last Taken Type AtorvaSTATin [Lipitor] 20 mg PO QHS 04/12/20 04/12/20 Unknown History Diclofenac [Aki Hernández] 75 mg PO BID 04/12/20 04/12/20 Unknown History Insulin Aspart Prot/Aspart(Nf) 10 units SUB-Q BID 04/12/20 04/12/20 Unknown H istory [NovoLOG Mix 70/30 VIAL] Losartan/Hydrochlorothiazide 100 mg PO QDAY 04/12/20 04/12/20 Unknown History [Losartan-Hctz 100-25 mg Tab] Metoprolol [Lopressor] 25 mg PO BID 04/12/20 04/12/20 Unknown History Pioglitazone [Actos] 15 mg PO QDAY 04/12/20 04/12/20 Unknown History amLODIPine [Norvasc] 5 mg PO DAILY 04/12/20 04/12/20 Unknown History Cholecalciferol (Vitamin D3) 5,000 unit PO QDAY 04/13/20 04/13/20 Unknown History [Vitamin D3 5,000 UNIT] Metoprolol [Lopressor] 25 mg PO BID 04/13/20 04/13/20 Unknown History glipiZIDE [Glucotrol] 10 mg PO QDAY 04/13/20 04/13/20 Unknown History traMADoL [Ultram] 50 mg PO Q6HR PRN 04/13/20 04/13/20 Unknown History Active Medications: Generic Name Dose Route Start Last Admin Trade Name Freq PRN Reason Stop Dose Admin Alprazolam 0.125 mg 04/12/20 07:53 04/20/20 22:20 Xanax PO 0.125 mg Q8H PRN Administration Anxiety Amlodipine Besylate 10 mg 04/17/20 15:00 04/21/20 10:00 Amlodipine PO 10 mg QDAY JOSIANE Administration Apixaban 5 mg 04/13/20 11:00 04/21/20 10:00 Eliquis PO 5 mg Q12HR JOSIANE Administration Protocol Dexamethasone 6 mg 04/13/20 10:00 04/21/20 10:05 Decadron IV 04/22/20 10:01 6 mg Q24H JOSIANE Administration Dextrose 50 ml 04/13/20 10:05 D50w (25gm) Syringe IV Q30MIN PRN Hypoglycemia Protocol Famotidine 20 mg 04/12/20 10:00 04/21/20 10:00 Pepcid PO 20 mg DAILY JOSIANE Administration Haloperidol Lactate 5 mg 04/13/20 10:42 Haldol IV Q6H PRN Agitation Cefepime HCl 1 gm in 100 mls @ 200 mls/hr 04/14/20 18:00 04/20/20 18:08 Cefepime/Ns 1 Gm/100 Ml IV 04/23/20 18:29 200 mls/hr Q24H JOSIANE Administration Protocol Sodium Chloride 100 mls @ 999 mls/hr 04/21/20 09:00 Nacl 0.9% IV SILVIA PRN Hypotension Insulin Human Lispro 0 unit 04/13/20 11:30 04/21/20 13:05 Humalog SUB-Q 2 unit ACHS JOSIANE Administration Protocol
--- NOTE | 2020-04-21 15:03 | Progress Note ---
Assessment and Plan Cultures: Coronavirus PCR: Positive 04/12/2020 blood culture: Enterobacter 2 out of 4 bottles 04/14/2020 urine culture no growth 04/16/2020 blood culture no growth A/P: 75-year-old male with diabetes, hypertension admitted with: #Sepsis, secondary to bilateral pneumonia: Likely secondary to COVID-19 infection and Enterobacter bacteremia. #Enterobacter bacteremia: Unclear source ?UTI. Urinalysis consistent with UTI. Urine culture no growth, obtained 2 days after antibiotics. #COVID-19 infection. D-dimer significantly elevated at >10K, ferritin elevated. Repeat D-dimer and ferritin improving. #Acute hypoxic respiratory failure: Improving now on 2 L nasal cannula. #Acute renal failure: Renally dose antibiotics. Worsening. Started on hemodialysis. 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 #ROZ: Creatinine improving Recs: -Continue cefepime IV renally adjusted to cover Enterobacter bacteremia- typically AmpC inducer. day 8 of 10 -Continue IV/PO Dexamethasone 6 mg daily x 10 days, D9 -Not candidate for remdesivir due to renal failure -Follow-up QuantiFERON TB Gold Chong Stack MD, FACP [facility] O: [phone] F: [phone] Subjective Date of service: 04/21/20 Principal diagnosis: Sepsis present on admission Interval history: No fever. Weaned to room air. Objective - Exam Narrative Exam: Physical Exam (reviewed in chart due to PPE conservation and minimize risk of transmission) Constitutional: limited due to PPE conservation strategy Head, Ears, Nose: limited due to PPE conservation strategy Eyes: limited due to PPE conservation strategy Neck: limited due to PPE conservation strategy Oral: limited due to PPE conservation strategy Cardiovascular: limited due to PPE conservation strategy Respiratory: limited due to PPE conservation strategy GI: limited due to PPE conservation strategy Musculoskeletal: limited due to PPE conservation strategy Skin: limited due to PPE conservation strategy Hem/Lymphatic: limited due to PPE conservation strategy Psych: limited due to PPE conservation strategy Neurological: limited due to PPE conservation strategy - Constitutional Vitals: Vital Signs Temp Pulse Resp BP Pulse Ox 98.2 F 57 L 18 131/74 97 04/21/20 12:24 04/21/20 12:24 04/21/20 12:24 04/21/20 12:24 04/21/20 12:24 Temperature -Last 24 Hours Temperature 98.2 F Temperature 98.5 F Temperature 98.1 F Temperature 98.4 F - Labs CBC & Chem 7: 04/18/20 05:56 04/21/20 10:59 Labs: Abnormal lab results 04/16/20 04/20/20 04/20/20 Range/Units 14:57 16:25 22:11 BUN (9-20) mg/dL Creatinine (0.8-1.3) mg/dL Glucose (75-100) mg/dL POC Glucose 218 H 230 H (70-105) mg/dL Serum Total Protein 6.0 L (6.1-8.1) g/dL Albumin 2.9 L (3.8-4.8) g/dL Tsvnn-6-Nxgqipfha 0.4 H (0.2-0.3) g/dL Dkogx-2-Xktliiwih 1.0 H (0.5-0.9) g/dL PEP Interpretation see below H 04/21/20 04/21/20 04/21/20 Range/Units 08:11 10:59 12:38 BUN 50 H (9-20) mg/dL Creatinine 2.5 H (0.8-1.3) mg/dL Glucose 213 H (75-100) mg/dL POC Glucose 169 H 194 H (70-105) mg/dL Serum Total Protein (6.1-8.1) g/dL Albumin (3.8-4.8) g/dL Pwzxs-8-Pjectgbpw (0.2-0.3) g/dL Xjgcg-0-Txetqtukc (0.5-0.9) g/dL PEP Interpretation
[2020-04-21] MEDS: CEFEPIME/NS 1 GM/100 ML 1 GM/100 ML BAG IV SCH (17:57)
[2020-04-22] MEDS: APIXABAN 5 MG TAB PO SCH ×3 (00:04→21:38)
[2020-04-22] MEDS: INSULIN LISPRO 100 UNIT/ML VIAL 3 mL SUB-Q SCH ×5 (00:04→21:38)
[2020-04-22] MEDS: hydrALAZINE 25 MG TAB PO SCH ×4 (00:05→21:39)
[2020-04-22 06:44] LABS: Calcium 8.7 mg/dL (8.4-10.2)
--- NOTE | 2020-04-22 08:18 | Progress Note ---
Assessment and Plan Assessment and plan: Sepsis. Etiology secondary to bilateral pneumonia: Likely secondary to COVID-19 infection and Enterobacter bacteremia. Continue cefepime per ID recommendation. Follow-up repeat blood cultures. Enterobacter bacteremia: Unclear source ?UTI. Urinalysis consistent with UTI. Urine culture no growth, obtained 2 days after antibiotics. COVID-19 infection. D-dimer significantly elevated at >10K, ferritin elevated. Repeat D-dimer and ferritin improving. Continue IV/p.o. dexamethasone 6 mg daily for total of 10 days. Patient not a candidate for remdesivir due to renal failure. Acute hypoxic respiratory failure: Remains on high flow nasal cannula today (high flow nasal cannula 6 L). Acute renal failure: Renally dose antibiotics. Worsening. Started on hemodialysis per nephrology. Elevated LFTs: Continue to monitor. 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 04/18/2020. Follow-up renal ultrasound which has been ordered. JENY, ANCA, GMB Ab, Complements and SPEP pending. Hemodialysis initiated for acute kidney injury on 04/14/2020. Continue anticoagulation and follow-up inflammatory markers. Leukocytosis likely secondary to steroids. Patient's prognosis remains guarded given the renal failure and COVID-19 infection 04/19/2020. Continue dexamethasone (7/10 dose). Continue Eliquis for anticoagulation. Continue IV antibiotics of cefepime and trend inflammatory markers. Follow-up JENY, ANCA, C3, C4, anti-GBM and SPEP per nephrology. Await renal ultrasound and consider echocardiogram. 04/20/2020. Continue dexamethasone (8/10 dose). Continue Eliquis for anticoagulation. Continue IV antibiotics of cefepime and trend inflammatory markers. Follow-up JENY, ANCA, C3, C4, anti-GBM and SPEP per nephrology. Await renal ultrasound and consider echocardiogram. Patient currently with 2 L of oxygen satting 99%. Check exercise pulse oximetry. Patient not a candidate for remdesivir given renal failure. 04/21/2020. Continue dexamethasone (9/10 dose). Continue Eliquis for anticoagulation. Continue IV antibiotics of cefepime and trend inflammatory markers. Patient required hemodialysis that was initiated on 04/14 due to worsening renal function and associated hyperkalemia and metabolic acidosis. Follow-up JENY, ANCA, C3, C4, anti-GBM and SPEP per nephrology. Await renal ultrasound and consider echocardiogram. Await nephrology recommendations regarding continued hemodialysis. 04/22/2020; patient will finish dexamethasone today. Continue Eliquis for anticoagulation. Day 9 out of 10 of IV cefepime for Enterobacter bacteremia. Patient is ROZ and work-up in progress per nephrology. Renal function is improving and creatinine this morning was 2.2 and hemodialysis is held for now. Patient is on 2 L of oxygen. 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 History Interval history: Patient was seen and evaluated this morning Patient is off oxygen and doing well. Hospitalist Physical - Physical exam Narrative exam: Not in cardiopulmonary distress. The patient appeared well nourished and normally developed. Vital signs as documented. Head exam is unremarkable. No scleral icterus . Neck is without jugular venous distension, thyromegaly, or carotid bruits. Lungs are clear to auscultation. Cardiac exam reveals regular rate and Rhythm. Abdominal exam reveals normal bowel sounds, nontender, no organomegaly. Extremities are nonedematous and both femoral and pedal pulses are normal. 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 No focal weakness. - Constitutional Vitals: Temp Pulse Resp BP Pulse Ox 97.5 F L 47 L 18 153/66 96 04/22/20 05:05 04/22/20 05:05 04/22/20 05:05 04/22/20 05:05 04/22/20 05:05 General appearance: Present: no acute distress, well-nourished HEART Score - HEART Score Troponin: Troponin T 0.012 ng/mL (0.00-0.029) 04/12/20 04:51 Results - Labs CBC & Chem 7: 04/18/20 05:56 04/22/20 05:13 Labs: Laboratory Last Values WBC 18.5 K/mm3 (4.5-11.0) H 04/18/20 05:56 RBC 3.79 M/mm3 (3.65-5.03) 04/18/20 05:56 Hgb 11.5 gm/dl (11.8-15.2) L 04/18/20 05:56 Hct 34.2 % (35.5-45.6) L 04/18/20 05:56 MCV 90 fl (84-94) 04/18/20 05:56 MCH 30 pg (28-32) 04/18/20 05:56 MCHC 34 % (32-34) 04/18/20 05:56 RDW 14.3 % (13.2-15.2) 04/18/20 05:56 Plt Count 83 K/mm3 (140-440) L 04/18/20 05:56 Add Manual Diff Complete 04/18/20 05:56 Total Counted 100 04/18/20 05:56 Seg Neutrophils % Design Assistant 04/18/20 05:56 Seg Neuts % (Manual) 93.0 % (40.0-70.0) H 04/18/20 05:56 Band Neutrophils % 0 % 04/18/20 05:56 Lymphocytes % (Manual) 4.0 % (13.4-35.0) L 04/18/20 05:56 Reactive Lymphs % (Man) 0 % 04/18/20 05:56 Monocytes % (Manual) 3.0 % (0.0-7.3) 04/18/20 05:56 Eosinophils % (Manual) 0 % (0.0-4.3) 04/18/20 05:56 Basophils % (Manual) 0 % (0.0-1.8) 04/18/20 05:56 Metamyelocytes % 0 % 04/18/20 05:56 Myelocytes % 0 % 04/18/20 05:56 Promyelocytes % 0 % 04/18/20 05:56 Blast Cells % 0 % 04/18/20 05:56 Nucleated RBC % Not Reportable 04/18/20 05:56 Seg Neutrophils # Man 17.2 K/mm3 (1.8-7.7) H 04/18/20 05:56 Band Neutrophils # 0.0 K/mm3 04/18/20 05:56 Lymphocytes # (Manual) 0.7 K/mm3 (1.2-5.4) L 04/18/20 05:56 Abs React Lymphs (Man) 0.0 K/mm3 04/18/20 05:56 Monocytes # (Manual) 0.6 K/mm3 (0.0-0.8) 04/18/20 05:56 Eosinophils # (Manual) 0.0 K/mm3 (0.0-0.4) 04/18/20 05:56 Basophils # (Manual) 0.0 K/mm3 (0.0-0.1) 04/18/20 05:56 Metamyelocytes # 0.0 K/mm3 04/18/20 05:56 Myelocytes # 0.0 K/mm3 04/18/20 05:56 Promyelocytes # 0.0 K/mm3 04/18/20 05:56 Blast Cells # 0.0 K/mm3 04/18/20 05:56 WBC Morphology Not Reportable 04/18/20 05:56 Hypersegmented Neuts Not Reportable 04/18/20 05:56 Hyposegmented Neuts Not Reportable 04/18/20 05:56 Hypogranular Neuts Not Reportable 04/18/20 05:56 Smudge Cells Not Reportable 04/18/20 05:56 Toxic Granulation Not Reportable 04/18/20 05:56 Toxic Vacuolation Not Reportable 04/18/20 05:56 Dohle Bodies Not Reportable 04/18/20 05:56 Pelger-Huet Anomaly Not Reportable 04/18/20 05:56 Matthew Rods Not Reportable 04/18/20 05:56 Platelet Estimate Consistent w auto 04/18/20 05:56 Clumped Platelets Not Reportable 04/18/20 05:56 Plt Clumps, EDTA Not Reportable 04/18/20 05:56 Large Platelets Not Reportable 04/18/20 05:56 Giant Platelets Not Reportable 04/18/20 05:56 Platelet Satelliting Not Reportable 04/18/20 05:56 Plt Morphology Comment Not Reportable 04/18/20 05:56 RBC Morphology Not Reportable 04/18/20 05:56 Dimorphic RBCs Not Reportable 04/18/20 05:56 Polychromasia Not Reportable 04/18/20 05:56 Hypochromasia Not Reportable 04/18/20 05:56 Poikilocytosis Not Reportable 04/18/20 05:56 Anisocytosis Not Reportable 04/18/20 05:56 Microcytosis Not Reportable 04/18/20 05:56 Macrocytosis Not Reportable 04/18/20 05:56 Spherocytes Not Reportable 04/18/20 05:56 Pappenheimer Bodies Not Reportable 04/18/20 05:56 Sickle Cells Not Reportable 04/18/20 05:56 Target Cells Not Reportable 04/18/20 05:56 Tear Drop Cells Not Reportable 04/18/20 05:56 Ovalocytes Not Reportable 04/18/20 05:56 Helmet Cells Not Reportable 04/18/20 05:56 Lilly-Moriarty Bodies Not Reportable 04/18/20 05:56 [place] Rings Not Reportable 04/18/20 05:56 Nam Cells Not Reportable 04/18/20 05:56 Bite Cells Not Reportable 04/18/20 05:56 Crenated Cell Not Reportable 04/18/20 05:56 Elliptocytes Not Reportable 04/18/20 05:56 Acanthocytes (Spur) Not Reportable 04/18/20 05:56 Rouleaux Not Reportable 04/18/20 05:56 Hemoglobin C Crystals Not Reportable 04/18/20 05:56 Schistocytes Not Reportable 04/18/20 05:56 Malaria parasites Not Reportable 04/18/20 05:56 Dandre Bodies Not Reportable 04/18/20 05:56 Hem Pathologist Commnt No 04/18/20 05:56 D-Dimer 4117.34 ng/mlDDU (0-234) H 04/19/20 15:36 ABG pH 7.441 pH Units (7.350-7.450) 04/12/20 04:21 ABG pCO2 26.2 mm Hg 04/12/20 04:21 ABG pO2 135.7 mm Hg (80.0-90.0) H 04/12/20 04:21 ABG HCO3 15.4 mmol/L (20.0-26.0) L 04/12/20 04:21 ABG O2 Saturation 98.7 % (95.0-99.0) 04/12/20 04:21 ABG Base Excess -5.1 mmol/L (-2.0-3.0) L 04/12/20 04:21 ABG Hemoglobin 13.3 gm/dl (14.0-18.0) L 04/12/20 04:21 ABG Carboxyhemoglobin 1.2 % (0.0-5.0) 04/12/20 04:21 ABG Methemoglobin 0.6 % (0.0-1.5) 04/12/20 04:21 Oxyhemoglobin 96.9 % (95.0-99.0) 04/12/20 04:21 FiO2 30.0 % 04/12/20 04:21 Sodium 143 mmol/L (137-145) 04/22/20 05:13 Potassium 4.3 mmol/L (3.6-5.0) 04/22/20 05:13 Chloride 106.1 mmol/L (98-107) 04/22/20 05:13 Carbon Dioxide 29 mmol/L (22-30) 04/22/20 05:13 Anion Gap 12 mmol/L 04/22/20 05:13 BUN 47 mg/dL (9-20) H 04/22/20 05:13 Creatinine 2.2 mg/dL (0.8-1.3) H 04/22/20 05:13 Estimated GFR 35 ml/min 04/22/20 05:13 BUN/Creatinine Ratio 21 % 04/22/20 05:13 Glucose 121 mg/dL (75-100) H 04/22/20 05:13 POC Glucose 283 mg/dL (70-105) H 04/21/20 22:01 Lactic Acid 3.50 mmol/L (0.7-2.0) H* 04/12/20 10:20 Calcium 8.7 mg/dL (8.4-10.2) 04/22/20 05:13 Phosphorus 3.00 mg/dL (2.5-4.5) 04/16/20 14:57 Magnesium 1.90 mg/dL (1.7-2.3) 04/13/20 13:51 Ferritin 1697.0 ng/mL (30.0-300.0) H 04/19/20 15:36 Total Bilirubin 0.60 mg/dL (0.1-1.2) 04/12/20 04:51 AST 69 units/L (5-40) H 04/12/20 04:51 ALT 51 units/L (7-56) 04/12/20 04:51 Alkaline Phosphatase 155 units/L (35-129) H 04/12/20 04:51 Lactate Dehydrogenase 336 units/L (91-180) H 04/19/20 15:36 Troponin T 0.012 ng/mL (0.00-0.029) 04/12/20 04:51 C-Reactive Protein 3.40 mg/dL (0.00-1.30) H 04/19/20 15:36 NT-Pro-B Natriuret Pep 2170 pg/mL (0-900) H 04/12/20 04:51 Serum Total Protein 6.0 g/dL (6.1-8.1) L 04/16/20 14:57 Total Protein 7.1 g/dL (6.3-8.2) 04/12/20 04:51 Albumin 2.9 g/dL (3.8-4.8) L 04/16/20 14:57 Albumin/Globulin Ratio 1.1 % 04/12/20 04:51 Jdrhz-8-Gzdtonbmv 0.4 g/dL (0.2-0.3) H 04/16/20 14:57 Strnw-1-Chijdacsf 1.0 g/dL (0.5-0.9) H 04/16/20 14:57 Beta Globulins 0.4 g/dL (0.2-0.5) 04/16/20 14:57 Gamma Globulins 1.1 g/dL (0.8-1.7) 04/16/20 14:57 Abnorm Protein Band 1 see below 04/16/20 14:57 PEP Interpretation see below H 04/16/20 14:57 Procalcitonin 82.32 ng/mL (<0.15) 04/12/20 04:51 Urine Color Red (Yellow) 04/14/20 21:00 Urine Turbidity Turbid (Clear) 04/14/20 21:00 Urine pH 6.0 (5.0-7.0) 04/14/20 21:00 Ur Specific [place]ell 1.013 (1.003-1.030) 04/14/20 21:00 Urine Protein >500 mg/dL (Negative) 04/14/20 21:00 Urine Glucose (UA) 50 mg/dL (Negative) 04/14/20 21:00 Urine Ketones Neg mg/dL (Negative) 04/14/20 21:00 Urine Blood Lg (Negative) 04/14/20 21:00 Urine Nitrite Neg (Negative) 04/14/20 21:00 Urine Bilirubin Neg (Negative) 04/14/20 21:00 Urine Urobilinogen < 2.0 mg/dL (<2.0) 04/14/20 21:00 Ur Leukocyte Esterase Lg (Negative) 04/14/20 21:00 Urine WBC (Auto) > 182.0 /HPF (0.0-6.0) H 04/14/20 21:00 Urine RBC (Auto) > 182.0 /HPF (0.0-6.0) 04/14/20 21:00 U Epithel Cells (Auto) 3.0 /HPF (0-13.0) 04/14/20 21:00 Urine Bacteria (Auto) 2+ /HPF (Negative) 04/14/20 21:00 Urine WBC Clumps 3+ /HPF 04/14/20 21:00 Urine Mucus Few /HPF 04/14/20 21:00 Urine Yeast (Budding) 2+ /HPF 04/14/20 21:00 Urine Eosinophils None seen (None Seen) 04/15/20 01:35 Urine Creatinine 103.8 mg/dL (0.1-20.0) H 04/16/20 01:35 Protein/Creatinin Ratio 2.01 04/16/20 01:35 Urine Sodium 66 mmol/L 04/16/20 01:35 Urine Total Protein 209 mg/dL (5-11.8) H 04/16/20 01:35 Proteinase 3 (PR3) Ab <1.0 AI (<1.0) 04/16/20 14:57 Myeloperoxidase Ab <1.0 AI (<1.0) 04/16/20 14:57 Complement C3 134 mg/dL (82-185) 04/16/20 14:57 Complement C4 40 mg/dL (15-53) 04/16/20 14:57 Coronavirus (PCR) Positive (Negative) A 04/12/20 Unknown Hepatitis A IgM Ab Non-reactive (NonReactive) 04/14/20 16:50 Hep Bs Antigen Non-reactive (Negative) 04/14/20 16:50 Hep B Core IgM Ab Non-reactive (NonReactive) 04/14/20 16:50 Hepatitis C Antibody Non-reactive (NonReactive) 04/14/20 16:50 SARS-CoV-2 IgG Ab Nonreactive (NonReactive) 04/16/20 14:57 Microbiology: Microbiology 04/16/20 14:57 Peripheral/Venous Blood Culture - Final NO GROWTH AFTER 5 DAYS 04/16/20 14:57 Peripheral/Venous Blood Culture - Final NO GROWTH AFTER 5 DAYS Haas/IV: Voiding Method Toilet IV Catheter Type [Right VAS Cath Subclavian] IV Catheter Type [Right Peripheral IV Forearm] IV Catheter Type [Right Hand] Peripheral IV Active Medications - Current Medications Current Medications: Generic Name Dose Route Start Last Admin Trade Name Freq PRN Reason Stop Dose Admin Alprazolam 0.125 mg 04/12/20 07:53 04/20/20 22:20 Xanax PO 0.125 mg Q8H PRN Administration Anxiety Amlodipine Besylate 10 mg 04/17/20 15:00 04/21/20 10:00 Amlodipine PO 10 mg QDAY JOSIANE Administration Apixaban 5 mg 04/13/20 11:00 04/22/20 00:04 Eliquis PO 5 mg Q12HR JOSIANE Administration Protocol Dexamethasone 6 mg 04/13/20 10:00 04/21/20 10:05 Decadron IV 04/22/20 10:01 6 mg Q24H JOSIANE Administration Dextrose 50 ml 04/13/20 10:05 D50w (25gm) Syringe IV Q30MIN PRN Hypoglycemia Protocol Famotidine 20 mg 04/12/20 10:00 04/21/20 10:00 Pepcid PO 20 mg DAILY JOSIANE Administration Haloperidol Lactate 5 mg 04/13/20 10:42 Haldol IV Q6H PRN Agitation Hydralazine HCl 50 mg 04/22/20 00:15 04/22/20 00:05 Apresoline PO 50 mg TID JOSIANE Administration Cefepime HCl 1 gm in 100 mls @ 200 mls/hr 04/14/20 18:00 04/21/20 17:57 Cefepime/Ns 1 Gm/100 Ml IV 04/23/20 18:29 200 mls/hr Q24H JOSIANE Administration Protocol Insulin Human Lispro 0 unit 04/13/20 11:30 04/22/20 00:04 Humalog SUB-Q 3 unit ACHS JOSIANE Administration Protocol Nutrition/Malnutrition Assess - Dietary Evaluation Nutrition/Malnutrition Findings: Nutrition Notes Start: 04/21/20 14:01 Freq: Status: Active Protocol: Document 04/21/20 14:01 TREVOR (Rec: 04/21/20 14:09 TREVOR [email or web address]) Nutrition Notes Need for Assessment generated from: LOS Initial or Follow up Brief Note Current Diagnosis Sepsis Other Pertinent Diagnosis COVID-19 (+), bilat pneu, ARF, ? TB Current Diet Consistent CHO Labs/Tests BUN 50 Cr 2.5 Pertinent Medications Decadron Height 5 ft 9 in Weight 86.8 kg [place] Body Weight (kg) 72.72 BMI 28.2 Weight Status Overweight Subjective/Other Information Pt screened for LOS. Spoke to pt via phone at 13:04. He says he is ready to go home. He reports good appetite; says that he eats too much. Only one meal intake documented at 75% since admission. Pt reports no chewing or swallowing difficulty. HD started on 04/14 sec to worsening renal function. Burn Absent Trauma Absent Current % PO Good (75-100%) Minimum of two criteria No Is patient on ventilator? No Is Patient Ambulatory and/or Out of Bed Yes REE-([facility]-ambulatory/OOB) [ 8.394 [id number]] Calculation Used for Recommendations [facility] Additional Notes Pro needs >1.2g/kg: >104g/day Fluid needs 1-1.5L/day Nutrition Intervention Follow-Up By: 04/28/20 Additional Comments F/U: stable intakes
--- NOTE | 2020-04-22 08:29 | Progress Note ---
Assessment and Plan 75 y/o male with acute respiratory failure, renal failure with lactic acidosis found to be COVID positive. 1. Last day of steroids. 2. Wean FiO2 for sats >88%. Now down to room air. Obtain walk test prior to discharge 3. Continue to follow ID recs. 4. Really needs echo but likely will not get given COVID 19 status. This will likely not happen prior to discharge either. 5. HD renal per renal 6. Agree with anticoagulation 7. Pulm castro, stable to improving. Will sign off. Call if questions. Guarded, guarded prognosis with renal failure and COVID. Subjective Date of service: 04/22/20 Principal diagnosis: Sepsis present on admission Interval history: No documentation from RT yet this am, but per report, weaned to room air last n ight. Today is the last day of steroids. Objective Vital Signs - 12hr 04/21/20 04/21/20 04/22/20 21:48 22:53 05:05 Temperature 97.5 F L 97.5 F L Pulse Rate 66 47 L Respiratory 18 18 Rate Blood Pressure 180/86 153/66 O2 Sat by Pulse 95 95 96 Oximetry Constitutional: no acute distress, alert ENT: oropharynx moist Ascultation: Bilateral: rhonchi Cardiovascular: regular rate and rhythm CBC and BMP: 04/18/20 05:56 04/22/20 05:13 ABG, PT/INR, D-dimer: ABG ABG pH 7.441 pH Units (7.350-7.450) 04/12/20 04:21 ABG pCO2 26.2 mm Hg 04/12/20 04:21 ABG pO2 135.7 mm Hg (80.0-90.0) H 04/12/20 04:21 ABG O2 Saturation 98.7 % (95.0-99.0) 04/12/20 04:21 PT/INR, D-dimer D-Dimer 4117.34 ng/mlDDU (0-234) H 04/19/20 15:36 Abnormal lab findings: Abnormal Labs 04/12/20 04/12/20 04/12/20 04:21 04:51 04:51 WBC RBC Hgb Hct Plt Count 110 L Seg Neuts % (Manual) 93.0 H Lymphocytes % (Manual) 3.0 L Seg Neutrophils # Man Lymphocytes # (Manual) 0.2 L D-Dimer ABG pO2 135.7 H ABG HCO3 15.4 L ABG Base Excess -5.1 L ABG Hemoglobin 13.3 L Sodium Potassium Carbon Dioxide BUN 48 H Creatinine 3.2 H Glucose 139 H POC Glucose Lactic Acid Calcium Phosphorus Ferritin AST 69 H Alkaline Phosphatase 155 H Lactate Dehydrogenase C-Reactive Protein NT-Pro-B Natriuret Pep Serum Total Protein Albumin 3.7 L Djysh-0-Zmkjlpowu Bvcfx-9-Fmuyzebam PEP Interpretation Urine WBC (Auto) Urine Creatinine Urine Total Protein Coronavirus (PCR) 04/12/20 04/12/20 04/12/20 04:51 04:51 04:51 WBC RBC Hgb Hct Plt Count Seg Neuts % (Manual) Lymphocytes % (Manual) Seg Neutrophils # Man Lymphocytes # (Manual) D-Dimer > 82389 H ABG pO2 ABG HCO3 ABG Base Excess ABG Hemoglobin Sodium Potassium Carbon Dioxide BUN Creatinine Glucose 137 H POC Glucose Lactic Acid 3.80 H* Calcium Phosphorus Ferritin AST Alkaline Phosphatase Lactate Dehydrogenase 398 H C-Reactive Protein 6.30 H NT-Pro-B Natriuret Pep 2170 H Serum Total Protein Albumin Zaoze-0-Yrbspvkxb Iasks-2-Nomfrteuv PEP Interpretation Urine WBC (Auto) Urine Creatinine Urine Total Protein Coronavirus (PCR) 04/12/20 04/12/20 04/12/20 04:51 10:20 Unknown WBC RBC Hgb Hct Plt Count Seg Neuts % (Manual) Lymphocytes % (Manual) Seg Neutrophils # Man Lymphocytes # (Manual) D-Dimer ABG pO2 ABG HCO3 ABG Base Excess ABG Hemoglobin Sodium Potassium Carbon Dioxide BUN Creatinine Glucose POC Glucose Lactic Acid 3.50 H* Calcium Phosphorus Ferritin 1523.0 H AST Alkaline Phosphatase Lactate Dehydrogenase C-Reactive Protein NT-Pro-B Natriuret Pep Serum Total Protein Albumin Tyhgz-0-Igiezyjzd Swiou-9-Lduvdegug PEP Interpretation Urine WBC (Auto) Urine Creatinine Urine Total Protein Coronavirus (PCR) Positive A 04/13/20 04/13/20 04/13/20 07:38 11:35 13:51 WBC RBC Hgb Hct Plt Count Seg Neuts % (Manual) Lymphocytes % (Manual) Seg Neutrophils # Man Lymphocytes # (Manual) D-Dimer ABG pO2 ABG HCO3 ABG Base Excess ABG Hemoglobin Sodium 135 L Potassium 5.6 H D Carbon Dioxide 17 L BUN 76 H Creatinine 6.1 H D Glucose 150 H POC Glucose 160 H 133 H Lactic Acid Calcium Phosphorus 5.90 H Ferritin AST Alkaline Phosphatase Lactate Dehydrogenase C-Reactive Protein NT-Pro-B Natriuret Pep Serum Total Protein Albumin Nzjtx-6-Jvsxauvgu Ivxwy-5-Pkukavych PEP Interpretation Urine WBC (Auto) Urine Creatinine Urine Total Protein Coronavirus (PCR) 04/13/20 04/13/20 04/14/20 16:57 22:13 07:44 WBC RBC Hgb Hct Plt Count Seg Neuts % (Manual) Lymphocytes % (Manual) Seg Neutrophils # Man Lymphocytes # (Manual) D-Dimer ABG pO2 ABG HCO3 ABG Base Excess ABG Hemoglobin Sodium 134 L Potassium 5.7 H Carbon Dioxide 18 L BUN 93 H Creatinine 7.5 H Glucose 116 H POC Glucose 142 H 165 H Lactic Acid Calcium Phosphorus Ferritin AST Alkaline Phosphatase Lactate Dehydrogenase C-Reactive Protein NT-Pro-B Natriuret Pep Serum Total Protein Albumin Lxdnp-2-Eqhedjlab Yrmaf-2-Hlmwouqut PEP Interpretation Urine WBC (Auto) Urine Creatinine Urine Total Protein Coronavirus (PCR) 04/14/20 04/14/20 04/14/20 08:08 13:51 17:20 WBC RBC Hgb Hct Plt Count Seg Neuts % (Manual) Lymphocytes % (Manual) Seg Neutrophils # Man Lymphocytes # (Manual) D-Dimer ABG pO2 ABG HCO3 ABG Base Excess ABG Hemoglobin Sodium Potassium Carbon Dioxide BUN Creatinine Glucose POC Glucose 123 H 174 H 169 H Lactic Acid Calcium Phosphorus Ferritin AST Alkaline Phosphatase Lactate Dehydrogenase C-Reactive Protein NT-Pro-B Natriuret Pep Serum Total Protein Albumin Asgzw-6-Bxrbtcjdp Gpjxi-5-Qrlxhqfud PEP Interpretation Urine WBC (Auto) Urine Creatinine Urine Total Protein Coronavirus (PCR) 04/14/20 04/14/20 04/15/20 21:00 22:00 05:04 WBC RBC Hgb Hct Plt Count Seg Neuts % (Manual) Lymphocytes % (Manual) Seg Neutrophils # Man Lymphocytes # (Manual) D-Dimer ABG pO2 ABG HCO3 ABG Base Excess ABG Hemoglobin Sodium Potassium Carbon Dioxide 20 L BUN 77 H Creatinine 6.9 H Glucose 161 H POC Glucose 182 H Lactic Acid Calcium 7.9 L Phosphorus Ferritin AST Alkaline Phosphatase Lactate Dehydrogenase C-Reactive Protein NT-Pro-B Natriuret Pep Serum Total Protein Albumin Coshh-8-Mflvbptgg Zszlb-8-Tvyxibcgx PEP Interpretation Urine WBC (Auto) > 182.0 H Urine Creatinine Urine Total Protein Coronavirus (PCR) 04/15/20 04/15/20 04/15/20 08:30 12:12 15:28 WBC RBC Hgb Hct Plt Count Seg Neuts % (Manual) Lymphocytes % (Manual) Seg Neutrophils # Man Lymphocytes # (Manual) D-Dimer ABG pO2 ABG HCO3 ABG Base Excess ABG Hemoglobin Sodium Potassium Carbon Dioxide BUN Creatinine Glucose POC Glucose 149 H 257 H 353 H Lactic Acid Calcium Phosphorus Ferritin AST Alkaline Phosphatase Lactate Dehydrogenase C-Reactive Protein NT-Pro-B Natriuret Pep Serum Total Protein Albumin Nkdud-7-Hlonpmylj Wtqax-7-Ujbtnrovd PEP Interpretation Urine WBC (Auto) Urine Creatinine Urine Total Protein Coronavirus (PCR) 04/15/20 04/16/20 04/16/20 22:00 01:35 08:47 WBC RBC Hgb Hct Plt Count Seg Neuts % (Manual) Lymphocytes % (Manual) Seg Neutrophils # Man Lymphocytes # (Manual) D-Dimer ABG pO2 ABG HCO3 ABG Base Excess ABG Hemoglobin Sodium Potassium Carbon Dioxide BUN Creatinine Glucose POC Glucose 157 H 111 H Lactic Acid Calcium Phosphorus Ferritin AST Alkaline Phosphatase Lactate Dehydrogenase C-Reactive Protein NT-Pro-B Natriuret Pep Serum Total Protein Albumin Nijuz-0-Wconreijd Poldy-9-Gumisuokl PEP Interpretation Urine WBC (Auto) Urine Creatinine 103.8 H Urine Total Protein 209 H Coronavirus (PCR) 04/16/20 04/16/20 04/16/20 11:43 14:57 14:57 WBC RBC Hgb Hct Plt Count Seg Neuts % (Manual) Lymphocytes % (Manual) Seg Neutrophils # Man Lymphocytes # (Manual) D-Dimer ABG pO2 ABG HCO3 ABG Base Excess ABG Hemoglobin Sodium Potassium 3.1 L D Carbon Dioxide BUN 47 H Creatinine 4.2 H Glucose 167 H POC Glucose 170 H Lactic Acid Calcium 7.7 L Phosphorus Ferritin AST Alkaline Phosphatase Lactate Dehydrogenase C-Reactive Protein NT-Pro-B Natriuret Pep Serum Total Protein 6.0 L Albumin 2.9 L Hhvdl-6-Svjljewxk 0.4 H Kkjqo-1-Bohkrlhtw 1.0 H PEP Interpretation see below H Urine WBC (Auto) Urine Creatinine Urine Total Protein Coronavirus (PCR) 04/16/20 04/16/20 04/16/20 14:57 14:57 14:57 WBC RBC Hgb Hct Plt Count Seg Neuts % (Manual) Lymphocytes % (Manual) Seg Neutrophils # Man Lymphocytes # (Manual) D-Dimer 1573.49 H ABG pO2 ABG HCO3 ABG Base Excess ABG Hemoglobin Sodium Potassium Carbon Dioxide BUN Creatinine Glucose POC Glucose Lactic Acid Calcium Phosphorus Ferritin 1137.0 H AST Alkaline Phosphatase Lactate Dehydrogenase 328 H C-Reactive Protein 6.60 H NT-Pro-B Natriuret Pep Serum Total Protein Albumin Jgyia-8-Ckuyzldkk Lhbfh-7-Fkitjdfjk PEP Interpretation Urine WBC (Auto) Urine Creatinine Urine Total Protein Coronavirus (PCR) 04/16/20 04/16/20 04/17/20 17:21 22:04 07:53 WBC RBC Hgb Hct Plt Count Seg Neuts % (Manual) Lymphocytes % (Manual) Seg Neutrophils # Man Lymphocytes # (Manual) D-Dimer ABG pO2 ABG HCO3 ABG Base Excess ABG Hemoglobin Sodium Potassium Carbon Dioxide BUN Creatinine Glucose POC Glucose 172 H 232 H 169 H Lactic Acid Calcium Phosphorus Ferritin AST Alkaline Phosphatase Lactate Dehydrogenase C-Reactive Protein NT-Pro-B Natriuret Pep Serum Total Protein Albumin Uudnm-3-Ucdwgvjwt Dmrkw-6-Oothavujx PEP Interpretation Urine WBC (Auto) Urine Creatinine Urine Total Protein Coronavirus (PCR) 04/17/20 04/17/20 04/17/20 08:14 08:14 12:31 WBC 24.1 H RBC 3.44 L Hgb 10.3 L Hct 31.6 L Plt Count 59 L Seg Neuts % (Manual) 96.0 H Lymphocytes % (Manual) 2.0 L Seg Neutrophils # Man 23.1 H Lymphocytes # (Manual) 0.5 L D-Dimer ABG pO2 ABG HCO3 ABG Base Excess ABG Hemoglobin Sodium Potassium Carbon Dioxide 20 L BUN 69 H Creatinine 6.7 H D Glucose 157 H POC Glucose 183 H Lactic Acid Calcium 7.0 L Phosphorus Ferritin AST Alkaline Phosphatase Lactate Dehydrogenase C-Reactive Protein NT-Pro-B Natriuret Pep Serum Total Protein Albumin Svofv-1-Ahmgttlnz Sqmbe-0-Utgulylpg PEP Interpretation Urine WBC (Auto) Urine Creatinine Urine Total Protein Coronavirus (PCR) 04/17/20 04/17/20 04/17/20 17:59 18:23 22:37 WBC 22.1 H RBC Hgb Hct Plt Count 74 L Seg Neuts % (Manual) Lymphocytes % (Manual) Seg Neutrophils # Man Lymphocytes # (Manual) D-Dimer ABG pO2 ABG HCO3 ABG Base Excess ABG Hemoglobin Sodium Potassium Carbon Dioxide BUN Creatinine Glucose POC Glucose 145 H 185 H Lactic Acid Calcium Phosphorus Ferritin AST Alkaline Phosphatase Lactate Dehydrogenase C-Reactive Protein NT-Pro-B Natriuret Pep Serum Total Protein Albumin Tasup-6-Limsrppmj Evyus-1-Bshherarf PEP Interpretation Urine WBC (Auto) Urine Creatinine Urine Total Protein Coronavirus (PCR) 04/18/20 04/18/20 04/18/20 05:56 05:56 08:19 WBC 18.5 H RBC Hgb 11.5 L Hct 34.2 L Plt Count 83 L Seg Neuts % (Manual) 93.0 H Lymphocytes % (Manual) 4.0 L Seg Neutrophils # Man 17.2 H Lymphocytes # (Manual) 0.7 L D-Dimer ABG pO2 ABG HCO3 ABG Base Excess ABG Hemoglobin Sodium Potassium Carbon Dioxide 20 L BUN 102 H Creatinine 8.2 H Glucose 177 H POC Glucose 153 H Lactic Acid Calcium 7.6 L Phosphorus Ferritin AST Alkaline Phosphatase Lactate Dehydrogenase C-Reactive Protein NT-Pro-B Natriuret Pep Serum Total Protein Albumin Pelhc-9-Urkkwwcgm Vhvld-2-Pnfjhqklr PEP Interpretation Urine WBC (Auto) Urine Creatinine Urine Total Protein Coronavirus (PCR) 04/18/20 04/18/20 04/18/20 13:10 17:16 23:10 WBC RBC Hgb Hct Plt Count Seg Neuts % (Manual) Lymphocytes % (Manual) Seg Neutrophils # Man Lymphocytes # (Manual) D-Dimer ABG pO2 ABG HCO3 ABG Base Excess ABG Hemoglobin Sodium Potassium Carbon Dioxide BUN Creatinine Glucose POC Glucose 186 H 189 H 330 H Lactic Acid Calcium Phosphorus Ferritin AST Alkaline Phosphatase Lactate Dehydrogenase C-Reactive Protein NT-Pro-B Natriuret Pep Serum Total Protein Albumin Ivoji-0-Exldmlqwy Gqoob-0-Vqeqrjotf PEP Interpretation Urine WBC (Auto) Urine Creatinine Urine Total Protein Coronavirus (PCR) 04/19/20 04/19/20 04/19/20 08:13 12:19 15:36 WBC RBC Hgb Hct Plt Count Seg Neuts % (Manual) Lymphocytes % (Manual) Seg Neutrophils # Man Lymphocytes # (Manual) D-Dimer 4117.34 H ABG pO2 ABG HCO3 ABG Base Excess ABG Hemoglobin Sodium Potassium Carbon Dioxide BUN Creatinine Glucose POC Glucose 183 H 148 H Lactic Acid Calcium Phosphorus Ferritin AST Alkaline Phosphatase Lactate Dehydrogenase C-Reactive Protein NT-Pro-B Natriuret Pep Serum Total Protein Albumin Aavck-6-Vfogzlwvz Ufjxx-6-Ezekjkfcb PEP Interpretation Urine WBC (Auto) Urine Creatinine Urine Total Protein Coronavirus (PCR) 04/19/20 04/19/20 04/19/20 15:36 15:36 16:02 WBC RBC Hgb Hct Plt Count Seg Neuts % (Manual) Lymphocytes % (Manual) Seg Neutrophils # Man Lymphocytes # (Manual) D-Dimer ABG pO2 ABG HCO3 ABG Base Excess ABG Hemoglobin Sodium Potassium Carbon Dioxide BUN Creatinine Glucose 164 H POC Glucose 158 H Lactic Acid Calcium Phosphorus Ferritin 1697.0 H AST Alkaline Phosphatase Lactate Dehydrogenase 336 H C-Reactive Protein 3.40 H NT-Pro-B Natriuret Pep Serum Total Protein Albumin Flsfe-2-Gxxdjpbgi Jzrvb-7-Uchphufwd PEP Interpretation Urine WBC (Auto) Urine Creatinine Urine Total Protein Coronavirus (PCR) 04/19/20 04/20/20 04/20/20 22:26 08:03 16:25 WBC RBC Hgb Hct Plt Count Seg Neuts % (Manual) Lymphocytes % (Manual) Seg Neutrophils # Man Lymphocytes # (Manual) D-Dimer ABG pO2 ABG HCO3 ABG Base Excess ABG Hemoglobin Sodium Potassium 3.4 L Carbon Dioxide BUN 69 H Creatinine 3.9 H D Glucose 105 H POC Glucose 153 H 218 H Lactic Acid Calcium 8.3 L Phosphorus Ferritin AST Alkaline Phosphatase Lactate Dehydrogenase C-Reactive Protein NT-Pro-B Natriuret Pep Serum Total Protein Albumin Kbqfg-8-Phoantgic Xbucv-4-Gviojufml PEP Interpretation Urine WBC (Auto) Urine Creatinine Urine Total Protein Coronavirus (PCR) 04/20/20 04/21/20 04/21/20 22:11 08:11 10:59 WBC RBC Hgb Hct Plt Count Seg Neuts % (Manual) Lymphocytes % (Manual) Seg Neutrophils # Man Lymphocytes # (Manual) D-Dimer ABG pO2 ABG HCO3 ABG Base Excess ABG Hemoglobin Sodium Potassium Carbon Dioxide BUN 50 H Creatinine 2.5 H Glucose 213 H POC Glucose 230 H 169 H Lactic Acid Calcium Phosphorus Ferritin AST Alkaline Phosphatase Lactate Dehydrogenase C-Reactive Protein NT-Pro-B Natriuret Pep Serum Total Protein Albumin Knpkz-6-Qjgsojvvh Ullgy-3-Ielergghb PEP Interpretation Urine WBC (Auto) Urine Creatinine Urine Total Protein Coronavirus (PCR) 04/21/20 04/21/20 04/21/20 12:38 17:59 22:01 WBC RBC Hgb Hct Plt Count Seg Neuts % (Manual) Lymphocytes % (Manual) Seg Neutrophils # Man Lymphocytes # (Manual) D-Dimer ABG pO2 ABG HCO3 ABG Base Excess ABG Hemoglobin Sodium Potassium Carbon Dioxide BUN Creatinine Glucose POC Glucose 194 H 300 H 283 H Lactic Acid Calcium Phosphorus Ferritin AST Alkaline Phosphatase Lactate Dehydrogenase C-Reactive Protein NT-Pro-B Natriuret Pep Serum Total Protein Albumin Vaqpf-7-Ujpjhyspn Zmldm-5-Vovtnveed PEP Interpretation Urine WBC (Auto) Urine Creatinine Urine Total Protein Coronavirus (PCR) 04/22/20 05:13 WBC RBC Hgb Hct Plt Count Seg Neuts % (Manual) Lymphocytes % (Manual) Seg Neutrophils # Man Lymphocytes # (Manual) D-Dimer ABG pO2 ABG HCO3 ABG Base Excess ABG Hemoglobin Sodium Potassium Carbon Dioxide BUN 47 H Creatinine 2.2 H Glucose 121 H POC Glucose Lactic Acid Calcium Phosphorus Ferritin AST Alkaline Phosphatase Lactate Dehydrogenase C-Reactive Protein NT-Pro-B Natriuret Pep Serum Total Protein Albumin Ryzje-5-Voicabjya Bhxfw-2-Wlfdzcffd PEP Interpretation Urine WBC (Auto) Urine Creatinine Urine Total Protein Coronavirus (PCR)
--- NOTE | 2020-04-22 08:35 | Progress Note ---
Assessment and Plan 1. Acute kidney injury: Acute kidney injury in the setting of COVID infection, vasomotor insult and obstructive uropathy. Renal US, resulted 04/21, showed moderate bilateral hydronephrosis. ANCA, Complements and SPEP are negative. JENY and GBM Ab pending. Monitor renal function. Creatinine level continue to improve. Avoid nephrotoxic agents. Meds dosage based on GFR. Monitor for [employer] needs. Patient required hemodialysis due to worsening renal function and associated hyperkalemia and metabolic acidosis. D/w patient and his daughter (04/14) about the indications, benefits, risks and alternatives involved in hemodialysis. Both voiced understanding and gave verbal consent. Hemodialysis: 04/14, 04/16, 04/18. Hold hemodialysis for now. 2. FEN: Hyperkalemia, improved with HD, monitor. Metabolic acidosis, improved, monitor. Monitor lytes. 3. Acute hypoxic resp failure: Likely secondary to COVID-19 infection. Currently on RA. Followed by Pulmonary. 4. Severe COVID-19 pneumonia. Followed by ID. 5. Sepsis: Likely secondary to COVID-19 infection and Enterobacter bacteremia. 6. Enterobacter bacteremia: Unclear source ?UTI. Urinalysis consistent with UTI. Followed by ID. 7. Bladder outlet obstruction: Haas ordered 04/21. Talked to RN today to insert the catheter. CT abdomen ordered. 8. DM type 2: Accuchecks. 9. H/o hypertension: Monitor BP. Subjective: Patient was seen and examined at the bedside. Doing ok. Examination: General appearance: well-developed, appears stated age, no distress HEENT: ATNC Neck: Trachea midline Respiratory: ctab Cardiology: S1S2, regular, no murmur Gastrointestinal: normoactive bowel sounds, no tenderness, not distended Integumentary: no obvious rash Neurologic: alert, non-focal, slight confusion noted Ext: 1+ LE edema noted Hemodialysis access: R IJ temp catheter Subjective Date of service: 04/22/20 Principal diagnosis: Sepsis present on admission Objective - Vital Signs Vital signs: Vital Signs - 12hr 04/21/20 04/21/20 04/22/20 21:48 22:53 05:05 Temperature 97.5 F L 97.5 F L Pulse Rate 66 47 L Respiratory 18 18 Rate Blood Pressure 180/86 153/66 O2 Sat by Pulse 95 95 96 Oximetry - Lab 04/18/20 05:56 04/22/20 05:13 Most recent lab results ABG pH 7.441 pH Units (7.350-7.450) 04/12/20 04:21 ABG pCO2 26.2 mm Hg 04/12/20 04:21 ABG pO2 135.7 mm Hg (80.0-90.0) H 04/12/20 04:21 ABG HCO3 15.4 mmol/L (20.0-26.0) L 04/12/20 04:21 ABG O2 Saturation 98.7 % (95.0-99.0) 04/12/20 04:21 Calcium 8.7 mg/dL (8.4-10.2) 04/22/20 05:13 Phosphorus 3.00 mg/dL (2.5-4.5) 04/16/20 14:57 Magnesium 1.90 mg/dL (1.7-2.3) 04/13/20 13:51 Urine Creatinine 103.8 mg/dL (0.1-20.0) H 04/16/20 01:35 Urine Sodium 66 mmol/L 04/16/20 01:35 Urine Total Protein 209 mg/dL (5-11.8) H 04/16/20 01:35 Medications & Allergies - Medications Allergies/Adverse Reactions: Allergies No Known Allergies Allergy (Verified 04/12/20 04:28) Home Medications: Home Medications Medication Instructions Recorded Confirmed Last Taken Type AtorvaSTATin [Lipitor] 20 mg PO QHS 04/12/20 04/12/20 Unknown History Diclofenac [Aki Hernández] 75 mg PO BID 04/12/20 04/12/20 Unknown History Insulin Aspart Prot/Aspart(Nf) 10 units SUB-Q BID 04/12/20 04/12/20 Unknown History [NovoLOG Mix 70/30 VIAL] Losartan/Hydrochlorothiazide 100 mg PO QDAY 04/12/20 04/12/20 Unknown History [Losartan-Hctz 100-25 mg Tab] Metoprolol [Lopressor] 25 mg PO BID 04/12/20 04/12/20 Unknown History Pioglitazone [Actos] 15 mg PO QDAY 04/12/20 04/12/20 Unknown History amLODIPine [Norvasc] 5 mg PO DAILY 04/12/20 04/12/20 Unknown History Cholecalciferol (Vitamin D3) 5,000 unit PO QDAY 04/13/20 04/13/20 Unknown History [Vitamin D3 5,000 UNIT] Metoprolol [Lopressor] 25 mg PO BID 04/13/20 04/13/20 Unknown History glipiZIDE [Glucotrol] 10 mg PO QDAY 04/13/20 04/13/20 Unknown History traMADoL [Ultram] 50 mg PO Q6HR PRN 04/13/20 04/13/20 Unknown History Active Medications: Generic Name Dose Route Start Last Admin Trade Name Freq PRN Reason Stop Dose Admin Alprazolam 0.125 mg 04/12/20 07:53 04/20/20 22:20 Xanax PO 0.125 mg Q8H PRN Administration Anxiety Amlodipine Besylate 10 mg 04/17/20 15:00 04/21/20 10:00 Amlodipine PO 10 mg QDAY JOSIANE Administration Apixaban 5 mg 04/13/20 11:00 04/22/20 00:04 Eliquis PO 5 mg Q12HR JOSIANE Administration Protocol Dexamethasone 6 mg 04/13/20 10:00 04/21/20 10:05 Decadron IV 04/22/20 10:01 6 mg Q24H JOSIANE Administration Dextrose 50 ml 04/13/20 10:05 D50w (25gm) Syringe IV Q30MIN PRN Hypoglycemia Protocol Famotidine 20 mg 04/12/20 10:00 04/21/20 10:00 Pepcid PO 20 mg DAILY JOSIANE Administration Haloperidol Lactate 5 mg 04/13/20 10:42 Haldol IV Q6H PRN Agitation Hydralazine HCl 50 mg 04/22/20 00:15 04/22/20 00:05 Apresoline PO 50 mg TID JOSIANE Administration Cefepime HCl 1 gm in 100 mls @ 200 mls/hr 04/14/20 18:00 04/21/20 17:57 Cefepime/Ns 1 Gm/100 Ml IV 04/23/20 18:29 200 mls/hr Q24H JOSIANE Administration Protocol Insulin Human Lispro 0 unit 04/13/20 11:30 04/22/20 00:04 Humalog SUB-Q 3 unit ACHS JOSIANE Administration Protocol
[2020-04-22] MEDS: amLODIPine 10 MG TAB PO SCH (09:13)
[2020-04-22] MEDS: FAMOTIDINE 20 MG TAB PO SCH (09:14)
[2020-04-22] MEDS: dexAMETHasone 4 MG/ML VIAL IV SCH (10:33)
--- NOTE | 2020-04-22 15:09 | Progress Note ---
Assessment and Plan Cultures: Coronavirus PCR: Positive 04/12/2020 blood culture: Enterobacter 2 out of 4 bottles 04/14/2020 urine culture no growth 04/16/2020 blood culture no growth A/P: 75-year-old male with diabetes, hypertension admitted with: #Sepsis, secondary to bilateral pneumonia: Likely secondary to COVID-19 infection and Enterobacter bacteremia. #Enterobacter bacteremia: Unclear source ?UTI. Urinalysis consistent with UTI. Urine culture no growth, obtained 2 days after antibiotics. #COVID-19 infection. D-dimer significantly elevated at >10K, ferritin elevated. Repeat D-dimer and ferritin improving. #Acute hypoxic respiratory failure: Improving now on room air. #Acute renal failure: Renally dose antibiotics. Nephrology following, on as needed hemodialysis. 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 Recs: -Continue cefepime IV renally adjusted to cover Enterobacter bacteremia- typically AmpC inducer. day 9 of 10 -Continue IV/PO Dexamethasone 6 mg daily x 10 days, D10 -Not candidate for remdesivir due to renal failure -Follow-up QuantiFERON TB Gold -recheck CXR Chong Stack MD, FACP [facility] ([facility] O: [phone] F: [phone] Subjective Date of service: 04/22/20 Principal diagnosis: Sepsis present on admission Interval history: No fever. On room air. Objective - Exam Narrative Exam: Physical Exam (reviewed in chart due to PPE conservation and minimize risk of transmission) Constitutional: limited due to PPE conservation strategy Head, Ears, Nose: limited due to PPE conservation strategy Eyes: limited due to PPE conservation strategy Neck: limited due to PPE conservation strategy Oral: limited due to PPE conservation strategy Cardiovascular: limited due to PPE conservation strategy Respiratory: limited due to PPE conservation strategy GI: limited due to PPE conservation strategy Musculoskeletal: limited due to PPE conservation strategy Skin: limited due to PPE conservation strategy Hem/Lymphatic: limited due to PPE conservation strategy Psych: limited due to PPE conservation strategy Neurological: limited due to PPE conservation strategy - Constitutional Vitals: Vital Signs Temp Pulse Resp BP Pulse Ox 99.2 F 69 18 153/81 97 04/22/20 12:37 04/22/20 13:11 04/22/20 12:37 04/22/20 13:11 04/22/20 12:37 Temperature -Last 24 Hours Temperature 99.2 F Temperature 97.5 F Temperature 97.5 F Temperature 97.8 F - Labs CBC & Chem 7: 04/18/20 05:56 04/22/20 05:13 Labs: Abnormal lab results 04/21/20 04/21/20 04/22/20 Range/Units 17:59 22:01 05:13 BUN 47 H (9-20) mg/dL Creatinine 2.2 H (0.8-1.3) mg/dL Glucose 121 H (75-100) mg/dL POC Glucose 300 H 283 H (70-105) mg/dL 04/22/20 Range/Units 12:51 BUN (9-20) mg/dL Creatinine (0.8-1.3) mg/dL Glucose (75-100) mg/dL POC Glucose 175 H (70-105) mg/dL
--- NOTE | 2020-04-22 17:27 | XRay Report ---
CHEST 1 VIEW INDICATION / CLINICAL INFORMATION: Right lung mass. COMPARISON: 04/14/2020 FINDINGS: SUPPORT DEVICES: Right central venous line HEART / MEDIASTINUM: No significant abnormality. LUNGS / PLEURA: Bilateral pulmonary opacities No pneumothorax. ADDITIONAL FINDINGS: No significant additional findings. IMPRESSION: Diffuse bilateral pulmonary opacities unchanged from 04/14/2020 Signer Name: Dane Lomeli MD FACR Signed: 04/22/2020 5:27 PM Workstation Name: [id number]
--- NOTE | 2020-04-22 17:39 | Cat Scan Report ---
CT ABDOMEN AND PELVIS WITHOUT CONTRAST HISTORY: Bilateral hydronephrosis.. COMPARISON: Renal ultrasound 04/20/2020. TECHNIQUE: Helical CT images of the abdomen and pelvis were obtained without administration of intrav enous contrast. Sagittal and coronal reformatted images were reviewed. All CT scans at this location are performed using CT dose reduction for ALARA by means of automated exposure control. FINDINGS: Abdomen/pelvis: The liver, biliary system, pancreas, spleen and adrenal glands are unremarkable. The left kidney is mildly atrophic. The right kidney is normal size. There are 2 large stones in the inferior right kidney measuring up to 1.3 cm. 4 mm calyceal stone is noted near left kidney. There ap pear to be 2 small stones measuring up to 3 mm in the distal right ureter. There appear to be 2 stone s in the distal left ureter with the largest measuring 5 mm. There is mild bilateral hydronephrosis. The bladder is decompressed with a Haas catheter. No evidence for bowel obstruction or focal inflammation. Normal appendix. Lungs/bones: There are numerous nodular densities in the lower lung zones bilaterally. These densiti es are coalescent in the right middle lobe and lingular region. Borderline to mild cardiomegaly. IMPRESSION: Bilateral nephrolithiasis as described. There are 2 stones in both distal ureters which mildly obstru cting. Numerous nodular densities in the lower lung zones concerning for a metastatic process or advanced ch ronic lung disease. Consider further evaluation of the chest. Signer Name: Ashok Cruz Jr, MD Signed: 04/22/2020 5:38 PM Workstation Name: [id number]
[2020-04-22] MEDS: CEFEPIME/NS 1 GM/100 ML 1 GM/100 ML BAG IV SCH (18:00)
[2020-04-22 22:10] LABS: ANA Screen, IFA Negative (Negative)
[2020-04-22] MEDS ORDERED: hydrALAZINE 25 MG TAB PO SCH (23:07)
--- NOTE | 2020-04-23 08:06 | Progress Note ---
Assessment and Plan Assessment and plan: Sepsis. Etiology secondary to bilateral pneumonia: Likely secondary to COVID-19 infection and Enterobacter bacteremia. Continue cefepime per ID recommendation. Follow-up repeat blood cultures. Enterobacter bacteremia: Unclear source ?UTI. Urinalysis consistent with UTI. Urine culture no growth, obtained 2 days after antibiotics. COVID-19 infection. D-dimer significantly elevated at >10K, ferritin elevated. Repeat D-dimer and ferritin improving. Continue IV/p.o. dexamethasone 6 mg daily for total of 10 days. Patient not a candidate for remdesivir due to renal failure. Acute hypoxic respiratory failure: Remains on high flow nasal cannula today (high flow nasal cannula 6 L). Acute renal failure: Renally dose antibiotics. Worsening. Started on hemodialysis per nephrology. Elevated LFTs: Continue to monitor. 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 04/18/2020. Follow-up renal ultrasound which has been ordered. JENY, ANCA, GMB Ab, Complements and SPEP pending. Hemodialysis initiated for acute kidney injury on 04/14/2020. Continue anticoagulation and follow-up inflammatory markers. Leukocytosis likely secondary to steroids. Patient's prognosis remains guarded given the renal failure and COVID-19 infection 04/19/2020. Continue dexamethasone (7/10 dose). Continue Eliquis for anticoagulation. Continue IV antibiotics of cefepime and trend inflammatory markers. Follow-up JENY, ANCA, C3, C4, anti-GBM and SPEP per nephrology. Await renal ultrasound and consider echocardiogram. 04/20/2020. Continue dexamethasone (8/10 dose). Continue Eliquis for anticoagulation. Continue IV antibiotics of cefepime and trend inflammatory markers. Follow-up JENY, ANCA, C3, C4, anti-GBM and SPEP per nephrology. Await renal ultrasound and consider echocardiogram. Patient currently with 2 L of oxygen satting 99%. Check exercise pulse oximetry. Patient not a candidate for remdesivir given renal failure. 04/21/2020. Continue dexamethasone (9/10 dose). Continue Eliquis for anticoagulation. Continue IV antibiotics of cefepime and trend inflammatory markers. Patient required hemodialysis that was initiated on 04/14 due to worsening renal function and associated hyperkalemia and metabolic acidosis. Follow-up JENY, ANCA, C3, C4, anti-GBM and SPEP per nephrology. Await renal ultrasound and consider echocardiogram. Await nephrology recommendations regarding continued hemodialysis. 04/22/2020; patient will finish dexamethasone today. Continue Eliquis for anticoagulation. Day 9 out of 10 of IV cefepime for Enterobacter bacteremia. Patient is ROZ and work-up in progress per nephrology. Renal function is improving and creatinine this morning was 2.2 and hemodialysis is held for now. Patient is on 2 L of oxygen. 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 04/23/2020; patient finished dexamethasone yesterday. Continue with Eliquis for anticoagulation. Patient will finish IV cefepime tonight. Creatinine is improving. Nephrology is following. ID consult appreciated. QuantiFERON gold will be followed as an outpatient with ID. Chest x-ray from yesterday did not show any change from the one done previously. Patient will be discharged tomor row. CT abdomen and pelvis was done and significant for nephrolithiasis History Interval history: Patient was seen and evaluated this morning Patient is off oxygen and doing well. Patient wants to go home Hospitalist Physical - Physical exam Narrative exam: Not in cardiopulmonary distress. The patient appeared well nourished and normally developed. Vital signs as documented. Head exam is unremarkable. No scleral icterus . Neck is without jugular venous distension, thyromegaly, or carotid bruits. Lungs are clear to auscultation. Cardiac exam reveals regular rate and Rhythm. Abdominal exam reveals normal bowel sounds, nontender, no organomegaly. Extremities are nonedematous and both femoral and pedal pulses are normal. TIRE CHANGER: Alert and oriented 3. No focal weakness. - Constitutional Vitals: Temp Pulse Resp BP Pulse Ox 99.2 F 76 16 145/60 95 04/23/20 04:32 04/23/20 04:32 04/23/20 04:32 04/23/20 04:32 04/23/20 04:32 General appearance: Present: no acute distress, well-nourished HEART Score - HEART Score Troponin: Troponin T 0.012 ng/mL (0.00-0.029) 04/12/20 04:51 Results - Labs CBC & Chem 7: 04/18/20 05:56 04/22/20 05:13 Labs: Laboratory Last Values WBC 18.5 K/mm3 (4.5-11.0) H 04/18/20 05:56 RBC 3.79 M/mm3 (3.65-5.03) 04/18/20 05:56 Hgb 11.5 gm/dl (11.8-15.2) L 04/18/20 05:56 Hct 34.2 % (35.5-45.6) L 04/18/20 05:56 MCV 90 fl (84-94) 04/18/20 05:56 MCH 30 pg (28-32) 04/18/20 05:56 MCHC 34 % (32-34) 04/18/20 05:56 RDW 14.3 % (13.2-15.2) 04/18/20 05:56 Plt Count 83 K/mm3 (140-440) L 04/18/20 05:56 Add Manual Diff Complete 04/18/20 05:56 Total Counted 100 04/18/20 05:56 Seg Neutrophils % [place] 04/18/20 05:56 Seg Neuts % (Manual) 93.0 % (40.0-70.0) H 04/18/20 05:56 Band Neutrophils % 0 % 04/18/20 05:56 Lymphocytes % (Manual) 4.0 % (13.4-35.0) L 04/18/20 05:56 Reactive Lymphs % (Man) 0 % 04/18/20 05:56 Monocytes % (Manual) 3.0 % (0.0-7.3) 04/18/20 05:56 Eosinophils % (Manual) 0 % (0.0-4.3) 04/18/20 05:56 Basophils % (Manual) 0 % (0.0-1.8) 04/18/20 05:56 Metamyelocytes % 0 % 04/18/20 05:56 Myelocytes % 0 % 04/18/20 05:56 Promyelocytes % 0 % 04/18/20 05:56 Blast Cells % 0 % 04/18/20 05:56 Nucleated RBC % Not Reportable 04/18/20 05:56 Seg Neutrophils # Man 17.2 K/mm3 (1.8-7.7) H 04/18/20 05:56 Band Neutrophils # 0.0 K/mm3 04/18/20 05:56 Lymphocytes # (Manual) 0.7 K/mm3 (1.2-5.4) L 04/18/20 05:56 Abs React Lymphs (Man) 0.0 K/mm3 04/18/20 05:56 Monocytes # (Manual) 0.6 K/mm3 (0.0-0.8) 04/18/20 05:56 Eosinophils # (Manual) 0.0 K/mm3 (0.0-0.4) 04/18/20 05:56 Basophils # (Manual) 0.0 K/mm3 (0.0-0.1) 04/18/20 05:56 Metamyelocytes # 0.0 K/mm3 04/18/20 05:56 Myelocytes # 0.0 K/mm3 04/18/20 05:56 Promyelocytes # 0.0 K/mm3 04/18/20 05:56 Blast Cells # 0.0 K/mm3 04/18/20 05:56 WBC Morphology Not Reportable 04/18/20 05:56 Hypersegmented Neuts Not Reportable 04/18/20 05:56 Hyposegmented Neuts Not Reportable 04/18/20 05:56 Hypogranular Neuts Not Reportable 04/18/20 05:56 Smudge Cells Not Reportable 04/18/20 05:56 Toxic Granulation Not Reportable 04/18/20 05:56 Toxic Vacuolation Not Reportable 04/18/20 05:56 Dohle Bodies Not Reportable 04/18/20 05:56 Pelger-Huet Anomaly Not Reportable 04/18/20 05:56 Matthew Rods Not Reportable 04/18/20 05:56 Platelet Estimate Consistent w auto 04/18/20 05:56 Clumped Platelets Not Reportable 04/18/20 05:56 Plt Clumps, EDTA Not Reportable 04/18/20 05:56 Large Platelets Not Reportable 04/18/20 05:56 Giant Platelets Not Reportable 04/18/20 05:56 Platelet Satelliting Not Reportable 04/18/20 05:56 Plt Morphology Comment Not Reportable 04/18/20 05:56 RBC Morphology Not Reportable 04/18/20 05:56 Dimorphic RBCs Not Reportable 04/18/20 05:56 Polychromasia Not Reportable 04/18/20 05:56 Hypochromasia Not Reportable 04/18/20 05:56 Poikilocytosis Not Reportable 04/18/20 05:56 Anisocytosis Not Reportable 04/18/20 05:56 Microcytosis Not Reportable 04/18/20 05:56 Macrocytosis Not Reportable 04/18/20 05:56 Spherocytes Not Reportable 04/18/20 05:56 Pappenheimer Bodies Not Reportable 04/18/20 05:56 Sickle Cells Not Reportable 04/18/20 05:56 Target Cells Not Reportable 04/18/20 05:56 Tear Drop Cells Not Reportable 04/18/20 05:56 Ovalocytes Not Reportable 04/18/20 05:56 Helmet Cells Not Reportable 04/18/20 05:56 Lilly-Celoron Bodies Not Reportable 04/18/20 05:56 [place] Rings Not Reportable 04/18/20 05:56 Nam Cells Not Reportable 04/18/20 05:56 Bite Cells Not Reportable 04/18/20 05:56 Crenated Cell Not Reportable 04/18/20 05:56 Elliptocytes Not Reportable 04/18/20 05:56 Acanthocytes (Spur) Not Reportable 04/18/20 05:56 Rouleaux Not Reportable 04/18/20 05:56 Hemoglobin C Crystals Not Reportable 04/18/20 05:56 Schistocytes Not Reportable 04/18/20 05:56 Malaria parasites Not Reportable 04/18/20 05:56 Dandre Bodies Not Reportable 04/18/20 05:56 Hem Pathologist Commnt No 04/18/20 05:56 D-Dimer 4117.34 ng/mlDDU (0-234) H 04/19/20 15:36 ABG pH 7.441 pH Units (7.350-7.450) 04/12/20 04:21 ABG pCO2 26.2 mm Hg 04/12/20 04:21 ABG pO2 135.7 mm Hg (80.0-90.0) H 04/12/20 04:21 ABG HCO3 15.4 mmol/L (20.0-26.0) L 04/12/20 04:21 ABG O2 Saturation 98.7 % (95.0-99.0) 04/12/20 04:21 ABG Base Excess -5.1 mmol/L (-2.0-3.0) L 04/12/20 04:21 ABG Hemoglobin 13.3 gm/dl (14.0-18.0) L 04/12/20 04:21 ABG Carboxyhemoglobin 1.2 % (0.0-5.0) 04/12/20 04:21 ABG Methemoglobin 0.6 % (0.0-1.5) 04/12/20 04:21 Oxyhemoglobin 96.9 % (95.0-99.0) 04/12/20 04:21 FiO2 30.0 % 04/12/20 04:21 Sodium 143 mmol/L (137-145) 04/22/20 05:13 Potassium 4.3 mmol/L (3.6-5.0) 04/22/20 05:13 Chloride 106.1 mmol/L (98-107) 04/22/20 05:13 Carbon Dioxide 29 mmol/L (22-30) 04/22/20 05:13 Anion Gap 12 mmol/L 04/22/20 05:13 BUN 47 mg/dL (9-20) H 04/22/20 05:13 Creatinine 2.2 mg/dL (0.8-1.3) H 04/22/20 05:13 Estimated GFR 35 ml/min 04/22/20 05:13 BUN/Creatinine Ratio 21 % 04/22/20 05:13 Glucose 121 mg/dL (75-100) H 04/22/20 05:13 POC Glucose 348 mg/dL (70-105) H 04/22/20 21:25 Lactic Acid 3.50 mmol/L (0.7-2.0) H* 04/12/20 10:20 Calcium 8.7 mg/dL (8.4-10.2) 04/22/20 05:13 Phosphorus 3.00 mg/dL (2.5-4.5) 04/16/20 14:57 Magnesium 1.90 mg/dL (1.7-2.3) 04/13/20 13:51 Ferritin 1697.0 ng/mL (30.0-300.0) H 04/19/20 15:36 Total Bilirubin 0.60 mg/dL (0.1-1.2) 04/12/20 04:51 AST 69 units/L (5-40) H 04/12/20 04:51 ALT 51 units/L (7-56) 04/12/20 04:51 Alkaline Phosphatase 155 units/L (35-129) H 04/12/20 04:51 Lactate Dehydrogenase 336 units/L (91-180) H 04/19/20 15:36 Troponin T 0.012 ng/mL (0.00-0.029) 04/12/20 04:51 C-Reactive Protein 3.40 mg/dL (0.00-1.30) H 04/19/20 15:36 NT-Pro-B Natriuret Pep 2170 pg/mL (0-900) H 04/12/20 04:51 Serum Total Protein 6.0 g/dL (6.1-8.1) L 04/16/20 14:57 Total Protein 7.1 g/dL (6.3-8.2) 04/12/20 04:51 Albumin 2.9 g/dL (3.8-4.8) L 04/16/20 14:57 Albumin/Globulin Ratio 1.1 % 04/12/20 04:51 Fnpoa-8-Tnihsmgvi 0.4 g/dL (0.2-0.3) H 04/16/20 14:57 Jadfl-6-Qtwsidisk 1.0 g/dL (0.5-0.9) H 04/16/20 14:57 Beta Globulins 0.4 g/dL (0.2-0.5) 04/16/20 14:57 Gamma Globulins 1.1 g/dL (0.8-1.7) 04/16/20 14:57 Abnorm Protein Band 1 see below 04/16/20 14:57 PEP Interpretation see below H 04/16/20 14:57 Procalcitonin 82.32 ng/mL (<0.15) 04/12/20 04:51 Urine Color Red (Yellow) 04/14/20 21:00 Urine Turbidity Turbid (Clear) 04/14/20 21:00 Urine pH 6.0 (5.0-7.0) 04/14/20 21:00 Ur Specific [place] 1.013 (1.003-1.030) 04/14/20 21:00 Urine Protein >500 mg/dL (Negative) 11/09/20 21:00 Urine Glucose (UA) 50 mg/dL (Negative) 04/14/20 21:00 Urine Ketones Neg mg/dL (Negative) 04/14/20 21:00 Urine Blood Lg (Negative) 04/14/20 21:00 Urine Nitrite Neg (Negative) 04/14/20 21:00 Urine Bilirubin Neg (Negative) 04/14/20 21:00 Urine Urobilinogen < 2.0 mg/dL (<2.0) 04/14/20 21:00 Ur Leukocyte Esterase Lg (Negative) 04/14/20 21:00 Urine WBC (Auto) > 182.0 /HPF (0.0-6.0) H 04/14/20 21:00 Urine RBC (Auto) > 182.0 /HPF (0.0-6.0) 04/14/20 21:00 U Epithel Cells (Auto) 3.0 /HPF (0-13.0) 04/14/20 21:00 Urine Bacteria (Auto) 2+ /HPF (Negative) 04/14/20 21:00 Urine WBC Clumps 3+ /HPF 04/14/20 21:00 Urine Mucus Few /HPF 04/14/20 21:00 Urine Yeast (Budding) 2+ /HPF 04/14/20 21:00 Urine Eosinophils None seen (None Seen) 04/15/20 01:35 Urine Creatinine 103.8 mg/dL (0.1-20.0) H 04/16/20 01:35 Protein/Creatinin Ratio 2.01 04/16/20 01:35 Urine Sodium 66 mmol/L 04/16/20 01:35 Urine Total Protein 209 mg/dL (5-11.8) H 04/16/20 01:35 JENY Screen Negative (Negative) 04/16/20 14:57 Proteinase 3 (PR3) Ab <1.0 AI (<1.0) 04/16/20 14:57 Myeloperoxidase Ab <1.0 AI (<1.0) 04/16/20 14:57 Complement C3 134 mg/dL (82-185) 04/16/20 14:57 Complement C4 40 mg/dL (15-53) 04/16/20 14:57 Coronavirus (PCR) Positive (Negative) A 04/12/20 Unknown Hepatitis A IgM Ab Non-reactive (NonReactive) 04/14/20 16:50 Hep Bs Antigen Non-reactive (Negative) 04/14/20 16:50 Hep B Core IgM Ab Non-reactive (NonReactive) 04/14/20 16:50 Hepatitis C Antibody Non-reactive (NonReactive) 04/14/20 16:50 SARS-CoV-2 IgG Ab Nonreactive (NonReactive) 04/16/20 14:57 Haas/IV: Voiding Method Condom Catheter IV Catheter Type [Right VAS Cath Subclavian] IV Catheter Type [Right Peripheral IV Forearm] IV Catheter Type [Right Hand] Peripheral IV Active Medications - Current Medications Current Medications: Generic Name Dose Route Start Last Admin Trade Name Freq PRN Reason Stop Dose Admin Alprazolam 0.125 mg 04/12/20 07:53 04/20/20 22:20 Xanax PO 0.125 mg Q8H PRN Administration Anxiety Amlodipine Besylate 10 mg 04/17/20 15:00 04/22/20 09:13 Amlodipine PO 10 mg QDAY JOSIANE Administration Apixaban 5 mg 04/13/20 11:00 04/22/20 21:38 Eliquis PO 5 mg Q12HR JOSIANE Administration Protocol Dextrose 50 ml 04/13/20 10:05 D50w (25gm) Syringe IV Q30MIN PRN Hypoglycemia Protocol Famotidine 20 mg 04/12/20 10:00 04/22/20 09:14 Pepcid PO 20 mg DAILY JOSIANE Administration Haloperidol Lactate 5 mg 04/13/20 10:42 Haldol IV Q6H PRN Agitation Hydralazine HCl 50 mg 04/22/20 00:15 04/22/20 21:39 Apresoline PO 50 mg TID JOSIANE Administration Cefepime HCl 1 gm in 100 mls @ 200 mls/hr 04/14/20 18:00 04/22/20 18:00 Cefepime/Ns 1 Gm/100 Ml IV 04/23/20 18:29 200 mls/hr Q24H JOSIANE Administration Protocol Insulin Human Lispro 0 unit 04/13/20 11:30 04/22/20 21:38 Humalog SUB-Q 4 unit ACHS JOSIANE Administration Protocol Insulin Human Lispro 5 unit 04/23/20 11:30 Humalog SUB-Q AC [facility] Nutrition/Malnutrition Assess - Dietary Evaluation Nutrition/Malnutrition Findings: Nutrition Notes Start: 04/21/20 14:01 Freq: Status: Active Protocol: Document 04/21/20 14:01 TREVOR (Rec: 04/21/20 14:09 TREVOR [id number]) Nutrition Notes Need for Assessment generated from: LOS Initial or Follow up Brief Note Current Diagnosis Sepsis Other Pertinent Diagnosis COVID-19 (+), bilat pneu, ARF, ? TB Current Diet Consistent CHO Labs/Tests BUN 50 Cr 2.5 Pertinent Medications Decadron Height 5 ft 9 in Weight 86.8 kg [place] Body Weight (kg) 72.72 BMI 28.2 Weight Status Overweight Subjective/Other Information Pt screened for LOS. Spoke to pt via phone at 13:04. He says he is ready to go home. He reports good appetite; says that he eats too much. Only one meal intake documented at 75% since admission. Pt reports no chewing or swallowing difficulty. HD started on 04/14 sec to worsening renal function. Burn Absent Trauma Absent Current % PO Good (75-100%) Minimum of two criteria No Is patient on ventilator? No Is Patient Ambulatory and/or Out of Bed Yes REE-(Dana-St. Jeor-ambulatory/OOB) [ 2058.394 [id number]] Calculation Used for Recommendations Dana-St Jeor Additional Notes Pro needs >1.2g/kg: >104g/day Fluid needs 1-1.5L/day Nutrition Intervention Follow-Up By: 04/28/20 Additional Comments F/U: stable intakes
[2020-04-23] MEDS: APIXABAN 5 MG TAB PO SCH ×2 (09:37→22:11)
[2020-04-23] MEDS: FAMOTIDINE 20 MG TAB PO SCH (09:37)
[2020-04-23] MEDS: hydrALAZINE 25 MG TAB PO SCH ×3 (09:37→22:10)
[2020-04-23] MEDS: amLODIPine 10 MG TAB PO SCH (09:37)
[2020-04-23] MEDS: INSULIN LISPRO 100 UNIT/ML VIAL 3 mL SUB-Q SCH ×7 (09:38→22:11)
--- NOTE | 2020-04-23 09:55 | Progress Note ---
Assessment and Plan 1. Acute kidney injury: Acute kidney injury in the setting of COVID infection, vasomotor insult and obstructive uropathy. Renal US, resulted 04/21, showed moderate bilateral hydronephrosis. ANCA, Complements and SPEP are negative. JENY and GBM Ab pending. Monitor renal function. Creatinine level continue to improve. Avoid nephrotoxic agents. Meds dosage based on GFR. Patient required hemodialysis due to worsening renal function and associated hyperkalemia and metabolic acidosis. D/w patient and his daughter (04/14) about the indications, benefits, risks and alternatives involved in hemodialysis. Both voiced understanding and gave verbal consent. Hemodialysis: 04/14, 04/16, 04/18. Will remove the dialysis catheter as the renal function is much better. Labs from today is pending, I called the lab. 2. FEN: Hyperkalemia, improved with HD, monitor. Metabolic acidosis, improved, monitor. Monitor lytes. 3. Acute hypoxic resp failure: Likely secondary to COVID-19 infection. Currently on RA. Followed by Pulmonary. 4. Severe COVID-19 pneumonia. Followed by ID. 5. Sepsis: Likely secondary to COVID-19 infection and Enterobacter bacteremia. 6. Enterobacter bacteremia: Unclear source ?UTI. Urinalysis consistent with UTI. Followed by ID. 7. Bilateral hydronephrosis: Likely from bilateral ureteral stones. CT abdomen did not show any hydronephrosis. S/p Haas catheter. Urology consulted. 8. DM type 2: Accuchecks. 9. H/o hypertension: Monitor BP. Subjective: Patient was seen and examined at the bedside. Doing ok. Examination: General appearance: well-developed, appears stated age, no distress HEENT: ATNC Neck: Trachea midline Respiratory: ctab Cardiology: S1S2, regular, no murmur Gastrointestinal: normoactive bowel sounds, no tenderness, not distended Integumentary: no obvious rash Neurologic: alert, non-focal, slight confusion noted Ext: 1+ LE edema noted Hemodialysis access: R IJ temp catheter Subjective Date of service: 04/23/20 Principal diagnosis: Sepsis present on admission Objective - Vital Signs Vital signs: Vital Signs - 12hr 04/23/20 04:32 Temperature 99.2 F Pulse Rate 76 Respiratory 16 Rate Blood Pressure 145/60 O2 Sat by Pulse 95 Oximetry - Lab 04/18/20 05:56 04/22/20 05:13 Most recent lab results ABG pH 7.441 pH Units (7.350-7.450) 04/12/20 04:21 ABG pCO2 26.2 mm Hg 04/12/20 04:21 ABG pO2 135.7 mm Hg (80.0-90.0) H 04/12/20 04:21 ABG HCO3 15.4 mmol/L (20.0-26.0) L 04/12/20 04:21 ABG O2 Saturation 98.7 % (95.0-99.0) 04/12/20 04:21 Calcium 8.7 mg/dL (8.4-10.2) 04/22/20 05:13 Phosphorus 3.00 mg/dL (2.5-4.5) 04/16/20 14:57 Magnesium 1.90 mg/dL (1.7-2.3) 04/13/20 13:51 Urine Creatinine 103.8 mg/dL (0.1-20.0) H 04/16/20 01:35 Urine Sodium 66 mmol/L 04/16/20 01:35 Urine Total Protein 209 mg/dL (5-11.8) H 04/16/20 01:35 Medications & Allergies - Medications Allergies/Adverse Reactions: Allergies No Known Allergies Allergy (Verified 04/12/20 04:28) Home Medications: Home Medications Medication Instructions Recorded Confirmed Last Taken Type AtorvaSTATin [Lipitor] 20 mg PO QHS 04/12/20 04/12/20 Unknown History Diclofenac [Aki Hernández] 75 mg PO BID 04/12/20 04/12/20 Unknown History Insulin Aspart Prot/Aspart(Nf) 10 units SUB-Q BID 04/12/20 04/12/20 Unknown History [NovoLOG Mix 70/30 VIAL] Losartan/Hydrochlorothiazide 100 mg PO QDAY 04/12/20 04/12/20 Unknown History [Losartan-Hctz 100-25 mg Tab] Metoprolol [Lopressor] 25 mg PO BID 04/12/20 04/12/20 Unknown History Pioglitazone [Actos] 15 mg PO QDAY 04/12/20 04/12/20 Unknown History amLODIPine [Norvasc] 5 mg PO DAILY 04/12/20 04/12/20 Unknown History Cholecalciferol (Vitamin D3) 5,000 unit PO QDAY 04/13/20 04/13/20 Unknown History [Vitamin D3 5,000 UNIT] Metoprolol [Lopressor] 25 mg PO BID 04/13/20 04/13/20 Unknown History glipiZIDE [Glucotrol] 10 mg PO QDAY 04/13/20 04/13/20 Unknown History traMADoL [Ultram] 50 mg PO Q6HR PRN 04/13/20 04/13/20 Unknown History Active Medications: Generic Name Dose Route Start Last Admin Trade Name Freq PRN Reason Stop Dose Admin Alprazolam 0.125 mg 04/12/20 07:53 04/20/20 22:20 Xanax PO 0.125 mg Q8H PRN Administration Anxiety Amlodipine Besylate 10 mg 04/17/20 15:00 04/23/20 09:37 Amlodipine PO 10 mg QDAY JOSIANE Administration Apixaban 5 mg 04/13/20 11:00 04/23/20 09:37 Eliquis PO 5 mg Q12HR JOSIANE Administration Protocol Dextrose 50 ml 04/13/20 10:05 D50w (25gm) Syringe IV Q30MIN PRN Hypoglycemia Protocol Famotidine 20 mg 04/12/20 10:00 04/23/20 09:37 Pepcid PO 20 mg DAILY JOSIANE Administration Haloperidol Lactate 5 mg 04/13/20 10:42 Haldol IV Q6H PRN Agitation Hydralazine HCl 50 mg 04/22/20 00:15 04/23/20 09:37 Apresoline PO 50 mg TID JOSIANE Administration Cefepime HCl 1 gm in 100 mls @ 200 mls/hr 04/14/20 18:00 04/22/20 18:00 Cefepime/Ns 1 Gm/100 Ml IV 04/23/20 18:29 200 mls/hr Q24H JOSIANE Administration Protocol Insulin Human Lispro 0 unit 04/13/20 11:30 04/23/20 09:38 Humalog SUB-Q 1 unit ACHS JOSIANE Administration Protocol Insulin Human Lispro 5 unit 04/23/20 08:15 04/23/20 09:38 Humalog SUB-Q 5 unit AC JOSIANE Administration
[2020-04-23] MEDS ORDERED: NEOMY 3.5 MG/BACIT 400 UNITS/POLY B 5000 UNITS/GM OINT PACKET TP SCH (11:00)
[2020-04-23] MEDS: CEFEPIME/NS 1 GM/100 ML 1 GM/100 ML BAG IV SCH ×2 (11:05→17:54)
--- NOTE | 2020-04-23 13:42 | Progress Note ---
Assessment and Plan Cultures: Coronavirus PCR: Positive 04/12/2020 blood culture: Enterobacter 2 out of 4 bottles 04/14/2020 urine culture no growth 04/16/2020 blood culture no growth A/P: 75-year-old male with diabetes, hypertension admitted with: #Sepsis, secondary to bilateral pneumonia: Likely secondary to COVID-19 infection and Enterobacter bacteremia. #Enterobacter bacteremia: Unclear source ?UTI. Urinalysis consistent with UTI. Urine culture no growth, obtained 2 days after antibiotics. #COVID-19 infection: completed steroids. Not candidate for remdesivir due to renal failure. #Acute hypoxic respiratory failure: Improving, now on room air. #Acute renal failure: Renally dose antibiotics. Nephrology following. CT showed mild b/l hydronephrosis and calculi. 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 CT abdomen showed b/l nodular densities concerning for ?metastatic disease. Recs: -Last day of Cefepime today -completed steroids for COVID -Follow-up QuantiFERON TB Gold -CT abdomen showed b/l nodular densities concerning for ?metastatic disease. CT chest without contrast ordered. -reconsult pulmonary D/W Dr. Lara. Chong Stack MD, FACP [facility] ([facility] O: [phone] F: [phone] Subjective Date of service: 04/23/20 Principal diagnosis: Sepsis present on admission Interval history: No fever. Weaned off oxygen. Objective - Exam Narrative Exam: Physical Exam (reviewed in chart due to PPE conservation and minimize risk of transmission) Constitutional: limited due to PPE conservation strategy Head, Ears, Nose: limited due to PPE conservation strategy Eyes: limited due to PPE conservation strategy Neck: limited due to PPE conservation strategy Oral: limited due to PPE conservation strategy Cardiovascular: limited due to PPE conservation strategy Respiratory: limited due to PPE conservation strategy GI: limited due to PPE conservation strategy Musculoskeletal: limited due to PPE conservation strategy Skin: limited due to PPE conservation strategy Hem/Lymphatic: limited due to PPE conservation strategy Psych: limited due to PPE conservation strategy Neurological: limited due to PPE conservation strategy - Constitutional Vitals: Vital Signs Temp Pulse Resp BP Pulse Ox 98.1 F 72 18 148/80 94 04/23/20 13:39 04/23/20 13:39 04/23/20 13:39 04/23/20 13:39 04/23/20 13:39 Temperature -Last 24 Hours Temperature 98.1 F Temperature 99.2 F Temperature 98.5 F - Labs CBC & Chem 7: 04/18/20 05:56 04/22/20 05:13 Labs: Abnormal lab results 04/22/20 04/22/20 04/23/20 Range/Units 17:25 21:25 08:43 POC Glucose 232 H 348 H 180 H (70-105) mg/dL 04/23/20 Range/Units 12:04 POC Glucose 229 H (70-105) mg/dL
[2020-04-23 14:52] LABS: Calcium 8.5 mg/dL (8.4-10.2)
--- NOTE | 2020-04-23 17:02 | Cat Scan Report ---
CT CHEST WITHOUT CONTRAST INDICATION / CLINICAL INFORMATION: R lung mass on CXR. malignancy. Also with COVID. TECHNIQUE: Axial CT images were obtained through the chest without contrast. All CT scans at this location are p erformed using CT dose reduction for ALARA by means of automated exposure control. COMPARISON: No prior chest CT for comparison. Chest radiograph and CT abdomen dated 04/22/20 FINDINGS: HEART: No significant abnormality. CORONARY ARTERY CALCIFICATION: None. THORACIC AORTA: No significant abnormality. MEDIASTINUM / ANNIKA: Calcified mediastinal and hilar lymph nodes characteristic of old granulomatous d isease. PLEURA: No pleural effusion. No pneumothorax. LUNGS: Extensive bilateral nodularity which is fairly symmetric. There is coalescent nodularity in th e right upper lobe along the minor fissure and in the right middle lobe along the major fissure. Ther e is mild coalescence in the left lung along the pleural surfaces as well. No acute airspace consolid ation. No definite groundglass opacities or airspace consolidation. ADDITIONAL FINDINGS: None. UPPER ABDOMEN: No significant abnormality. SKELETAL SYSTEM: Left shoulder degenerative arthrosis with several intra-articular bodies. IMPRESSION: 1. Extensive bilateral pulmonary nodularity which appears symmetric. The appearance is most suggestiv e of pneumoconiosis such as silicosis. Clinical and laboratory correlation is recommended. 2. No definite groundglass opacities to suggest atypical/viral pneumonia at this time. 3. Follow-up chest CT after treatment of acute episode is recommended to reassess pulmonary findings. Signer Name: Khloe Mathis MD Signed: 04/23/2020 5:01 PM Workstation Name: [id number]
[2020-04-24 07:36] LABS: Calcium 8.4 mg/dL (8.4-10.2)
--- NOTE | 2020-04-24 08:08 | Progress Note ---
Assessment and Plan Assessment and plan: Sepsis. Etiology secondary to bilateral pneumonia: Likely secondary to COVID-19 infection and Enterobacter bacteremia. Continue cefepime per ID recommendation. Follow-up repeat blood cultures. Enterobacter bacteremia: Unclear source ?UTI. Urinalysis consistent with UTI. Urine culture no growth, obtained 2 days after antibiotics. COVID-19 infection. D-dimer significantly elevated at >10K, ferritin elevated. Repeat D-dimer and ferritin improving. Continue IV/p.o. dexamethasone 6 mg daily for total of 10 days. Patient not a candidate for remdesivir due to renal failure. Acute hypoxic respiratory failure: Remains on high flow nasal cannula today (high flow nasal cannula 6 L). Acute renal failure: Renally dose antibiotics. Worsening. Started on hemodialysis per nephrology. Elevated LFTs: Continue to monitor. 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 04/18/2020. Follow-up renal ultrasound which has been ordered. JENY, ANCA, GMB Ab, Complements and SPEP pending. Hemodialysis initiated for acute kidney injury on 04/14/2020. Continue anticoagulation and follow-up inflammatory markers. Leukocytosis likely secondary to steroids. Patient's prognosis remains guarded given the renal failure and COVID-19 infection 04/19/2020. Continue dexamethasone (7/10 dose). Continue Eliquis for anticoagulation. Continue IV antibiotics of cefepime and trend inflammatory markers. Follow-up JENY, ANCA, C3, C4, anti-GBM and SPEP per nephrology. Await renal ultrasound and consider echocardiogram. 04/20/2020. Continue dexamethasone (8/10 dose). Continue Eliquis for anticoagulation. Continue IV antibiotics of cefepime and trend inflammatory markers. Follow-up JENY, ANCA, C3, C4, anti-GBM and SPEP per nephrology. Await renal ultrasound and consider echocardiogram. Patient currently with 2 L of oxygen satting 99%. Check exercise pulse oximetry. Patient not a candidate for remdesivir given renal failure. 04/21/2020. Continue dexamethasone (9/10 dose). Continue Eliquis for anticoagulation. Continue IV antibiotics of cefepime and trend inflammatory markers. Patient required hemodialysis that was initiated on 04/14 due to worsening renal function and associated hyperkalemia and metabolic acidosis. Follow-up JENY, ANCA, C3, C4, anti-GBM and SPEP per nephrology. Await renal ultrasound and consider echocardiogram. Await nephrology recommendations regarding continued hemodialysis. 04/22/2020; patient will finish dexamethasone today. Continue Eliquis for anticoagulation. Day 9 out of 10 of IV cefepime for Enterobacter bacteremia. Patient is ROZ and work-up in progress per nephrology. Renal function is improving and creatinine this morning was 2.2 and hemodialysis is held for now. Patient is on 2 L of oxygen. 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 04/23/2020; patient finished dexamethasone yesterday. Continue with Eliquis for anticoagulation. Patient will finish IV cefepime tonight. Creatinine is improving. Nephrology is following. ID consult appreciated. QuantiFERON gold will be followed as an outpatient with ID. Chest x-ray from yesterday did not show any change from the one done previously. Patient will be discharged tomor row. CT abdomen and pelvis was done and significant for nephrolithiasis 04/24/20: patient finished dexamethasone yesterday. Continue with Eliquis for anticoagulation. Patient will finish IV cefepime tonight. Creatinine is improving. Nephrology is following. ID consult appreciated. QuantiFERON gold will be followed as an outpatient with ID. Chest x-ray from yesterday did not show any change from the one done previously. CT abdomen and pelvis was done and significant for nephrolithiasis Patient has bilateral mildly obstructing ureteral stone and nephrology consulted urology and is going to do cystoscopy today. 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 I reconsulted pulmonary. Nephrology is following and patient does not need dialysis. History Interval history: Patient was seen and evaluated this morning Patient is off oxygen and doing well. Hospitalist Physical - Physical exam Narrative exam: Not in cardiopulmonary distress. The patient appeared well nourished and normally developed. Vital signs as documented. Head exam is unremarkable. No scleral icterus . Neck is without jugular venous distension, thyromegaly, or carotid bruits. Lungs are clear to auscultation. Cardiac exam reveals regular rate and Rhythm. Abdominal exam reveals normal bowel sounds, nontender, no organomegaly. Extremities are nonedematous and both femoral and pedal pulses are normal. 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 No focal weakness. - Constitutional Vitals: Temp Pulse Resp BP Pulse Ox 98.0 F 63 20 149/65 94 04/24/20 05:09 04/23/20 22:10 04/24/20 05:09 04/24/20 05:09 04/23/20 21:48 General appearance: Present: no acute distress, well-nourished HEART Score - HEART Score Troponin: Troponin T 0.012 ng/mL (0.00-0.029) 04/12/20 04:51 Results - Labs CBC & Chem 7: 04/18/20 05:56 04/24/20 05:39 Labs: Laboratory Last Values WBC 18.5 K/mm3 (4.5-11.0) H 04/18/20 05:56 RBC 3.79 M/mm3 (3.65-5.03) 04/18/20 05:56 Hgb 11.5 gm/dl (11.8-15.2) L 04/18/20 05:56 Hct 34.2 % (35.5-45.6) L 04/18/20 05:56 MCV 90 fl (84-94) 04/18/20 05:56 MCH 30 pg (28-32) 04/18/20 05:56 MCHC 34 % (32-34) 04/18/20 05:56 RDW 14.3 % (13.2-15.2) 04/18/20 05:56 Plt Count 83 K/mm3 (140-440) L 04/18/20 05:56 Add Manual Diff Complete 04/18/20 05:56 Total Counted 100 04/18/20 05:56 Seg Neutrophils % [employer] Chair 04/18/20 05:56 Seg Neuts % (Manual) 93.0 % (40.0-70.0) H 04/18/20 05:56 Band Neutrophils % 0 % 04/18/20 05:56 Lymphocytes % (Manual) 4.0 % (13.4-35.0) L 04/18/20 05:56 Reactive Lymphs % (Man) 0 % 04/18/20 05:56 Monocytes % (Manual) 3.0 % (0.0-7.3) 04/18/20 05:56 Eosinophils % (Manual) 0 % (0.0-4.3) 04/18/20 05:56 Basophils % (Manual) 0 % (0.0-1.8) 04/18/20 05:56 Metamyelocytes % 0 % 04/18/20 05:56 Myelocytes % 0 % 04/18/20 05:56 Promyelocytes % 0 % 04/18/20 05:56 Blast Cells % 0 % 04/18/20 05:56 Nucleated RBC % Not Reportable 04/18/20 05:56 Seg Neutrophils # Man 17.2 K/mm3 (1.8-7.7) H 04/18/20 05:56 Band Neutrophils # 0.0 K/mm3 04/18/20 05:56 Lymphocytes # (Manual) 0.7 K/mm3 (1.2-5.4) L 04/18/20 05:56 Abs React Lymphs (Man) 0.0 K/mm3 04/18/20 05:56 Monocytes # (Manual) 0.6 K/mm3 (0.0-0.8) 04/18/20 05:56 Eosinophils # (Manual) 0.0 K/mm3 (0.0-0.4) 04/18/20 05:56 Basophils # (Manual) 0.0 K/mm3 (0.0-0.1) 04/18/20 05:56 Metamyelocytes # 0.0 K/mm3 04/18/20 05:56 Myelocytes # 0.0 K/mm3 04/18/20 05:56 Promyelocytes # 0.0 K/mm3 04/18/20 05:56 Blast Cells # 0.0 K/mm3 04/18/20 05:56 WBC Morphology Not Reportable 04/18/20 05:56 Hypersegmented Neuts Not Reportable 04/18/20 05:56 Hyposegmented Neuts Not Reportable 04/18/20 05:56 Hypogranular Neuts Not Reportable 04/18/20 05:56 Smudge Cells Not Reportable 04/18/20 05:56 Toxic Granulation Not Reportable 04/18/20 05:56 Toxic Vacuolation Not Reportable 04/18/20 05:56 Dohle Bodies Not Reportable 04/18/20 05:56 Pelger-Huet Anomaly Not Reportable 04/18/20 05:56 Matthew Rods Not Reportable 04/18/20 05:56 Platelet Estimate Consistent w auto 04/18/20 05:56 Clumped Platelets Not Reportable 04/18/20 05:56 Plt Clumps, EDTA Not Reportable 04/18/20 05:56 Large Platelets Not Reportable 04/18/20 05:56 Giant Platelets Not Reportable 04/18/20 05:56 Platelet Satelliting Not Reportable 04/18/20 05:56 Plt Morphology Comment Not Reportable 04/18/20 05:56 RBC Morphology Not Reportable 04/18/20 05:56 Dimorphic RBCs Not Reportable 04/18/20 05:56 Polychromasia Not Reportable 04/18/20 05:56 Hypochromasia Not Reportable 04/18/20 05:56 Poikilocytosis Not Reportable 04/18/20 05:56 Anisocytosis Not Reportable 04/18/20 05:56 Microcytosis Not Reportable 04/18/20 05:56 Macrocytosis Not Reportable 04/18/20 05:56 Spherocytes Not Reportable 04/18/20 05:56 Pappenheimer Bodies Not Reportable 04/18/20 05:56 Sickle Cells Not Reportable 04/18/20 05:56 Target Cells Not Reportable 04/18/20 05:56 Tear Drop Cells Not Reportable 04/18/20 05:56 Ovalocytes Not Reportable 04/18/20 05:56 Helmet Cells Not Reportable 04/18/20 05:56 [place] Bodies Not Reportable 04/18/20 05:56 [place] Rings Not Reportable 04/18/20 05:56 [place] Cells Not Reportable 04/18/20 05:56 Bite Cells Not Reportable 04/18/20 05:56 Crenated Cell Not Reportable 04/18/20 05:56 Elliptocytes Not Reportable 04/18/20 05:56 Acanthocytes (Spur) Not Reportable 04/18/20 05:56 Rouleaux Not Reportable 04/18/20 05:56 Hemoglobin C Crystals Not Reportable 04/18/20 05:56 Schistocytes Not Reportable 04/18/20 05:56 Malaria parasites Not Reportable 04/18/20 05:56 Dandre Bodies Not Reportable 04/18/20 05:56 Hem Pathologist Commnt No 04/18/20 05:56 D-Dimer 4117.34 ng/mlDDU (0-234) H 04/19/20 15:36 ABG pH 7.441 pH Units (7.350-7.450) 04/12/20 04:21 ABG pCO2 26.2 mm Hg 04/12/20 04:21 ABG pO2 135.7 mm Hg (80.0-90.0) H 04/12/20 04:21 ABG HCO3 15.4 mmol/L (20.0-26.0) L 04/12/20 04:21 ABG O2 Saturation 98.7 % (95.0-99.0) 04/12/20 04:21 ABG Base Excess -5.1 mmol/L (-2.0-3.0) L 04/12/20 04:21 ABG Hemoglobin 13.3 gm/dl (14.0-18.0) L 04/12/20 04:21 ABG Carboxyhemoglobin 1.2 % (0.0-5.0) 04/12/20 04:21 ABG Methemoglobin 0.6 % (0.0-1.5) 04/12/20 04:21 Oxyhemoglobin 96.9 % (95.0-99.0) 04/12/20 04:21 FiO2 30.0 % 04/12/20 04:21 Sodium 142 mmol/L (137-145) 04/24/20 05:39 Potassium 4.4 mmol/L (3.6-5.0) D 04/24/20 05:39 Chloride 108.9 mmol/L (98-107) H 04/24/20 05:39 Carbon Dioxide 22 mmol/L (22-30) 04/24/20 05:39 Anion Gap 16 mmol/L 04/24/20 05:39 BUN 39 mg/dL (9-20) H 04/24/20 05:39 Creatinine 2.1 mg/dL (0.8-1.3) H 04/24/20 05:39 Estimated GFR 37 ml/min 04/24/20 05:39 BUN/Creatinine Ratio 19 % 04/24/20 05:39 Glucose 128 mg/dL (75-100) H 04/24/20 05:39 POC Glucose 140 mg/dL (70-105) H 04/23/20 22:02 Lactic Acid 3.50 mmol/L (0.7-2.0) H* 04/12/20 10:20 Calcium 8.4 mg/dL (8.4-10.2) 04/24/20 05:39 Phosphorus 3.00 mg/dL (2.5-4.5) 04/16/20 14:57 Magnesium 1.90 mg/dL (1.7-2.3) 04/13/20 13:51 Ferritin 1697.0 ng/mL (30.0-300.0) H 04/19/20 15:36 Total Bilirubin 0.60 mg/dL (0.1-1.2) 04/12/20 04:51 AST 69 units/L (5-40) H 04/12/20 04:51 ALT 51 units/L (7-56) 04/12/20 04:51 Alkaline Phosphatase 155 units/L (35-129) H 04/12/20 04:51 Lactate Dehydrogenase 336 units/L (91-180) H 04/19/20 15:36 Troponin T 0.012 ng/mL (0.00-0.029) 04/12/20 04:51 C-Reactive Protein 3.40 mg/dL (0.00-1.30) H 04/19/20 15:36 NT-Pro-B Natriuret Pep 2170 pg/mL (0-900) H 04/12/20 04:51 Serum Total Protein 6.0 g/dL (6.1-8.1) L 04/16/20 14:57 Total Protein 7.1 g/dL (6.3-8.2) 04/12/20 04:51 Albumin 2.9 g/dL (3.8-4.8) L 04/16/20 14:57 Albumin/Globulin Ratio 1.1 % 04/12/20 04:51 Vfcga-0-Wdltdwpji 0.4 g/dL (0.2-0.3) H 04/16/20 14:57 Zmckn-2-Bqduypwrw 1.0 g/dL (0.5-0.9) H 04/16/20 14:57 Beta Globulins 0.4 g/dL (0.2-0.5) 04/16/20 14:57 Gamma Globulins 1.1 g/dL (0.8-1.7) 04/16/20 14:57 Abnorm Protein Band 1 see below 04/16/20 14:57 PEP Interpretation see below H 04/16/20 14:57 Procalcitonin 82.32 ng/mL (<0.15) 04/12/20 04:51 Urine Color Red (Yellow) 04/14/20 21:00 Urine Turbidity Turbid (Clear) 04/14/20 21:00 Urine pH 6.0 (5.0-7.0) 04/14/20 21:00 Ur Specific [place] 1.013 (1.003-1.030) 04/14/20 21:00 Urine Protein >500 mg/dL (Negative) 04/14/20 21:00 Urine Glucose (UA) 50 mg/dL (Negative) 04/14/20 21:00 Urine Ketones Neg mg/dL (Negative) 04/14/20 21:00 Urine Blood Lg (Negative) 04/14/20 21:00 Urine Nitrite Neg (Negative) 04/14/20 21:00 Urine Bilirubin Neg (Negative) 04/14/20 21:00 Urine Urobilinogen < 2.0 mg/dL (<2.0) 04/14/20 21:00 Ur Leukocyte Esterase Lg (Negative) 04/14/20 21:00 Urine WBC (Auto) > 182.0 /HPF (0.0-6.0) H 04/14/20 21:00 Urine RBC (Auto) > 182.0 /HPF (0.0-6.0) 04/14/20 21:00 U Epithel Cells (Auto) 3.0 /HPF (0-13.0) 04/14/20 21:00 Urine Bacteria (Auto) 2+ /HPF (Negative) 04/14/20 21:00 Urine WBC Clumps 3+ /HPF 04/14/20 21:00 Urine Mucus Few /HPF 04/14/20 21:00 Urine Yeast (Budding) 2+ /HPF 04/14/20 21:00 Urine Eosinophils None seen (None Seen) 04/15/20 01:35 Urine Creatinine 103.8 mg/dL (0.1-20.0) H 04/16/20 01:35 Protein/Creatinin Ratio 2.01 04/16/20 01:35 Urine Sodium 66 mmol/L 04/16/20 01:35 Urine Total Protein 209 mg/dL (5-11.8) H 04/16/20 01:35 JENY Screen Negative (Negative) 04/16/20 14:57 Proteinase 3 (PR3) Ab <1.0 AI (<1.0) 04/16/20 14:57 Myeloperoxidase Ab <1.0 AI (<1.0) 04/16/20 14:57 Glomerular Base Mem IgG See scanned results 04/16/20 14:57 Complement C3 134 mg/dL (82-185) 04/16/20 14:57 Complement C4 40 mg/dL (15-53) 04/16/20 14:57 Coronavirus (PCR) Positive (Negative) A 04/12/20 Unknown Hepatitis A IgM Ab Non-reactive (NonReactive) 04/14/20 16:50 Hep Bs Antigen Non-reactive (Negative) 04/14/20 16:50 Hep B Core IgM Ab Non-reactive (NonReactive) 04/14/20 16:50 Hepatitis C Antibody Non-reactive (NonReactive) 04/14/20 16:50 SARS-CoV-2 IgG Ab Nonreactive (NonReactive) 04/16/20 14:57 Haas/IV: Voiding Method Indwelling Catheter IV Catheter Type [Right VAS Cath Subclavian] IV Catheter Type [Right Peripheral IV Forearm] IV Catheter Type [Right Hand] Peripheral IV Active Medications - Current Medications Current Medications: Generic Name Dose Route Start Last Admin Trade Name Freq PRN Reason Stop Dose Admin Alprazolam 0.125 mg 04/12/20 07:53 04/20/20 22:20 Xanax PO 0.125 mg Q8H PRN Administration Anxiety Amlodipine Besylate 10 mg 04/17/20 15:00 04/23/20 09:37 Amlodipine PO 10 mg QDAY JOSIANE Administration Apixaban 5 mg 04/13/20 11:00 04/23/20 22:11 Eliquis PO 5 mg Q12HR JOSIANE Administration Protocol Dextrose 50 ml 04/13/20 10:05 D50w (25gm) Syringe IV Q30MIN PRN Hypoglycemia Protocol Famotidine 20 mg 04/12/20 10:00 04/23/20 09:37 Pepcid PO 20 mg DAILY JOSIANE Administration Haloperidol Lactate 5 mg 04/13/20 10:42 Haldol IV Q6H PRN Agitation Hydralazine HCl 50 mg 04/22/20 00:15 04/23/20 22:10 Apresoline PO Not Given TID [facility] Insulin Human Lispro 0 unit 04/13/20 11:30 04/23/20 22:11 Humalog SUB-Q Not Given ACHS [facility] Protocol Insulin Human Lispro 5 unit 04/23/20 08:15 04/23/20 17:48 Humalog SUB-Q 5 unit AC [facility] Administration Nutrition/Malnutrition Assess - Dietary Evaluation Nutrition/Malnutrition Findings: Nutrition Notes Start: 04/21/20 14:01 Freq: Status: Active Protocol: Document 04/21/20 14:01 TRENTONSHERLEY (Rec: 04/21/20 14:09 NHALL [id number]) Nutrition Notes Need for Assessment generated from: LOS Initial or Follow up Brief Note Current Diagnosis Sepsis Other Pertinent Diagnosis COVID-19 (+), bilat pneu, ARF, ? TB Current Diet Consistent CHO Labs/Tests BUN 50 Cr 2.5 Pertinent Medications Decadron Height 5 ft 9 in Weight 86.8 kg [place] Body Weight (kg) 72.72 BMI 28.2 Weight Status Overweight Subjective/Other Information Pt screened for LOS. Spoke to pt via phone at 13:04. He says he is ready to go home. He reports good appetite; says that he eats too much. Only one meal intake documented at 75% since admission. Pt reports no chewing or swallowing difficulty. HD started on 04/14 sec to worsening renal function. Burn Absent Trauma Absent Current % PO Good (75-100%) Minimum of two criteria No Is patient on ventilator? No Is Patient Ambulatory and/or Out of Bed Yes [facility]OOB) [ [id number] [id number]] Calculation [facility] for [facility]ations [facility] Additional Notes Pro needs >1.2g/kg: >104g/day Fluid needs 1-1.5L/day Nutrition Intervention Follow-Up By: 04/28/20 Additional Comments F/U: stable intakes
[2020-04-24] MEDS: hydrALAZINE 25 MG TAB PO SCH ×2 (08:30→14:10)
--- NOTE | 2020-04-24 08:51 | Progress Note ---
Assessment and Plan 1. Acute kidney injury: Acute kidney injury in the setting of COVID infection, vasomotor insult and obstructive uropathy. Renal US, resulted 04/21, showed moderate bilateral hydronephrosis. JENY, ANCA, GBM Ab, Complements and SPEP are negative. Monitor renal function. Creatinine level continue to improve. Likely CKD. Avoid nephrotoxic agents. Meds dosage based on GFR. Patient required hemodialysis due to worsening renal function and associated hyperkalemia and metabolic acidosis. D/w patient and his daughter (04/14) about the indications, benefits, risks and alternatives involved in hemodialysis. Both voiced understanding and gave verbal consent. Hemodialysis: 04/14, 04/16, 04/18. Hemodialysis catheter was removed. 2. FEN: Hyperkalemia, improved with HD, monitor. Metabolic acidosis, improved, monitor. Monitor lytes. 3. Acute hypoxic resp failure: Likely secondary to COVID-19 infection. Currently on RA. Followed by Pulmonary. 4. Severe COVID-19 pneumonia. Followed by ID. 5. Sepsis: Likely secondary to COVID-19 infection and Enterobacter bacteremia. 6. Enterobacter bacteremia: Unclear source ?UTI. Urinalysis consistent with UTI. Followed by ID. 7. Bilateral hydronephrosis: Likely from bilateral ureteral stones. CT abdomen did not show any hydronephrosis. S/p Haas catheter. Followed by Urology, planned outpatient procedure. 8. DM type 2: Accuchecks. 9. H/o hypertension: Monitor BP. F/u with me in 1-2 weeks. Subjective: Patient was seen and examined at the bedside. Doing ok. Examination: General appearance: well-developed, appears stated age, no distress HEENT: ATNC Neck: Trachea midline Respiratory: ctab Cardiology: S1S2, regular, no murmur Gastrointestinal: normoactive bowel sounds, no tenderness, not distended Integumentary: no obvious rash Neurologic: alert, non-focal, slight confusion noted Ext: 1+ LE edema noted Hemodialysis access: R IJ temp catheter Subjective Date of service: 04/24/20 Principal diagnosis: Sepsis present on admission Objective - Vital Signs Vital signs: Vital Signs - 12hr 04/23/20 04/23/20 04/23/20 21:23 21:48 22:10 Temperature 99.3 F Pulse Rate 63 63 Respiratory 20 Rate Blood Pressure 128/59 128/59 O2 Sat by Pulse 96 94 Oximetry 04/24/20 05:09 Temperature 98.0 F Pulse Rate Respiratory 20 Rate Blood Pressure 149/65 O2 Sat by Pulse Oximetry - Lab 04/18/20 05:56 04/24/20 05:39 Most recent lab results ABG pH 7.441 pH Units (7.350-7.450) 04/12/20 04:21 ABG pCO2 26.2 mm Hg 04/12/20 04:21 ABG pO2 135.7 mm Hg (80.0-90.0) H 04/12/20 04:21 ABG HCO3 15.4 mmol/L (20.0-26.0) L 04/12/20 04:21 ABG O2 Saturation 98.7 % (95.0-99.0) 04/12/20 04:21 Calcium 8.4 mg/dL (8.4-10.2) 04/24/20 05:39 Phosphorus 3.00 mg/dL (2.5-4.5) 04/16/20 14:57 Magnesium 1.90 mg/dL (1.7-2.3) 04/13/20 13:51 Urine Creatinine 103.8 mg/dL (0.1-20.0) H 04/16/20 01:35 Urine Sodium 66 mmol/L 04/16/20 01:35 Urine Total Protein 209 mg/dL (5-11.8) H 04/16/20 01:35 Medications & Allergies - Medications Allergies/Adverse Reactions: Allergies No Known Allergies Allergy (Verified 04/12/20 04:28) Home Medications: Home Medications Medication Instructions Recorded Confirmed Last Taken Type AtorvaSTATin [Lipitor] 20 mg PO QHS 04/12/20 04/12/[address] [Aki Hernández] 75 mg PO BID 04/12/20 04/12/20 Unknown History Insulin Aspart Prot/Aspart(Nf) 10 units SUB-Q BID 04/12/20 04/12/20 Unknown History [NovoLOG Mix 70/30 VIAL] Losartan/Hydrochlorothiazide 100 mg PO QDAY 04/12/20 04/12/20 Unknown History [Losartan-Hctz 100-25 mg Tab] Metoprolol [Lopressor TAB] 25 mg PO BID 04/12/20 04/12/20 Unknown History Pioglitazone [Actos] 15 mg PO QDAY 04/12/20 04/12/20 Unknown History amLODIPine 5 mg PO DAILY 04/12/20 04/12/20 Unknown History Cholecalciferol (Vitamin D3) 5,000 unit PO QDAY 04/13/20 04/13/20 Unknown History [Vitamin D3 5,000 UNIT] Metoprolol [Lopressor TAB] 25 mg PO BID 04/13/20 04/13/20 Unknown History glipiZIDE [Glucotrol] 10 mg PO QDAY 04/13/20 04/13/20 Unknown History traMADoL [Ultram 50 MG tab] 50 mg PO Q6HR PRN 04/13/20 04/13/20 Unknown History Apixaban [Eliquis] 5 mg PO Q12HR #56 tablet 04/24/20 Unknown Rx Active Medications: Generic Name Dose Route Start Last Admin Trade Name Freq PRN Reason Stop Dose Admin Alprazolam 0.125 mg 04/12/20 07:53 04/20/20 22:20 Xanax PO 0.125 mg Q8H PRN Administration Anxiety Amlodipine Besylate 10 mg 04/17/20 15:00 04/23/20 09:37 Amlodipine PO 10 mg QDAY JOSIANE Administration Apixaban 5 mg 04/13/20 11:00 04/23/20 22:11 Eliquis PO 5 mg Q12HR JOSIANE Administration Protocol Dextrose 50 ml 04/13/20 10:05 D50w (25gm) Syringe IV Q30MIN PRN Hypoglycemia Protocol Famotidine 20 mg 04/12/20 10:00 04/23/20 09:37 Pepcid PO 20 mg DAILY JOSIANE Administration Haloperidol Lactate 5 mg 04/13/20 10:42 Haldol IV Q6H PRN Agitation Hydralazine HCl 50 mg 04/22/20 00:15 04/23/20 22:10 Apresoline PO Not Given TID JOSIANE Insulin Human Lispro 0 unit 04/13/20 11:30 04/23/20 22:11 Humalog SUB-Q Not Given ACHS JOSIANE Protocol Insulin Human Lispro 5 unit 04/23/20 08:15 04/23/20 17:48 Humalog SUB-Q 5 unit AC JOSIANE Administration
[2020-04-24] MEDS: INSULIN LISPRO 100 UNIT/ML VIAL 3 mL SUB-Q SCH ×4 (10:04→14:10)
[2020-04-24 10:57] VITALS: BP 135/66
[2020-04-24] MEDS: amLODIPine 10 MG TAB PO SCH (10:57)
[2020-04-24] MEDS: FAMOTIDINE 20 MG TAB PO SCH (10:57)
[2020-04-24] MEDS: APIXABAN 5 MG TAB PO SCH (10:59)
--- NOTE | 2020-04-24 13:05 | Event Note ---
Date: 04/24/20 IMS asked me to comment on CT of chest. Not exactly sure why ordered. Patient originally admitted with respiratory failure secondary to COVID 19. Weaned off oxygen therapy so we signed of. I have no comparison CT from before. This can be worked up as an outpatient as some of this could be chronic. It also could be related to COVID, given the novelty of this disease, there are many things we dont know. SInce his pulm status is stable, it does not require inpatient work up.
--- NOTE | 2020-04-24 14:53 | Progress Note ---
Assessment and Plan Cultures: Coronavirus PCR: Positive 04/12/2020 blood culture: Enterobacter 2 out of 4 bottles 04/14/2020 urine culture no growth 04/16/2020 blood culture no growth A/P: 75-year-old male with diabetes, hypertension admitted with: #Sepsis, secondary to bilateral pneumonia: Likely secondary to COVID-19 infection and Enterobacter bacteremia. #Enterobacter bacteremia: Unclear source ?UTI. Urinalysis consistent with UTI. Urine culture no growth, obtained 2 days after antibiotics. #COVID-19 infection: completed steroids. Not candidate for remdesivir due to renal failure. #Acute hypoxic respiratory failure: Improving, now on room air. #Acute renal failure: Renally dose antibiotics. Nephrology following. CT showed mild b/l hydronephrosis and calculi. #Elevated LFTs: Monitor #R lung mass like lesion with bilateral nodular interstitial disease: radiology raised question of TB based on CXR. CT chest did not show any mass or cavitary disease. Showed nodular disease unclear if chronic. Agree with plans for outpatient pulmonary follow up. Recs: -completed abx -completed steroids for COVID -Follow-up QuantiFERON TB Gold in ID clinic in 4 weeks (equipment scheduler notified) ID will sign off. Plesae call wtih questions. Chong Stack MD, FACP [facility] O: [phone] F: [phone] Subjective Date of service: 04/24/20 Principal diagnosis: Sepsis present on admission Interval history: No fever. Remains off oxygen. Objective - Exam Narrative Exam: Physical Exam (reviewed in chart due to PPE conservation and minimize risk of transmission) Constitutional: limited due to PPE conservation strategy Head, Ears, Nose: limited due to PPE conservation strategy Eyes: limited due to PPE conservation strategy Neck: limited due to PPE conservation strategy Oral: limited due to PPE conservation strategy Cardiovascular: limited due to PPE conservation strategy Respiratory: limited due to PPE conservation strategy GI: limited due to PPE conservation strategy Musculoskeletal: limited due to PPE conservation strategy Skin: limited due to PPE conservation strategy Hem/Lymphatic: limited due to PPE conservation strategy Psych: limited due to PPE conservation strategy Neurological: limited due to PPE conservation strategy - Constitutional Vitals: Vital Signs Temp Pulse Resp BP Pulse Ox 99.6 F 65 20 135/66 96 04/24/20 10:53 04/24/20 10:53 04/24/20 10:53 04/24/20 10:57 04/24/20 10:53 Temperature -Last 24 Hours Temperature 99.6 F Temperature 98.0 F Temperature 99.3 F Temperature 98 F - Labs CBC & Chem 7: 04/18/20 05:56 04/24/20 05:39 Labs: Abnormal lab results 04/23/20 04/23/20 04/23/20 Range/Units 13:56 17:01 18:07 Chloride (98-107) mmol/L BUN 41 H (9-20) mg/dL Creatinine 2.0 H (0.8-1.3) mg/dL Glucose 227 H (75-100) mg/dL POC Glucose 250 H 224 H (70-105) mg/dL 04/23/20 04/24/20 Range/Units 22:02 05:39 Chloride 108.9 H (98-107) mmol/L BUN 39 H (9-20) mg/dL Creatinine 2.1 H (0.8-1.3) mg/dL Glucose 128 H (75-100) mg/dL POC Glucose 140 H (70-105) mg/dL
--- NOTE | 2020-04-24 15:03 | Discharge Summary ---
Providers - Providers Date of Admission: 04/14/20 12:39 Date of discharge: 04/24/20 Attending physician: NADEEM FENTON MD 04/12/20 07:28 Consult to Physician [CONS] Urgent Comment: Consulting Provider: KLARISSA RUCKER Physician Instructions: Reason For Exam: b/l pneumonia, r/o tb, r/o covid 04/12/20 07:55 Consult to Physician [CONS] Routine Comment: Consulting Provider: MILTON ENGLE Physician Instructions: Reason For Exam: respiratory fail 04/13/20 15:43 Consult to Physician [CONS] Routine Comment: Consulting Provider: RASHEL HUFF Physician Instructions: Reason For Exam: renal failure 04/14/20 10:16 Consult to Interventional Radiology [CONS] Routine Consulting Provider: MEG WILKINS Reason For Exam: Hemodialysis catheter Place consult to:: tanesha Notified:: tanesha 04/23/20 10:14 Consult to Physician [CONS] Routine Comment: Consulting Provider: CHERYL MEHTA Physician Instructions: Reason For Exam: Bilateral ureteral stone. 04/23/20 13:42 Consult to Physician [CONS] Routine Comment: Consulting Provider: MILTON ENGLE Physician Instructions: Reason For Exam: reconsult for multiple pulmonary nodules [facility] Condition: Stable Disposition: DC-01 TO HOME OR SELFCARE Time spent for discharge: 35 minutes - Discharge Diagnoses (1) Pneumoconiosis Status: Acute (2) Acute kidney injury (ROZ) with acute tubular necrosis (ATN) Status: Acute (3) Acute respiratory failure with hypoxia Status: Acute (4) Community acquired pneumonia Status: Acute (5) Diabetes 1.5, managed as type 1 Status: Acute (6) UTI (urinary tract infection) Status: Acute Core Measure Documentation - Palliative Care Palliative Care/ Comfort Measures: Not Applicable - Core Measures Any of the following diagnoses?: none Exam - Physical Exam Narrative exam: Not in cardiopulmonary distress. The patient appeared well nourished and normally developed. Vital signs as documented. Head exam is unremarkable. No scleral icterus . Neck is without jugular venous distension, thyromegaly, or carotid bruits. Lungs are clear to auscultation. Cardiac exam reveals regular rate and Rhythm. Abdominal exam reveals normal bowel sounds, nontender, no organomegaly. Extremities are nonedematous and both femoral and pedal pulses are normal. ERP PM: Alert and oriented 3. No focal weakness. - Constitutional Vitals: Temp Pulse Resp BP Pulse Ox 99.6 F 65 20 135/66 96 04/24/20 10:53 04/24/20 10:53 04/24/20 10:53 04/24/20 10:57 04/24/20 10:53 Plan Activity: no restrictions Weight Bearing Status: Full Weight Bearing Diet: diabetic Follow up with: [facility] MD RIC [Primary Care Provider] - 3-5 Days ELSA MONSALVE MD [Staff Physician] - 7 Days MILTON ENGLE MD [Staff Physician] - 14 Days Prescriptions: Apixaban [Eliquis] 5 mg PO Q12HR #56 tablet
--- NOTE | 2020-04-25 07:17 | Discharge Summary ---
Providers - Providers Date of Admission: 04/14/20 12:39 Date of discharge: 04/24/20 Attending physician: NADEEM FENTON MD 04/12/20 07:28 Consult to Physician [CONS] Urgent Comment: Consulting Provider: KLARISSA RUCKER Physician Instructions: Reason For Exam: b/l pneumonia, r/o tb, r/o covid 04/12/20 07:55 Consult to Physician [CONS] Routine Comment: Consulting Provider: MILTON PICHARDO Physician Instructions: Reason For Exam: respiratory fail 04/13/20 15:43 Consult to Physician [CONS] Routine Comment: Consulting Provider: RASHEL HUFF Physician Instructions: Reason For Exam: renal failure 04/14/20 10:16 Consult to Interventional Radiology [CONS] Routine Consulting Provider: MEG WILKINS Reason For Exam: Hemodialysis catheter Place consult to:: tanesha Notified:: tanesha 04/23/20 10:14 Consult to Physician [CONS] Routine Comment: Consulting Provider: CHERYL MEHTA Physician Instructions: Reason For Exam: Bilateral ureteral stone. 04/23/20 13:42 Consult to Physician [CONS] Routine Comment: Consulting Provider: MILTON PICHARDO Physician Instructions: Reason For Exam: reconsult for multiple pulmonary nodules [facility] Reason for admission: Acute hypoxic respiratory failure, Covid pneumonia, sepsis, bacteremia Condition: Stable Hospital course: History of present illness: Patient 75-year-old with a history of hypertension diabetes presents with an acute episode of shortness of breath. Patient called EMT was found to be hypoxic on presentation and was transferred to the ED. Upon ER admission patient was found to be hypoxic as well was placed on BiPAP. Patient stabilized on BiPAP. Work-up in the ED found diffuse bilateral nodular densities. Focal areas of consolidation in the mid lung very difficult to get much history secondary to increased work of breathing. Sepsis. Etiology secondary to bilateral pneumonia: Likely secondary to COVID-19 infection and Enterobacter bacteremia. Continue cefepime per ID recommendation. Follow-up repeat blood cultures. Enterobacter bacteremia: Unclear source ?UTI. Urinalysis consistent with UTI. Urine culture no growth, obtained 2 days after antibiotics. COVID-19 infection. D-dimer significantly elevated at >10K, ferritin elevated. Repeat D-dimer and ferritin improving. Continue IV/p.o. dexamethasone 6 mg daily for total of 10 days. Patient not a candidate for remdesivir due to renal failure. Acute hypoxic respiratory failure: Remains on high flow nasal cannula today (high flow nasal cannula 6 L). Acute renal failure: Renally dose antibiotics. Worsening. Started on hemodialysis per nephrology. Elevated LFTs: Continue to monitor. 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 04/18/2020. Follow-up renal ultrasound which has been ordered. JENY, ANCA, GMB Ab, Complements and SPEP pending. Hemodialysis initiated for acute kidney injury on 04/14/2020. Continue anticoagulation and follow-up inflammatory markers. Leukocytosis likely secondary to steroids. Patient's prognosis remains guarded given the renal failure and COVID-19 infection 04/19/2020. Continue dexamethasone (7/10 dose). Continue Eliquis for anticoagulation. Continue IV antibiotics of cefepime and trend inflammatory markers. Follow-up JENY, ANCA, C3, C4, anti-GBM and SPEP per nephrology. Await renal ultrasound and consider echocardiogram. 04/20/2020. Continue dexamethasone (8/10 dose). Continue Eliquis for anticoagulation. Continue IV antibiotics of cefepime and trend inflammatory markers. Follow-up JENY, ANCA, C3, C4, anti-GBM and SPEP per nephrology. Await renal ultrasound and consider echocardiogram. Patient currently with 2 L of oxygen satting 99%. Check exercise pulse oximetry. Patient not a candidate for remdesivir given renal failure. 04/21/2020. Continue dexamethasone (9/10 dose). Continue Eliquis for anticoagulation. Continue IV antibiotics of cefepime and trend inflammatory markers. Patient required hemodialysis that was initiated on 04/14 due to worsening renal function and associated hyperkalemia and metabolic acidosis. Follow-up JENY, ANCA, C3, C4, anti-GBM and SPEP per nephrology. Await renal ultrasound and consider echocardiogram. Await nephrology recommendations regarding continued hemodialysis. 04/22/2020; patient will finish dexamethasone today. Continue Eliquis for anticoagulation. Day 9 out of 10 of IV cefepime for Enterobacter bacteremia. Patient is ROZ and work-up in progress per nephrology. Renal function is improving and creatinine this morning was 2.2 and hemodialysis is held for now. Patient is on 2 L of oxygen. 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 04/23/2020; patient finished dexamethasone yesterday. Continue with Eliquis for anticoagulation. Patient will finish IV cefepime tonight. Creatinine is improving. Nephrology is following. ID consult appreciated. QuantiFERON gold will be followed as an outpatient with ID. Chest x-ray from yesterday did not show any change from the one done previously. Patient will be discharged tomorrow. CT abdomen and pelvis was done and significant for nephrolithiasis 04/24/20: patient finished dexamethasone yesterday. Continue with Eliquis for anticoagulation. Patient will finish IV cefepime tonight. Creatinine is improving. Nephrology is following. ID consult appreciated. QuantiFERON gold will be followed as an outpatient with ID. Chest x-ray from yesterday did not show any change from the one done previously. CT abdomen and pelvis was done and significant for nephrolithiasis Patient has bilateral mildly obstructing ureteral stone and nephrology consulted urology and is going to do cystoscopy today. 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 I reconsulted pulmonary. Nephrology is following and patient does not need dialysis. Patient finished IV cefepime, dexamethasone and patient is off oxygen, patient is doing well. Patient had Enterobacter bacteremia. Patient's renal function is significantly improved and dialysis discontinued and dialysis catheter removed. 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 Pichardo and he recommended to follow the patient in the office. He will also follow with ID in the office for the result of QuantiFERON gold. Dr. Mullen was consulted and discharged the patient with Haas catheter, clear follow in the office. Patient was discharged with Eliquis for 4 weeks. Patient was hemodynamically stable at the time of discharge. Management plan and follow-up was explained to the patient. Disposition: DC-01 TO HOME OR SELFCARE - Discharge Diagnoses (1) Pneumoconiosis Status: Acute (2) Acute kidney injury (ROZ) with acute tubular necrosis (ATN) Status: Acute (3) Acute respiratory failure with hypoxia Status: Acute (4) Community acquired pneumonia Status: Acute (5) Diabetes 1.5, managed as type 1 Status: Acute (6) UTI (urinary tract infection) Status: Acute Core Measure Documentation - Palliative Care Palliative Care/ Comfort Measures: Not Applicable - Core Measures Any of the following diagnoses?: none Exam - Physical Exam Narrative exam: Not in cardiopulmonary distress. The patient appeared well nourished and normally developed. Vital signs as documented. Head exam is unremarkable. No scleral icterus . Neck is without jugular venous distension, thyromegaly, or carotid bruits. Lungs are clear to auscultation. Cardiac exam reveals regular rate and Rhythm. Abdominal exam reveals normal bowel sounds, nontender, no organomegaly. Extremities are nonedematous and both femoral and pedal pulses are normal. MEDICAL TECHNOLOGIST GENERALIST: Alert and oriented 3. No focal weakness. - Constitutional Vitals: Temp Pulse Resp BP Pulse Ox 99.6 F 65 20 135/66 96 04/24/20 10:53 04/24/20 10:53 04/24/20 10:53 04/24/20 10:57 04/24/20 10:53 Plan Activity: no restrictions Diet: regular Follow up with: MILTON PICHARDO MD [Staff Physician] - 14 Days ELSA MONSALVE MD [Staff Physician] - 7 Days [facility] MD RIC [Primary Care Provider] - 3-5 Days CHERYL MEHTA MD [Staff Physician] - 7 Days Prescriptions: Apixaban [Eliquis] 5 mg PO Q12HR #56 tablet
== END 2020-04-24 18:00 | disposition home health service (06) | DRG 871 ==
LOC: ED 04:10 → IMCU 08:43 → OBSVTOIN 04-14 12:39 → 3A 04-17 15:11
PROVIDERS: ADMIT Internal Medicine; ATTEND Internal Medicine
PROC: 4A033R1 Measurement of Arterial Saturation, Peripheral, Percutaneous Approach (ICD-10-PCS; 2020-04-12)
PROC: 5A09357 Assistance with Respiratory Ventilation, Less than 24 Consecutive Hours, Continuous Positive Airway Pressure (ICD-10-PCS; 2020-04-12)
PROC: 5A1D70Z Performance of Urinary Filtration, Intermittent, Less than 6 Hours Per Day (ICD-10-PCS; 2020-04-14)
PROC: 02HV33Z Insertion of Infusion Device into Superior Vena Cava, Percutaneous Approach (ICD-10-PCS; 2020-04-14)
PROC: B548ZZA Ultrasonography of Superior Vena Cava, Guidance (ICD-10-PCS; 2020-04-14)
PROC: 5A1D70Z Performance of Urinary Filtration, Intermittent, Less than 6 Hours Per Day (ICD-10-PCS; 2020-04-16)
PROC: 5A1D70Z Performance of Urinary Filtration, Intermittent, Less than 6 Hours Per Day (ICD-10-PCS; principal; 2020-04-18)
DX: A41.89 Other specified sepsis (principal); U07.1 COVID-19; J12.89 Other viral pneumonia; J96.01 Acute respiratory failure with hypoxia; N17.0 Acute kidney failure with tubular necrosis; G93.41 Metabolic encephalopathy; N39.0 Urinary tract infection, site not specified; N13.30 Unspecified hydronephrosis; I10 Essential (primary) hypertension; A41.59 Other Gram-negative sepsis; Z79.4 Long term (current) use of insulin; R79.89 Other specified abnormal findings of blood chemistry; E87.5 Hyperkalemia; E66.9 Obesity, unspecified; Z68.28 Body mass index [BMI] 28.0-28.9, adult; E10.9 Type 1 diabetes mellitus without complications; R91.8 Other nonspecific abnormal finding of lung field; J64 Unspecified pneumoconiosis; N32.0 Bladder-neck obstruction
CPT/HCPCS: 36415; 71045; 71250; 74150; 76770; 80048; 80053; 80074; 81001; 82140; 82164; 82570; 82728; 82803; 82947; 82962; 83520; 83615; 83735; 83880; 84100; 84145; 84156; 84165; 84300; 84484; 85007; 85025; 85027; 85379; 86021; 86038; 86140; 86160; 87040; 87076; 87086; 87186; 89050; 93005; 94660; 94760; 96372; 96374; G0378; J0330; J0456; J0692; J0696; J1100; J1815; J7030; J7050; U0003

== ENCOUNTER 2020-04-28 08:24 | Day surgery (SDC) | payer OTHER ==
[~2020-04-28 08:24] MED LIST: ONDANSETRON 4 MG/2 ML INJ IV PRN; fentaNYL 100 MCG/2 ML INJ IV PRN
[2020-04-28] MEDS ORDERED: SODIUM CHLORIDE 0.9% 1000 ML 1,000 ML IV SCH (08:30)
--- NOTE | 2020-04-28 09:53 | Cat Scan Report ---
CT ABDOMEN AND PELVIS WITHOUT CONTRAST HISTORY: KIDNEY STONE. Acute right flank pain COMPARISON: CT abdomen from 04/22/2020 TECHNIQUE: CT images of the abdomen and pelvis were obtained without administration of intravenous co ntrast. All CT scans at this location are performed using CT dose reduction for ALARA by means of au tomated exposure control. FINDINGS: Lungs/bones: There is again extensive bibasilar pulmonary nodularity with mild pleural thickening an d a few calcified granulomata. Heart size is normal. Degenerative changes are present throughout the spine and pelvis with no acute osseous abnormality. There are L5 pars defects with grade 1 anterolist hesis of L5 on S1. Abdomen/pelvis: One of the mid pole stones in the right kidney seen on the previous exam has now adele rated into the right renal pelvis and measures 1.1 cm as seen on image 70 of series 2. There is mild prominence of the renal pelvis but no bj hydronephrosis. No ureteral stone identified. Additional nonobstructive nephrolithiasis in the kidneys is unchanged and there is again left renal atrophy as w ell as possibly chronic left collecting system epithelial thickening and slight pelvocaliectasis. 2 d istal left ureteral stones are again noted and unchanged in both size and appearance without signific ant hydronephrosis. The liver, gallbladder, spleen, pancreas, adrenals, and proximal GI tract appear unremarkable. There are several enlarged retroperitoneal and peritoneal lymph nodes once again. Urinary bladder is collapsed with a Haas catheter in place. There is no pelvic free fluid. Uterus is surgically absent. No acute colonic abnormality identified. The appendix is normal. IMPRESSION: 1. Renal findings as outlined above. Specifically, a mid pole nonobstructive calyceal stone in the ri ght kidney demonstrated on the previous exam has now migrated into the right renal pelvis region but is not causing significant hydronephrosis or inflammatory stranding. Additionally, 2 adjacent stones in the distal left ureter are stable without significant hydronephrosis. 2. Stable pulmonary findings as well as abdominal adenopathy. Given the abdominal adenopathy, I would favor a metastatic process higher in the differential than a chronic pulmonary process although the latter certainly remains possible. Signer Name: Checo Oseguera MD Signed: 04/28/2020 9:48 AM Workstation Name: [id number]
--- NOTE | 2020-04-28 10:51 | Anesthesia Consultation ---
Anesthesia Consult and Med Hx Date of service: 04/28/20 - Airway Anesthetic Teeth Evaluation: Poor, Partials (upper) ROM Head & Neck: Adequate Mental/Hyoid Distance: Adequate Mallampati Class: Class III Intubation Access Assessment: Possibly Difficult - Pulmonary Exam CTA: Yes - Cardiac Exam Cardiac Exam: RRR - Pre-Operative Health Status ASA Pre-Surgery Classification: ASA3 Proposed Anesthetic Plan: General - Pulmonary SOB: Yes Home Oxygen Therapy: No Hx Pneumonia: Yes (COVID PNA 04/12/20) - Cardiovascular System Hx Hypertension: Yes Hx Heart Attack/AMI: No Hx Percutaneous Transluminal Coronary Angioplasty (PTCA): No Hx Cardia Arrhythmia: No - Central Nervous System CVA: No - Gastrointestinal Hx Gastroesophageal Reflux Disease: No - Endocrine Hx Renal Disease: Yes (acute renal failure w/ HD while inpatient; no longer on HD) Hx Liver Disease: No Hx Insulin Dependent Diabetes: Yes Hx Thyroid Disease: No - Hematic Hx Anemia: Yes - Other Systems Hx Obesity: No - Additional Comments Anesthesia Medical History Comments: No prior GA. Admitted to [facility] 04/12-04/24 with COVID PNA requiring BiPAP initially. Hospital course complicated by acute renal failure for which he received HD. He was found to have obstructing renal stone during the hospitalization wich may be contributing to renal failure and was d/c'd w/ cruz. He was discharged without home O2 and reports that breathing is back to baseline. He was also d/c'd with Eliquis howver patient is unsure if he is still taking this medication (did not take this morning). Stat CT ordered by surgeon today to determine extent of planned procedure. I discussed w/ patient the increased risk of periop pulmonary complications given recent PNA and that inpatient admission and/or mechnical ventilation may be required post operatively. He verballized understanding and gave consent for GA.
--- NOTE | 2020-04-28 10:52 | Anesthesia Day of Surgery ---
Anesthesia Day of Surgery - Day of Surgery Patient Examined: Yes Patient H&P Reviewed: Yes Patient is NPO: Yes Beta Blockers: Yes (took metoprolol today AM)
[2020-04-28] MEDS ORDERED: ceFAZolin/Water 2 GM/20 ML 2 GM/20 ML SYRINGE IV NR (11:00)
[2020-04-28 11:05] LABS: Calcium 9.6 mg/dL (8.4-10.2)
[2020-04-28] MEDS ORDERED: WATER FOR IRRIG STERILE 2000 ML IR ONE ×2 (11:22)
[2020-04-28] MEDS ORDERED: WATER FOR IRRIG STERILE 1,500 ML BOTTLE IR ONE (11:23)
[2020-04-28] MEDS ORDERED: fentaNYL 100 MCG/2 ML INJ ONE ×2 (11:23→12:22)
[2020-04-28] MEDS ORDERED: propofoL 200 MG/20 ML VIAL IV ONE (11:23)
[2020-04-28] MEDS ORDERED: LIDOCAINE MPF (2%) 20 MG/1 ML VIAL 5 ML ONE (11:23)
[2020-04-28] MEDS ORDERED: ePHEDrine SULFATE 50 MG/1 ML INJ ONE (11:47)
[2020-04-28] MEDS ORDERED: LIDOCAINE 2% UROJECT 10 ML JELLY ONE (12:27)
[2020-04-28] MEDS ORDERED: LIDOCAINE 2% UROJECT 10 ML JELLY UR ONE (12:31)
[2020-04-28] MEDS ORDERED: ONDANSETRON 4 MG/2 ML INJ ONE (13:05)
--- NOTE | 2020-04-28 14:03 | Post Operative Note ---
Date of procedure: 04/28/20 Pre-op diagnosis: bilat hydro stones Post-op diagnosis: same Findings: as above Procedure: cysto rpgs stents Anesthesia: GETA Surgeon: CHERYL MEHTA Estimated blood loss: none Pathology: none Condition: stable Disposition: PACU
--- NOTE | 2020-04-28 14:04 | Discharge Summary ---
Short Stay Discharge Plan Activity: other (no straining ) Weight Bearing Status: Full Weight Bearing Diet: low fat, low cholesterol, low salt Special Instructions: other (inc fluids ) Durable Medical Equipment Needed Upon Discharge: other (bilat j stents ) Follow up with: LAUREN MCKINNEY NP-C [Primary Care Provider] - 7 Days CHERYL MEHTA MD [Staff Physician] - 7 Days
--- NOTE | 2020-04-28 14:50 | Post Anesthesia Evaluation ---
- Post Anesthesia Evaluation Patient Participated: Yes Airway Patent: Yes Stable Respiratory Function: Yes Nausea/Vomiting: No Temp > 96.8F: Yes Pain Manageable: Yes Adequeate Hydration: Yes Anesthesia Complications: No
--- NOTE | 2020-04-28 17:16 | Fluoroscopy Report ---
FL retrograde urography INDICATION / CLINICAL INFORMATION: RT RENAL STONE AND LT URETERAL STONES. COMPARISON: None available. FINDINGS: Spot intraoperative images were used for surgical guidance during bilateral retrograde pyelogram and stent placements. There is evidence of right renal stones and left ureteral stone. Fluoroscopy time: 7 minutes 51 seconds. Fluoroscopic images: 8. Signer Name: John Alejandro MD Signed: 04/28/2020 5:12 PM Workstation Name: [id number]
--- NOTE | 2020-04-28 17:19 | Fluoroscopy Report ---
FL ureter/nephrostomy dilat LT INDICATION / CLINICAL INFORMATION: LT URETERAL STONES. COMPARISON: Prior retrograde urography dated 04/28/2020. FINDINGS: Spot intraoperative images used for surgical guidance during bilateral retrograde pyelograms and sten t placements. Right renal stones and left ureteral stones were visualized. This image from the same p rocedure with 8 images previously dictated. Fluoroscopy time: 7 minutes 51 seconds. Fluoroscopic images: 1. Signer Name: John Alejandro MD Signed: 04/28/2020 5:15 PM Workstation Name: [id number]
[2020-04-28 19:30] VITALS: BP 129/71
--- NOTE | 2020-04-28 22:35 | Operative Report ---
PREOPERATIVE DIAGNOSES: Bilateral ureteral obstruction, renal failure. POSTOPERATIVE DIAGNOSES: Bilateral ureteral obstruction, renal failure, passage of right ureteral stone, large right renal calculus, two impacted left ureteral stones. PROCEDURES: Cystoscopy, bilateral retrogrades, right double-J stent, right ureteroscopy with insertion of double-J stent. SURGEON: Dr. Solano. ANESTHESIA: General. FINDINGS: This is a gentleman who presented with renal failure, had bilateral ureteral obstruction. Subsequently, the ureteral stones on the right passed. He has mild dilatation on the right from a renal pelvic stone that moved and two ureteral stones on the left. DESCRIPTION OF PROCEDURE: The patient was brought to the operating room and was placed on the operating table. Following induction of anesthesia, placed in lithotomy position, prepped and draped in the usual sterile fashion. Cystourethroscopy showed an open bladder neck. Orifices were small. There was some debris and small stones in the bladder. Retrograde on both sides show delicate ureters with two impacted stones on the left side. It was very difficult to place the stents on each side. We had a kinking of the lower ureters on both sides. Eventually with ureteroscopy on the left wire, which was 0.25 placed, exchange after balloon dilatation was carried out. Some of the stone did look like it came out. A double-J 6-Burkinan 24 were placed on both sides. The patient tolerated the procedure well. He will need followup right lithotripsy and left ureteroscopy to be sure that all those stones are out. He was brought to recovery room in stable condition without a catheter. JOB# [id number] ROBERTH/ALLYN
== END 2020-04-28 08:25 | disposition home or self-care (01) ==
LOC: OR 08:24 → MERGE 08:24 → OR 08:25
PROVIDERS: ATTEND Urology
DX: N13.5 Crossing vessel and stricture of ureter without hydronephrosis (principal); N20.2 Calculus of kidney with calculus of ureter; N21.0 Calculus in bladder; E13.9 Other specified diabetes mellitus without complications; E78.00 Pure hypercholesterolemia, unspecified; I10 Essential (primary) hypertension; N17.9 Acute kidney failure, unspecified; M19.90 Unspecified osteoarthritis, unspecified site; Z85.46 Personal history of malignant neoplasm of prostate; Z98.890 Other specified postprocedural states; Z79.899 Other long term (current) drug therapy; Z79.4 Long term (current) use of insulin; Z87.440 Personal history of urinary (tract) infections; Z87.01 Personal history of pneumonia (recurrent)
CPT/HCPCS: 36415; 52332; 52351; 74176; 74420; 74485; 80048; 82962; A4217; C1726; C1758; C1769; C2617; J0690; J2405; J2704; J3010; J7030; Q9967

== ENCOUNTER 2020-06-26 08:48 | Day surgery (SDC) | payer OTHER ==
--- NOTE | 2020-06-24 10:25 | Anesthesia Consultation ---
Anesthesia Consult and Med Hx Date of service: 06/26/20 - Airway Anesthetic Teeth Evaluation: Partials (upper) ROM Head & Neck: Adequate Mental/Hyoid Distance: Adequate Mallampati Class: Class III Intubation Access Assessment: Possibly Difficult (previoius LMA 5) - Pulmonary Exam CTA: Yes - Cardiac Exam Cardiac Exam: RRR - Pre-Operative Health Status ASA Pre-Surgery Classification: ASA3 Proposed Anesthetic Plan: General - Pulmonary Hx Smoking: No Hx Respiratory Symptoms: No Hx Pneumonia: Yes (COVID+ PNA 04/2020 requiring hospitalization; symptoms now resolved) Hx Sleep Apnea: No (FREDI PRE SCREEN HIGH RISK) - Cardiovascular System Hx Hypertension: Yes Hx Heart Attack/AMI: No Hx Percutaneous Transluminal Coronary Angioplasty (PTCA): No Hx Cardia Arrhythmia: No - Central Nervous System CVA: No Hx Psychiatric Problems: No - Gastrointestinal Hx Gastroesophageal Reflux Disease: No - Endocrine Hx Renal Disease: Yes (hx ARF w/ HD 04/2020 while hospitalized w/ COVID. Resolved.) Hx Liver Disease: No Hx Non-Insulin Dependent Diabetes: Yes (no longer using insulin) Hx Thyroid Disease: No - Other Systems Hx Cancer: Yes (hx prostate ca) Hx Obesity: No - Additional Comments Anesthesia Medical History Comments: No hx anesthetic complications.
[2020-06-24 10:28] LABS: Hemoglobin 11.8 gm/dl (11.8-15.2); Mean Corpuscular HGB Conc 32 % (32-34); Mean Corpuscular Volume 99 fl (84-94); Platelet Count 265 K/mm3 (140-440); Red Blood Count 3.75 M/mm3 (3.65-5.03)
[2020-06-24 10:46] LABS: Albumin 3.4 g/dL (3.9-5); Calcium 10.1 mg/dL (8.4-10.2)
[~2020-06-26 08:48] MED LIST changes: +LACTATED RINGERS 1,000 ML IV SCH; -ONDANSETRON 4 MG/2 ML INJ IV PRN; -fentaNYL 100 MCG/2 ML INJ IV PRN
[2020-06-26] MEDS ORDERED: ceFAZolin/STERILE WATER 2 GM/20 ML SYRINGE IV NR (09:00)
[2020-06-26] MEDS ORDERED: METOPROLOL TARTRATE 25 MG TAB PO ONE (09:16)
--- NOTE | 2020-06-26 09:17 | Anesthesia Day of Surgery ---
Anesthesia Day of Surgery - Day of Surgery Patient Examined: Yes Patient H&P Reviewed: Yes Patient is NPO: Yes Beta Blockers: Yes (home dose metoprolol given in preop)
[2020-06-26] MEDS ORDERED: HYDROcodone/ACETAMINOPHEN 5-325 MG TAB PO PRN (09:30)
[2020-06-26] MEDS ORDERED: LACTATED RINGERS 1,000 ML IV SCH (09:30)
[2020-06-26] MEDS ORDERED: HYDROmorphone 1 MG/1 ML INJ ONE (09:41)
[2020-06-26] MEDS ORDERED: propofoL 200 MG/20 ML VIAL IV ONE (09:41)
[2020-06-26] MEDS ORDERED: LIDOCAINE MPF (2%) 20 MG/1 ML VIAL 5 ML ONE (10:00)
--- NOTE | 2020-06-26 10:03 | XRay Report ---
ABDOMEN 1 VIEW(S) INDICATION / CLINICAL INFORMATION: RIGHT KIDNEY STONE / POSSIBLE STENT. COMPARISON: Retrograde urography 04/28/2020 FINDINGS: TUBES / LINES: Bilateral ureteral stents appear unchanged in position since 04/28/2020 BOWEL GAS PATTERN: No significant abnormality. FREE AIR / EXTRALUMINAL GAS: None seen. ADDITIONAL FINDINGS: 2 stones overlie the inferior right kidney measuring 1.1 cm and 1.0 cm. No obvio us left nephrolithiasis. No obvious calcifications over the course of the ureters. IMPRESSION: No significant abnormality. Right nephrolithiasis. Signer Name: Ashok Cruz Jr, MD Signed: 06/26/2020 9:59 AM Workstation Name: [id number]
[2020-06-26] MEDS ORDERED: WATER FOR IRRIG STERILE 2000 ML IR ONE (10:58)
[2020-06-26] MEDS ORDERED: IOHEXOL 300 MG/ML 50ML IV ONE (11:02)
[2020-06-26] MEDS ORDERED: ONDANSETRON 4 MG/2 ML INJ ONE (11:40)
--- NOTE | 2020-06-26 11:58 | Post Operative Note ---
Date of procedure: 06/26/20 Pre-op diagnosis: bilat stones and strictures Post-op diagnosis: same Findings: uereral and urethral strictures Procedure: cysto dil stent excnanged bilat l ureteroscopy Anesthesia: VANESSA Surgeon: CHERYL MEHTA Estimated blood loss: none Pathology: none Condition: stable Disposition: PACU
--- NOTE | 2020-06-26 11:59 | Discharge Summary ---
Short Stay Discharge Plan Activity: other (no styraining ) Weight Bearing Status: Full Weight Bearing Diet: low fat, low cholesterol, low salt Special Instructions: other (inc fluids ) Durable Medical Equipment Needed Upon Discharge: other (stents and cruz ) Follow up with: LAUREN MCKINNEY NP-C [Primary Care Provider] - 7 Days CHERYL MEHTA MD [Staff Physician] - 7 Days
[2020-06-26 12:32] VITALS: BP 153/84
--- NOTE | 2020-06-26 12:34 | Fluoroscopy Report ---
INTRAOPERATIVE FLUOROSCOPY: URETEROSCOPY INDICATION: LEFT URETERAL STONE. TECHNIQUE: Intraoperative spot images were obtained during the procedure. FINDINGS: Ureteral stents project in expected position. Left ureteral balloon dilatation and ureteroscopy. See procedure note for details. Fluoroscopy Time: 2 minutes 58 seconds. Fluoroscopy Images: 7. Signer Name: Alex Kaplan MD Signed: 06/26/2020 12:29 PM Workstation Name: [id number]
--- NOTE | 2020-06-26 15:34 | Operative Report ---
PREOPERATIVE DIAGNOSES: Bilateral stones, previous transposed right ureteral stone at the right kidney. 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 POSTOPERATIVE DIAGNOSES: Bilateral stones, previous transposed right ureteral stone at the right kidney. 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 PROCEDURE: Cystoscopy, stent exchanges bilaterally, left distal ureteroscopy and ureteral and urethral dilatation. SURGEON: Dr. Dionte Solano ANESTHESIA: General. FINDINGS: This is a gentleman we were going to do right lithotripsy on, but he is taking anti-inflammatories and did not stop them. He now presents for stent exchange, possible left ureteroscopy. DESCRIPTION OF PROCEDURE: The patient was brought to the operating table. Following induction of anesthesia, placed in lithotomy position, prepped and draped in usual sterile fashion. The left stent was withdrawn and exchanged over a wire. Ureteroscopy showed the ureter to be still very narrow. We used the balloon and the axial sheath and it was so narrow still, so we placed a 7-Khmer double J in the left kidney. The right stent was ____ so we changed it to 7 as well, but again this was narrowed at the distal ureter, likely from the radiation. His urethra was narrowed and had to be dilated with the urethral dilators over a wire. The patient tolerated the procedure well. He will be brought back for treatment, possible right lithotripsy and we will try to gradually dilate his left ureter and see if we can get up and see if we see any left ureteral stones. JOB# [id number] ROBERTH/ALLYN
== END 2020-06-26 13:55 | disposition home or self-care (01) ==
LOC: OR 08:48
PROVIDERS: ATTEND Urology
DX: N20.1 Calculus of ureter (principal); N13.5 Crossing vessel and stricture of ureter without hydronephrosis; E13.9 Other specified diabetes mellitus without complications; E78.00 Pure hypercholesterolemia, unspecified; I10 Essential (primary) hypertension; M19.90 Unspecified osteoarthritis, unspecified site; Z79.899 Other long term (current) drug therapy; Z86.19 Personal history of other infectious and parasitic diseases; Z87.440 Personal history of urinary (tract) infections; Z87.01 Personal history of pneumonia (recurrent); Z85.46 Personal history of malignant neoplasm of prostate; Z98.890 Other specified postprocedural states
CPT/HCPCS: 36415; 52332; 52344; 74018; 74485; 80053; 82962; 85027; A4217; C1726; C1758; C1769; C2617; J0690; J1170; J2405; J2704; J7120; Q9967; U0003

== ENCOUNTER 2020-10-23 06:30 | Day surgery (SDC) | payer OTHER ==
[2020-10-20 13:45] LABS: Hematocrit 33.6 % (35.5-45.6); Hemoglobin 11.3 gm/dl (11.8-15.2); Mean Corpuscular HGB Conc 34 % (32-34); Mean Corpuscular Volume 91 fl (84-94); Platelet Count 186 K/mm3 (140-440); Red Blood Count 3.68 M/mm3 (3.65-5.03); Red Cell Distribution Width 15.5 % (13.2-15.2)
[2020-10-20 14:10] LABS: Calcium 9.6 mg/dL (8.4-10.2)
--- NOTE | 2020-10-20 14:25 | Anesthesia Consultation ---
Anesthesia Consult and Med Hx Date of service: 10/23/20 - Airway Anesthetic Teeth Evaluation: Partials ROM Head & Neck: Adequate Mental/Hyoid Distance: Adequate Mallampati Class: Class II Intubation Access Assessment: Good - Pre-Operative Health Status ASA Pre-Surgery Classification: ASA3 Proposed Anesthetic Plan: General - Pulmonary Hx Smoking: No Hx Asthma: No Hx Respiratory Symptoms: No (+2FS) SOB: No (Lung mass) COPD: No Hx Pneumonia: Yes (COVID+ PNA 04/2020 requiring hospitalization; symptoms now resolved) Hx Sleep Apnea: No (FREDI PRE SCREEN HIGH RISK) - Cardiovascular System Hx Hypertension: Yes Hx Heart Attack/AMI: No Hx Percutaneous Transluminal Coronary Angioplasty (PTCA): No Hx Cardia Arrhythmia: No Hx Pacemaker: No Hx Internal Defibrillator: No - Central Nervous System Hx Seizures: No CVA: No Hx Back Pain: No Hx Psychiatric Problems: No - Gastrointestinal Hx Gastroesophageal Reflux Disease: No - Endocrine Hx Renal Disease: Yes (hx ARF w/ HD 04/2020 while hospitalized w/ COVID. Resolved.) Hx End Stage Renal Disease: Yes (Hydronephrosis. Off HD-recovered) Hx Cirrhosis: No Hx Liver Disease: No Hx Insulin Dependent Diabetes: Yes Hx Non-Insulin Dependent Diabetes: Yes (no longer using insulin) Hx Thyroid Disease: No - Hematic Hx Anemia: No Hx Sickle Cell Disease: No - Other Systems Hx Alcohol Use: Yes (OCC. JULIET OR WINE) Hx Substance Use: No Hx Cancer: Yes (hx prostate ca) Hx Obesity: No
[~2020-10-23 06:30] MED LIST changes: -LACTATED RINGERS 1,000 ML IV SCH; +SODIUM CHLORIDE 0.9% 1000 ML 1,000 ML IV SCH
--- NOTE | 2020-10-23 07:09 | Anesthesia Day of Surgery ---
Anesthesia Day of Surgery - Day of Surgery Patient Examined: Yes Patient H&P Reviewed: Yes Patient is NPO: Yes Beta Blockers: Yes (10/22/20 am)
[2020-10-23] MEDS ORDERED: ONDANSETRON 4 MG/2 ML INJ IV PRN (08:18)
[2020-10-23] MEDS ORDERED: HYDROmorphone 1 MG/1 ML INJ IV PRN ×2 (08:18)
[2020-10-23] MEDS ORDERED: ceFAZolin/STERILE WATER 2 GM/20 ML SYRINGE IV NR (09:00)
[2020-10-23] MEDS ORDERED: LIDOCAINE MPF (2%) 20 MG/1 ML VIAL 5 ML ONE (09:01)
[2020-10-23] MEDS ORDERED: propofoL 200 MG/20 ML VIAL IV ONE (09:02)
[2020-10-23] MEDS ORDERED: HYDROmorphone 1 MG/1 ML INJ ONE (09:17)
[2020-10-23] MEDS ORDERED: IOHEXOL 300 MG/ML 50ML IV ONE (09:25)
--- NOTE | 2020-10-23 10:14 | Post Operative Note ---
Date of procedure: 10/23/20 Pre-op diagnosis: bilat hydro stricture Post-op diagnosis: same Findings: as above stones rk Procedure: cysto r stent exchanfe r eswl rpg left Anesthesia: GETA Surgeon: CHERYL MEHTA Estimated blood loss: none Pathology: none Condition: stable Disposition: PACU
--- NOTE | 2020-10-23 10:15 | Discharge Summary ---
Short Stay Discharge Plan Activity: other (no straining ) Weight Bearing Status: Full Weight Bearing Diet: low fat, low cholesterol, low salt Special Instructions: other (cath care ) Durable Medical Equipment Needed Upon Discharge: other (foleey and j stent ) Follow up with: LAUREN MCKINNEY NP-C [Primary Care Provider] - 7 Days CHERYL MEHTA MD [Staff Physician] - 7 Days
[2020-10-23] MEDS ORDERED: ONDANSETRON 4 MG/2 ML INJ ONE (10:22)
--- NOTE | 2020-10-23 16:11 | Post Anesthesia Evaluation ---
- Post Anesthesia Evaluation Patient Participated: Yes Airway Patent: Yes Stable Respiratory Function: Yes Nausea/Vomiting: No Temp > 96.8F: Yes Pain Manageable: Yes Adequeate Hydration: Yes Anesthesia Complications: No Block Receding Appropriately: Not Applicable Patient on Ventilator: No
[2020-10-23 17:05] VITALS: BP 128/74
--- NOTE | 2020-10-23 17:07 | Fluoroscopy Report ---
CLINICAL INDICATION: BILATERAL HYDRONEPHROSIS fluoroscopy time 0.56 minutes. And 3 spot images obtained TECHNICAL DATA: C-arm imaging was performed for evaluation of the left stent. Left Stent is removed.. FINDINGS: C-arm imaging was performed. Right stent in place. IMPRESSION: Removal left stent Signer Name: Juvencio Patiño MD Signed: 10/23/2020 5:02 PM Workstation Name: [id number]
--- NOTE | 2020-10-24 08:20 | Operative Report ---
DATE OF SURGERY: 10/23/2020 PREOPERATIVE DIAGNOSES: Bilateral retained stents, previous right ureteropelvic junction stones, ureteral and urethral strictures, previous radiation. POSTOPERATIVE DIAGNOSES: Bilateral retained stents, previous right ureteropelvic junction stones, ureteral and urethral strictures, previous radiation. PROCEDURE: Cystoscopy, urethral dilatation, left stent withdrawn with extrarenal pelvis on the left. No persistent filling defects in the ureter and stent removal on the left. On the right, had stent exchanged with right lithotripsy. SURGEON: Dionte Solano M.D. ANESTHESIA: General. FINDINGS: This is a gentleman who had stents placed in June, never came back. He now presents for treatment. DESCRIPTION OF PROCEDURE: The patient was brought to the OR and placed on the operating table. Following induction of anesthesia, placed in lithotomy position, prepped and draped in the usual sterile fashion. Cystourethroscopy showed a stricture with a Glidewire. The urethra was dilated. The left stent was withdrawn. Retrograde showed the ureter to be delicate with a little narrowing in the upper ureter and an extrarenal pelvis. We left the stent out on the right. The stent was easily removed and exchanged over a wire and we left a string. We placed the [place] catheter. He underwent right lithotripsy. Larger stones in the lower pole did not break up well and may need a percutaneous nephrolithotomy or just stent removal. The patient tolerated the procedure well. He will go home with his catheter and the stent with a string. TID: [id number] RECEIPT: [id number] [facility]/STD
== END 2020-10-23 06:31 | disposition home or self-care (01) ==
LOC: OR 06:30
PROVIDERS: ATTEND Urology
DX: N13.2 Hydronephrosis with renal and ureteral calculous obstruction (principal); N35.819 Other urethral stricture, male, unspecified site; I12.0 Hypertensive chronic kidney disease with stage 5 chronic kidney disease or end stage renal disease; N18.6 End stage renal disease; E11.22 Type 2 diabetes mellitus with diabetic chronic kidney disease; Z20.822 Contact with and (suspected) exposure to COVID-19; E78.00 Pure hypercholesterolemia, unspecified; M19.90 Unspecified osteoarthritis, unspecified site; Z79.899 Other long term (current) drug therapy; Z87.440 Personal history of urinary (tract) infections; Z87.01 Personal history of pneumonia (recurrent); Z85.46 Personal history of malignant neoplasm of prostate; Z72.89 Other problems related to lifestyle; Z98.890 Other specified postprocedural states
CPT/HCPCS: 36415; 50590; 52332; 74420; 80048; 82962; 85027; C1758; C1769; C2617; J0690; J1170; J2405; J2704; J7030; Q9967; U0003

== ENCOUNTER 2020-11-20 15:16 | Inpatient (IN) | payer OTHER ==
[2020-11-20 14:42] LABS: Basophils % (Auto) 0.2 % (0.0-1.8); Eosinophils % (Auto) 0.2 % (0.0-4.3); Hematocrit 30.8 % (35.5-45.6); Hemoglobin 10.2 gm/dl (11.8-15.2); Lymphocytes # (Auto) 1.1 K/mm3 (1.2-5.4); Lymphocytes % (Auto) 6.2 % (13.4-35.0); Mean Corpuscular HGB Conc 33 % (32-34); Mean Corpuscular Volume 91 fl (84-94); Monocytes # (Auto) 1.7 K/mm3 (0.0-0.8); Monocytes % (Auto) 9.7 % (0.0-7.3); Platelet Count 404 K/mm3 (140-440); Red Cell Distribution Width 14.5 % (13.2-15.2)
[2020-11-20] MEDS ORDERED: MORPHINE 4 MG/1 ML INJ IV ONE (15:22)
--- NOTE | 2020-11-20 15:26 | Emergency Department Report ---
HPI - General Time Seen by Provider: 11/20/20 15:21 - HPI HPI: This is a 75-year-old male presents to the emergency department from the office of his urologist, Dr. Laws, for an ER evaluation and placement of a nephrostomy tube by IR. Patient has a history of hypertension, diabetes, prostate cancer, urethral stricture, multiple previous kidney stones with previous ureteral stents. He went to see the urologist today as he has been having some lower abdominal and/or suprapubic pain and decreased urine output. Supposedly the urologist did a bedside ultrasound during his office visit and found the patient to have significant right sided hydronephrosis. Patient denies any fever, nausea, vomiting, chest pain, shortness of breath, but does complain of decreased appetite and/or oral intake. ED Past Medical Hx - Past Medical History Hx Hypertension: Yes Hx Heart Attack/AMI: No Hx Congestive Heart Failure: No Hx Diabetes: Yes Hx GERD: No Hx Liver Disease: No Hx Renal Disease: Yes (hx ARF w/ HD 04/2020 while hospitalized w/ COVID. Resolved.) Hx Sickle Cell Disease: No Hx Arthritis: Yes (LEGS & ARMS) Hx Headaches / Migraines: No Hx Seizures: No Hx Kidney Stones: Yes Hx Asthma: No Hx COPD: No Hx Tuberculosis: No Hx HIV: No - Surgical History Hx Pacemaker: No Hx Internal Defibrillator: No - Social History Smoking Status: Never Smoker - Medications Home Medications: Home Medications Medication Instructions Recorded Confirmed Last Taken Type Cholecalciferol (Vitamin D3) 5,000 unit PO Q48HR 04/28/20 10/23/20 10/22/20 History Metoprolol [Lopressor] 25 mg PO BID 04/28/20 10/23/20 10/22/20 History Pioglitazone [Actos] 15 mg PO QDAY 04/28/20 10/23/20 10/22/20 History amLODIPine [Norvasc] 5 mg PO DAILY 04/28/20 10/23/20 10/22/20 History Hydralazine HCl 50 mg PO TID 06/24/20 10/23/20 10/22/20 History Basaglar Kwikpen U-100 0 units SQ DAILY 10/17/20 10/17/20 10/22/20 History One-Daily Multi-Vitamin 1 tab PO Q48HR 05/10/17/20 10/22/20 History ED Review of Systems ROS: Stated complaint: Other details as noted in HPI Comment: All other systems reviewed and negative Constitutional: denies: chills, fever Eyes: denies: eye pain, vision change ENT: denies: ear pain, throat pain Respiratory: denies: cough, shortness of breath Cardiovascular: denies: chest pain, palpitations Gastrointestinal: abdominal pain. denies: nausea, vomiting Genitourinary: dysuria. denies: discharge Musculoskeletal: denies: joint swelling, arthralgia Skin: denies: rash, lesions Neurological: denies: headache, weakness Physical Exam - Physical Exam Physical Exam: GENERAL: The patient is well-developed well-nourished. HENT: Normocephalic. Atraumatic. Patient has moist mucous membranes. EYES: Extraocular motions are intact. NECK: Supple. Trachea is midline. CHEST/LUNGS: Clear to auscultation. There is no respiratory distress noted. HEART/CARDIOVASCULAR: Regular. There is no tachycardia. There is no murmur. ABDOMEN: Abdomen is soft. Lower abdominal tenderness to palpation. No guarding. Patient has normal bowel sounds. SKIN: Skin is warm and dry. NEURO: The patient is awake, alert, and cooperative. The patient has no focal neurologic deficits. Normal speech. MUSCULOSKELETAL: There is no tenderness or deformity. There is no limitation range of motion. BACK: Right-sided CVA tenderness to palpation. ED Medical Decision Making - Lab Data Result diagrams: 11/20/20 14:35 11/20/20 14:35 Lab Results 11/20/20 11/20/20 11/20/20 Range/Units 14:35 14:35 15:45 WBC 17.1 H (4.5-11.0) K/mm3 RBC 3.40 L (3.65-5.03) M/mm3 Hgb 10.2 L (11.8-15.2) gm/dl Hct 30.8 L (35.5-45.6) % MCV 91 (84-94) fl MCH 30 (28-32) pg MCHC 33 (32-34) % RDW 14.5 (13.2-15.2) % Plt Count 404 (140-440) K/mm3 Lymph % (Auto) 6.2 L (13.4-35.0) % [place] % (Auto) 9.7 H (0.0-7.3) % Eos % (Auto) 0.2 (0.0-4.3) % Baso % (Auto) 0.2 (0.0-1.8) % Lymph # (Auto) 1.1 L (1.2-5.4) K/mm3 [place] # (Auto) 1.7 H (0.0-0.8) K/mm3 Eos # (Auto) 0.0 (0.0-0.4) K/mm3 Baso # (Auto) 0.0 (0.0-0.1) K/mm3 Seg Neutrophils % 83.7 H (40.0-70.0) % Seg Neutrophils # 14.3 H (1.8-7.7) K/mm3 PT 16.6 H (12.2-14.9) Sec. INR 1.29 H (0.87-1.13) APTT 29.7 (24.2-36.6) Sec. Sodium 132 L (137-145) mmol/L Potassium 5.6 H (3.6-5.0) mmol/L Chloride 92.1 L (98-107) mmol/L Carbon Dioxide 18 L (22-30) mmol/L Anion Gap 28 mmol/L BUN 94 H (9-20) mg/dL Creatinine 10.9 H (0.8-1.3) mg/dL Estimated GFR 6 ml/min BUN/Creatinine Ratio 9 % Glucose 171 H (75-100) mg/dL Calcium 10.1 (8.4-10.2) mg/dL Total Bilirubin 0.70 (0.1-1.2) mg/dL AST 21 (5-40) units/L ALT 34 (7-56) units/L Alkaline Phosphatase 408 H (35-129) units/L Total Protein 8.3 H (6.3-8.2) g/dL Albumin 3.4 L (3.9-5) g/dL Albumin/Globulin Ratio 0.7 % - Radiology Data Radiology results: report reviewed CT ABDOMEN AND PELVIS WITHOUT CONTRAST INDICATION / CLINICAL INFORMATION: Urinary retention, abdominal pain, hydronephrosis. TECHNIQUE: Axial CT images were obtained through the abdomen and pelvis without IV contrast. All CT scans at this location are performed using CT dose reduction for ALARA by means of automated exposure control. COMPARISON: CT from 04/28/2020. FINDINGS: FINDINGS: LOWER CHEST: Extensive bibasilar pulmonary nodularity and scattered calcified granulomata again noted. This appears unchanged from prior study. LIVER: No significant abnormality GALLBLADDER/BILIARY TREE: No significant abnormality PANCREAS: No significant abnormality SPLEEN: No significant abnormality ADRENALS: No significant abnormality KIDNEYS / URETER: Severe right hydronephrosis related to 1.4 cm stone in the mid right ureter. 1.1 cm and adjacent 5 mm intrarenal calculi present posteriorly at the midpole the right kidney. There is perinephric and periureteral stranding with urothelial thickening seen bilaterally. Punctate stones remain within the distal left ureter. No hydronephrosis on the left. URINARY BLADDER: Severe bladder wall thickening and perivesicular stranding noted. REPRODUCTIVE ORGANS: No significant abnormality STOMACH / BOWEL: No significant abnormality. The appendix is normal in caliber. LYMPH NODES: Mildly increased periaortic lymphadenopathy with reference lymph node measuring 1.5 cm in short axis (series 2 image 51); previously measured 1.2 cm. VASCULATURE: No significant abnormality. OTHER: No free air, free fluid, or focal fluid collection is identified. SKELETAL SYSTEM: Grade 1 anterolisthesis of L5 on S1 with lateral pars defects, unchanged. No acute process. IMPRESSION: 1. 1.4 cm mid right ureteral stone with severe right hydronephrosis. Stable punctate distal left ureteral stones without hydronephrosis. 2. Persistent perinephric stranding and urothelial thickening as well as bladder wall thickening and perivesicular stranding. Findings could reflect chronic inflammation or infection. 3. Slightly increased abdominal lymphadenopathy, which remains nonspecific. 4. Stable pulmonary nodularity, which may reflect chronic pulmonary infectious process or metastatic disease. - Medical Decision Making The patient presented from the office of his urologist with significant right- sided hydronephrosis. CT scan of the abdomen and pelvis without contrast later confirms the hydronephrosis and shows a 1.4 cm right-sided ureter stone causing this obstruction. There is also some perinephric stranding showing inflammation versus infection. Labs show acute renal failure as the creatinine level has gone from 2.5 to greater than 10 in 1 month. The patient has started to develop some uremia with a BUN of almost 100. After CT scan the patient went to the [facility] with Dr. Tan and had a percutaneous nephrostomy tube placed. He will be admitted to the hospital for further evaluation and treatment and was accepted for admission by the hospitalist, Dr. Draper. Critical Care Time: Yes Critical care time in (mins) excluding proc time.: 35 Critical care attestation.: If time is entered above; I have spent that time in minutes in the direct care of this critically ill patient, excluding procedure time. Critical care time was spent on this patient in doing his initial evaluation, multiple reevaluations, ordering and interpretation of labs and imaging, discussion with vascular surgery/IR, multiple discussions with the patient. Critical Care Time: 35 minutes ED Disposition Clinical Impression: Uremia, Hyperkalemia, Nephrolithiasis Acute kidney failure Qualifiers: Acute renal failure type: unspecified Qualified Code(s): N17.9 - Acute kidney failure, unspecified Hydronephrosis Qualifiers: Hydronephrosis type: unspecified Qualified Code(s): N13.30 - Unspecified hydronephrosis Disposition: DC-09 OP ADMIT IP TO THIS HOSP Is pt being admited?: Yes Condition: Serious Time of Disposition: 15:50
--- NOTE | 2020-11-20 15:27 | Consultation ---
History of Present Illness - Reason for Consult Consult date: 11/20/20 Right hydronephrosis - History of Present Illness Patient with a history of prostate cancer, ureteral stricture and indwelling bilateral ureteral stents who recently pulled out his right ureteral stent. At his outpatient urologist office Dr. Ndiaye, the patient underwent an ultrasound which demonstrated severe right hydronephrosis and the patient was sent to the emergency department. No specific complaints at this time. Past History Past Medical History: other (Prostate cancer, ureteral stricture) Past Surgical History: Other (Bilateral ureteral stent placement) Social history: no significant social history Family history: no significant family history Medications and Allergies Allergies Allergy/AdvReac Type Severity Reaction Status Date / Time No Known Allergies Allergy Verified 04/28/20 09:47 Home Medications Medication Instructions Recorded Confirmed Last Taken Type Cholecalciferol (Vitamin D3) 5,000 unit PO Q48HR 04/28/20 10/23/20 10/22/20 History Metoprolol [Lopressor] 25 mg PO BID 04/28/20 10/23/20 10/22/20 History Pioglitazone [Actos] 15 mg PO QDAY 04/28/20 10/23/20 10/22/20 History amLODIPine [Norvasc] 5 mg PO DAILY 04/28/20 10/23/20 10/22/20 History Hydralazine HCl 50 mg PO TID 06/24/20 10/23/20 10/22/20 History Basaglar Kwikpen U-100 0 units SQ DAILY 10/17/20 10/17/20 10/22/20 History One-Daily Multi-Vitamin 1 tab PO Q48HR 10/17/20 10/17/20 10/22/20 History Review of Systems All systems: negative Exam - Constitutional General appearance: Present: no acute distress - EENT Eyes: Present: EOM intact ENT: hearing intact - Neck Neck: Present: supple - Respiratory Respiratory effort: normal - Abdominal General gastrointestinal: Present: deferred Male genitourinary: Present: deferred - Rectal Rectal Exam: deferred - Psychiatric Psychiatric: cooperative Results - Labs CBC & Chem 7: 11/20/20 14:35 Labs: Abnormal lab results 11/20/20 Range/Units 14:35 WBC 17.1 H (4.5-11.0) K/mm3 RBC 3.40 L (3.65-5.03) M/mm3 Hgb 10.2 L (11.8-15.2) gm/dl Hct 30.8 L (35.5-45.6) % Lymph % (Auto) 6.2 L (13.4-35.0) % [place] % (Auto) 9.7 H (0.0-7.3) % Lymph # (Auto) 1.1 L (1.2-5.4) K/mm3 [place] # (Auto) 1.7 H (0.0-0.8) K/mm3 Seg Neutrophils % 83.7 H (40.0-70.0) % Seg Neutrophils # 14.3 H (1.8-7.7) K/mm3 Assessment and Plan Per patient's urologist, the patient will be scheduled for a CT of the abdomen pelvis without contrast after which he will be transferred to the [facility] for ultrasound of fluoroscopic guided placement of a right nephrostomy tube. The patient will then be admitted to medicine.
[2020-11-20 15:32] LABS: Albumin 3.4 g/dL (3.9-5); Calcium 10.1 mg/dL (8.4-10.2)
[2020-11-20 16:02] LABS: INR 1.29 (0.87-1.13); Partial Thromboplastin Time 29.7 Sec. (24.2-36.6)
[2020-11-20] MEDS ORDERED: MIDAZOLAM 2 MG/2 ML INJ ONE (16:10)
[2020-11-20] MEDS ORDERED: fentaNYL 100 MCG/2 ML INJ ONE (16:11)
[2020-11-20] MEDS ORDERED: SODIUM CHLORIDE 0.9% 250ML 250 ML ONE (16:14)
[2020-11-20] MEDS ORDERED: SODIUM CHLORIDE IRRI 500 ML 0 ML IR ONE (16:14)
[2020-11-20] MEDS ORDERED: SODIUM CHLORIDE 0.9% 500 ML 500 ML ONE (16:35)
--- NOTE | 2020-11-20 16:36 | Cat Scan Report ---
CT ABDOMEN AND PELVIS WITHOUT CONTRAST INDICATION / CLINICAL INFORMATION: Urinary retention, abdominal pain, hydronephrosis. TECHNIQUE: Axial CT images were obtained through the abdomen and pelvis without IV contrast. All CT scans at this location are performed using CT dose reduction for ALARA by means of automated exposure control. COMPARISON: CT from 04/28/2020. FINDINGS: FINDINGS: LOWER CHEST: Extensive bibasilar pulmonary nodularity and scattered calcified granulomata again noted . This appears unchanged from prior study. LIVER: No significant abnormality GALLBLADDER/BILIARY TREE: No significant abnormality PANCREAS: No significant abnormality SPLEEN: No significant abnormality ADRENALS: No significant abnormality KIDNEYS / URETER: Severe right hydronephrosis related to 1.4 cm stone in the mid right ureter. 1.1 cm and adjacent 5 mm intrarenal calculi present posteriorly at the midpole the right kidney. There is p erinephric and periureteral stranding with urothelial thickening seen bilaterally. Punctate stones re main within the distal left ureter. No hydronephrosis on the left. URINARY BLADDER: Severe bladder wall thickening and perivesicular stranding noted. REPRODUCTIVE ORGANS: No significant abnormality STOMACH / BOWEL: No significant abnormality. The appendix is normal in caliber. LYMPH NODES: Mildly increased periaortic lymphadenopathy with reference lymph node measuring 1.5 cm i n short axis (series 2 image 51); previously measured 1.2 cm. VASCULATURE: No significant abnormality. OTHER: No free air, free fluid, or focal fluid collection is identified. SKELETAL SYSTEM: Grade 1 anterolisthesis of L5 on S1 with lateral pars defects, unchanged. No acute p rocess. IMPRESSION: 1. 1.4 cm mid right ureteral stone with severe right hydronephrosis. Stable punctate distal left ure teral stones without hydronephrosis. 2. Persistent perinephric stranding and urothelial thickening as well as bladder wall thickening and perivesicular stranding. Findings could reflect chronic inflammation or infection. 3. Slightly increased abdominal lymphadenopathy, which remains nonspecific. 4. Stable pulmonary nodularity, which may reflect chronic pulmonary infectious process or metastatic disease. Signer Name: Jasper Ma MD Signed: 11/20/2020 4:31 PM Workstation Name: [id number]
[2020-11-20] MEDS ORDERED: LIDOCAINE (2%) 20 MG/1 ML VIAL 20 ML MDV INFILTRATI ONE (16:46)
--- NOTE | 2020-11-20 17:03 | Operative Report ---
Operative Report Operative Report: Exam: Ultrasound and fluoroscopic guided placement of nephrostomy tube Clinical indication: Patient with massive right hydronephrosis and elevated creatinine Date: 11/20/2020 Procedure: Following an explanation of the risks, benefits and alternatives; written informed consent was obtained. The patient was brought to the angiographic suite and placed in supine position on the examination table. Initial ultrasound evaluation of his right kidney demonstrated significant right hydronephrosis. The patient's right flank and back were prepped and draped in the usual sterile fashion. 1% lidocaine was used for anesthesia. Under ultrasound guidance, a 15 cm 21-gauge needle was advanced into an upper pole posterior calyx. There was prompt return of yellow urine. A 0.018 guidewire was then advanced into the kidney down the ureter under fluoroscopy. The needle was removed and an AccuStick transition dilator placed over the guidewire and advanced centrally. With the AccuStick transition dilator in the renal pelvis, contrast was injected which demonstrates prompt opacification of a dilated renal pelvis and calyces. The AccuStick transition dilator was reassembled and then advanced into the proximal ureter. With the dilator in the proximal ureter, the 0.018 guidewire was exchanged for a 0.035 guidewire and the transition dilator removed. Following serial dilation over the guidewire under fluoroscopy, an 8 [place] nephrostomy tube was advanced over the guidewire and positioned with the pigtail in the renal pelvis. The guidewire was removed. There was prompt return of yellow urine. A sample was obtained and sent for laboratory analysis. The catheter was securely fastened to the skin surface using 2-0 Ethilon suture and a stay fix device. The catheter was then placed to dependent drainage. Sterile dressings were applied. The patient tolerated the procedure well. There were no immediate postprocedure complications. A minimal amount of conscious sedation was performed under the guidance of radiologic nursing. Continuous cardiopulmonary monitoring was utilized. Impression: Ultrasound fluoroscopic guided placement of a right-sided 8 [place] nephrostomy tube
[2020-11-20 18:02] LABS: Bacteria,Urine 4+ /HPF (Negative); Bilirubin,Urine NEG (Negative); Blood,Urine LG (Negative); Color,Urine Yellow (Yellow); Urobilinogen,Urine < 2.0 mg/dL (<2.0)
[2020-11-20 18:03] LABS: RBC,Urine > 182.0 /HPF (0.0-6.0); WBC,Urine > 182.0 /HPF (0.0-6.0)
--- NOTE | 2020-11-20 19:17 | XRay Report ---
CHEST 1 VIEW 11/20/2020 6:07 PM INDICATION / CLINICAL INFORMATION: SOB. COMPARISON: 04/22/20. FINDINGS: SUPPORT DEVICES: The right jugular CVL has been removed. HEART / MEDIASTINUM: The heart size and pulmonary vasculature are normal. LUNGS / PLEURA: There are numerous tiny nodules scattered throughout both lungs. Larger more confluen t nodularity in the right mid to lower lung and in the left midlung is also present. There has been m inimal change in lung nodularity/masses since the prior study. No pleural effusion. No pneumothorax. ADDITIONAL FINDINGS: No significant additional findings. IMPRESSION: Bilateral pulmonary nodularity/masses, right greater than left, are similar to the prior study. Signer Name: Avery Corcoran MD Signed: 11/20/2020 7:13 PM Workstation Name: [id number]
[2020-11-20] MEDS ORDERED: MORPHINE 2 MG/1 ML INJ IV PRN (20:20)
[2020-11-20] MEDS ORDERED: ONDANSETRON 4 MG/2 ML INJ IV PRN (20:20)
[2020-11-20] MEDS ORDERED: METOCLOPRAMIDE 10 MG/2 ML INJ IV PRN ×2 (20:20→21:00)
--- NOTE | 2020-11-20 20:28 | History and Physical Report ---
History of Present Illness Date of examination: 11/20/20 Date of admission: 11/20/20 15:50 Chief complaint: Acute abdominal pain and suprapubic pain-sent by urologist History of present illness: 75-year-old male with history of recurrent urethral stricture and hydronephrosis/acute renal failure/CKD sent from Dr. Solano for ER evaluation and placement of nephrostomy tube by interventional radiology. Patient has recurrent kidney stones, hypertension, diabetes, prostate cancer and ureteral stricture. Patient has been having suprapubic and lower abdominal pain and decreased urine output for which he went to the urologist office. Dr. Knowles sent him for nephrostomy tube placement on the right side because of the severe right-sided hydronephrosis. Patient denies any fever nausea vomiting. In the emergency room patient had a high creatinine and a high potassium which necessitated admission. Patient also being admitted for right nephrostomy placement secondary to severe hydronephrosis on the right side which is emergent. Patient also needs ma nagement of his acute kidney injury/urinary tract infection and high potassium level. Recent admissions were reviewed. 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 Patient is also admitted in October 2020 for hydronephrosis and ureteral stricture. His baseline BUN/creatinine is 37/2.4 on 10/20/2020. Today's BUN/creatinine is 94/10.1. - Past Medical History --Hypertension: Yes --Diabetes: Yes --Renal Disease: Yes (hx ARF w/ HD 04/2020 while hospitalized w/ COVID. Resolved.) --Arthritis: Yes (LEGS & ARMS) --Kidney Stones: Yes prostate cancer, ureteral stricture -- - Surgical History -Bilateral ureteral stent placement- - Social History Smoking Status: Never Smoker -Family history HTN - Medications Home Medications: Home Medications Medication Instructions Recorded Confirmed Last Taken Type Cholecalciferol (Vitamin D3) 5,000 unit PO Q48HR 04/28/20 10/23/20 10/22/20 His tory Metoprolol [Lopressor] 25 mg PO BID 04/28/20 10/23/20 10/22/20 History Pioglitazone [Actos] 15 mg PO QDAY 04/28/20 10/23/20 10/22/20 History amLODIPine [Norvasc] 5 mg PO DAILY 04/28/20 10/23/20 10/22/20 History Hydralazine HCl 50 mg PO TID 06/24/20 10/23/20 10/22/20 History Basaglar Kwikpen U-100 0 units SQ DAILY 10/17/20 10/17/20 10/22/20 History One-Daily Multi-Vitamin 1 tab PO Q48HR 10/17/20 10/17/20 10/22/20 History Review of Systems ROS: Stated complaint: Other details as noted in HPI Comment: All other systems reviewed and negative Constitutional: denies: chills, fever Eyes: denies: eye pain, vision change ENT: denies: ear pain, throat pain Respiratory: denies: cough, shortness of breath Cardiovascular: denies: chest pain, palpitations Gastrointestinal: abdominal pain. denies: nausea, vomiting Genitourinary: Decreased urine output and suprapubic pain Musculoskeletal: denies: joint swelling, arthralgia Skin: denies: rash, lesions Neurological: denies: headache, weakness Past History Past Medical History: other (Prostate cancer, ureteral stricture) Past Surgical History: Other (Bilateral ureteral stent placement) Social history: no significant social history Family history: no significant family history Medications and Allergies Allergies Allergy/AdvReac Type Severity Reaction Status Date / Time No Known Allergies Allergy Verified 04/28/20 09:47 Home Medications Medication Instructions Recorded Confirmed Last Taken Type Cholecalciferol (Vitamin D3) 5,000 unit PO Q48HR 04/28/20 10/23/20 10/22/20 History Metoprolol [Lopressor] 25 mg PO BID 04/28/20 10/23/20 10/22/20 History Pioglitazone [Actos] 15 mg PO QDAY 04/28/20 10/23/20 10/22/20 History amLODIPine [Norvasc] 5 mg PO DAILY 04/28/20 10/23/20 10/22/20 History Hydralazine HCl 50 mg PO TID 06/24/20 10/23/20 10/22/20 History Basaglar Kwikpen U-100 0 units SQ DAILY 10/17/20 10/17/20 10/22/20 History One-Daily Multi-Vitamin 1 tab PO Q48HR 10/17/20 10/17/20 10/22/20 History Exam - Constitutional Vitals: Temp Pulse Resp BP Pulse Ox 98.0 F 113 H 25 H 135/60 100 11/20/20 18:17 11/20/20 19:30 11/20/20 19:30 11/20/20 19:30 11/20/20 19:30 General appearance: Present: no acute distress, well-nourished - EENT Eyes: Present: PERRL ENT: hearing intact, clear oral mucosa - Neck Neck: Present: supple, normal ROM - Respiratory Respiratory effort: normal Respiratory: bilateral: CTA - Cardiovascular Heart rate: 78 Rhythm: regular Heart Sounds: Present: S1 & S2. Absent: rub, click - Extremities Extremities: no ischemia, pulses intact, pulses symmetrical, No edema Peripheral Pulses: within normal limits - Abdominal General gastrointestinal: Present: soft, non-tender, distended, normal bowel sounds Localized gastrointestinal: tender: suprapubic, guarding: suprapubic Male genitourinary: Present: normal - Rectal Rectal Exam: deferred - Integumentary Integumentary: Present: clear, warm, dry - Musculoskeletal Musculoskeletal: gait normal, strength equal bilaterally - Psychiatric Psychiatric: appropriate mood/affect, intact judgment & insight - Neurologic Neurologic: CNII-XII intact, moves all extremities - Allied Health Allied health notes reviewed: nursing, case management Results - Labs CBC & Chem 7: 11/20/20 14:35 11/20/20 14:35 Labs: Laboratory Last Values WBC 17.1 K/mm3 (4.5-11.0) H 11/20/20 14:35 RBC 3.40 M/mm3 (3.65-5.03) L 11/20/20 14:35 Hgb 10.2 gm/dl (11.8-15.2) L 11/20/20 14:35 Hct 30.8 % (35.5-45.6) L 11/20/20 14:35 MCV 91 fl (84-94) 11/20/20 14:35 MCH 30 pg (28-32) 11/20/20 14:35 MCHC 33 % (32-34) 11/20/20 14:35 RDW 14.5 % (13.2-15.2) 11/20/20 14:35 Plt Count 404 K/mm3 (140-440) 11/20/20 14:35 Lymph % (Auto) 6.2 % (13.4-35.0) L 11/20/20 14:35 Miner % (Auto) 9.7 % (0.0-7.3) H 11/20/20 14:35 Eos % (Auto) 0.2 % (0.0-4.3) 11/20/20 14:35 Baso % (Auto) 0.2 % (0.0-1.8) 11/20/20 14:35 Lymph # (Auto) 1.1 K/mm3 (1.2-5.4) L 11/20/20 14:35 Miner # (Auto) 1.7 K/mm3 (0.0-0.8) H 11/20/20 14:35 Eos # (Auto) 0.0 K/mm3 (0.0-0.4) 11/20/20 14:35 Baso # (Auto) 0.0 K/mm3 (0.0-0.1) 11/20/20 14:35 Seg Neutrophils % 83.7 % (40.0-70.0) H 11/20/20 14:35 Seg Neutrophils # 14.3 K/mm3 (1.8-7.7) H 11/20/20 14:35 PT 16.6 Sec. (12.2-14.9) H 11/20/20 15:45 INR 1.29 (0.87-1.13) H 11/20/20 15:45 APTT 29.7 Sec. (24.2-36.6) 11/20/20 15:45 Sodium 132 mmol/L (137-145) L 11/20/20 14:35 Potassium 5.6 mmol/L (3.6-5.0) H 11/20/20 14:35 Chloride 92.1 mmol/L (98-107) L 11/20/20 14:35 Carbon Dioxide 18 mmol/L (22-30) L 11/20/20 14:35 Anion Gap 28 mmol/L 11/20/20 14:35 BUN 94 mg/dL (9-20) H 11/20/20 14:35 Creatinine 10.9 mg/dL (0.8-1.3) H 11/20/20 14:35 Estimated GFR 6 ml/min 11/20/20 14:35 BUN/Creatinine Ratio 9 % 11/20/20 14:35 Glucose 171 mg/dL (75-100) H 11/20/20 14:35 Calcium 10.1 mg/dL (8.4-10.2) 11/20/20 14:35 Total Bilirubin 0.70 mg/dL (0.1-1.2) 11/20/20 14:35 AST 21 units/L (5-40) 11/20/20 14:35 ALT 34 units/L (7-56) 11/20/20 14:35 Alkaline Phosphatase 408 units/L (35-129) H 11/20/20 14:35 Total Protein 8.3 g/dL (6.3-8.2) H 11/20/20 14:35 Albumin 3.4 g/dL (3.9-5) L 11/20/20 14:35 Albumin/Globulin Ratio 0.7 % 11/20/20 14:35 Urine Color Yellow (Yellow) 11/20/20 17:00 Urine Turbidity Turbid (Clear) 11/20/20 17:00 Urine pH 5.0 (5.0-7.0) 11/20/20 17:00 Ur Specific [place] 1.023 (1.003-1.030) 11/20/20 17:00 Urine Protein 100 mg/dl mg/dL (Negative) 11/20/20 17:00 Urine Glucose (UA) Neg mg/dL (Negative) 11/20/20 17:00 Urine Ketones Neg mg/dL (Negative) 11/20/20 17:00 Urine Blood Lg (Negative) 11/20/20 17:00 Urine Nitrite Neg (Negative) 11/20/20 17:00 Urine Bilirubin Neg (Negative) 11/20/20 17:00 Urine Urobilinogen < 2.0 mg/dL (<2.0) 11/20/20 17:00 Ur Leukocyte Esterase Mod (Negative) 11/20/20 17:00 Urine WBC (Auto) > 182.0 /HPF (0.0-6.0) H 11/20/20 17:00 Urine RBC (Auto) > 182.0 /HPF (0.0-6.0) 11/20/20 17:00 Urine Bacteria (Auto) 4+ /HPF (Negative) 11/20/20 17:00 Urine WBC Clumps 3+ /HPF 11/20/20 17:00 Short CBC 11/20/20 Range/Units 14:35 WBC 17.1 H (4.5-11.0) K/mm3 Hgb 10.2 L (11.8-15.2) gm/dl Hct 30.8 L (35.5-45.6) % Plt Count 404 (140-440) K/mm3 BMP 11/20/20 14:35 Sodium 132 L Potassium 5.6 H Chloride 92.1 L Carbon Dioxide 18 L BUN 94 H Creatinine 10.9 H Glucose 171 H Calcium 10.1 Liver Function 11/20/20 Range/Units 14:35 Total Bilirubin 0.70 (0.1-1.2) mg/dL AST 21 (5-40) units/L ALT 34 (7-56) units/L Alkaline Phosphatase 408 H (35-129) units/L Albumin 3.4 L (3.9-5) g/dL Urine 11/20/20 Range/Units 17:00 Urine Color Yellow (Yellow) Urine pH 5.0 (5.0-7.0) Ur Specific [place] 1.023 (1.003-1.030) Urine Protein 100 mg/dl (Negative) mg/dL Urine Glucose (UA) Neg (Negative) mg/dL - Imaging and Cardiology CT scan - abdomen: report reviewed Imaging and Cardiology: Abdominal/pelvis CAT scan IMPRESSION: 1. 1.4 cm mid right ureteral stone with severe right hydronephrosis. Stable punctate distal left ureteral stones without hydronephrosis. 2. Persistent perinephric stranding and urothelial thickening as well as bladder wall thickening and perivesicular stranding. Findings could reflect chronic inflammation or infection. 3. Slightly increased abdominal lymphadenopathy, which remains nonspecific. 4. Stable pulmonary nodularity, which may reflect chronic pulmonary infectious process or metastatic disease. Signer Name: Jasper Ma MD Signed: 11/20/2020 4:31 PM Workstation Name: [id number] CXR IMPRESSION: Bilateral pulmonary nodularity/masses, right greater than left, are similar to the prior study. Signer Name: Avery Corcoran MD Signed: 11/20/2020 7:13 PM Assessment and Plan Advance Directives: Yes (Full code) VTE prophylaxis?: Chemical Plan of care discussed with patient/family: Yes - Patient Problems (1) SIRS (systemic inflammatory response syndrome) Current Visit: Yes Status: Acute Plan to address problem: Patient had leukocytosis and tachycardia IV ceftriaxone started (2) Acute kidney failure Current Visit: Yes Status: Acute Qualifiers: Acute renal failure type: unspecified Qualified Code(s): N17.9 - Acute kidney failure, unspecified Plan to address problem: Patient has severe right hydronephrosis. ROZ secondary to ATN and obstructive uropathy Nephrology consult requested by Dr. Holland Patient baseline creatinine is 37/2.5 on 10/20/2020 today's creatinine is 94/10.1 Patient going for emergency nephrostomy tube placement We will trend the creatinine level (3) Hydronephrosis Current Visit: Yes Status: Acute Qualifiers: Hydronephrosis type: unspecified Qualified Code(s): N13.30 - Unspecified hydronephrosis Plan to address problem: Patient getting emergent right nephrostomy tube by interventional radiology-Dr. 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 Pichardo consulted (6) Nephrolithiasis Current Visit: Yes Status: Chronic Plan to address problem: Patient has recurrent nephrolithiasis and right kidney stone obstructing the right ureter Will defer to urology regarding stent placement and localized lithotripsy (7) Hypertension Current Visit: Yes Status: Chronic Qualifiers: Hypertension type: essential hypertension Qualified Code(s): I10 - Essential (primary) hypertension Plan to address problem: Continue antihypertensives and adjust medications (8) IDDM (insulin dependent diabetes mellitus) Current Visit: Yes Status: Chronic Plan to address problem: Continue long-acting insulin and insulin coverage Check hemoglobin A1c (9) DVT prophylaxis Current Visit: Yes Status: Acute Plan to address problem: On heparin and GI prophylaxis
[2020-11-20] MEDS ORDERED: NON-FORMULARY EACH (Basaglar Kwikpen U-100 20 UNITS) SQ SCH (20:30)
[2020-11-20] MEDS ORDERED: SODIUM POLYSTYRENE 15 GM/60 ML ORAL LIQD PO ONE (21:49)
[2020-11-20] MEDS ORDERED: CALCIUM GLUCONATE 2,000 MG in SODIUM CHLORIDE 0.9% 100 ML IV ONE (21:49)
[2020-11-21] MEDS: cefTRIAXone/NS 1 GM/50 ML 1 GM/50 ML BAG IV SCH ×2 (01:24→21:44)
[2020-11-21] MEDS: SODIUM CHLORIDE 0.9% 1000 ML 1,000 ML IV SCH (01:26)
[2020-11-21] MEDS: FAMOTIDINE 20 MG/2 ML INJ IV SCH ×3 (01:38→21:44)
[2020-11-21] MEDS: INSULIN GLARGINE 100 UNITS/ML SUB-Q SCH ×2 (01:38→21:44)
[2020-11-21] MEDS: ACETAMINOPHEN 325 MG TAB PO PRN (01:47)
[2020-11-21] MEDS: amLODIPine 5 MG TAB PO SCH ×2 (02:33→09:58)
[2020-11-21] MEDS: INSULIN LISPRO 100 UNIT/ML SUB-Q SCH ×4 (02:33→16:50)
[2020-11-21] MEDS: METOPROLOL TARTRATE 25 MG TAB PO SCH ×3 (02:33→21:43)
[2020-11-21] MEDS: PIOGLITAZONE 15 MG TAB PO SCH ×2 (02:33→09:58)
[2020-11-21] MEDS: hydrALAZINE 25 MG TAB PO SCH ×4 (02:33→21:44)
[2020-11-21 05:43] LABS: Hematocrit 28.4 % (35.5-45.6); Hemoglobin 9.2 gm/dl (11.8-15.2); Mean Corpuscular HGB Conc 32 % (32-34); Mean Corpuscular Volume 89 fl (84-94); Platelet Count 367 K/mm3 (140-440); Red Blood Count 3.19 M/mm3 (3.65-5.03); Red Cell Distribution Width 14.9 % (13.2-15.2)
[2020-11-21 06:39] LABS: Band Neutrophils # (Manual) 0.2 K/mm3; Total Cells Counted 100
[2020-11-21 06:40] LABS: Platelet Estimate Consistent w Auto; RBC Morphology Normal
[2020-11-21 06:46] LABS: Albumin 2.8 g/dL (3.9-5)
[2020-11-21] MEDS ORDERED: INSULIN REGULAR, HUMAN 100 UNITS/1 ML IV SCH (08:00)
[2020-11-21] MEDS ORDERED: CALCIUM GLUCONATE 2,000 MG in SODIUM CHLORIDE 0.9% 100 ML IV ONE (08:00)
[2020-11-21] MEDS ORDERED: DEXTROSE 50% IN WATER (25GM) 50 ML SYRINGE IV SCH (08:00)
[2020-11-21] MEDS ORDERED: SODIUM POLYSTYRENE 15 GM/60 ML ORAL LIQD PO SCH (08:00)
[2020-11-21] MEDS ORDERED: NON-FORMULARY EACH (Hydralazine Hcl [Hydralazine Hcl] 50 MG Tablet) PO SCH (08:00)
--- NOTE | 2020-11-21 08:16 | Progress Note ---
Assessment and Plan Assessment and plan: (1) SIRS (systemic inflammatory response syndrome) Current Visit: Yes Status: Acute Plan to address problem: Patient had leukocytosis and tachycardia IV ceftriaxone started (2) Acute kidney failure Current Visit: Yes Status: Acute Qualifiers: Acute renal failure type: unspecified Qualified Code(s): N17.9 - Acute kidney failure, unspecified Plan to address problem: Patient has severe right hydronephrosis. ROZ secondary to ATN and obstructive uropathy Nephrology consult requested by Dr. Holland Patient baseline creatinine is 37/2.5 on 10/20/2020 today's creatinine is 94/10.1 Patient going for emergency nephrostomy tube placement We will trend the creatinine level (3) Hydronephrosis Current Visit: Yes Status: Acute Qualifiers: Hydronephrosis type: unspecified Qualified Code(s): N13.30 - Unspecified hydronephrosis Plan to address problem: Patient getting emergent right nephrostomy tube by interventional radiology-Dr. 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 Pichardo consulted (6) Nephrolithiasis Current Visit: Yes Status: Chronic Plan to address problem: Patient has recurrent nephrolithiasis and right kidney stone obstructing the right ureter Will defer to urology regarding stent placement and localized lithotripsy (7) Hypertension Current Visit: Yes Status: Chronic Qualifiers: Hypertension type: essential hypertension Qualified Code(s): I10 - Essential (primary) hypertension Plan to address problem: Continue antihypertensives and adjust medications (8) IDDM (insulin dependent diabetes mellitus) Current Visit: Yes Status: Chronic Plan to address problem: Continue long-acting insulin and insulin coverage Check hemoglobin A1c (9) DVT prophylaxis Current Visit: Yes Status: Acute Plan to address problem: On heparin and GI prophylaxis 11/21/2020 -Patient admitted with right hydronephrosis and acute on chronic renal failure. Patient had right nephrostomy placement yesterday by interventional radiology. Urology is following the patient -Acute on chronic renal failure: Patient's GFR was 6 this morning, nephrology is consulted -Patient's potassium was 6.2, I ordered Kayexalate, calcium gluconate, check EKG and will repeat potassium. -Nephrolithiasis; with history of ureteral stent placement. Urology is following the patient -Patient has SIRS and on empiric IV ceftriaxone -Hemoglobin A1c is 7.2; continue current insulin regimen History Interval history: Patient was seen and evaluated this morning Patient does not have any complaints Hospitalist Physical - Physical exam Narrative exam: Not in cardiopulmonary distress. The patient appeared well nourished and normally developed. Vital signs as documented. Head exam is unremarkable. No scleral icterus . Neck is without jugular venous distension, thyromegaly, or carotid bruits. Lungs are clear to auscultation. Cardiac exam reveals regular rate and Rhythm. Abdominal exam reveals normal bowel sounds, nontender, no organomegaly. Extremities are nonedematous and both femoral and pedal pulses are normal. [employer]: Alert and oriented 3. No focal weakness. Patient does PCN tube, functional - Constitutional Vitals: Temp Pulse Resp BP Pulse Ox 98.0 F 79 18 110/66 97 11/21/20 04:15 11/21/20 04:15 11/21/20 04:15 11/21/20 04:15 11/21/20 04:15 General appearance: Present: no acute distress, well-nourished Results - Labs CBC & Chem 7: 11/21/20 05:30 11/21/20 05:30 Labs: Laboratory Last Values WBC 20.9 K/mm3 (4.5-11.0) H 11/21/20 05:30 RBC 3.19 M/mm3 (3.65-5.03) L 11/21/20 05:30 Hgb 9.2 gm/dl (11.8-15.2) L 11/21/20 05:30 Hct 28.4 % (35.5-45.6) L 11/21/20 05:30 MCV 89 fl (84-94) 11/21/20 05:30 MCH 29 pg (28-32) 11/21/20 05:30 MCHC 32 % (32-34) 11/21/20 05:30 RDW 14.9 % (13.2-15.2) 11/21/20 05:30 Plt Count 367 K/mm3 (140-440) 11/21/20 05:30 Lymph % (Auto) 6.2 % (13.4-35.0) L 11/20/20 14:35 Hardy % (Auto) 9.7 % (0.0-7.3) H 11/20/20 14:35 Eos % (Auto) 0.2 % (0.0-4.3) 11/20/20 14:35 Baso % (Auto) 0.2 % (0.0-1.8) 11/20/20 14:35 Lymph # (Auto) 1.1 K/mm3 (1.2-5.4) L 11/20/20 14:35 Hardy # (Auto) 1.7 K/mm3 (0.0-0.8) H 11/20/20 14:35 Eos # (Auto) 0.0 K/mm3 (0.0-0.4) 11/20/20 14:35 Baso # (Auto) 0.0 K/mm3 (0.0-0.1) 11/20/20 14:35 Add Manual Diff Complete 11/21/20 05:30 Total Counted 100 11/21/20 05:30 Seg Neutrophils % Gold Leaf Layer 11/21/20 05:30 Seg Neuts % (Manual) 88.0 % (40.0-70.0) H 11/21/20 05:30 Band Neutrophils % 1.0 % 11/21/20 05:30 Lymphocytes % (Manual) 4.0 % (13.4-35.0) L 11/21/20 05:30 Monocytes % (Manual) 7.0 % (0.0-7.3) 11/21/20 05:30 Nucleated RBC % Not Reportable 11/21/20 05:30 Seg Neutrophils # 14.3 K/mm3 (1.8-7.7) H 11/20/20 14:35 Seg Neutrophils # Man 18.4 K/mm3 (1.8-7.7) H 11/21/20 05:30 Band Neutrophils # 0.2 K/mm3 11/21/20 05:30 Lymphocytes # (Manual) 0.8 K/mm3 (1.2-5.4) L 11/21/20 05:30 Abs React Lymphs (Man) 0.0 K/mm3 11/21/20 05:30 Monocytes # (Manual) 1.5 K/mm3 (0.0-0.8) H 11/21/20 05:30 Eosinophils # (Manual) 0.0 K/mm3 (0.0-0.4) 11/21/20 05:30 Basophils # (Manual) 0.0 K/mm3 (0.0-0.1) 11/21/20 05:30 Metamyelocytes # 0.0 K/mm3 11/21/20 05:30 Myelocytes # 0.0 K/mm3 11/21/20 05:30 Promyelocytes # 0.0 K/mm3 11/21/20 05:30 Blast Cells # 0.0 K/mm3 11/21/20 05:30 WBC Morphology Not Reportable 11/21/20 05:30 Hypersegmented Neuts Not Reportable 11/21/20 05:30 Hyposegmented Neuts Not Reportable 11/21/20 05:30 Hypogranular Neuts Not Reportable 11/21/20 05:30 Smudge Cells Not Reportable 11/21/20 05:30 Toxic Granulation Not Reportable 11/21/20 05:30 Toxic Vacuolation Not Reportable 11/21/20 05:30 Dohle Bodies Not Reportable 11/21/20 05:30 Pelger-Huet Anomaly Not Reportable 11/21/20 05:30 Matthew Rods Not Reportable 11/21/20 05:30 Platelet Estimate Consistent w auto 11/21/20 05:30 Clumped Platelets Not Reportable 11/21/20 05:30 Plt Clumps, EDTA Not Reportable 11/21/20 05:30 Large Platelets Not Reportable 11/21/20 05:30 Giant Platelets Not Reportable 11/21/20 05:30 Platelet Satelliting Not Reportable 11/21/20 05:30 Plt Morphology Comment Not Reportable 11/21/20 05:30 RBC Morphology Normal 11/21/20 05:30 Dimorphic RBCs Not Reportable 11/21/20 05:30 Polychromasia Not Reportable 11/21/20 05:30 Hypochromasia Not Reportable 11/21/20 05:30 Poikilocytosis Not Reportable 11/21/20 05:30 Anisocytosis Not Reportable 11/21/20 05:30 Microcytosis Not Reportable 11/21/20 05:30 Macrocytosis Not Reportable 11/21/20 05:30 Spherocytes Not Reportable 11/21/20 05:30 Pappenheimer Bodies Not Reportable 11/21/20 05:30 Sickle Cells Not Reportable 11/21/20 05:30 Target Cells Not Reportable 11/21/20 05:30 Tear Drop Cells Not Reportable 11/21/20 05:30 Ovalocytes Not Reportable 11/21/20 05:30 Helmet Cells Not Reportable 11/21/20 05:30 [place] Bodies Not Reportable 11/21/20 05:30 Freeman Rings Not Reportable 11/21/20 05:30 Nam Cells Not Reportable 11/21/20 05:30 Bite Cells Not Reportable 11/21/20 05:30 Crenated Cell Not Reportable 11/21/20 05:30 Elliptocytes Not Reportable 11/21/20 05:30 Acanthocytes (Spur) Not Reportable 11/21/20 05:30 Rouleaux Not Reportable 11/21/20 05:30 Hemoglobin C Crystals Not Reportable 11/21/20 05:30 Schistocytes Not Reportable 11/21/20 05:30 Malaria parasites Not Reportable 11/21/20 05:30 Dandre Bodies Not Reportable 11/21/20 05:30 Hem Pathologist Commnt No 11/21/20 05:30 PT 16.6 Sec. (12.2-14.9) H 11/20/20 15:45 INR 1.29 (0.87-1.13) H 11/20/20 15:45 APTT 29.7 Sec. (24.2-36.6) 11/20/20 15:45 Sodium 132 mmol/L (137-145) L 11/21/20 05:30 Potassium 6.2 mmol/L (3.6-5.0) H* 11/21/20 05:30 Chloride 93.7 mmol/L (98-107) L 11/21/20 05:30 Carbon Dioxide 19 mmol/L (22-30) L 11/21/20 05:30 Anion Gap 26 mmol/L 11/21/20 05:30 BUN 99 mg/dL (9-20) H 11/21/20 05:30 Creatinine 10.7 mg/dL (0.8-1.3) H 11/21/20 05:30 Estimated GFR 6 ml/min 11/21/20 05:30 BUN/Creatinine Ratio 9 % 11/21/20 05:30 Glucose 160 mg/dL (75-100) H 11/21/20 05:30 POC Glucose 156 mg/dL (70-105) H 11/21/20 06:22 Hemoglobin A1c 7.2 % (4-6) H 11/21/20 05:30 Calcium 9.0 mg/dL (8.4-10.2) 11/21/20 05:30 Total Bilirubin 0.70 mg/dL (0.1-1.2) 11/21/20 05:30 AST 23 units/L (5-40) 11/21/20 05:30 ALT 44 units/L (7-56) 11/21/20 05:30 Alkaline Phosphatase 348 units/L (35-129) H 11/21/20 05:30 Total Protein 6.3 g/dL (6.3-8.2) D 11/21/20 05:30 Albumin 2.8 g/dL (3.9-5) L 11/21/20 05:30 Albumin/Globulin Ratio 0.8 % 11/21/20 05:30 Urine Color Yellow (Yellow) 11/20/20 17:00 Urine Turbidity Turbid (Clear) 11/20/20 17:00 Urine pH 5.0 (5.0-7.0) 11/20/20 17:00 Ur Specific [place] 1.023 (1.003-1.030) 11/20/20 17:00 Urine Protein 100 mg/dl mg/dL (Negative) 11/20/20 17:00 Urine Glucose (UA) Neg mg/dL (Negative) 11/20/20 17:00 Urine Ketones Neg mg/dL (Negative) 11/20/20 17:00 Urine Blood Lg (Negative) 11/20/20 17:00 Urine Nitrite Neg (Negative) 11/20/20 17:00 Urine Bilirubin Neg (Negative) 11/20/20 17:00 Urine Urobilinogen < 2.0 mg/dL (<2.0) 11/20/20 17:00 Ur Leukocyte Esterase Mod (Negative) 11/20/20 17:00 Urine WBC (Auto) > 182.0 /HPF (0.0-6.0) H 11/20/20 17:00 Urine RBC (Auto) > 182.0 /HPF (0.0-6.0) 11/20/20 17:00 Urine Bacteria (Auto) 4+ /HPF (Negative) 11/20/20 17:00 Urine WBC Clumps 3+ /HPF 11/20/20 17:00 Haas/IV: Voiding Method Nephrostomy (Right) Active Medications - Current Medications Current Medications: Generic Name Dose Route Start Last Admin Trade Name Freq PRN Reason Stop Dose Admin Acetaminophen 650 mg 11/20/20 20:20 11/21/20 01:47 Acetaminophen 325 Mg Tab PO 650 mg Q4H PRN Administration Pain MILD(1-3)/Fever >100.5/SOUSA Amlodipine Besylate 5 mg 11/20/20 21:00 11/21/20 02:33 Amlodipine 5 Mg Tab PO Not Given DAILY JOSIANE Cholecalciferol 5,000 unit 11/22/20 10:00 Cholecalciferol (Vit D3) 5,000 Unit Tab PO Q48HR JOSIANE Dextrose 50 ml 11/21/20 08:00 Dextrose 50% In Water (25gm) 50 Ml Syringe IV 11/21/20 13:00 ONCE JOSIANE Protocol Famotidine 10 mg 11/20/20 22:00 11/21/20 01:38 Famotidine 20 Mg/2 Ml Inj IV 10 mg BID JOSIANE Administration Hydralazine HCl 25 mg 11/20/20 22:00 11/21/20 02:33 Hydralazine 25 Mg Tab PO Not Given Q8HR JOSIANE Sodium Chloride 1,000 mls @ 75 mls/hr 11/20/20 20:30 11/21/20 01:26 Nacl 0.9% 1000 Ml IV 75 mls/hr DIRECT JOSIANE Administration Ceftriaxone Sodium 1 gm in 50 mls @ 100 mls/hr 11/20/20 22:00 11/21/20 01:24 Rocephin/Ns 1 Gm/50 Ml IV 100 mls/hr Q24H JOSIANE Administration Protocol Insulin Glargine 20 units 11/20/20 22:00 11/21/20 01:38 Insulin Glargine 100 Units/Ml SUB-Q 20 units QHS JOSIANE Administration Insulin Human Lispro 0 unit 11/20/20 21:00 11/21/20 05:33 Insulin Lispro 100 Unit/Ml SUB-Q Not Given Q6HR [facility] Protocol Insulin Human Regular 7 units 11/21/20 08:00 Insulin Regular, Human 100 Units/1 Ml IV 11/21/20 13:00 ONCE [facility] Metoclopramide HCl 5 mg 11/20/20 21:00 Metoclopramide 10 Mg/2 Ml Inj IV Q6H PRN Nausea And Vomiting Metoprolol Tartrate 25 mg 11/20/20 22:00 11/21/20 02:33 Metoprolol Tartrate 25 Mg Tab PO Not Given BID JOSIANE Morphine Sulfate 2 mg 11/20/20 20:20 Morphine 2 Mg/1 Ml Inj IV Q4H PRN Pain, Moderate (4-6) Ondansetron HCl 4 mg 11/20/20 20:20 Ondansetron 4 Mg/2 Ml Inj IV Q8H PRN Nausea And Vomiting Pioglitazone HCl 15 mg 11/20/20 21:00 11/21/20 02:33 Pioglitazone 15 Mg Tab PO Not Given QAMDIAB [facility] Sodium Chloride 10 ml 11/20/20 22:00 11/21/20 02:32 Sodium Chloride 0.9% 10 Ml Flush Syringe IV Not Given BID JOSIANE Sodium Chloride 10 ml 11/20/20 20:20 Sodium Chloride 0.9% 10 Ml Flush Syringe IV PRN PRN LINE FLUSH Sodium Polystyrene Sulfonate 30 gm 11/21/20 08:00 Sodium Polystyrene 15 Gm/60 Ml Oral Liqd PO 11/21/20 14:00 ONCE [facility]
--- NOTE | 2020-11-21 10:55 | Consultation ---
History of Present Illness - Reason for Consult Consult date: 11/21/20 acute renal failure, hyperkalemia Past History Past Medical History: other (Prostate cancer, ureteral stricture) Past Surgical History: Other (Bilateral ureteral stent placement) Social history: no significant social history Family history: no significant family history Medications and Allergies Allergies Allergy/AdvReac Type Severity Reaction Status Date / Time No Known Allergies Allergy Verified 04/28/20 09:47 Home Medications Medication Instructions Recorded Confirmed Last Taken Type Cholecalciferol (Vitamin D3) 5,000 unit PO Q48HR 04/28/20 10/23/20 10/22/20 History Metoprolol [Lopressor] 25 mg PO BID 04/28/20 10/23/20 10/22/20 History Pioglitazone [Actos] 15 mg PO QDAY 04/28/20 10/23/20 10/22/20 History amLODIPine [Norvasc] 5 mg PO DAILY 04/28/20 10/23/20 10/22/20 History Hydralazine HCl 50 mg PO TID 06/24/20 10/23/20 10/22/20 History Basaglpietro Contrerasbopen U-100 0 units SQ DAILY 10/17/20 10/17/20 10/22/20 History One-Daily Multi-Vitamin 1 tab PO Q48HR 10/17/20 10/17/20 10/22/20 History Active Meds: Active Medications Acetaminophen (Acetaminophen 325 Mg Tab) 650 mg PO Q4H PRN PRN Reason: Pain MILD(1-3)/Fever >100.5/SOUSA Last Admin: 11/21/20 01:47 Dose: 650 mg Documented by: Amlodipine Besylate (Amlodipine 5 Mg Tab) 5 mg PO DAILY [facility] Last Admin: 11/21/20 09:58 Dose: 5 mg Documented by: Cholecalciferol (Cholecalciferol (Vit D3) 5,000 Unit Tab) 5,000 unit PO Q48HR [facility] Dextrose (Dextrose 50% In Water (25gm) 50 Ml Syringe) 50 ml IV ONCE [facility]; Protocol Stop: 11/21/20 13:00 Last Admin: 11/21/20 08:02 Dose: 50 ml Documented by: Famotidine (Famotidine 20 Mg/2 Ml Inj) 10 mg IV BID [facility] Last Admin: 11/21/20 09:58 Dose: 10 mg Documented by: Hydralazine HCl (Hydralazine 25 Mg Tab) 25 mg PO Q8HR [facility] Last Admin: 11/21/20 09:40 Dose: Not Given Documented by: Sodium Chloride (Nacl 0.9% 1000 Ml) 1,000 mls @ 75 mls/hr IV DIRECT [facility] Last Admin: 11/21/20 01:26 Dose: 75 mls/hr Documented by: Ceftriaxone Sodium (Rocephin/Ns 1 Gm/50 Ml) 1 gm in 50 mls @ 100 mls/hr IV Q24H [facility]; Protocol Last Admin: 11/21/20 01:24 Dose: 100 mls/hr Documented by: Insulin Glargine (Insulin Glargine 100 Units/Ml) 20 units SUB-Q QHS [facility] Last Admin: 11/21/20 01:38 Dose: 20 units Documented by: Insulin Human Lispro (Insulin Lispro 100 Unit/Ml) 0 unit SUB-Q Q6HR [facility]; Protoc ol Last Admin: 11/21/20 09:40 Dose: Not Given Documented by: Insulin Human Regular (Insulin Regular, Human 100 Units/1 Ml) 7 units IV ONCE [facility] Stop: 11/21/20 13:00 Last Admin: 11/21/20 08:02 Dose: 7 units Documented by: Metoclopramide HCl (Metoclopramide 10 Mg/2 Ml Inj) 5 mg IV Q6H PRN PRN Reason: Nausea And Vomiting Metoprolol Tartrate (Metoprolol Tartrate 25 Mg Tab) 25 mg PO BID [facility] Last Admin: 11/21/20 09:58 Dose: 25 mg Documented by: Morphine Sulfate (Morphine 2 Mg/1 Ml Inj) 2 mg IV Q4H PRN PRN Reason: Pain, Moderate (4-6) Ondansetron HCl (Ondansetron 4 Mg/2 Ml Inj) 4 mg IV Q8H PRN PRN Reason: Nausea And Vomiting Pioglitazone HCl (Pioglitazone 15 Mg Tab) 15 mg PO QAMDIAB [facility] Last Admin: 11/21/20 09:58 Dose: 15 mg Documented by: Sodium Chloride (Sodium Chloride 0.9% 10 Ml Flush Syringe) 10 ml IV BID [facility] Last Admin: 11/21/20 10:00 Dose: 10 ml Documented by: Sodium Chloride (Sodium Chloride 0.9% 10 Ml Flush Syringe) 10 ml IV PRN PRN PRN Reason: LINE FLUSH Sodium Polystyrene Sulfonate (Sodium Polystyrene 15 Gm/60 Ml Oral Liqd) 30 gm PO ONCE [facility] Stop: 11/21/20 14:00 Exam - Vital Signs Vital signs: Vital Signs Temp Pulse Resp BP Pulse Ox 97.7 F 79 18 141/76 100 11/20/20 15:55 11/20/20 15:55 11/20/20 15:55 11/20/20 15:55 11/20/20 15:55 Results - Lab Results 11/21/20 05:30 11/21/20 05:30 Most recent lab results Calcium 9.0 mg/dL (8.4-10.2) 11/21/20 05:30
--- NOTE | 2020-11-21 11:00 | Consultation ---
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 Patient had bilateral ureteral stents secondary to ureteral strictures. Patient was having severe pain with his stents and went to see urologist and apparently right ureteral stent was removed. Subsequently he noticed no urine output for 2 days with generalized abdominal pain and bilateral flank pain. Patient also developed constipation. His symptoms kept worsening and so he went back to see urologist and bedside ultrasound showed right hydronephrosis and so patient was sent to the hospital for further management. Patient had right percutaneous nephrostomy tube placed. Labs showed BUN/creatinine elevated at 99/10.7 mg/dL, potassium was high at 6.2 mmol/L, sodium low at 132 mmol/L and bicarbonate low at 19 mmol/L. I am consulted to assist with managing renal failure and fluid and electrolyte abnormalities. Most recent office visit, patient BUN/creatinine were 37/2.5 mg/dL October 20, 2020. Patient feels a bit better now. Pain is resolving. He also had bowel movements after the Kayexalate was given. 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 denies: smoking, prescription drug abuse, IV drug use Family history: diabetes (His sister is a diabetic), stroke (Sister had a stroke), other (Does not know about his parents medical problems. They are both ) Medications and Allergies Allergies Allergy/AdvReac Type Severity Reaction Status Date / Time No Known Allergies Allergy Verified 04/28/20 09:47 Home Medications Medication Instructions Recorded Confirmed Last Taken Type Cholecalciferol (Vitamin D3) 5,000 unit PO Q48HR 04/28/20 11/21/20 2 Days Ago History ~11/19/20 Metoprolol [Lopressor] 25 mg PO BID 04/28/20 11/21/20 2 Days Ago History ~11/19/20 Pioglitazone [Actos] 15 mg PO QDAY 04/28/20 11/21/20 2 Days Ago History ~11/19/20 amLODIPine [Norvasc] 5 mg PO DAILY 04/28/20 11/21/20 2 Days Ago History ~11/19/20 Hydralazine HCl 50 mg PO TID 06/24/20 11/21/20 2 Days Ago History ~11/19/20 Raymundoaglpietro Burnspen U-100 0 units SQ DAILY 10/17/20 11/21/20 2 Days Ago History ~11/19/20 One-Daily Multi-Vitamin 1 tab PO Q48HR 10/17/20 11/21/20 2 Days Ago History ~11/19/20 Active Meds: Active Medications Acetaminophen (Acetaminophen 325 Mg Tab) 650 mg PO Q4H PRN PRN Reason: Pain MILD(1-3)/Fever >100.5/SOUSA Last Admin: 11/21/20 01:47 Dose: 650 mg Documented by: Amlodipine Besylate (Amlodipine 5 Mg Tab) 5 mg PO DAILY [facility] Last Admin: 11/21/20 09:58 Dose: 5 mg Documented by: Cholecalciferol (Cholecalciferol (Vit D3) 5,000 Unit Tab) 5,000 unit PO Q48HR [facility] Dextrose (Dextrose 50% In Water (25gm) 50 Ml Syringe) 50 ml IV ONCE [facility]; Protocol Stop: 11/21/20 13:00 Last Admin: 11/21/20 08:02 Dose: 50 ml Documented by: Famotidine (Famotidine 20 Mg/2 Ml Inj) 10 mg IV BID [facility] Last Admin: 11/21/20 09:58 Dose: 10 mg Documented by: Hydralazine HCl (Hydralazine 25 Mg Tab) 25 mg PO Q8HR [facility] Last Admin: 11/21/20 09:40 Dose: Not Given Documented by: Sodium Chloride (Nacl 0.9% 1000 Ml) 1,000 mls @ 75 mls/hr IV DIRECT [facility] Last Admin: 11/21/20 01:26 Dose: 75 mls/hr Documented by: Ceftriaxone Sodium (Rocephin/Ns 1 Gm/50 Ml) 1 gm in 50 mls @ 100 mls/hr IV Q24H [facility]; Protocol Last Admin: 11/21/20 01:24 Dose: 100 mls/hr Documented by: Insulin Glargine (Insulin Glargine 100 Units/Ml) 20 units SUB-Q QHS [facility] Last Admin: 11/21/20 01:38 Dose: 20 units Documented by: Insulin Human Lispro (Insulin Lispro 100 Unit/Ml) 0 unit SUB-Q Q6HR [facility]; Protocol Last Admin: 11/21/20 09:40 Dose: Not Given Documented by: Insulin Human Regular (Insulin Regular, Human 100 Units/1 Ml) 7 units IV ONCE [facility] Stop: 11/21/20 13:00 Last Admin: 11/21/20 08:02 Dose: 7 units Documented by: Metoclopramide HCl (Metoclopramide 10 Mg/2 Ml Inj) 5 mg IV Q6H PRN PRN Reason: Nausea And Vomiting Metoprolol Tartrate (Metoprolol Tartrate 25 Mg Tab) 25 mg PO BID [facility] Last Admin: 11/21/20 09:58 Dose: 25 mg Documented by: Morphine Sulfate (Morphine 2 Mg/1 Ml Inj) 2 mg IV Q4H PRN PRN Reason: Pain, Moderate (4-6) Ondansetron HCl (Ondansetron 4 Mg/2 Ml Inj) 4 mg IV Q8H PRN PRN Reason: Nausea And Vomiting Pioglitazone HCl (Pioglitazone 15 Mg Tab) 15 mg PO QAMDIAB [facility] Last Admin: 11/21/20 09:58 Dose: 15 mg Documented by: Sodium Chloride (Sodium Chloride 0.9% 10 Ml Flush Syringe) 10 ml IV BID [facility] Last Admin: 11/21/20 10:00 Dose: 10 ml Documented by: Sodium Chloride (Sodium Chloride 0.9% 10 Ml Flush Syringe) 10 ml IV PRN PRN PRN Reason: LINE FLUSH Sodium Polystyrene Sulfonate (Sodium Polystyrene 15 Gm/60 Ml Oral Liqd) 30 gm PO ONCE [facility] Stop: 11/21/20 14:00 Review of Systems All systems: negative (Constitutional: Admits to fever and chills. +anorexia No weight loss. HEENT: No sore throat or sinus drainage no hearing or vision impairment . Cardiovascular: No chest pain, Occasional SOB, palpitations, lower extremity swelling or dizziness. Respiratory: cough with whitish sputum, No hemoptysis) Gastrointestinal: abdominal pain, constipation, no nausea, no vomiting, no diarrhea, no hematemesis, no melena, no hematochezia Genitourinary Male: kidney stones, other (No urine for 2 days) Musculoskeletal: no neck stiffness, no low back pain, no limitation of motion Integumentary: pruritis (feet), no rash, no sores Neurological: other (Generalized weakness), no weakness, no parathesias, no numbness, no tingling, no seizures Psychiatric: no anxiety, no depression Exam - Vital Signs Vital signs: Vital Signs Temp Pulse Resp BP Pulse Ox 97.7 F 79 18 141/76 100 11/20/20 15:55 11/20/20 15:55 11/20/20 15:55 11/20/20 15:55 11/20/20 15:55 - Physical Exam Narrative exam: Elderly -Marshallese male lying in bed in no acute distress HEENT: NCAT, pink oral mucous membrane Neck: Supple, no venous distention CVS: S1S2 RRR with no murmur, rub or gallop Chest: Clear to auscultation Abdomen: Protuberant, soft, nontender, no organomegaly, bowel sounds are present Right percutaneous nephrostomy tube intact draining clear urine Extremities: No edema Genitourinary deferred Skin warm and dry Neuro: Awake, alert no focal deficits Results - Lab Results 11/21/20 05:30 11/21/20 05:30 Most recent lab results Calcium 9.0 mg/dL (8.4-10.2) 11/21/20 05:30 Assessment and Plan - Patient Problems (1) Acute kidney failure Current Visit: Yes Status: Acute Qualifiers: Acute renal failure type: unspecified Qualified Code(s): N17.9 - Acute kidney failure, unspecified Plan to address problem: Acute kidney failure secondary to obstructive uropathy with right hydronephrosis. Status post right nephrostomy tube placement. Follow-up kidney function and electrolytes. If improved, continue medical management. If not improving, will need to initiate dialysis. Discussed this with the patient and he expressed understanding. (2) Hyperkalemia Current Visit: Yes Status: Acute Plan to address problem: Aggressive medical management of hyperkalemia and follow-up potassium levels. If remains high, may need dialysis. Discussed with the patient at the bedside agrees with treatment plan (3) Metabolic acidosis Current Visit: Yes Status: Acute Plan to address problem: Uremic acidosis. (4) Hyponatremia Current Visit: Yes Status: Acute Plan to address problem: Hypovolemic hyponatremia. Continue volume patient with isotonic saline and follow-up sodium. (5) Chronic kidney disease, stage 4 (severe) Current Visit: Yes Status: Acute Plan to address problem: Chronic kidney disease stage IV at baseline GFR of 30 mils per minute at most recent office visit last month. (6) Type 2 diabetes mellitus with diabetic nephropathy Current Visit: Yes Status: Acute Plan to address problem: Blood sugar management by primary attending (7) Hypertensive chronic kidney disease with stage 1 through stage 4 chronic kidney disease, or unspecified chronic kidney disease Current Visit: Yes Status: Acute Plan to address problem: Follow-up blood pressure off of medications (8) UTI (urinary tract infection) Current Visit: No Status: Acute Plan to address problem: Follow-up urine culture. Continue empiric antibiotics.
--- NOTE | 2020-11-21 13:21 | Consultation ---
History of Present Illness - Reason for Consult Consult date: 11/21/20 - History of Present Illness 75-year-old male with history of recurrent urethral stricture and hydronephrosis/acute renal failure/CKD sent from Dr. Solano for ER evaluation and placement of nephrostomy tube by interventional radiology. Patient has recurrent kidney stones, hypertension, diabetes, prostate cancer and ureteral stricture. Patient has been having suprapubic and lower abdominal pain and decreased urine output for which he went to the urologist office. Dr. Knowles sent him for nephrostomy tube placement on the right side because of the severe right-sided hydronephrosis. Patient denies any fever nausea vomiting. In the emergency room patient had a high creatinine and a high potassium which necessitated admission. Patient also being admitted for right nephrostomy placement secondary to severe hydronephrosis on the right side which is emergent. Patient also needs management of his acute kidney injury/urinary tract infection and high potassium level. Recent admissions were reviewed. 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 Patient is also admitted in October 2020 for hydronephrosis and ureteral stricture. His baseline BUN/creatinine is 37/2.4 on 10/20/2020. Today's BUN/creatinine is 94/10.1.---- RT NEPHROSTOMY TUBE PLACED YESTERDAY BE DR. 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 denies: smoking, prescription drug abuse, IV drug use Family history: diabetes (His sister is a diabetic), stroke (Sister had a stroke), other (Does not know about his parents medical problems. They are both ) Medications and Allergies Allergies Allergy/AdvReac Type Severity Reaction Status Date / Time No Known Allergies Allergy Verified 04/28/20 09:47 Home Medications Medication Instructions Recorded Confirmed Last Taken Type Cholecalciferol (Vitamin D3) 5,000 unit PO Q48HR 04/28/20 11/21/20 2 Days Ago History ~11/19/20 Metoprolol [Lopressor] 25 mg PO BID 04/28/20 11/21/20 2 Days Ago History ~11/19/20 Pioglitazone [Actos] 15 mg PO QDAY 04/28/20 11/21/20 2 Days Ago History ~11/19/20 amLODIPine [Norvasc] 5 mg PO DAILY 04/28/20 11/21/20 2 Days Ago History ~11/19/20 Hydralazine HCl 50 mg PO TID 06/24/20 11/21/20 2 Days Ago History ~11/19/20 Basaglar Kwikpen U-100 0 units SQ DAILY 10/17/20 11/21/20 2 Days Ago History ~11/19/20 One-Daily Multi-Vitamin 1 tab PO Q48HR 10/17/20 11/21/20 2 Days Ago History ~11/19/20 Active Meds: Active Medications Acetaminophen (Acetaminophen 325 Mg Tab) 650 mg PO Q4H PRN PRN Reason: Pain MILD(1-3)/Fever >100.5/SOUSA Last Admin: 11/21/20 01:47 Dose: 650 mg Documented by: Amlodipine Besylate (Amlodipine 5 Mg Tab) 5 mg PO DAILY [facility] Last Admin: 11/21/20 09:58 Dose: 5 mg Documented by: Cholecalciferol (Cholecalciferol (Vit D3) 5,000 Unit Tab) 5,000 unit PO Q48HR [facility] Famotidine (Famotidine 20 Mg/2 Ml Inj) 10 mg IV BID [facility] Last Admin: 11/21/20 09:58 Dose: 10 mg Documented by: Hydralazine HCl (Hydralazine 25 Mg Tab) 25 mg PO Q8HR [facility] Last Admin: 11/21/20 09:40 Dose: Not Given Documented by: Sodium Chloride (Nacl 0.9% 1000 Ml) 1,000 mls @ 75 mls/hr IV DIRECT [facility] Last Admin: 11/21/20 01:26 Dose: 75 mls/hr Documented by: Ceftriaxone Sodium (Rocephin/Ns 1 Gm/50 Ml) 1 gm in 50 mls @ 100 mls/hr IV Q24H [facility]; Protocol Last Admin: 11/21/20 01:24 Dose: 100 mls/hr Documented by: Insulin Glargine (Insulin Glargine 100 Units/Ml) 20 units SUB-Q QHS [facility] Last Admin: 11/21/20 01:38 Dose: 20 units Documented by: Insulin Human Lispro (Insulin Lispro 100 Unit/Ml) 0 unit SUB-Q Q6HR [facility]; Protocol Last Admin: 11/21/20 09:40 Dose: Not Given Documented by: Metoclopramide HCl (Metoclopramide 10 Mg/2 Ml Inj) 5 mg IV Q6H PRN PRN Reason: Nausea And Vomiting Metoprolol Tartrate (Metoprolol Tartrate 25 Mg Tab) 25 mg PO BID [facility] Last Admin: 11/21/20 09:58 Dose: 25 mg Documented by: Morphine Sulfate (Morphine 2 Mg/1 Ml Inj) 2 mg IV Q4H PRN PRN Reason: Pain, Moderate (4-6) Ondansetron HCl (Ondansetron 4 Mg/2 Ml Inj) 4 mg IV Q8H PRN PRN Reason: Nausea And Vomiting Pioglitazone HCl (Pioglitazone 15 Mg Tab) 15 mg PO QAMDIAB [facility] Last Admin: 11/21/20 09:58 Dose: 15 mg Documented by: Sodium Chloride (Sodium Chloride 0.9% 10 Ml Flush Syringe) 10 ml IV BID [facility] Last Admin: 11/21/20 10:00 Dose: 10 ml Documented by: Sodium Chloride (Sodium Chloride 0.9% 10 Ml Flush Syringe) 10 ml IV PRN PRN PRN Reason: LINE FLUSH Sodium Polystyrene Sulfonate (Sodium Polystyrene 15 Gm/60 Ml Oral Liqd) 30 gm PO ONCE [facility] Stop: 11/21/20 14:00 Exam - Constitutional Vitals: Temp Pulse Resp BP Pulse Ox 97.8 F 65 18 117/64 99 11/21/20 08:45 11/21/20 10:37 11/21/20 08:45 11/21/20 08:45 11/21/20 08:45 Results - Labs CBC & Chem 7: 11/21/20 05:30 11/21/20 05:30 Labs: Abnormal lab results 11/20/20 11/20/20 11/20/20 Range/Units 14:35 14:35 15:45 WBC 17.1 H (4.5-11.0) K/mm3 RBC 3.40 L (3.65-5.03) M/mm3 Hgb 10.2 L (11.8-15.2) gm/dl Hct 30.8 L (35.5-45.6) % Lymph % (Auto) 6.2 L (13.4-35.0) % Mills % (Auto) 9.7 H (0.0-7.3) % Lymph # (Auto) 1.1 L (1.2-5.4) K/mm3 Mills # (Auto) 1.7 H (0.0-0.8) K/mm3 Seg Neutrophils % 83.7 H (40.0-70.0) % Seg Neuts % (Manual) (40.0-70.0) % Lymphocytes % (Manual) (13.4-35.0) % Seg Neutrophils # 14.3 H (1.8-7.7) K/mm3 Seg Neutrophils # Man (1.8-7.7) K/mm3 Lymphocytes # (Manual) (1.2-5.4) K/mm3 Monocytes # (Manual) (0.0-0.8) K/mm3 PT 16.6 H (12.2-14.9) Sec. INR 1.29 H (0.87-1.13) Sodium 132 L (137-145) mmol/L Potassium 5.6 H (3.6-5.0) mmol/L Chloride 92.1 L (98-107) mmol/L Carbon Dioxide 18 L (22-30) mmol/L BUN 94 H (9-20) mg/dL Creatinine 10.9 H (0.8-1.3) mg/dL Glucose 171 H (75-100) mg/dL POC Glucose (70-105) mg/dL Hemoglobin A1c (4-6) % Alkaline Phosphatase 408 H (35-129) units/L Total Protein 8.3 H (6.3-8.2) g/dL Albumin 3.4 L (3.9-5) g/dL Urine WBC (Auto) (0.0-6.0) /HPF 11/20/20 11/21/20 11/21/20 Range/Units 17:00 01:35 05:30 WBC 20.9 H (4.5-11.0) K/mm3 RBC 3.19 L (3.65-5.03) M/mm3 Hgb 9.2 L (11.8-15.2) gm/dl Hct 28.4 L (35.5-45.6) % Lymph % (Auto) (13.4-35.0) % Mills % (Auto) (0.0-7.3) % Lymph # (Auto) (1.2-5.4) K/mm3 Mills # (Auto) (0.0-0.8) K/mm3 Seg Neutrophils % (40.0-70.0) % Seg Neuts % (Manual) 88.0 H (40.0-70.0) % Lymphocytes % (Manual) 4.0 L (13.4-35.0) % Seg Neutrophils # (1.8-7.7) K/mm3 Seg Neutrophils # Man 18.4 H (1.8-7.7) K/mm3 Lymphocytes # (Manual) 0.8 L (1.2-5.4) K/mm3 Monocytes # (Manual) 1.5 H (0.0-0.8) K/mm3 PT (12.2-14.9) Sec. INR (0.87-1.13) Sodium (137-145) mmol/L Potassium (3.6-5.0) mmol/L Chloride (98-107) mmol/L Carbon Dioxide (22-30) mmol/L BUN (9-20) mg/dL Creatinine (0.8-1.3) mg/dL Glucose (75-100) mg/dL POC Glucose 164 H (70-105) mg/dL Hemoglobin A1c (4-6) % Alkaline Phosphatase (35-129) units/L Total Protein (6.3-8.2) g/dL Albumin (3.9-5) g/dL Urine WBC (Auto) > 182.0 H (0.0-6.0) /HPF 11/21/20 11/21/20 11/21/20 Range/Units 05:30 05:30 06:22 WBC (4.5-11.0) K/mm3 RBC (3.65-5.03) M/mm3 Hgb (11.8-15.2) gm/dl Hct (35.5-45.6) % Lymph % (Auto) (13.4-35.0) % Mills % (Auto) (0.0-7.3) % Lymph # (Auto) (1.2-5.4) K/mm3 Mills # (Auto) (0.0-0.8) K/mm3 Seg Neutrophils % (40.0-70.0) % Seg Neuts % (Manual) (40.0-70.0) % Lymphocytes % (Manual) (13.4-35.0) % Seg Neutrophils # (1.8-7.7) K/mm3 Seg Neutrophils # Man (1.8-7.7) K/mm3 Lymphocytes # (Manual) (1.2-5.4) K/mm3 Monocytes # (Manual) (0.0-0.8) K/mm3 PT (12.2-14.9) Sec. INR (0.87-1.13) Sodium 132 L (137-145) mmol/L Potassium 6.2 H* (3.6-5.0) mmol/L Chloride 93.7 L (98-107) mmol/L Carbon Dioxide 19 L (22-30) mmol/L BUN 99 H (9-20) mg/dL Creatinine 10.7 H (0.8-1.3) mg/dL Glucose 160 H (75-100) mg/dL POC Glucose 156 H (70-105) mg/dL Hemoglobin A1c 7.2 H (4-6) % Alkaline Phosphatase 348 H (35-129) units/L Total Protein (6.3-8.2) g/dL Albumin 2.8 L (3.9-5) g/dL Urine WBC (Auto) (0.0-6.0) /HPF
[2020-11-21 16:10] LABS: Calcium 10.1 mg/dL (8.4-10.2)
--- NOTE | 2020-11-21 19:42 | Electrocardiograph Report ---
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
--- NOTE | 2020-11-21 19:51 | Electrocardiograph Report ---
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 : 1945 Requested By: NADEEM FENTON Order Number: [id number] Reading MD: Bryan Martin Measurements Intervals [place] Rate: 72 P: 72 GA: 155 QRS: 20 QRSD: 93 T: -17 QT: 420 QTc: 459 Interpretive Statements Sinus rhythm Ventricular premature complex Low voltage, precordial leads Nonspecific T abnormalities, inferior leads Compared to ECG 11/20/2020 18:33:14 Ventricular premature complex(es) now present T-wave abnormality now present Sinus tachycardia no longer present Left-axis deviation no longer present Myocardial infarct finding no longer present Electronically Signed On 11-21-2020 19:51:08 EDT by Bryan Martin
[2020-11-22] MEDS: SODIUM CHLORIDE 0.9% 1000 ML 1,000 ML IV SCH ×2 (01:14→12:46)
[2020-11-22] MEDS: INSULIN LISPRO 100 UNIT/ML SUB-Q SCH ×6 (01:15→21:05)
[2020-11-22 02:14] LABS: Creatinine,Urine 69.2 mg/dL (0.1-20.0)
[2020-11-22] MEDS: ACETAMINOPHEN 325 MG TAB PO PRN ×2 (04:04→17:31)
[2020-11-22] MEDS: hydrALAZINE 25 MG TAB PO SCH ×3 (07:30→21:06)
[2020-11-22 08:37] LABS: Calcium 9.6 mg/dL (8.4-10.2)
--- NOTE | 2020-11-22 08:37 | Progress Note ---
Assessment and Plan Assessment and plan: (1) SIRS (systemic inflammatory response syndrome) Current Visit: Yes Status: Acute Plan to address problem: Patient had leukocytosis and tachycardia IV ceftriaxone started (2) Acute kidney failure Current Visit: Yes Status: Acute Qualifiers: Acute renal failure type: unspecified Qualified Code(s): N17.9 - Acute kidney failure, unspecified Plan to address problem: Patient has severe right hydronephrosis. ROZ secondary to ATN and obstructive uropathy Nephrology consult requested by Dr. Holland Patient baseline creatinine is 37/2.5 on 10/20/2020 today's creatinine is 94/10.1 Patient going for emergency nephrostomy tube placement We will trend the creatinine level (3) Hydronephrosis Current Visit: Yes Status: Acute Qualifiers: Hydronephrosis type: unspecified Qualified Code(s): N13.30 - Unspecified hydronephrosis Plan to address problem: Patient getting emergent right nephrostomy tube by interventional radiology-Dr. 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 Pichardo consulted (6) Nephrolithiasis Current Visit: Yes Status: Chronic Plan to address problem: Patient has recurrent nephrolithiasis and right kidney stone obstructing the right ureter Will defer to urology regarding stent placement and localized lithotripsy (7) Hypertension Current Visit: Yes Status: Chronic Qualifiers: Hypertension type: essential hypertension Qualified Code(s): I10 - Essential (primary) hypertension Plan to address problem: Continue antihypertensives and adjust medications (8) IDDM (insulin dependent diabetes mellitus) Current Visit: Yes Status: Chronic Plan to address problem: Continue long-acting insulin and insulin coverage Check hemoglobin A1c (9) DVT prophylaxis Current Visit: Yes Status: Acute Plan to address problem: On heparin and GI prophylaxis 11/21/2020 -Patient admitted with right hydronephrosis and acute on chronic renal failure. Patient had right nephrostomy placement yesterday by interventional radiology. Urology is following the patient -Acute on chronic renal failure: Patient's GFR was 6 this morning, nephrology is consulted -Patient's potassium was 6.2, I ordered Kayexalate, calcium gluconate, check EKG and will repeat potassium. -Nephrolithiasis; with history of ureteral stent placement. Urology is following the patient -Patient has SIRS and on empiric IV ceftriaxone -Hemoglobin A1c is 7.2; continue current insulin regimen 11/22/2020 -Patient has acute renal failure with hyperkalemia secondary to obstructive uropathy with right hydronephrosis. Status post PCN. Patient was evaluated by urology and recommend to discharge home with PCN once stable. -Patient was seen by nephrology and recommend medical management for now and if labs are not improving may initiate dialysis. Minimal improvement in creatinine, potassium was within normal limit. History Interval history: Patient was seen and evaluated this morning Patient does not have any complaints Hospitalist Physical - Physical exam Narrative exam: Not in cardiopulmonary distress. The patient appeared well nourished and normally developed. Vital signs as documented. Head exam is unremarkable. No scleral icterus . Neck is without jugular venous distension, thyromegaly, or carotid bruits. Lungs are clear to auscultation. Cardiac exam reveals regular rate and Rhythm. Abdominal exam reveals normal bowel sounds, nontender, no organomegaly. Extremities are nonedematous and both femoral and pedal pulses are normal. [employer]: Alert and oriented 3. No focal weakness. Patient does PCN tube, functional - Constitutional Vitals: Temp Pulse Resp BP Pulse Ox 98.5 F 73 20 119/65 94 11/22/20 03:55 11/22/20 03:55 11/22/20 03:55 11/22/20 03:55 11/22/20 03:55 General appearance: Present: no acute distress, well-nourished Results - Labs CBC & Chem 7: 11/22/20 08:08 11/22/20 08:08 Labs: Laboratory Last Values WBC 20.9 K/mm3 (4.5-11.0) H 11/21/20 05:30 RBC 3.19 M/mm3 (3.65-5.03) L 11/21/20 05:30 Hgb 9.2 gm/dl (11.8-15.2) L 11/21/20 05:30 Hct 28.4 % (35.5-45.6) L 11/21/20 05:30 MCV 89 fl (84-94) 11/21/20 05:30 MCH 29 pg (28-32) 11/21/20 05:30 MCHC 32 % (32-34) 11/21/20 05:30 RDW 14.9 % (13.2-15.2) 11/21/20 05:30 Plt Count 367 K/mm3 (140-440) 11/21/20 05:30 Lymph % (Auto) 6.2 % (13.4-35.0) L 11/20/20 14:35 Foster % (Auto) 9.7 % (0.0-7.3) H 11/20/20 14:35 Eos % (Auto) 0.2 % (0.0-4.3) 11/20/20 14:35 Baso % (Auto) 0.2 % (0.0-1.8) 11/20/20 14:35 Lymph # (Auto) 1.1 K/mm3 (1.2-5.4) L 11/20/20 14:35 Foster # (Auto) 1.7 K/mm3 (0.0-0.8) H 11/20/20 14:35 Eos # (Auto) 0.0 K/mm3 (0.0-0.4) 11/20/20 14:35 Baso # (Auto) 0.0 K/mm3 (0.0-0.1) 11/20/20 14:35 Add Manual Diff Complete 11/21/20 05:30 Total Counted 100 11/21/20 05:30 Seg Neutrophils % Blade Aligner 11/21/20 05:30 Seg Neuts % (Manual) 88.0 % (40.0-70.0) H 11/21/20 05:30 Band Neutrophils % 1.0 % 11/21/20 05:30 Lymphocytes % (Manual) 4.0 % (13.4-35.0) L 11/21/20 05:30 Monocytes % (Manual) 7.0 % (0.0-7.3) 11/21/20 05:30 Nucleated RBC % Not Reportable 11/21/20 05:30 Seg Neutrophils # 14.3 K/mm3 (1.8-7.7) H 11/20/20 14:35 Seg Neutrophils # Man 18.4 K/mm3 (1.8-7.7) H 11/21/20 05:30 Band Neutrophils # 0.2 K/mm3 11/21/20 05:30 Lymphocytes # (Manual) 0.8 K/mm3 (1.2-5.4) L 11/21/20 05:30 Abs React Lymphs (Man) 0.0 K/mm3 11/21/20 05:30 Monocytes # (Manual) 1.5 K/mm3 (0.0-0.8) H 11/21/20 05:30 Eosinophils # (Manual) 0.0 K/mm3 (0.0-0.4) 11/21/20 05:30 Basophils # (Manual) 0.0 K/mm3 (0.0-0.1) 11/21/20 05:30 Metamyelocytes # 0.0 K/mm3 11/21/20 05:30 Myelocytes # 0.0 K/mm3 11/21/20 05:30 Promyelocytes # 0.0 K/mm3 11/21/20 05:30 Blast Cells # 0.0 K/mm3 11/21/20 05:30 WBC Morphology Not Reportable 11/21/20 05:30 Hypersegmented Neuts Not Reportable 11/21/20 05:30 Hyposegmented Neuts Not Reportable 11/21/20 05:30 Hypogranular Neuts Not Reportable 11/21/20 05:30 Smudge Cells Not Reportable 11/21/20 05:30 Toxic Granulation Not Reportable 11/21/20 05:30 Toxic Vacuolation Not Reportable 11/21/20 05:30 Dohle Bodies Not Reportable 11/21/20 05:30 Pelger-Huet Anomaly Not Reportable 11/21/20 05:30 Matthew Rods Not Reportable 11/21/20 05:30 Platelet Estimate Consistent w auto 11/21/20 05:30 Clumped Platelets Not Reportable 11/21/20 05:30 Plt Clumps, EDTA Not Reportable 11/21/20 05:30 Large Platelets Not Reportable 11/21/20 05:30 Giant Platelets Not Reportable 11/21/20 05:30 Platelet Satelliting Not Reportable 11/21/20 05:30 Plt Morphology Comment Not Reportable 11/21/20 05:30 RBC Morphology Normal 11/21/20 05:30 Dimorphic RBCs Not Reportable 11/21/20 05:30 Polychromasia Not Reportable 11/21/20 05:30 Hypochromasia Not Reportable 11/21/20 05:30 Poikilocytosis Not Reportable 11/21/20 05:30 Anisocytosis Not Reportable 11/21/20 05:30 Microcytosis Not Reportable 11/21/20 05:30 Macrocytosis Not Reportable 11/21/20 05:30 Spherocytes Not Reportable 11/21/20 05:30 Pappenheimer Bodies Not Reportable 11/21/20 05:30 Sickle Cells Not Reportable 11/21/20 05:30 Target Cells Not Reportable 11/21/20 05:30 Tear Drop Cells Not Reportable 11/21/20 05:30 Ovalocytes Not Reportable 11/21/20 05:30 Helmet Cells Not Reportable 11/21/20 05:30 Lilly-Denison Bodies Not Reportable 11/21/20 05:30 [place] Rings Not Reportable 11/21/20 05:30 [place] Cells Not Reportable 11/21/20 05:30 Bite Cells Not Reportable 11/21/20 05:30 Crenated Cell Not Reportable 11/21/20 05:30 Elliptocytes Not Reportable 11/21/20 05:30 Acanthocytes (Spur) Not Reportable 11/21/20 05:30 Rouleaux Not Reportable 11/21/20 05:30 Hemoglobin C Crystals Not Reportable 11/21/20 05:30 Schistocytes Not Reportable 11/21/20 05:30 Malaria parasites Not Reportable 11/21/20 05:30 Dandre Bodies Not Reportable 11/21/20 05:30 Hem Pathologist Commnt No 11/21/20 05:30 PT 16.6 Sec. (12.2-14.9) H 11/20/20 15:45 INR 1.29 (0.87-1.13) H 11/20/20 15:45 APTT 29.7 Sec. (24.2-36.6) 11/20/20 15:45 Sodium 134 mmol/L (137-145) L 11/21/20 15:07 Potassium 5.6 mmol/L (3.6-5.0) H 11/21/20 15:07 Chloride 96.6 mmol/L (98-107) L 11/21/20 15:07 Carbon Dioxide 17 mmol/L (22-30) L 11/21/20 15:07 Anion Gap 26 mmol/L 11/21/20 15:07 BUN 103 mg/dL (9-20) H 11/21/20 15:07 Creatinine 10.0 mg/dL (0.8-1.3) H 11/21/20 15:07 Estimated GFR 6 ml/min 11/21/20 15:07 BUN/Creatinine Ratio 10 % 11/21/20 15:07 Glucose 181 mg/dL (75-100) H 11/21/20 15:07 POC Glucose 115 mg/dL (70-105) H 11/22/20 07:13 Hemoglobin A1c 7.2 % (4-6) H 11/21/20 05:30 Calcium 10.1 mg/dL (8.4-10.2) 11/21/20 15:07 Total Bilirubin 0.70 mg/dL (0.1-1.2) 11/21/20 05:30 AST 23 units/L (5-40) 11/21/20 05:30 ALT 44 units/L (7-56) 11/21/20 05:30 Alkaline Phosphatase 348 units/L (35-129) H 11/21/20 05:30 Total Protein 6.3 g/dL (6.3-8.2) D 11/21/20 05:30 Albumin 2.8 g/dL (3.9-5) L 11/21/20 05:30 Albumin/Globulin Ratio 0.8 % 11/21/20 05:30 Urine Color Yellow (Yellow) 11/20/20 17:00 Urine Turbidity Turbid (Clear) 11/20/20 17:00 Urine pH 5.0 (5.0-7.0) 11/20/20 17:00 Ur Specific Samson 1.023 (1.003-1.030) 11/20/20 17:00 Urine Protein 100 mg/dl mg/dL (Negative) 11/20/20 17:00 Urine Glucose (UA) Neg mg/dL (Negative) 11/20/20 17:00 Urine Ketones Neg mg/dL (Negative) 11/20/20 17:00 Urine Blood Lg (Negative) 11/20/20 17:00 Urine Nitrite Neg (Negative) 11/20/20 17:00 Urine Bilirubin Neg (Negative) 11/20/20 17:00 Urine Urobilinogen < 2.0 mg/dL (<2.0) 11/20/20 17:00 Ur Leukocyte Esterase Mod (Negative) 11/20/20 17:00 Urine WBC (Auto) > 182.0 /HPF (0.0-6.0) H 11/20/20 17:00 Urine RBC (Auto) > 182.0 /HPF (0.0-6.0) 11/20/20 17:00 Urine Bacteria (Auto) 4+ /HPF (Negative) 11/20/20 17:00 Urine WBC Clumps 3+ /HPF 11/20/20 17:00 Urine Creatinine 69.2 mg/dL (0.1-20.0) H 11/22/20 02:00 Urine Sodium 52 mmol/L 11/22/20 02:00 Urine Total Protein 145 mg/dL (5-11.8) H 11/22/20 02:00 Haas/IV: Voiding Method Nephrostomy (Right) Active Medications - Current Medications Current Medications: Generic Name Dose Route Start Last Admin Trade Name Freq PRN Reason Stop Dose Admin Acetaminophen 650 mg 11/20/20 20:20 11/22/20 04:04 Acetaminophen 325 Mg Tab PO 650 mg Q4H PRN Administration Pain MILD(1-3)/Fever >100.5/SOUSA Amlodipine Besylate 5 mg 11/20/20 21:00 11/21/20 09:58 Amlodipine 5 Mg Tab PO 5 mg DAILY JOSIANE Administration Cholecalciferol 5,000 unit 11/22/20 10:00 Cholecalciferol (Vit D3) 5,000 Unit Tab PO Q48HR JOSIANE Famotidine 10 mg 11/20/20 22:00 11/21/20 21:44 Famotidine 20 Mg/2 Ml Inj IV 10 mg BID JOSIANE Administration Hydralazine HCl 25 mg 11/20/20 22:00 11/22/20 07:30 Hydralazine 25 Mg Tab PO 25 mg Q8HR JOSIANE Administration Sodium Chloride 1,000 mls @ 75 mls/hr 11/20/20 20:30 11/22/20 01:14 Nacl 0.9% 1000 Ml IV 75 mls/hr DIRECT JOSIANE Administration Ceftriaxone Sodium 1 gm in 50 mls @ 100 mls/hr 11/20/20 22:00 11/21/20 21:44 Rocephin/Ns 1 Gm/50 Ml IV 100 mls/hr Q24H JOSIANE Administration Protocol Insulin Glargine 20 units 11/20/20 22:00 11/21/20 21:44 Insulin Glargine 100 Units/Ml SUB-Q 20 units QHS JOSIANE Administration Insulin Human Lispro 0 unit 11/20/20 21:00 11/22/20 07:53 Insulin Lispro 100 Unit/Ml SUB-Q Not Given Q6HR [facility] Protocol Metoclopramide HCl 5 mg 11/20/20 21:00 Metoclopramide 10 Mg/2 Ml Inj IV Q6H PRN Nausea And Vomiting Metoprolol Tartrate 25 mg 11/20/20 22:00 11/21/20 21:43 Metoprolol Tartrate 25 Mg Tab PO 25 mg BID JOSIANE Administration Morphine Sulfate 2 mg 11/20/20 20:20 Morphine 2 Mg/1 Ml Inj IV Q4H PRN Pain, Moderate (4-6) Ondansetron HCl 4 mg 11/20/20 20:20 Ondansetron 4 Mg/2 Ml Inj IV Q8H PRN Nausea And Vomiting Pioglitazone HCl 15 mg 11/20/20 21:00 11/21/20 09:58 Pioglitazone 15 Mg Tab PO 15 mg QAMDIAB JOSIANE Administration Sodium Chloride 10 ml 11/20/20 22:00 11/21/20 21:44 Sodium Chloride 0.9% 10 Ml Flush Syringe IV 10 ml BID JOSIANE Administration Sodium Chloride 10 ml 11/20/20 20:20 Sodium Chloride 0.9% 10 Ml Flush Syringe IV PRN PRN LINE FLUSH
[2020-11-22 08:48] LABS: Basophils % (Auto) 0.2 % (0.0-1.8); Eosinophils # (Auto) 0.2 K/mm3 (0.0-0.4); Eosinophils % (Auto) 1.2 % (0.0-4.3); Hematocrit 29.3 % (35.5-45.6); Hemoglobin 9.9 gm/dl (11.8-15.2); Lymphocytes # (Auto) 0.9 K/mm3 (1.2-5.4); Lymphocytes % (Auto) 5.1 % (13.4-35.0); Mean Corpuscular HGB Conc 34 % (32-34); Mean Corpuscular Volume 89 fl (84-94); Monocytes # (Auto) 1.6 K/mm3 (0.0-0.8); Monocytes % (Auto) 8.8 % (0.0-7.3); Platelet Count 372 K/mm3 (140-440); Red Blood Count 3.28 M/mm3 (3.65-5.03)
[2020-11-22] MEDS: FAMOTIDINE 20 MG/2 ML INJ IV SCH ×2 (09:21→21:06)
[2020-11-22] MEDS: PIOGLITAZONE 15 MG TAB PO SCH (09:21)
[2020-11-22] MEDS: amLODIPine 5 MG TAB PO SCH (09:21)
[2020-11-22] MEDS: METOPROLOL TARTRATE 25 MG TAB PO SCH ×2 (09:21→21:06)
[2020-11-22] MEDS ORDERED: CHOLECALCIFEROL 5000 UNIT PO SCH (10:00)
[2020-11-22] MEDS ORDERED: CHOLECALCIFEROL (VIT D3) 5,000 UNIT TAB PO SCH (10:00)
--- NOTE | 2020-11-22 10:18 | Progress Note ---
Assessment and Plan Stent patient status post percutaneous nephrostomy tube placement. We will follow up management of nephrostomy tube with urology. The patient's creatinine has improved minimally. Patient is currently asymptomatic however, awaiting nephrology's recommendations on whether or not there will need to be initiation of hemodialysis during this admission. Subjective Date of service: 11/22/20 Principal diagnosis: Right hydronephrosis, acute renal failure Interval history: Patient with a history of right hydronephrosis who had placement of a right percutaneous nephrostomy tube. No complaints of significant pain. The nephrostomy tube is draining clear yellow urine. Labs noted. The patient is resting comfortably in bed with no difficulty breathing. Objective - Constitutional Vitals: Vital Signs - 12hr 11/22/20 11/22/20 11/22/20 00:24 03:55 08:35 Temperature 99.1 F 98.5 F 97.9 F Pulse Rate 78 73 74 Respiratory 20 20 18 Rate Blood Pressure 119/73 119/65 133/72 O2 Sat by Pulse 95 94 94 Oximetry General appearance: Present: no acute distress - EENT Eyes: EOM intact ENT: hearing intact - Neck Neck: supple - Respiratory Respiratory effort: normal Extremities: No edema - Gastrointestinal General gastrointestinal: Present: deferred Rectal Exam: deferred - Genitourinary Male genitourinary: deferred - Psychiatric Psychiatric: appropriate mood/affect, cooperative - Labs CBC & Chem 7: 11/22/20 08:08 11/22/20 08:08 Labs: Abnormal lab results 11/21/20 11/21/20 11/21/20 Range/Units 15:07 17:00 21:38 WBC (4.5-11.0) K/mm3 RBC (3.65-5.03) M/mm3 Hgb (11.8-15.2) gm/dl Hct (35.5-45.6) % Lymph % (Auto) (13.4-35.0) % Banks % (Auto) (0.0-7.3) % Lymph # (Auto) (1.2-5.4) K/mm3 Banks # (Auto) (0.0-0.8) K/mm3 Seg Neutrophils % (40.0-70.0) % Seg Neutrophils # (1.8-7.7) K/mm3 Sodium 134 L (137-145) mmol/L Potassium 5.6 H (3.6-5.0) mmol/L Chloride 96.6 L (98-107) mmol/L Carbon Dioxide 17 L (22-30) mmol/L BUN 103 H (9-20) mg/dL Creatinine 10.0 H (0.8-1.3) mg/dL Glucose 181 H (75-100) mg/dL POC Glucose 146 H 157 H (70-105) mg/dL Urine Creatinine (0.1-20.0) mg/dL Urine Total Protein (5-11.8) mg/dL 11/22/20 11/22/20 11/22/20 Range/Units 00:27 02:00 07:13 WBC (4.5-11.0) K/mm3 RBC (3.65-5.03) M/mm3 Hgb (11.8-15.2) gm/dl Hct (35.5-45.6) % Lymph % (Auto) (13.4-35.0) % Banks % (Auto) (0.0-7.3) % Lymph # (Auto) (1.2-5.4) K/mm3 Banks # (Auto) (0.0-0.8) K/mm3 Seg Neutrophils % (40.0-70.0) % Seg Neutrophils # (1.8-7.7) K/mm3 Sodium (137-145) mmol/L Potassium (3.6-5.0) mmol/L Chloride (98-107) mmol/L Carbon Dioxide (22-30) mmol/L BUN (9-20) mg/dL Creatinine (0.8-1.3) mg/dL Glucose (75-100) mg/dL POC Glucose 191 H 115 H (70-105) mg/dL Urine Creatinine 69.2 H (0.1-20.0) mg/dL Urine Total Protein 145 H (5-11.8) mg/dL 11/22/20 11/22/20 Range/Units 08:08 08:08 WBC 17.8 H (4.5-11.0) K/mm3 RBC 3.28 L (3.65-5.03) M/mm3 Hgb 9.9 L (11.8-15.2) gm/dl Hct 29.3 L (35.5-45.6) % Lymph % (Auto) 5.1 L (13.4-35.0) % Banks % (Auto) 8.8 H (0.0-7.3) % Lymph # (Auto) 0.9 L (1.2-5.4) K/mm3 Banks # (Auto) 1.6 H (0.0-0.8) K/mm3 Seg Neutrophils % 84.7 H (40.0-70.0) % Seg Neutrophils # 15.0 H (1.8-7.7) K/mm3 Sodium 134 L (137-145) mmol/L Potassium (3.6-5.0) mmol/L Chloride 97.4 L (98-107) mmol/L Carbon Dioxide 19 L (22-30) mmol/L BUN 107 H (9-20) mg/dL Creatinine 9.5 H (0.8-1.3) mg/dL Glucose 126 H (75-100) mg/dL POC Glucose (70-105) mg/dL Urine Creatinine (0.1-20.0) mg/dL Urine Total Protein (5-11.8) mg/dL Medications & Allergies - Medications Allergies/Adverse Reactions: Allergies No Known Allergies Allergy (Verified 04/28/20 09:47) Home Medications: Home Medications Medication Instructions Recorded Confirmed Last Taken Type Cholecalciferol (Vitamin D3) 5,000 unit PO Q48HR 04/28/20 11/21/20 2 Days Ago History ~11/19/20 Metoprolol [Lopressor] 25 mg PO BID 04/28/20 11/21/20 2 Days Ago History ~11/19/20 Pioglitazone [Actos] 15 mg PO QDAY 04/28/20 11/21/20 2 Days Ago History ~11/19/20 amLODIPine [Norvasc] 5 mg PO DAILY 04/28/20 11/21/20 2 Days Ago History ~11/19/20 Hydralazine HCl 50 mg PO TID 06/24/20 11/21/20 2 Days Ago History ~11/19/20 Basaglar Kwikpen U-100 0 units SQ DAILY 10/17/20 11/21/20 2 Days Ago History ~11/19/20 One-Daily Multi-Vitamin 1 tab PO Q48HR 10/17/20 11/21/20 2 Days Ago History ~11/19/20 Active Medications: Generic Name Dose Route Start Last Admin Trade Name Freq PRN Reason Stop Dose Admin Acetaminophen 650 mg 11/20/20 20:20 11/22/20 04:04 Acetaminophen 325 Mg Tab PO 650 mg Q4H PRN Administration Pain MILD(1-3)/Fever >100.5/SOUSA Amlodipine Besylate 5 mg 11/20/20 21:00 11/22/20 09:21 Amlodipine 5 Mg Tab PO 5 mg DAILY JOSIANE Administration Cholecalciferol 5,000 unit 11/22/20 10:00 Cholecalciferol (Vit D3) 5,000 Unit Tab PO Q48HR JOSIANE Famotidine 10 mg 11/20/20 22:00 11/22/20 09:21 Famotidine 20 Mg/2 Ml Inj IV 10 mg BID JOSIANE Administration Hydralazine HCl 25 mg 11/20/20 22:00 11/22/20 07:30 Hydralazine 25 Mg Tab PO 25 mg Q8HR JOSIANE Administration Sodium Chloride 1,000 mls @ 75 mls/hr 11/20/20 20:30 11/22/20 01:14 Nacl 0.9% 1000 Ml IV 75 mls/hr DIRECT JOSIANE Administration Ceftriaxone Sodium 1 gm in 50 mls @ 100 mls/hr 11/20/20 22:00 11/21/20 21:44 Rocephin/Ns 1 Gm/50 Ml IV 100 mls/hr Q24H JOSIANE Administration Protocol Insulin Glargine 20 units 11/20/20 22:00 11/21/20 21:44 Insulin Glargine 100 Units/Ml SUB-Q 20 units QHS JOSIANE Administration Insulin Human Lispro 0 unit 11/20/20 21:00 11/22/20 07:53 Insulin Lispro 100 Unit/Ml SUB-Q Not Given Q6HR [facility] Protocol Metoclopramide HCl 5 mg 11/20/20 21:00 Metoclopramide 10 Mg/2 Ml Inj IV Q6H PRN Nausea And Vomiting Metoprolol Tartrate 25 mg 11/20/20 22:00 11/22/20 09:21 Metoprolol Tartrate 25 Mg Tab PO 25 mg BID JOSIANE Administration Morphine Sulfate 2 mg 11/20/20 20:20 Morphine 2 Mg/1 Ml Inj IV Q4H PRN Pain, Moderate (4-6) Ondansetron HCl 4 mg 11/20/20 20:20 Ondansetron 4 Mg/2 Ml Inj IV Q8H PRN Nausea And Vomiting Pioglitazone HCl 15 mg 11/20/20 21:00 11/22/20 09:21 Pioglitazone 15 Mg Tab PO 15 mg QAMDIAB JOSIANE Administration Sodium Chloride 10 ml 11/20/20 22:00 11/22/20 09:22 Sodium Chloride 0.9% 10 Ml Flush Syringe IV 10 ml BID JOSIANE Administration Sodium Chloride 10 ml 11/20/20 20:20 Sodium Chloride 0.9% 10 Ml Flush Syringe IV PRN PRN LINE FLUSH
--- NOTE | 2020-11-22 10:51 | Progress Note ---
Assessment and Plan - Patient Problems (1) Acute kidney failure Current Visit: Yes Status: Acute Qualifiers: Acute renal failure type: unspecified Qualified Code(s): N17.9 - Acute kidney failure, unspecified Plan to address problem: In the setting of obstructive uropathy and right sided hydronephrosis, s/p right nephrostomy tube placement. Avoid nephrotoxins, maintain MAP >65mmHg. Agree with gentle IVF hydration. Will monitor over the weeked for signs of continued renal recovery. Given his advanced baseline chronic kidney disease IV, I am concerned if there isn't adequate renal recovery over the next 48-72 hours, that we may need to initiate renal replacement therapy during this admission. At present time there is no acute indication and will carefully monitor over the weekend. (2) Chronic kidney disease, stage 4 (severe) Current Visit: Yes Status: Chronic Plan to address problem: Patient with underlying CKD IV. Will monitor closely, but his advanced baseline CKD puts him at higher risk of possibly requiring dialysis to aid in recovery. For present time, we will monitor closely as there is no acute indications for dialysis at present. (3) Hydronephrosis Current Visit: Yes Status: Acute Qualifiers: Hydronephrosis type: unspecified Qualified Code(s): N13.30 - Unspecified hydronephrosis Plan to address problem: s/p right sided nephrostomy tube placement. Appreciate recommendations for urology and IR. Will monitor closely. (4) Hyperkalemia Current Visit: Yes Status: Acute Plan to address problem: Corrected at this time. In the setting of obstructive uropathy and renal injury. Will monitor closely, and would recommend maintaining on a low potassium renal diet, (5) Hypertensive chronic kidney disease with stage 1 through stage 4 chronic kidney disease, or unspecified chronic kidney disease Current Visit: Yes Status: Chronic Plan to address problem: Monitor blood pressure under current regimen. 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 Subjective Date of service: 11/22/20 Principal diagnosis: Right hydronephrosis, acute renal failure Interval history: No acute changes overnight, s/p right sided nephrostomy tube placement. Renal function noted, with mild improvement. Objective - Vital Signs Vital signs: Vital Signs - 12hr 11/22/20 11/22/20 11/22/20 00:24 03:55 08:35 Temperature 99.1 F 98.5 F 97.9 F Pulse Rate 78 73 74 Respiratory 20 20 18 Rate Blood Pressure 119/73 119/65 133/72 O2 Sat by Pulse 95 94 94 Oximetry - General Appearance General appearance: well-developed, appears stated age EENT: ATNC Neck: no JVD Cardiology: regular Gastrointestinal: normal Integumentary: no rash Neurologic: no focal deficit Musculoskeletal: deferred Psychiatric: mood/affect appropriate - Lab 11/22/20 08:08 11/22/20 08:08 Most recent lab results Calcium 9.6 mg/dL (8.4-10.2) 11/22/20 08:08 Urine Creatinine 69.2 mg/dL (0.1-20.0) H 11/22/20 02:00 Urine Sodium 52 mmol/L 11/22/20 02:00 Urine Total Protein 145 mg/dL (5-11.8) H 11/22/20 02:00 - Allied health notes Allied health notes reviewed: nursing Medications & Allergies - Medications Allergies/Adverse Reactions: Allergies No Known Allergies Allergy (Verified 04/28/20 09:47) Home Medications: Home Medications Medication Instructions Recorded Confirmed Last Taken Type Cholecalciferol (Vitamin D3) 5,000 unit PO Q48HR 04/28/20 11/21/20 2 Days Ago History ~11/19/20 Metoprolol [Lopressor] 25 mg PO BID 04/28/20 11/21/20 2 Days Ago History ~11/19/20 Pioglitazone [Actos] 15 mg PO QDAY 04/28/20 11/21/20 2 Days Ago History ~11/19/20 amLODIPine [Norvasc] 5 mg PO DAILY 04/28/20 11/21/20 2 Days Ago History ~11/19/20 Hydralazine HCl 50 mg PO TID 06/24/20 11/21/20 2 Days Ago History ~11/19/20 Basaglar Kwikpen U-100 0 units SQ DAILY 10/17/20 11/21/20 2 Days Ago History ~11/19/20 One-Daily Multi-Vitamin 1 tab PO Q48HR 10/17/20 11/21/20 2 Days Ago History ~11/19/20 Active Medications: Generic Name Dose Route Start Last Admin Trade Name Freq PRN Reason Stop Dose Admin Acetaminophen 650 mg 11/20/20 20:20 11/22/20 04:04 Acetaminophen 325 Mg Tab PO 650 mg Q4H PRN Administration Pain MILD(1-3)/Fever >100.5/SOUSA Amlodipine Besylate 5 mg 11/20/20 21:00 11/22/20 09:21 Amlodipine 5 Mg Tab PO 5 mg DAILY JOSIANE Administration Cholecalciferol 5,000 unit 11/22/20 10:00 Cholecalciferol (Vit D3) 5,000 Unit Tab PO Q48HR JOSIANE Famotidine 10 mg 11/20/20 22:00 11/22/20 09:21 Famotidine 20 Mg/2 Ml Inj IV 10 mg BID JOSIANE Administration Hydralazine HCl 25 mg 11/20/20 22:00 11/22/20 07:30 Hydralazine 25 Mg Tab PO 25 mg Q8HR JOSIANE Administration Sodium Chloride 1,000 mls @ 75 mls/hr 11/20/20 20:30 11/22/20 01:14 Nacl 0.9% 1000 Ml IV 75 mls/hr DIRECT JOSIANE Administration Ceftriaxone Sodium 1 gm in 50 mls @ 100 mls/hr 11/20/20 22:00 11/21/20 21:44 Rocephin/Ns 1 Gm/50 Ml IV 100 mls/hr Q24H JOSIANE Administration Protocol Insulin Glargine 20 units 11/20/20 22:00 11/21/20 21:44 Insulin Glargine 100 Units/Ml SUB-Q 20 units QHS JOSIANE Administration Insulin Human Lispro 0 unit 11/20/20 21:00 11/22/20 07:53 Insulin Lispro 100 Unit/Ml SUB-Q Not Given Q6HR [facility] Protocol Metoclopramide HCl 5 mg 11/20/20 21:00 Metoclopramide 10 Mg/2 Ml Inj IV Q6H PRN Nausea And Vomiting Metoprolol Tartrate 25 mg 11/20/20 22:00 11/22/20 09:21 Metoprolol Tartrate 25 Mg Tab PO 25 mg BID JOSIANE Administration Morphine Sulfate 2 mg 11/20/20 20:20 Morphine 2 Mg/1 Ml Inj IV Q4H PRN Pain, Moderate (4-6) Ondansetron HCl 4 mg 11/20/20 20:20 Ondansetron 4 Mg/2 Ml Inj IV Q8H PRN Nausea And Vomiting Pioglitazone HCl 15 mg 11/20/20 21:00 11/22/20 09:21 Pioglitazone 15 Mg Tab PO 15 mg QAMDIAB JOSIANE Administration Sodium Chloride 10 ml 11/20/20 22:00 11/22/20 09:22 Sodium Chloride 0.9% 10 Ml Flush Syringe IV 10 ml BID JOSIANE Administration Sodium Chloride 10 ml 11/20/20 20:20 Sodium Chloride 0.9% 10 Ml Flush Syringe IV PRN PRN LINE FLUSH
[2020-11-22] MEDS: INSULIN GLARGINE 100 UNITS/ML SUB-Q SCH (21:05)
[2020-11-22] MEDS: cefTRIAXone/NS 1 GM/50 ML 1 GM/50 ML BAG IV SCH (21:09)
[2020-11-23] MEDS: SODIUM CHLORIDE 0.9% 1000 ML 1,000 ML IV SCH ×2 (05:05→21:29)
[2020-11-23] MEDS: hydrALAZINE 25 MG TAB PO SCH ×3 (05:07→21:29)
[2020-11-23 06:31] LABS: Hematocrit 28.1 % (35.5-45.6); Hemoglobin 9.5 gm/dl (11.8-15.2); Mean Corpuscular HGB Conc 34 % (32-34); Mean Corpuscular Volume 89 fl (84-94); Platelet Count 368 K/mm3 (140-440); Red Blood Count 3.17 M/mm3 (3.65-5.03)
[2020-11-23 06:44] LABS: Calcium 9.2 mg/dL (8.4-10.2)
[2020-11-23 07:12] LABS: Anisocytosis 1+; Band Neutrophils # (Manual) 0.1 K/mm3; Platelet Estimate Consistent w Auto; Total Cells Counted 100
--- NOTE | 2020-11-23 07:23 | Progress Note ---
Assessment and Plan - Patient Problems (1) Acute kidney failure Current Visit: Yes Status: Acute Qualifiers: Acute renal failure type: unspecified Qualified Code(s): N17.9 - Acute kidney failure, unspecified Plan to address problem: In the setting of obstructive uropathy and right sided hydronephrosis, s/p right nephrostomy tube placement. Avoid nephrotoxins, maintain MAP >65mmHg. Agree with gentle IVF hydration. Will monitor over the weeked for signs of continued renal recovery. Given his advanced baseline chronic kidney disease IV, I am concerned if there isn't adequate renal recovery over the next 48-72 hours, that we may need to initiate renal replacement therapy during this admission. At present time there is no acute indication and will carefully monitor over the weekend. Renal function shows improvement again today. (2) Chronic kidney disease, stage 4 (severe) Current Visit: Yes Status: Chronic Plan to address problem: Patient with underlying CKD IV. Will monitor closely, but his advanced baseline CKD puts him at higher risk of possibly requiring dialysis to aid in recovery. For present time, we will monitor closely as there is no acute indications for dialysis at present. (3) Hydronephrosis Current Visit: Yes Status: Acute Qualifiers: Hydronephrosis type: unspecified Qualified Code(s): N13.30 - Unspecified hydronephrosis Plan to address problem: s/p right sided nephrostomy tube placement. Appreciate recommendations for urology and IR. Will monitor closely. (4) Hyperkalemia Current Visit: Yes Status: Acute Plan to address problem: Corrected at this time. In the setting of obstructive uropathy and renal injury. Will monitor closely, and would recommend maintaining on a low potassium renal diet, (5) Hypertensive chronic kidney disease with stage 1 through stage 4 chronic kidney disease, or unspecified chronic kidney disease Current Visit: Yes Status: Chronic Plan to address problem: Monitor blood pressure under current regimen. 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 Subjective Date of service: 11/23/20 Principal diagnosis: Right hydronephrosis, acute renal failure Interval history: No acute complaints, renal function is showing steady improvement this am. Objective - Vital Signs Vital signs: Vital Signs - 12hr 06/19/21 06/19/21 06/20/21 19:34 23:32 04:41 Temperature 97.9 F 97.5 F L 98.0 F Pulse Rate 65 72 72 Respiratory 18 18 18 Rate Blood Pressure 130/72 108/63 130/68 O2 Sat by Pulse 97 96 95 Oximetry - General Appearance General appearance: appears stated age EENT: ATNC Neck: no JVD Respiratory: Present: Clear to Ascultation Cardiology: regular Gastrointestinal: normal Integumentary: no rash Neurologic: no focal deficit Musculoskeletal: deferred Psychiatric: mood/affect appropriate - Lab 11/23/20 05:40 11/23/20 05:40 Most recent lab results Calcium 9.2 mg/dL (8.4-10.2) 11/23/20 05:40 Urine Creatinine 69.2 mg/dL (0.1-20.0) H 11/22/20 02:00 Urine Sodium 52 mmol/L 11/22/20 02:00 Urine Total Protein 145 mg/dL (5-11.8) H 11/22/20 02:00 - Allied health notes Allied health notes reviewed: nursing Medications & Allergies - Medications Allergies/Adverse Reactions: Allergies No Known Allergies Allergy (Verified 04/28/20 09:47) Home Medications: Home Medications Medication Instructions Recorded Confirmed Last Taken Type Cholecalciferol (Vitamin D3) 5,000 unit PO Q48HR 04/28/20 11/21/20 2 Days Ago History ~11/19/20 Metoprolol [Lopressor] 25 mg PO BID 04/28/20 11/21/20 2 Days Ago History ~11/19/20 Pioglitazone [Actos] 15 mg PO QDAY 04/28/20 11/21/20 2 Days Ago History ~11/19/20 amLODIPine [Norvasc] 5 mg PO DAILY 04/28/20 11/21/20 2 Days Ago History ~11/19/20 Hydralazine HCl 50 mg PO TID 06/24/20 11/21/20 2 Days Ago History ~11/19/20 Basaglar Kwikpen U-100 0 units SQ DAILY 10/17/20 11/21/20 2 Days Ago History ~11/19/20 One-Daily Multi-Vitamin 1 tab PO Q48HR 10/17/20 11/21/20 2 Days Ago History ~11/19/20 Active Medications: Generic Name Dose Route Start Last Admin Trade Name Freq PRN Reason Stop Dose Admin Acetaminophen 650 mg 11/20/20 20:20 11/22/20 17:31 Acetaminophen 325 Mg Tab PO 650 mg Q4H PRN Administration Pain MILD(1-3)/Fever >100.5/SOUSA Amlodipine Besylate 5 mg 11/20/20 21:00 11/22/20 09:21 Amlodipine 5 Mg Tab PO 5 mg DAILY JOSIANE Administration Cholecalciferol 5,000 unit 11/22/20 10:00 11/22/20 12:46 Cholecalciferol (Vit D3) 5,000 Unit Tab PO 5,000 unit Q48HR JOSIANE Administration Famotidine 10 mg 11/20/20 22:00 11/22/20 21:06 Famotidine 20 Mg/2 Ml Inj IV 10 mg BID JOSIANE Administration Hydralazine HCl 25 mg 11/20/20 22:00 11/23/20 05:07 Hydralazine 25 Mg Tab PO 25 mg Q8HR JOSIANE Administration Sodium Chloride 1,000 mls @ 75 mls/hr 11/20/20 20:30 11/23/20 05:05 Nacl 0.9% 1000 Ml IV 75 mls/hr DIRECT JOSIANE Administration Ceftriaxone Sodium 1 gm in 50 mls @ 100 mls/hr 11/20/20 22:00 11/22/20 21:09 Rocephin/Ns 1 Gm/50 Ml IV 100 mls/hr Q24H JOSIANE Administration Protocol Insulin Glargine 20 units 11/20/20 22:00 11/22/20 21:05 Insulin Glargine 100 Units/Ml SUB-Q 20 units QHS JOSIANE Administration Insulin Human Lispro 0 unit 11/22/20 22:00 11/22/20 21:05 Insulin Lispro 100 Unit/Ml SUB-Q Not Given ACHS JOSIANE Protocol Metoclopramide HCl 5 mg 11/20/20 21:00 Metoclopramide 10 Mg/2 Ml Inj IV Q6H PRN Nausea And Vomiting Metoprolol Tartrate 25 mg 11/20/20 22:00 11/22/20 21:06 Metoprolol Tartrate 25 Mg Tab PO 25 mg BID JOSIANE Administration Morphine Sulfate 2 mg 11/20/20 20:20 Morphine 2 Mg/1 Ml Inj IV Q4H PRN Pain, Moderate (4-6) Ondansetron HCl 4 mg 11/20/20 20:20 Ondansetron 4 Mg/2 Ml Inj IV Q8H PRN Nausea And Vomiting Pioglitazone HCl 15 mg 11/20/20 21:00 11/22/20 09:21 Pioglitazone 15 Mg Tab PO 15 mg QAMDIAB JOSIANE Administration Sodium Chloride 10 ml 11/20/20 22:00 11/22/20 21:07 Sodium Chloride 0.9% 10 Ml Flush Syringe IV 10 ml BID JOSIANE Administration Sodium Chloride 10 ml 11/20/20 20:20 Sodium Chloride 0.9% 10 Ml Flush Syringe IV PRN PRN LINE FLUSH
[2020-11-23] MEDS: PIOGLITAZONE 15 MG TAB PO SCH (09:35)
--- NOTE | 2020-11-23 09:35 | Progress Note ---
Assessment and Plan Assessment and plan: (1) SIRS (systemic inflammatory response syndrome) Current Visit: Yes Status: Acute Plan to address problem: Patient had leukocytosis and tachycardia IV ceftriaxone started (2) Acute kidney failure Current Visit: Yes Status: Acute Qualifiers: Acute renal failure type: unspecified Qualified Code(s): N17.9 - Acute kidney failure, unspecified Plan to address problem: Patient has severe right hydronephrosis. ROZ secondary to ATN and obstructive uropathy Nephrology consult requested by Dr. Holland Patient baseline creatinine is 37/2.5 on 10/20/2020 today's creatinine is 94/10.1 Patient going for emergency nephrostomy tube placement We will trend the creatinine level (3) Hydronephrosis Current Visit: Yes Status: Acute Qualifiers: Hydronephrosis type: unspecified Qualified Code(s): N13.30 - Unspecified hydronephrosis Plan to address problem: Patient getting emergent right nephrostomy tube by interventional radiology-Dr. 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 Pichardo consulted (6) Nephrolithiasis Current Visit: Yes Status: Chronic Plan to address problem: Patient has recurrent nephrolithiasis and right kidney stone obstructing the right ureter Will defer to urology regarding stent placement and localized lithotripsy (7) Hypertension Current Visit: Yes Status: Chronic Qualifiers: Hypertension type: essential hypertension Qualified Code(s): I10 - Essential (primary) hypertension Plan to address problem: Continue antihypertensives and adjust medications (8) IDDM (insulin dependent diabetes mellitus) Current Visit: Yes Status: Chronic Plan to address problem: Continue long-acting insulin and insulin coverage Check hemoglobin A1c (9) DVT prophylaxis Current Visit: Yes Status: Acute Plan to address problem: On heparin and GI prophylaxis 11/21/2020 -Patient admitted with right hydronephrosis and acute on chronic renal failure. Patient had right nephrostomy placement yesterday by interventional radiology. Urology is following the patient -Acute on chronic renal failure: Patient's GFR was 6 this morning, nephrology is consulted -Patient's potassium was 6.2, I ordered Kayexalate, calcium gluconate, check EKG and will repeat potassium. -Nephrolithiasis; with history of ureteral stent placement. Urology is following the patient -Patient has SIRS and on empiric IV ceftriaxone -Hemoglobin A1c is 7.2; continue current insulin regimen 11/22/2020 -Patient has acute renal failure with hyperkalemia secondary to obstructive uropathy with right hydronephrosis. Status post PCN. Patient was evaluated by urology and recommend to discharge home with PCN once stable. -Patient was seen by nephrology and recommend medical management for now and if labs are not improving may initiate dialysis. Minimal improvement in creatinine, potassium was within normal limit. 11/23/2020 -Slight improvement in creatinine level, nephrology recommend to continue on the weekends and assess for [employer]PER[employer]OR FINAL. History Interval history: Patient was seen and evaluated this morning Patient did not have any complaints Hospitalist Physical - Physical exam Narrative exam: Not in cardiopulmonary distress. The patient appeared well nourished and normally developed. Vital signs as documented. Head exam is unremarkable. No scleral icterus . Neck is without jugular venous distension, thyromegaly, or carotid bruits. Lungs are clear to auscultation. Cardiac exam reveals regular rate and Rhythm. Abdominal exam reveals normal bowel sounds, nontender, no organomegaly. Extremities are nonedematous and both femoral and pedal pulses are normal. 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 No focal weakness. Patient does PCN tube, functional - Constitutional Vitals: Temp Pulse Resp BP Pulse Ox 98.0 F 72 18 130/68 95 11/23/20 04:41 11/23/20 04:41 11/23/20 04:41 11/23/20 04:41 11/23/20 04:41 General appearance: Present: no acute distress, well-nourished Results - Labs CBC & Chem 7: 11/23/20 05:40 11/23/20 05:40 Labs: Laboratory Last Values WBC 12.8 K/mm3 (4.5-11.0) H 11/23/20 05:40 RBC 3.17 M/mm3 (3.65-5.03) L 11/23/20 05:40 Hgb 9.5 gm/dl (11.8-15.2) L 11/23/20 05:40 Hct 28.1 % (35.5-45.6) L 11/23/20 05:40 MCV 89 fl (84-94) 11/23/20 05:40 MCH 30 pg (28-32) 11/23/20 05:40 MCHC 34 % (32-34) 11/23/20 05:40 RDW 15.0 % (13.2-15.2) 11/23/20 05:40 Plt Count 368 K/mm3 (140-440) 11/23/20 05:40 Lymph % (Auto) 5.1 % (13.4-35.0) L 11/22/20 08:08 [place] % (Auto) 8.8 % (0.0-7.3) H 11/22/20 08:08 Eos % (Auto) 1.2 % (0.0-4.3) 11/22/20 08:08 Baso % (Auto) 0.2 % (0.0-1.8) 11/22/20 08:08 Lymph # (Auto) 0.9 K/mm3 (1.2-5.4) L 11/22/20 08:08 [place] # (Auto) 1.6 K/mm3 (0.0-0.8) H 11/22/20 08:08 Eos # (Auto) 0.2 K/mm3 (0.0-0.4) 11/22/20 08:08 Baso # (Auto) 0.0 K/mm3 (0.0-0.1) 11/22/20 08:08 Add Manual Diff Complete 11/23/20 05:40 Total Counted 100 11/23/20 05:40 Seg Neutrophils % 84.7 % (40.0-70.0) H 11/22/20 08:08 Seg Neuts % (Manual) 89.0 % (40.0-70.0) H 11/23/20 05:40 Band Neutrophils % 1.0 % 11/23/20 05:40 Lymphocytes % (Manual) 6.0 % (13.4-35.0) L 11/23/20 05:40 Monocytes % (Manual) 3.0 % (0.0-7.3) 11/23/20 05:40 Eosinophils % (Manual) 1.0 % (0.0-4.3) 11/23/20 05:40 Nucleated RBC % Not Reportable 11/23/20 05:40 Seg Neutrophils # 15.0 K/mm3 (1.8-7.7) H 11/22/20 08:08 Seg Neutrophils # Man 11.4 K/mm3 (1.8-7.7) H 11/23/20 05:40 Band Neutrophils # 0.1 K/mm3 11/23/20 05:40 Lymphocytes # (Manual) 0.8 K/mm3 (1.2-5.4) L 11/23/20 05:40 Abs React Lymphs (Man) 0.0 K/mm3 11/23/20 05:40 Monocytes # (Manual) 0.4 K/mm3 (0.0-0.8) 11/23/20 05:40 Eosinophils # (Manual) 0.1 K/mm3 (0.0-0.4) 11/23/20 05:40 Basophils # (Manual) 0.0 K/mm3 (0.0-0.1) 11/23/20 05:40 Metamyelocytes # 0.0 K/mm3 11/23/20 05:40 Myelocytes # 0.0 K/mm3 11/23/20 05:40 Promyelocytes # 0.0 K/mm3 11/23/20 05:40 Blast Cells # 0.0 K/mm3 11/23/20 05:40 WBC Morphology Not Reportable 11/23/20 05:40 Hypersegmented Neuts Not Reportable 11/23/20 05:40 Hyposegmented Neuts Not Reportable 11/23/20 05:40 Hypogranular Neuts Not Reportable 11/23/20 05:40 Smudge Cells Not Reportable 11/23/20 05:40 Toxic Granulation Not Reportable 11/23/20 05:40 Toxic Vacuolation Not Reportable 11/23/20 05:40 Dohle Bodies Not Reportable 11/23/20 05:40 Pelger-Huet Anomaly Not Reportable 11/23/20 05:40 Matthew Rods Not Reportable 11/23/20 05:40 Platelet Estimate Consistent w auto 11/23/20 05:40 Clumped Platelets Not Reportable 11/23/20 05:40 Plt Clumps, EDTA Not Reportable 11/23/20 05:40 Large Platelets Not Reportable 11/23/20 05:40 Giant Platelets Not Reportable 11/23/20 05:40 Platelet Satelliting Not Reportable 11/23/20 05:40 Plt Morphology Comment Not Reportable 11/23/20 05:40 RBC Morphology Not Reportable 11/23/20 05:40 Dimorphic RBCs Not Reportable 11/23/20 05:40 Polychromasia Not Reportable 11/23/20 05:40 Hypochromasia Not Reportable 11/23/20 05:40 Poikilocytosis Not Reportable 11/23/20 05:40 Anisocytosis 1+ 11/23/20 05:40 Microcytosis Not Reportable 11/23/20 05:40 Macrocytosis Not Reportable 11/23/20 05:40 Spherocytes Not Reportable 11/23/20 05:40 Pappenheimer Bodies Not Reportable 11/23/20 05:40 Sickle Cells Not Reportable 11/23/20 05:40 Target Cells Not Reportable 11/23/20 05:40 Tear Drop Cells Not Reportable 11/23/20 05:40 Ovalocytes Not Reportable 11/23/20 05:40 Helmet Cells Not Reportable 11/23/20 05:40 Lilly-[place] Bodies Not Reportable 11/23/20 05:40 [place] Rings Not Reportable 11/23/20 05:40 Sharon Cells Not Reportable 11/23/20 05:40 Bite Cells Not Reportable 11/23/20 05:40 Crenated Cell Not Reportable 11/23/20 05:40 Elliptocytes Not Reportable 11/23/20 05:40 Acanthocytes (Spur) Not Reportable 11/23/20 05:40 Rouleaux Not Reportable 11/23/20 05:40 Hemoglobin C Crystals Not Reportable 11/23/20 05:40 Schistocytes Not Reportable 11/23/20 05:40 Malaria parasites Not Reportable 11/23/20 05:40 Dandre Bodies Not Reportable 11/23/20 05:40 Hem Pathologist Commnt No 11/23/20 05:40 PT 16.6 Sec. (12.2-14.9) H 11/20/20 15:45 INR 1.29 (0.87-1.13) H 11/20/20 15:45 APTT 29.7 Sec. (24.2-36.6) 11/20/20 15:45 Sodium 136 mmol/L (137-145) L 11/23/20 05:40 Potassium 4.3 mmol/L (3.6-5.0) 11/23/20 05:40 Chloride 101.3 mmol/L (98-107) 11/23/20 05:40 Carbon Dioxide 18 mmol/L (22-30) L 11/23/20 05:40 Anion Gap 21 mmol/L 11/23/20 05:40 BUN 104 mg/dL (9-20) H 11/23/20 05:40 Creatinine 7.6 mg/dL (0.8-1.3) H 11/23/20 05:40 Estimated GFR 8 ml/min 11/23/20 05:40 BUN/Creatinine Ratio 14 % 11/23/20 05:40 Glucose 108 mg/dL (75-100) H 11/23/20 05:40 POC Glucose 85 mg/dL (70-105) 11/23/20 07:57 Hemoglobin A1c 7.2 % (4-6) H 11/21/20 05:30 Calcium 9.2 mg/dL (8.4-10.2) 11/23/20 05:40 Total Bilirubin 0.70 mg/dL (0.1-1.2) 11/21/20 05:30 AST 23 units/L (5-40) 11/21/20 05:30 ALT 44 units/L (7-56) 11/21/20 05:30 Alkaline Phosphatase 348 units/L (35-129) H 11/21/20 05:30 Total Protein 6.3 g/dL (6.3-8.2) D 11/21/20 05:30 Albumin 2.8 g/dL (3.9-5) L 11/21/20 05:30 Albumin/Globulin Ratio 0.8 % 11/21/20 05:30 Urine Color Yellow (Yellow) 11/20/20 17:00 Urine Turbidity Turbid (Clear) 11/20/20 17:00 Urine pH 5.0 (5.0-7.0) 11/20/20 17:00 Ur Specific [place] 1.023 (1.003-1.030) 11/20/20 17:00 Urine Protein 100 mg/dl mg/dL (Negative) 11/20/20 17:00 Urine Glucose (UA) Neg mg/dL (Negative) 11/20/20 17:00 Urine Ketones Neg mg/dL (Negative) 11/20/20 17:00 Urine Blood Lg (Negative) 11/20/20 17:00 Urine Nitrite Neg (Negative) 11/20/20 17:00 Urine Bilirubin Neg (Negative) 11/20/20 17:00 Urine Urobilinogen < 2.0 mg/dL (<2.0) 11/20/20 17:00 Ur Leukocyte Esterase Mod (Negative) 11/20/20 17:00 Urine WBC (Auto) > 182.0 /HPF (0.0-6.0) H 11/20/20 17:00 Urine RBC (Auto) > 182.0 /HPF (0.0-6.0) 11/20/20 17:00 Urine Bacteria (Auto) 4+ /HPF (Negative) 11/20/20 17:00 Urine WBC Clumps 3+ /HPF 11/20/20 17:00 Urine Creatinine 69.2 mg/dL (0.1-20.0) H 11/22/20 02:00 Urine Sodium 52 mmol/L 11/22/20 02:00 Urine Total Protein 145 mg/dL (5-11.8) H 11/22/20 02:00 Haas/IV: Voiding Method Urinal Active Medications - Current Medications Current Medications: Generic Name Dose Route Start Last Admin Trade Name Freq PRN Reason Stop Dose Admin Acetaminophen 650 mg 11/20/20 20:20 11/22/20 17:31 Acetaminophen 325 Mg Tab PO 650 mg Q4H PRN Administration Pain MILD(1-3)/Fever >100.5/SOUSA Amlodipine Besylate 5 mg 11/20/20 21:00 11/22/20 09:21 Amlodipine 5 Mg Tab PO 5 mg DAILY JOSIANE Administration Cholecalciferol 5,000 unit 11/22/20 10:00 11/22/20 12:46 Cholecalciferol (Vit D3) 5,000 Unit Tab PO 5,000 unit Q48HR JOSIANE Administration Famotidine 10 mg 11/23/20 10:00 Famotidine 10 Mg Tab PO BID JOSIANE Hydralazine HCl 25 mg 11/20/20 22:00 11/23/20 05:07 Hydralazine 25 Mg Tab PO 25 mg Q8HR JOSIANE Administration Sodium Chloride 1,000 mls @ 75 mls/hr 11/20/20 20:30 11/23/20 05:05 Nacl 0.9% 1000 Ml IV 75 mls/hr DIRECT JOSIANE Administration Ceftriaxone Sodium 1 gm in 50 mls @ 100 mls/hr 11/20/20 22:00 11/22/20 21:09 Rocephin/Ns 1 Gm/50 Ml IV 100 mls/hr Q24H JOSIANE Administration Protocol Insulin Glargine 20 units 11/20/20 22:00 11/22/20 21:05 Insulin Glargine 100 Units/Ml SUB-Q 20 units QHS JOSIANE Administration Insulin Human Lispro 0 unit 11/22/20 22:00 11/22/20 21:05 Insulin Lispro 100 Unit/Ml SUB-Q Not Given ACHS [facility] Protocol Metoclopramide HCl 5 mg 11/20/20 21:00 Metoclopramide 10 Mg/2 Ml Inj IV Q6H PRN Nausea And Vomiting Metoprolol Tartrate 25 mg 11/20/20 22:00 11/22/20 21:06 Metoprolol Tartrate 25 Mg Tab PO 25 mg BID JOSIANE Administration Morphine Sulfate 2 mg 11/20/20 20:20 Morphine 2 Mg/1 Ml Inj IV Q4H PRN Pain, Moderate (4-6) Ondansetron HCl 4 mg 11/20/20 20:20 Ondansetron 4 Mg/2 Ml Inj IV Q8H PRN Nausea And Vomiting Pioglitazone HCl 15 mg 11/20/20 21:00 11/22/20 09:21 Pioglitazone 15 Mg Tab PO 15 mg QAMDIAB JOSIANE Administration Sodium Bicarbonate 650 mg 11/23/20 08:00 Sodium Bicarbonate 650 Mg Tab PO TID JOSIANE Sodium Chloride 10 ml 11/20/20 22:00 11/22/20 21:07 Sodium Chloride 0.9% 10 Ml Flush Syringe IV 10 ml BID JOSIANE Administration Sodium Chloride 10 ml 11/20/20 20:20 Sodium Chloride 0.9% 10 Ml Flush Syringe IV PRN PRN LINE FLUSH
[2020-11-23] MEDS: METOPROLOL TARTRATE 25 MG TAB PO SCH ×2 (09:36→21:29)
[2020-11-23] MEDS: amLODIPine 5 MG TAB PO SCH (09:36)
[2020-11-23] MEDS: SODIUM BICARBONATE 650 MG TAB PO SCH ×3 (09:36→21:28)
[2020-11-23] MEDS: FAMOTIDINE 10 MG TAB PO SCH ×2 (09:37→21:28)
[2020-11-23] MEDS: INSULIN LISPRO 100 UNIT/ML SUB-Q SCH ×4 (09:39→21:40)
[2020-11-23] MEDS: ACETAMINOPHEN 325 MG TAB PO PRN (12:42)
[2020-11-23] MEDS: INSULIN GLARGINE 100 UNITS/ML SUB-Q SCH (21:29)
[2020-11-23] MEDS: cefTRIAXone/NS 1 GM/50 ML 1 GM/50 ML BAG IV SCH (21:30)
[2020-11-24] MEDS: hydrALAZINE 25 MG TAB PO SCH (05:50)
[2020-11-24 06:01] LABS: Hematocrit 28.2 % (35.5-45.6); Hemoglobin 9.3 gm/dl (11.8-15.2); Mean Corpuscular HGB Conc 33 % (32-34); Mean Corpuscular Volume 90 fl (84-94); Platelet Count 407 K/mm3 (140-440); Red Blood Count 3.13 M/mm3 (3.65-5.03); Red Cell Distribution Width 15.3 % (13.2-15.2)
[2020-11-24 06:55] LABS: Total Cells Counted 100
[2020-11-24 06:56] LABS: Anisocytosis 1+; Band Neutrophils # (Manual) 0.1 K/mm3; Platelet Estimate Consistent w Auto
[2020-11-24] MEDS: INSULIN LISPRO 100 UNIT/ML SUB-Q SCH (07:31)
--- NOTE | 2020-11-24 09:03 | Progress Note ---
Assessment and Plan - Patient Problems (1) Acute kidney failure Current Visit: Yes Status: Acute Qualifiers: Acute renal failure type: unspecified Qualified Code(s): N17.9 - Acute kidney failure, unspecified Plan to address problem: In the setting of obstructive uropathy and right sided hydronephrosis, s/p right nephrostomy tube placement. Avoid nephrotoxins, maintain MAP >65mmHg. Agree with gentle IVF hydration. Will monitor for signs of continued renal recovery. Given his advanced baseline chronic kidney disease IV, I am concerned if there isn't adequate renal recovery over the next 48-72 hours, that we may need to initiate renal replacement therapy during this admission. At present time there is no acute indication. Renal function shows improvement again today. (2) Chronic kidney disease, stage 4 (severe) Current Visit: Yes Status: Chronic Plan to address problem: Patient with underlying CKD IV. Will monitor closely, but his advanced baseline CKD puts him at higher risk of possibly requiring dialysis to aid in recovery. For present time, we will monitor closely as there is no acute indications for dialysis at present. (3) Hydronephrosis Current Visit: Yes Status: Acute Qualifiers: Hydronephrosis type: unspecified Qualified Code(s): N13.30 - Unspecified hydronephrosis Plan to address problem: s/p right sided nephrostomy tube placement. Appreciate recommendations for urology and IR. Will monitor closely. (4) Hyperkalemia Current Visit: Yes Status: Acute Plan to address problem: Corrected at this time. In the setting of obstructive uropathy and renal injury. Will monitor closely, and would recommend maintaining on a low potassium renal diet, (5) Hypertensive chronic kidney disease with stage 1 through stage 4 chronic kidney disease, or unspecified chronic kidney disease Current Visit: Yes Status: Chronic Plan to address problem: Monitor blood pressure under current regimen. 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 Subjective Date of service: 11/24/20 Principal diagnosis: Right hydronephrosis, acute renal failure Interval history: renal function parameters are showing improvement. We will continue to monitor. No acute indication for renal replacement therapy. Objective - Vital Signs Vital signs: Vital Signs - 12hr 11/23/20 11/23/20 11/24/20 22:00 23:03 03:09 Temperature 99.1 F 98.1 F Pulse Rate 69 65 66 Respiratory 16 16 Rate Blood Pressure 131/62 136/63 O2 Sat by Pulse 96 96 Oximetry - General Appearance General appearance: appears stated age EENT: ATNC Neck: no JVD Respiratory: Present: Clear to Ascultation, Normal Exam Cardiology: regular Gastrointestinal: normal, normoactive bowel sounds Integumentary: warm and dry Neurologic: no focal deficit Musculoskeletal: deferred Psychiatric: cooperative - Lab 11/24/20 05:02 11/24/20 05:02 Most recent lab results Calcium 9.0 mg/dL (8.4-10.2) 11/24/20 05:02 Urine Creatinine 69.2 mg/dL (0.1-20.0) H 11/22/20 02:00 Urine Sodium 52 mmol/L 11/22/20 02:00 Urine Total Protein 145 mg/dL (5-11.8) H 11/22/20 02:00 - Allied health notes Allied health notes reviewed: nursing Medications & Allergies - Medications Allergies/Adverse Reactions: Allergies No Known Allergies Allergy (Verified 04/28/20 09:47) Home Medications: Home Medications Medication Instructions Recorded Confirmed Last Taken Type Cholecalciferol (Vitamin D3) 5,000 unit PO Q48HR 04/28/20 11/21/20 2 Days Ago History ~11/19/20 Metoprolol [Lopressor] 25 mg PO BID 04/28/20 11/21/20 2 Days Ago History ~11/19/20 Pioglitazone [Actos] 15 mg PO QDAY 04/28/20 11/21/20 2 Days Ago History ~11/19/20 amLODIPine [Norvasc] 5 mg PO DAILY 04/28/20 11/21/20 2 Days Ago History ~11/19/20 Hydralazine HCl 50 mg PO TID 06/24/20 11/21/20 2 Days Ago History ~11/19/20 Basaglar Kwikpen U-100 0 units SQ DAILY 10/17/20 11/21/20 2 Days Ago History ~11/19/20 One-Daily Multi-Vitamin 1 tab PO Q48HR 10/17/20 11/21/20 2 Days Ago History ~11/19/20 Active Medications: Generic Name Dose Route Start Last Admin Trade Name Freq PRN Reason Stop Dose Admin Acetaminophen 650 mg 11/20/20 20:20 11/23/20 12:42 Acetaminophen 325 Mg Tab PO 650 mg Q4H PRN Administration Pain MILD(1-3)/Fever >100.5/SOUSA Amlodipine Besylate 5 mg 11/20/20 21:00 11/23/20 09:36 Amlodipine 5 Mg Tab PO 5 mg DAILY JOSIANE Administration Cholecalciferol 5,000 unit 11/22/20 10:00 11/22/20 12:46 Cholecalciferol (Vit D3) 5,000 Unit Tab PO 5,000 unit Q48HR JOSIANE Administration Famotidine 10 mg 11/23/20 10:00 11/23/20 21:28 Famotidine 10 Mg Tab PO 10 mg BID JOSIANE Administration Hydralazine HCl 25 mg 11/20/20 22:00 11/24/20 05:50 Hydralazine 25 Mg Tab PO 25 mg Q8HR JOSIANE Administration Sodium Chloride 1,000 mls @ 75 mls/hr 11/20/20 20:30 11/23/20 21:29 Nacl 0.9% 1000 Ml IV 75 mls/hr DIRECT JOSIANE Administration Ceftriaxone Sodium 1 gm in 50 mls @ 100 mls/hr 11/20/20 22:00 11/23/20 21:30 Rocephin/Ns 1 Gm/50 Ml IV 100 mls/hr Q24H JOSIANE Administration Protocol Insulin Glargine 20 units 11/20/20 22:00 11/23/20 21:29 Insulin Glargine 100 Units/Ml SUB-Q 20 units QHS JOSIANE Administration Insulin Human Lispro 0 unit 11/22/20 22:00 11/23/20 21:40 Insulin Lispro 100 Unit/Ml SUB-Q Not Given ACHS [facility] Protocol Metoclopramide HCl 5 mg 11/20/20 21:00 Metoclopramide 10 Mg/2 Ml Inj IV Q6H PRN Nausea And Vomiting Metoprolol Tartrate 25 mg 11/20/20 22:00 11/23/20 21:29 Metoprolol Tartrate 25 Mg Tab PO 25 mg BID JOSIANE Administration Morphine Sulfate 2 mg 11/20/20 20:20 Morphine 2 Mg/1 Ml Inj IV Q4H PRN Pain, Moderate (4-6) Ondansetron HCl 4 mg 11/20/20 20:20 Ondansetron 4 Mg/2 Ml Inj IV Q8H PRN Nausea And Vomiting Pioglitazone HCl 15 mg 11/20/20 21:00 11/23/20 09:35 Pioglitazone 15 Mg Tab PO 15 mg QAMDIAB JOSIANE Administration Sodium Bicarbonate 650 mg 11/23/20 08:00 11/23/20 21:28 Sodium Bicarbonate 650 Mg Tab PO 650 mg TID JOSIANE Administration Sodium Chloride 10 ml 11/20/20 22:00 11/23/20 21:40 Sodium Chloride 0.9% 10 Ml Flush Syringe IV 10 ml BID JOSIANE Administration Sodium Chloride 10 ml 11/20/20 20:20 Sodium Chloride 0.9% 10 Ml Flush Syringe IV PRN PRN LINE FLUSH
[2020-11-24] MEDS: METOPROLOL TARTRATE 25 MG TAB PO SCH (10:25)
[2020-11-24] MEDS: amLODIPine 5 MG TAB PO SCH (10:25)
[2020-11-24] MEDS: PIOGLITAZONE 15 MG TAB PO SCH (10:28)
[2020-11-24] MEDS: FAMOTIDINE 10 MG TAB PO SCH (10:28)
[2020-11-24] MEDS: SODIUM BICARBONATE 650 MG TAB PO SCH (10:31)
--- NOTE | 2020-11-24 11:26 | Discharge Summary ---
Providers - Providers Date of Admission: 11/20/20 15:50 Date of discharge: 11/24/20 Attending physician: NADEEM FENTON MD 11/20/20 20:20 Consult to Physician [CONS] Routine Comment: Consulting Provider: CHERYL MEHTA Physician Instructions: Reason For Exam: Hydronephrosis 11/20/20 21:14 Consult to Physician [CONS] Routine Comment: Consulting Provider: EUN JAMES Physician Instructions: Reason For Exam: ROZ/CKD Primary care physician: LAUREN MCKINNEY Hospitalization Reason for admission: Acute on chronic renal failure, right-sided hydronephrosis Condition: Serious Procedures: Right-sided PCN Hospital course: History of present illness: 75-year-old male with history of recurrent urethral stricture and hydronephrosis/acute renal failure/CKD sent from Dr. Mehta for ER evaluation and placement of nephrostomy tube by interventional radiology. Patient has recurrent kidney stones, hypertension, diabetes, prostate cancer and ureteral stricture. Patient has been having suprapubic and lower abdominal pain and decreased urine output for which he went to the urologist office. Dr. Knowles sent him for nephrostomy tube placement on the right side because of the severe right-sided hydronephrosis. Patient denies any fever nausea vomiting. In the emergency room patient had a high creatinine and a high potassium which necessitated admission. Patient also being admitted for right nephrostomy placement secondary to severe hydronephrosis on the right side which is emergent. Patient also needs management of his acute kidney injury/urinary tract infection and high potassium level. Recent admissions were reviewed. 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 Patient is also admitted in October 2020 for hydronephrosis and ureteral stricture. His baseline BUN/creatinine is 37/2.4 on 10/20/2020. Today's BUN/creatinine is 94/10.1. Hospital course (1) SIRS (systemic inflammatory response syndrome) Current Visit: Yes Status: Acute Plan to address problem: Patient had leukocytosis and tachycardia IV ceftriaxone started (2) Acute kidney failure Current Visit: Yes Status: Acute Qualifiers: Acute renal failure type: unspecified Qualified Code(s): N17.9 - Acute kidney failure, unspecified Plan to address problem: Patient has severe right hydronephrosis. ROZ secondary to ATN and obstructive uropathy Nephrology consult requested by Dr. Holland Patient baseline creatinine is 37/2.5 on 10/20/2020 today's creatinine is 94/10.1 Patient going for emergency nephrostomy tube placement We will trend the creatinine level (3) Hydronephrosis Current Visit: Yes Status: Acute Qualifiers: Hydronephrosis type: unspecified Qualified Code(s): N13.30 - Unspecified hydronephrosis Plan to address problem: Patient getting emergent right nephrostomy tube by interventional radiology-Dr. 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 Pichardo consulted (6) Nephrolithiasis Current Visit: Yes Status: Chronic Plan to address problem: Patient has recurrent nephrolithiasis and right kidney stone obstructing the right ureter Will defer to urology regarding stent placement and localized lithotripsy (7) Hypertension Current Visit: Yes Status: Chronic Qualifiers: Hypertension type: essential hypertension Qualified Code(s): I10 - Essential (primary) hypertension Plan to address problem: Continue antihypertensives and adjust medications (8) IDDM (insulin dependent diabetes mellitus) Current Visit: Yes Status: Chronic Plan to address problem: Continue long-acting insulin and insulin coverage Check hemoglobin A1c (9) DVT prophylaxis Current Visit: Yes Status: Acute Plan to address problem: On heparin and GI prophylaxis 11/21/2020 -Patient admitted with right hydronephrosis and acute on chronic renal failure. Patient had right nephrostomy placement yesterday by interventional radiology. Urology is following the patient -Acute on chronic renal failure: Patient's GFR was 6 this morning, nephrology is consulted -Patient's potassium was 6.2, I ordered Kayexalate, calcium gluconate, check EKG and will repeat potassium. -Nephrolithiasis; with history of ureteral stent placement. Urology is following the patient -Patient has SIRS and on empiric IV ceftriaxone -Hemoglobin A1c is 7.2; continue current insulin regimen 11/22/2020 -Patient has acute renal failure with hyperkalemia secondary to obstructive uropathy with right hydronephrosis. Status post PCN. Patient was evaluated by urology and recommend to discharge home with PCN once stable. -Patient was seen by nephrology and recommend medical management for now and if labs are not improving may initiate dialysis. Minimal improvement in creatinine, potassium was within normal limit. 11/23/2020 -Slight improvement in creatinine level, nephrology recommend to continue on the weekends and assess for LAND INSPECTOR. 11/24/2020; creatinine is trending down and this morning was 6.2. I have discussed with nephrology and nephrology recommend to discharge the patient and will follow him in the office. Nephrology said patient does not need LAND INSPECTOR at this time. I discussed also with urology and recommend to discharge with PCN and will follow in the office. Patient does not have any symptoms and doing well. Patient discharged home in a stable condition. Patient advised to have follow-up with nephrology and urology as an outpatient. Management plan was discussed with the patient in detail and was in agreement with the plan of care. Disposition: [id number] TO HOME OR SELFCARE Final Discharge Diagnosis (Prints w/discharge instructions): Acute on chronic renal failure. Hyperkalemia. Obstructive uropathy. Right-sided hydronephrosis. Status post PCN Time spent for discharge: 35 minutes - Discharge Diagnoses (1) Acute kidney failure Status: Acute Qualifiers: Acute renal failure type: unspecified Qualified Code(s): N17.9 - Acute kidney failure, unspecified (2) Hydronephrosis Status: Acute Qualifiers: Hydronephrosis type: unspecified Qualified Code(s): N13.30 - Unspecified hydronephrosis (3) Hyperkalemia Status: Acute (4) Metabolic acidosis Status: Acute (5) SIRS (systemic inflammatory response syndrome) Status: Acute (6) Uremia Status: Acute (7) Chronic kidney disease, stage 4 (severe) Status: Chronic (8) Nephrolithiasis Status: Chronic Core Measure Documentation - Palliative Care Palliative Care/ Comfort Measures: Not Applicable - Core Measures Any of the following diagnoses?: none Exam - Physical Exam Narrative exam: Not in cardiopulmonary distress. The patient appeared well nourished and normally developed. Vital signs as documented. Head exam is unremarkable. No scleral icterus . Neck is without jugular venous distension, thyromegaly, or carotid bruits. Lungs are clear to auscultation. Cardiac exam reveals regular rate and Rhythm. Abdominal exam reveals normal bowel sounds, nontender, no organomegaly. Extremities are nonedematous and both femoral and pedal pulses are normal. [employer]: Alert and oriented 3. No focal weakness. Patient does PCN tube, functional - Constitutional Vitals: Temp Pulse Resp BP Pulse Ox 98.3 F 66 16 135/74 96 11/24/20 08:10 11/24/20 03:09 11/24/20 08:10 11/24/20 08:10 11/24/20 03:09 Plan Activity: no restrictions Weight Bearing Status: Full Weight Bearing Diet: diabetic, renal Follow up with: LAUREN MCKINNEY NP-C [Primary Care Provider] - 7 Days EUN JAMES MD [Staff Physician] - 7 Days CHERYL MEHTA MD [Staff Physician] - 7 Days
--- NOTE | 2020-11-24 12:37 | Progress Note ---
Assessment and Plan creat improving slowl;y chronic renal disease atrophy on left continue drainage Subjective Date of service: 11/24/20 Principal diagnosis: Right hydronephrosis, acute renal failure Objective - Constitutional Vitals: Vital Signs - 12hr 11/24/20 11/24/20 11/24/20 03:09 08:10 10:00 Temperature 98.1 F 98.3 F Pulse Rate 66 66 Respiratory 16 16 Rate Blood Pressure 136/63 135/74 O2 Sat by Pulse 96 Oximetry 11/24/20 11:40 Temperature Pulse Rate Respiratory Rate Blood Pressure O2 Sat by Pulse 96 Oximetry - Labs CBC & Chem 7: 11/24/20 05:02 11/24/20 05:02 Labs: Abnormal lab results 11/24/20 11/24/20 11/24/20 Range/Units 05:02 05:02 08:10 WBC 12.1 H (4.5-11.0) K/mm3 RBC 3.13 L (3.65-5.03) M/mm3 Hgb 9.3 L (11.8-15.2) gm/dl Hct 28.2 L (35.5-45.6) % RDW 15.3 H (13.2-15.2) % Seg Neuts % (Manual) 87.0 H (40.0-70.0) % Lymphocytes % (Manual) 5.0 L (13.4-35.0) % Seg Neutrophils # Man 10.5 H (1.8-7.7) K/mm3 Lymphocytes # (Manual) 0.6 L (1.2-5.4) K/mm3 Carbon Dioxide 19 L (22-30) mmol/L BUN 81 H (9-20) mg/dL Creatinine 6.2 H (0.8-1.3) mg/dL Glucose 68 L (75-100) mg/dL POC Glucose 65 L (70-105) mg/dL Medications & Allergies - Medications Allergies/Adverse Reactions: Allergies No Known Allergies Allergy (Verified 04/28/20 09:47) Home Medications: Home Medications Medication Instructions Recorded Confirmed Last Taken Type Cholecalciferol (Vitamin D3) 5,000 unit PO Q48HR 04/28/20 11/21/20 2 Days Ago History ~11/19/20 Metoprolol [Lopressor TAB] 25 mg PO BID 04/28/20 11/21/20 2 Days Ago History ~11/19/20 Pioglitazone [Actos] 15 mg PO QDAY 04/28/20 11/21/20 2 Days Ago History ~11/19/20 amLODIPine 5 mg PO DAILY 04/28/20 11/21/20 2 Days Ago History ~11/19/20 Anita Martínez U-100 0 units SQ DAILY 10/17/20 11/21/20 2 Days Ago History ~11/19/20 One-Daily Multi-Vitamin 1 tab PO Q48HR 10/17/20 11/21/20 2 Days Ago History ~11/19/20 Active Medications: Generic Name Dose Route Start Last Admin Trade Name Freq PRN Reason Stop Dose Admin Acetaminophen 650 mg 11/20/20 20:20 11/23/20 12:42 Acetaminophen 325 Mg Tab PO 650 mg Q4H PRN Administration Pain MILD(1-3)/Fever >100.5/SOUSA Amlodipine Besylate 5 mg 11/20/20 21:00 11/24/20 10:25 Amlodipine 5 Mg Tab PO 5 mg DAILY JOSIANE Administration Cholecalciferol 5,000 unit 11/22/20 10:00 11/22/20 12:46 Cholecalciferol (Vit D3) 5,000 Unit Tab PO 5,000 unit Q48HR JOSIANE Administration Famotidine 10 mg 11/23/20 10:00 11/24/20 10:28 Famotidine 10 Mg Tab PO 10 mg BID JOSIANE Administration Hydralazine HCl 25 mg 11/20/20 22:00 11/24/20 05:50 Hydralazine 25 Mg Tab PO 25 mg Q8HR JOSIANE Administration Sodium Chloride 1,000 mls @ 75 mls/hr 11/20/20 20:30 11/23/20 21:29 Nacl 0.9% 1000 Ml IV 75 mls/hr DIRECT JOSIANE Administration Ceftriaxone Sodium 1 gm in 50 mls @ 100 mls/hr 11/20/20 22:00 11/23/20 21:30 Rocephin/Ns 1 Gm/50 Ml IV 11/26/20 22:29 100 mls/hr Q24H JOSIANE Administration Protocol Insulin Glargine 20 units 11/20/20 22:00 11/23/20 21:29 Insulin Glargine 100 Units/Ml SUB-Q 20 units QHS JOSIANE Administration Insulin Human Lispro 0 unit 11/22/20 22:00 11/24/20 07:31 Insulin Lispro 100 Unit/Ml SUB-Q Not Given ACHS [facility] Protocol Metoclopramide HCl 5 mg 11/20/20 21:00 Metoclopramide 10 Mg/2 Ml Inj IV Q6H PRN Nausea And Vomiting Metoprolol Tartrate 25 mg 11/20/20 22:00 11/24/20 10:25 Metoprolol Tartrate 25 Mg Tab PO 25 mg BID JOSIANE Administration Morphine Sulfate 2 mg 11/20/20 20:20 Morphine 2 Mg/1 Ml Inj IV Q4H PRN Pain, Moderate (4-6) Ondansetron HCl 4 mg 11/20/20 20:20 Ondansetron 4 Mg/2 Ml Inj IV Q8H PRN Nausea And Vomiting Pioglitazone HCl 15 mg 11/20/20 21:00 11/24/20 10:28 Pioglitazone 15 Mg Tab PO 15 mg QAMDIAB JOSIANE Administration Sodium Bicarbonate 650 mg 11/23/20 08:00 11/24/20 10:31 Sodium Bicarbonate 650 Mg Tab PO 650 mg TID JOSIANE Administration Sodium Chloride 10 ml 11/20/20 22:00 11/23/20 21:40 Sodium Chloride 0.9% 10 Ml Flush Syringe IV 10 ml BID JOSIANE Administration Sodium Chloride 10 ml 11/20/20 20:20 Sodium Chloride 0.9% 10 Ml Flush Syringe IV PRN PRN LINE FLUSH
[2020-11-24 13:06] VITALS: BP 117/69
== END 2020-11-24 14:00 | disposition home or self-care (01) | DRG 690 ==
LOC: LAB 15:16 → ED 15:16 → EDSTATUS 15:17 → 3A 15:50 → 4A 19:28
PROVIDERS: ADMIT Internal Medicine; ATTEND Internal Medicine
PROC: 0T9330Z Drainage of Right Kidney Pelvis with Drainage Device, Percutaneous Approach (ICD-10-PCS; principal; 2020-11-20)
DX: N13.6 Pyonephrosis (principal); R65.10 Systemic inflammatory response syndrome (SIRS) of non-infectious origin without acute organ dysfunction; E87.1 Hypo-osmolality and hyponatremia; E87.5 Hyperkalemia; I12.9 Hypertensive chronic kidney disease with stage 1 through stage 4 chronic kidney disease, or unspecified chronic kidney disease; E11.22 Type 2 diabetes mellitus with diabetic chronic kidney disease; N18.4 Chronic kidney disease, stage 4 (severe); Z85.46 Personal history of malignant neoplasm of prostate; M19.90 Unspecified osteoarthritis, unspecified site; N17.0 Acute kidney failure with tubular necrosis; R91.1 Solitary pulmonary nodule; Z83.3 Family history of diabetes mellitus; Z82.3 Family history of stroke; E11.21 Type 2 diabetes mellitus with diabetic nephropathy
CPT/HCPCS: 36415; 50432; 71045; 74176; 80048; 80053; 81001; 82570; 82962; 83036; 84156; 84300; 85007; 85025; 85610; 85730; 93005; G0378; C1729; C1751; C1769; J0610; J0696; J1815; J1956; J2250; J3010; J7030; J7040; J7050; Q9967

== ENCOUNTER 2021-01-29 06:23 | Day surgery (SDC) | payer OTHER ==
[2021-01-29] MEDS ORDERED: SODIUM CHLORIDE 0.9% 500 ML 500 ML IV SCH (07:00)
[2021-01-29 07:20] LABS: Basophils % (Auto) 0.8 % (0.0-1.8); Eosinophils # (Auto) 0.2 K/mm3 (0.0-0.4); Eosinophils % (Auto) 5.2 % (0.0-4.3); Hematocrit 33.8 % (35.5-45.6); Hemoglobin 11.2 gm/dl (11.8-15.2); Lymphocytes # (Auto) 1.2 K/mm3 (1.2-5.4); Lymphocytes % (Auto) 26.2 % (13.4-35.0); Mean Corpuscular HGB Conc 33 % (32-34); Mean Corpuscular Volume 91 fl (84-94); Monocytes # (Auto) 0.5 K/mm3 (0.0-0.8); Monocytes % (Auto) 11.3 % (0.0-7.3); Platelet Count 225 K/mm3 (140-440); Red Blood Count 3.72 M/mm3 (3.65-5.03); Red Cell Distribution Width 16.2 % (13.2-15.2)
[2021-01-29 07:29] LABS: Calcium 10.7 mg/dL (8.4-10.2)
[2021-01-29 07:30] LABS: INR 1.01 (0.87-1.13)
[2021-01-29 07:31] LABS: Partial Thromboplastin Time 32.6 Sec. (24.2-36.6)
[2021-01-29] MEDS ORDERED: SODIUM CHLORIDE IRRI 500 ML 500 ML IR ONE (08:16)
[2021-01-29] MEDS ORDERED: ceFAZolin/Water 2 GM/20 ML 2 GM/20 ML SYRINGE IV ONE (08:17)
[2021-01-29] MEDS ORDERED: LIDOCAINE (2%) 20 MG/1 ML VIAL 20 ML MDV INFILTRATI ONE (08:17)
[2021-01-29] MEDS: MIDAZOLAM 2 MG/2 ML INJ ONE ×2 (08:58→09:20)
[2021-01-29] MEDS: fentaNYL 100 MCG/2 ML INJ ONE ×3 (08:58→09:28)
--- NOTE | 2021-01-29 09:56 | Short Stay Summary ---
Short Stay Documentation Date of service: 01/29/21 - History Principal diagnosis: Prostate cancer, right hydronephrosis with indwelling nephrostomy tube H&P: obtained from office - Allergies and Medications Current Medications: Allergies No Known Allergies Allergy (Verified 04/28/20 09:47) Home Medications Medication Instructions Recorded Confirmed Last Taken Type Cholecalciferol (Vitamin D3) 50,000 unit PO QWEEK 04/28/20 01/29/21 2 Days Ago History ~11/19/20 amLODIPine 5 mg PO DAILY 04/28/20 01/29/21 01/28/21 History 5 mg AtorvaSTATin [Lipitor] 20 mg PO DAILY 01/29/21 01/29/21 01/28/21 History 20 mg Hydralazine HCl 50 mg PO TID 01/29/21 01/29/21 01/28/21 History 50 mg Insulin Glargine,Hum.rec.anlog 10 - 14 units SQ DAILY 01/29/21 01/29/21 01/28/21 History [Basaglar Kwikpen U-100] 14 units Losartan/Hydrochlorothiazide 1 tab PO DAILY 01/29/21 01/29/21 01/28/21 History [Losartan-Hctz 100-25 mg Tab] 1 tab Active Medications Sodium Chloride (Nacl 0.9% 500 Ml) 500 mls @ 50 mls/hr IV DIRECT JOSIANE Stop: 01/29/21 16:59 Last Admin: 01/29/21 07:26 Dose: 50 mls/hr Documented by: - Brief post op/procedure progress note Date of procedure: 01/29/21 Pre-op diagnosis: Right hydronephrosis, right ureteral stricture, prostate cancer Post-op diagnosis: same Procedure: Placement of right ureteral stent, right nephrostomy tube exchange Anesthesia: local Surgeon: MEG WILKINS Estimated blood loss: none Pathology: none Condition: stable - Disposition Condition at discharge: Good Disposition: 01 HOME / SELF CARE / HOMELESS Short Stay Discharge Plan Activity: advance as tolerated Weight Bearing Status: Weight Bear as Tolerated Diet: regular Wound: keep clean and dry, per your surgeon's advice Follow up with: LAUREN MCKINNEY NP-C [Primary Care Provider] - 7 Days
--- NOTE | 2021-01-29 10:03 | Operative Report ---
Operative Report Operative Report: Exam: Right nephrostogram through indwelling nephrostomy tube, ureteral angioplasty, fluoroscopic guided placement of ureteral stent, fluoroscopic guided exchange of right nephrostomy tube Clinical indication: Patient with a history of right hydronephrosis secondary to a distal ureteral stricture. Patient with indwelling right nephrostomy tube Date: 01/29/2021 Procedure: Following an explanation of the risks, benefits and alternatives; written informed consent was obtained. The patient was brought to the angiographic suite and placed in prone position on the examination table. His back and right indwelling nephrostomy tube were prepped and draped in the usual sterile fashion. 1% lidocaine was used for anesthesia at the catheter exit site and along the tract to the kidney. Contrast was injected through the indwelling nephrostomy tube. This demonstrates moderate right hydronephrosis and hydroureter to the mid ureter. No contrast opacification was identified distally. A 0.035 guidewire was advanced through the nephrostomy tube and the nephrostomy tube cut to release the pigtail. A 0.035 guidewire was then advanced into the proximal ureter and the nephrostomy tube removed intact. A vertebral catheter was then advanced over the guidewire and manipulated into the distal ureter and ultimately bladder. Contrast was injected through the vertebral catheter which demonstrated appropriate positioning and a decompressed bladder. The guidewire was exchanged for an Amplatz guidewire and the vertebral catheter proximal lysed to reduce the redundancy in the guidewire. An 8 Barbadian 25 cm sheath was then advanced over the guidewire to the mid ureter. The vertebral catheter was advanced with some degree of difficulty through the stricture in the mid to distal ureter and a decision was made to perform ureteroplasty of this lesion. This was performed first with a 4 mm balloon followed by a 5 mm balloon. Despite ureteroplasty, a 7 Barbadian ureteral stent would not pass therefore a 6 Barbadian 26 cm ureteral stent was advanced over the guidewire and manipulated to place the distal pigtail in the bladder and the proximal pigtail in the renal pelvis. Positioning was confirmed with fluoroscopy. The introducer was removed and a new 8 Barbadian nephrostomy tube advanced over the guidewire. The guidewire was then withdrawn proximally to allow the proximal aspect of the ureteral stent to coil within the renal pelvis. This also allowed the pigtail to begin to form and the guidewire and trocar of the nephrostomy tube were removed to allow the pigtail of the nephrostomy tube to more fully formed within the renal pelvis. Appropriate positioning of the pigtail was confirmed using fluoroscopy. Contrast was then gently injected through the nephrostomy tube which demonstrates appropriate positioning. The catheter was securely fastened to the skin surface using 2-0 Ethilon suture and a stay fix device. The catheter was then placed to dependent drainage. The patient tolerated the procedure well. There were no immediate postprocedure complications. Conscious sedation was performed under the guidance of radiologic nursing. Continuous cardiopulmonary monitoring was utilized. Impression: 1) Right nephrostogram demonstrating persistent right hydronephrosis and proximal hydroureter. 2) Ureteroplasty of the stricture within the mid and distal ureter using a 4 mm balloon followed by 5 mm balloon. 3) Fluoroscopic guided placement of a 6 Barbadian 26 cm ureteral stent. 4) Fluoroscopic guided exchange of indwelling 8 Barbadian right nephrostomy tube. 5) The patient will return to clinic in next week for removal of his nephrostomy tube under fluoroscopic guidance.
[2021-01-29 16:39] VITALS: BP 146/72
== END 2021-01-29 11:40 | disposition home or self-care (01) ==
LOC: CATHLABREC 06:23
PROVIDERS: ATTEND Radiology Diagnostic Radiology
DX: C61 Malignant neoplasm of prostate (principal); I12.0 Hypertensive chronic kidney disease with stage 5 chronic kidney disease or end stage renal disease; N18.6 End stage renal disease; E78.00 Pure hypercholesterolemia, unspecified; E11.22 Type 2 diabetes mellitus with diabetic chronic kidney disease; M19.90 Unspecified osteoarthritis, unspecified site; Z99.2 Dependence on renal dialysis; Z72.89 Other problems related to lifestyle; Z79.4 Long term (current) use of insulin; Z79.899 Other long term (current) drug therapy; Z98.890 Other specified postprocedural states
CPT/HCPCS: 36415; 50435; 50695; 75984; 80048; 85025; 85610; 85730; C1725; C1729; C1751; C1769; C1894; C2617; J0690; J2250; J3010; J7040; Q9967

== ENCOUNTER 2022-02-09 06:03 | Day surgery (SDC) | payer OTHER ==
[~2022-02-09 06:03] MED LIST changes: -SODIUM CHLORIDE 0.9% 1000 ML 1,000 ML IV SCH; +ceFAZolin/Water 2 GM/20 ML 2 GM/20 ML SYRINGE IV NR
[2022-02-09] MEDS ORDERED: SODIUM CHLORIDE 0.9% 1000 ML 1,000 ML ONE (06:44)
[2022-02-09 07:05] LABS: Hematocrit 34.1 % (35.5-45.6); Hemoglobin 11.4 gm/dl (11.8-15.2); Mean Corpuscular HGB Conc 34 % (32-34); Mean Corpuscular Volume 88 fl (84-94); Platelet Count 169 K/mm3 (140-440); Red Blood Count 3.85 M/mm3 (3.65-5.03); Red Cell Distribution Width 16.3 % (13.2-15.2)
[2022-02-09] MEDS ORDERED: rifAMPin 600 MG VIAL ONE (07:17)
[2022-02-09] MEDS ORDERED: PAPAVERINE 60 MG/2 ML INJ SDV ONE (07:17)
[2022-02-09] MEDS ORDERED: PROTAMINE SULFATE 50 MG/5 ML INJ ONE (07:17)
[2022-02-09] MEDS ORDERED: HEPARIN 10,000 UNITS/10 ML VIAL ONE (07:17)
[2022-02-09] MEDS ORDERED: LIDOCAINE (1%) 10 MG/1 ML VIAL 20 ML MDV ONE (07:17)
[2022-02-09 07:18] LABS: Calcium 9.9 mg/dL (8.4-10.2)
[2022-02-09] MEDS ORDERED: SODIUM CHLORIDE 0.9% 500 ML 0 ML ONE (07:18)
[2022-02-09] MEDS ORDERED: BUPIVACAINE-EPINEPHRINE/PF 0.5%-1:200,000 (10 ML) VIAL INFILTRATI ONE (07:18)
[2022-02-09] MEDS ORDERED: SODIUM CHLORIDE 0.9% 250ML 250 ML ONE (07:18)
[2022-02-09] MEDS ORDERED: fentaNYL 100 MCG/2 ML INJ IV NR (07:32)
[2022-02-09] MEDS ORDERED: ONDANSETRON 4 MG/2 ML INJ IV PRN (07:32)
[2022-02-09] MEDS ORDERED: HYDROmorphone 0.5 MG/0.5 ML INJ IV PRN ×2 (07:32)
--- NOTE | 2022-02-09 07:33 | Anesthesia Day of Surgery ---
Anesthesia Day of Surgery - Day of Surgery Patient Examined: Yes Patient H&P Reviewed: Yes Patient is NPO: Yes
[2022-02-09] MEDS ORDERED: BUPIVACAINE/PF (0.5%) 5 MG/1 ML 30 ML VIAL INFILTRATI ONE (07:35)
--- NOTE | 2022-02-09 07:35 | Anesthesia Consultation ---
Anesthesia Consult and Med Hx Date of service: 02/09/22 - Airway Anesthetic Teeth Evaluation: Poor, Dentures ROM Head & Neck: Adequate Mental/Hyoid Distance: Adequate Mallampati Class: Class III Intubation Access Assessment: Probably Good - Pulmonary Exam CTA: Yes - Cardiac Exam Cardiac Exam: RRR - Pre-Operative Health Status ASA Pre-Surgery Classification: ASA4 Proposed Anesthetic Plan: MAC Nerve Block: Supraclavicular - Pulmonary Hx Smoking: No Hx Asthma: No Hx Respiratory Symptoms: No (+2FS) SOB: No (Lung mass) COPD: No Hx Pneumonia: Yes (COVID+ PNA 04/2020 requiring hospitalization; symptoms now resolved) Hx Sleep Apnea: No (FREDI PRE SCREEN HIGH RISK) - Cardiovascular System Hx Hypertension: Yes Hx Heart Attack/AMI: No Hx Percutaneous Transluminal Coronary Angioplasty (PTCA): No Hx Cardia Arrhythmia: No Hx Pacemaker: No Hx Internal Defibrillator: No - Central Nervous System Hx Seizures: No CVA: No Hx Back Pain: No Hx Psychiatric Problems: No - Gastrointestinal Hx Gastroesophageal Reflux Disease: No - Endocrine Hx Renal Disease: Yes (hx ARF w/ HD 04/2020 while hospitalized w/ COVID. Resolved.) Hx End Stage Renal Disease: Yes Hx Cirrhosis: No Hx Liver Disease: No Hx Insulin Dependent Diabetes: Yes Hx Non-Insulin Dependent Diabetes: Yes (no longer using insulin) Hx Thyroid Disease: No - Hematic Hx Anemia: No Hx Sickle Cell Disease: No - Other Systems Hx Alcohol Use: Yes (3X PER WEEK) Hx Substance Use: No Hx Cancer: Yes (hx prostate ca) Hx Obesity: No
[2022-02-09] MEDS ORDERED: fentaNYL 100 MCG/2 ML INJ ONE (07:39)
[2022-02-09] MEDS ORDERED: LIDOCAINE MPF (2%) 20 MG/1 ML VIAL 5 ML ONE (07:39)
[2022-02-09] MEDS ORDERED: propofoL 200 MG/20 ML VIAL IV ONE ×2 (07:40→09:36)
[2022-02-09] MEDS ORDERED: MIDAZOLAM 2 MG/2 ML INJ IV NR (08:00)
[2022-02-09] MEDS ORDERED: SODIUM CHLORIDE 0.9% 1000 ML 1,000 ML IV SCH (08:00)
--- NOTE | 2022-02-09 08:28 | Short Stay Summary ---
Short Stay Documentation Date of service: 02/09/22 Narrative H&P: The patient is a 77-year-old male with a history of end-stage renal disease was currently on hemodialysis through a right internal jugular permacath. He is in need of long-term dialysis access and requires creation of a left arm arteriovenous graft. He was given the risk, benefits, and alternative procedures and has consented to the procedure. - History Past Medical History: diabetes, dialysis, ESRD, hypertension, other (Prostate cancer) Past Surgical History: Other (Nephrostomy tube placement, ureteral stent placement) Social history: no significant social history - Allergies and Medications Current Medications: Allergies No Known Allergies Allergy (Verified 10/19/21 11:10) Home Medications Medication Instructions Recorded Confirmed Last Taken Type AtorvaSTATin [Lipitor] 20 mg PO DAILY 01/29/21 02/01/22 02/01/22 History Hydralazine HCl 50 mg PO TID 01/29/21 02/01/22 02/01/22 History Metoprolol [Lopressor TAB] 25 mg PO BID 10/15/21 02/01/22 02/01/22 History Sodium Bicarbonate 650 mg PO BID 10/15/21 02/01/22 02/01/22 History Active Medications Hydromorphone HCl (Hydromorphone 0.5 Mg/0.5 Ml Inj) 0.25 mg IV Q10MIN PRN PRN Reason: Pain, Moderate (4-6) Stop: 02/09/22 20:00 Hydromorphone HCl (Hydromorphone 0.5 Mg/0.5 Ml Inj) 0.5 mg IV Q10MIN PRN PRN Reason: Pain , Severe (7-10) Stop: 02/09/22 20:00 Sodium Chloride (Nacl 0.9% 1000 Ml) 1,000 mls @ 42 mls/hr IV DIRECT JOSIANE Midazolam HCl (Midazolam 2 Mg/2 Ml Inj) 2 mg IV PREOP NR Stop: 02/09/22 23:59 Ondansetron HCl (Ondansetron 4 Mg/2 Ml Inj) 4 mg IV ONCE PRN PRN Reason: Nausea And Vomiting Stop: 02/09/22 08:30 - Physical exam Lungs: Normal air movement Breasts: other (Right chest internal jugular permacath is free of overt signs of infection) Heart: Regular rate Gastrointestinal: normal Male Genitourinary: deferred Rectal Exam: deferred Extremities: no ischemia - Brief post op/procedure progress note Date of procedure: 02/09/22 Pre-op diagnosis: End-Stage Renal Disease Post-op diagnosis: same Procedure: Creation of Left Brachial Artery to Left Axillary Vein Arteriovenous Graft with 6 mm Bovine Artegraft Anesthesia: MAC, regional Surgeon: ESTEE BARRETT Estimated blood loss: minimal Pathology: none Condition: stable - Disposition Condition at discharge: Good Disposition: 01 HOME / SELF CARE / HOMELESS Short Stay Discharge Plan Activity: other (No heavy lifting with left arm for 2 weeks.) Wound: open to air, keep clean and dry, other (Okay to wash the left arm incisions with soap and water but do not soak in water for 2 weeks.) Follow up with: ESTEE BARRETT MD [Staff Physician] - 14 Days Prescriptions: HYDROcodone/APAP 5-325 [[place]udson 5/325] 1 each PO Q6HR PRN #30 tablet PRN Reason: Pain
[2022-02-09] MEDS ORDERED: SODIUM CHLORIDE P/F VIAL 10 ML 10 ML ONE (09:13)
[2022-02-09] MEDS ORDERED: KETAMINE/STERILE WATER 50 MG/ML SYRINGE ONE (09:22)
[2022-02-09] MEDS ORDERED: SODIUM CHLORIDE 0.9% IRR 1,500 ML BOTTLE IR ONE (09:32)
[2022-02-09] MEDS ORDERED: HEPARIN 10,000 UNITS/10 ML VIAL IV ONE (09:32)
[2022-02-09] MEDS ORDERED: rifAMPin 600 MG VIAL IV ONE (09:33)
[2022-02-09] MEDS ORDERED: SODIUM CHLORIDE 0.9% P/F 10 ML VIAL IV ONE (09:33)
[2022-02-09] MEDS ORDERED: LIDOCAINE (1%) 10 MG/1 ML VIAL 20 ML MDV INFILTRATI ONE (09:33)
--- NOTE | 2022-02-09 10:26 | Operative Report ---
Operative Report Operative Report: Date of procedure: 02/09/2022 Pre-operative diagnosis: End-Stage Renal Disease Post-operative diagnosis: Same Procedure(s): 1. Creation of Left Brachial Artery to Left Axillary Vein AV Graft with 6 mm Bovine Graft Artergraft Surgeon: Rafael Silva MD Mutuel Machine Operator: None Anesthesia: Regional/MAC EBL: Minimal Counts: Correct Complications: None Condition: Stable Findings: Successful Creation of Left Arm AV Graft with Palpable Thrill and Palpable Radial Pulse at the Completion of the Case. Specimen: None Indication: The patient is a 77-year-old male with a history of end-stage renal disease who was on hemodialysis through a right internal jugular permacath. He is in need of long-term dialysis access and requires creation of a left arm arteriovenous graft. He was given the risk, benefits, and alternative procedures and consented to the procedure. Description of Procedure: Prior to being transported to the operating room the patient had a regional block of the left arm performed. After the block was performed the patient was transported to the operating room and adequately sedated. The patient's left arm was then prepped and draped in normal sterile fashion. A longitudinal incision was made on the medial aspect of the arm just proximal to the antecubital crease and carried down to the brachial artery using sharp dissection. The brachial artery was dissected out circumferentially both proximally and distally and controlled with vessel loops. A second incision was created in longitudinal fashion on the medial aspect of the arm just distal to the axillary crease and carried down to the axillary vein using sharp dissection. Axillary vein was dissected out circumferentially and controlled with a vessel loop. I then used a Sandy-Wick tunneler to tunnel from the brachial artery incision to the axillary vein incision and then pulled an 6 mm bovine through the tunnel. I infused with heparinized saline to ensure that it was not twisted or kinked. I put the brachial artery vessel loops on tension controlling the flow and then created an arteriotomy using an 11 blade and Gauthier scissors. I beveled the graft and created an end-to-side anastomosis using 6-0 Prolene running fashion. I clamped the graft just proximal to the anastomosis and then released the vessel loops restoring flow in the brachial artery. I placed quick clot in incision to achieve hemostasis. I cut the proximal end of the graft to the appropriate length and beveled the graft in preparation for a venous anastomosis. I controlled the axillary vein a Satinsky clamp and created a venotomy using an 11 blade and Gauthier scissors. I created an end to side anastomosis using a 6-0 Prolene in running fashion. Prior to completing the anastomosis I flushed the graft to ensure there was no thrombus and then completed the anastamosis. I released all clamps allowing flow into the AV graft which had an excellent thrill. I packed the wound with quick clot to achieve hemostasis. I closed both wounds in 2 layers using 3-0 Vicryl in running fashion in the deep dermal layer and 4-0 Monocryl in running fashion the subcuticular layer. I dressed both wounds with Dermabond. The patient tolerated the procedure well all sponge, needle, and instrument counts were correct. The patient was taken to recovery in stable condition.
[2022-02-09 12:07] VITALS: BP 123/72
--- NOTE | 2022-02-09 16:10 | Post Anesthesia Evaluation ---
- Post Anesthesia Evaluation Patient Participated: Yes Airway Patent: Yes Stable Respiratory Function: Yes Nausea/Vomiting: No Temp > 96.8F: Yes Pain Manageable: Yes Adequeate Hydration: Yes Anesthesia Complications: No Block Receding Appropriately: Yes Patient on Ventilator: No
== END 2022-02-09 11:28 | disposition home or self-care (01) ==
LOC: OR 06:03
PROVIDERS: ATTEND Surgery Vascular Surgery
DX: I12.0 Hypertensive chronic kidney disease with stage 5 chronic kidney disease or end stage renal disease (principal); E11.22 Type 2 diabetes mellitus with diabetic chronic kidney disease; N18.6 End stage renal disease; E11.21 Type 2 diabetes mellitus with diabetic nephropathy; E78.00 Pure hypercholesterolemia, unspecified; M19.90 Unspecified osteoarthritis, unspecified site; Z98.890 Other specified postprocedural states; Z79.899 Other long term (current) drug therapy; Z87.01 Personal history of pneumonia (recurrent); Z87.442 Personal history of urinary calculi; Z87.440 Personal history of urinary (tract) infections; Z85.46 Personal history of malignant neoplasm of prostate; Z72.89 Other problems related to lifestyle; Z98.0 Intestinal bypass and anastomosis status
CPT/HCPCS: 36830; 64415; 80048; 82962; 85027; C1768; J0690; J1644; J2250; J2405; J2704; J3010; J3490; J7030; J7050; 64450; J2440; J2720; J7040